=== PATIENT | female | born 1970 | race Caucasian/White ===

== ENCOUNTER 2016-11-29 17:04 | Emergency (ER) | payer OTHER ==
[~2016-11-29 17:04] MED LIST: ALBU17IN INH; BREO1INH INH; COLA100C PO; EXCETAB80 PO; FEOS200T2 PO; INCR1INH INH; PERC5TAB6 PO; PRIL40CA PO; SERT-141 PO; XANA0.5T PO
[2016-11-29] MEDS ORDERED: KETOROLAC 30 MG/ML VIAL (J1885) As Ordered ONE (17:28)
[2016-11-29 17:40] LABS: BASO # 0.1 K/mm3 (0.0-0.2); BASO % 0.6 % (0.0-1.0); EOS # 0.7 K/mm3 (0.0-0.50); EOS % 6.7 % (0.0-3.0); LARGE UNSTAINED CELL # 0.2 K/mm3 (0.0-0.4); LARGE UNSTAINED CELL % 2.2 % (0.0-4.0); LYMPH # 3.6 K/mm3 (1.5-4.5); LYMPH % 33.8 % (24.0-44.0); MEAN CORPUSCULAR HEMOGLOBIN 29.3 pg (27.0-33.0); MEAN CORPUSCULAR HGB CONC 32.9 g/dl (32.0-36.5); MEAN CORPUSCULAR VOLUME 88.8 fl (80.0-96.0); MONO # 0.5 K/mm3 (0.0-0.8); MONO % 5.1 % (0.0-5.0); NEUTROPHILS # 5.4 K/mm3 (1.8-7.7); NEUTROPHILS % 51.7 % (36.0-66.0); PLATELET COUNT, AUTOMATED 463 k/mm3 (150-450); RED CELL DISTRIBUTION WIDTH 14.4 % (11.5-14.5); WHITE BLOOD COUNT 10.5 K/mm3 (4.0-10.0)
[2016-11-29 17:44] LABS: INR 0.94
[2016-11-29 18:03] LABS: ANION GAP 10 MEQ/L (8-16); BLOOD UREA NITROGEN 22 MG/DL (7-18); CALCIUM LEVEL 9.2 MG/DL (8.5-10.1); CARBON DIOXIDE LEVEL 21 MEQ/L (21-32); CHLORIDE LEVEL 113 MEQ/L (98-107); CREATININE FOR GFR 0.64 MG/DL (0.55-1.02); GLOMERULAR FILTRATION RATE > 60.0 (>58); GLUCOSE, FASTING 77 MG/DL (70-105); POTASSIUM SERUM 3.7 MEQ/L (3.5-5.1); SODIUM LEVEL 144 MEQ/L (136-145)
[2016-11-29] MEDS ORDERED: ONDANSETRON 4MG/2ML VIAL (J2405) As Ordered ONE (18:07)
[2016-11-29] MEDS ORDERED: MORPHINE 4 MG/ML 1ML SYRINGE As Ordered ONE ×2 (18:07→18:58)
[2016-11-29 18:13] LABS: ALBUMIN 3.3 GM/DL (3.2-5.2); ALBUMIN/GLOBULIN RATIO 0.97 (1.00-1.93); ALKALINE PHOSPHATASE 91 U/L (45-117); ALT/SGPT 16 U/L (12-78); AST/SGOT 13 U/L (15-37); BILIRUBIN,DIRECT < 0.1 MG/DL (0.0-0.2); BILIRUBIN,TOTAL 0.2 MG/DL (0.2-1.0); TOTAL PROTEIN 6.7 GM/DL (6.4-8.2)
--- NOTE | 2016-11-29 18:51 | REP ---
CHEST, PORTABLE: AP portable view of the chest is performed and compared to prior study of 11/04/2016. Mild scattered fibrotic changes appear stable. There is no pneumothorax or acute infiltrate. The heart is normal in size and the mediastinal silhouette is unchanged. IMPRESSION: No acute pulmonary disease. Signed by Severiano Francis MD 11/29/2016 07:17 P
--- NOTE | 2016-11-29 20:06 | ECGEPIP ---
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
--- NOTE | 2016-11-29 20:34 | EDDOCDS ---
Physician Documentation [facility] Name: Thalia Marshall Age: 46 yrs Sex: Female : 1970 Arrival Date: 11/29/2016 Time: 17:04 Bed 8 Private MD: Loren Crabtree A Disposition: 11/29/16 19:05 Discharged to Home/Self Care. Impression: Other chest pain - pleuritic . - Condition is Stable. - Discharge Instructions: Angina Pectoris, Nonspecific Chest Pain, Costochondritis, Pleurisy. - Prescriptions for [place] 5- 325 mg Oral Tablet - take 1 tablet by ORAL route every 6 hours As needed MDD: 4 tabs; 20 tablet. - Medication Reconciliation, Local Pharmacy Hours form. - Follow up: Loren Crabtree; When: 1 - 2 days. Follow up: Micheal Akhtar; When: Call to arrange an appointment. - Problem is an acute exacerbation. - Symptoms have improved. Historical: - Allergies: no known allergies; - Home Meds: 1. alprazolam 0.5 mg Oral tab 1 tab as needed 2. Breo Ellipta 200-25 mcg/dose inhalation dsdv 1 puff once daily 3. Incruse Ellipta 62.5 mcg/actuation inhalation dsdv 1 puff once daily 4. omeprazole 40 mg Oral cpDR 1 cap once daily 5. Ventolin Rotahaler/Rotacaps Inhl as needed 6. Zoloft 150mg Oral tab once daily - PMHx: COPD; Kidney stones; Pneumothorax, Spontaneous; - PSHx: right lung wedge resection; talc pleurodesis; 2 section; 4 laparscopy; carpal tunnel right arm; - Social history: Smoking status: Patient states former smoker of tobacco. No barriers to communication noted, The patient speaks fluent [place], Speaks appropriately for age. - Family history: Not pertinent. - : The pt / caregiver states he / she is not on anticoagulants. Home medication list is obtained from the patient. - Exposure Risk Screening:: None identified. 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 4 in. (162.56 cm); Pain 7/10; 17:55 Pain 6/10; jmk 19:01 BP 141 / 85 (auto/); jmk 19:01 Pulse 76 MON; Pulse Ox 96% ; jmk 19:40 BP 140 / 74; Pulse 88; Resp 18; Temp 97.6(O); Pulse Ox 97% on R/A; Pain 4/10; nn1 19:41 BP 140 / 74; Pain 4/10; nn1 17:06 Body Mass Index 20.94 (55.34 kg, 162.56 cm) cmb MDM: 17:18 ECG WITH READING ER PHYS+CARDIAG ordered. EDMS 17:23 Instrument Operator/Pulse Ox/q 30 min VS ordered. sd1 17:23 IV Saline Lock ordered. sd1 17:23 Rhythm Strip to chart ordered. sd1 17:23 Undress patient appropriately for examination ordered. sd1 17:23 ketorolac 30 mg IVP once ordered. sd1 17:24 portable chest Ordered. EDMS 17:24 Basic Metabolic Profile Ordered. EDMS 17:24 CBC with Diff Ordered. EDMS 17:24 Cardiac Injury Profile Ordered. EDMS 17:24 D-Dimer Quant Ordered. EDMS 17:24 Prothrombin Time Profile\E\INR Ordered. EDMS 17:24 Troponin Ordered. EDMS 17:38 Liver Profile Ordered. EDMS 17:38 Lipase Ordered. EDMS 17:45 Financial registration complete. jpb 17:46 [facility] Payment Agreement was scanned into [employer] and attached to record. jpb 18:03 CBC with Diff Reviewed. sd1 18:03 D-Dimer Quant Reviewed. sd1 18:03 Prothrombin Time Profile\E\INR Reviewed. sd1 18:04 morphine 4 mg IVP every 15 minutes; Document pain score/vitals after each dose (Hold if sd1 SBP < 90mmHg) x2 ordered. 18:04 Ondansetron 4 mg IVP once ordered. sd1 18:20 Basic Metabolic Profile Reviewed. sd1 18:20 Liver Profile Reviewed. sd1 18:20 Cardiac Injury Profile Reviewed. sd1 18:20 Troponin Reviewed. sd1 18:20 Lipase Reviewed. sd1 Administered Medications: 17:31 Drug: ketorolac 30 mg [ketorolac 30 mg/mL (1 mL) injection solution (1 mL)] Route: IVP; [facility] Site: left antecubital; 17:54 Follow up: Response: Pain is decreased jmk 17:55 Follow up: Pain 6/10 Adult jmk 18:13 Drug: morphine 4 mg Route: IVP; Site: left antecubital; jmk 18:14 Drug: Ondansetron 4 mg Route: IVP; Site: left antecubital; jmk 19:00 Drug: morphine 4 mg Route: IVP; Site: left antecubital; jmk 19:41 Follow up: BP 140 / 74; Pain 4/10 Adult nn1 Signatures: Dispatcher [employer] Laureen Bermudez MD MD sd1 Tonny RcoaRN RN Vic Anderson RN RN mlb1 Chan Torres NikkoleRN RN nn1 The chart was reviewed and I authenticate all verbal orders and agree with the evaluation and treatment provided.Attachments: 17:46 [facility] Payment Agreement [facility] MTDD
--- NOTE | 2016-11-29 20:34 | EDDOCDS ---
Nurse's Notes [facility] Name: Thalia Marshall Age: 46 yrs Sex: Female : 1970 Arrival Date: 11/29/2016 Time: 17:04 Bed 8 Private MD: Loren Crabtree A Diagnosis: Other chest pain-pleuritic Presentation: 11/29 17:10 Presenting complaint: Patient states: Intermittent left side chest pain worse with mlb1 inspiration and cough began at 0900 this am. Aspirin was not taken prior to arrival. Adult Sepsis Screening: The patient does not have new or worsening altered mentation. Patient's respiratory rate is less than 22. Systolic blood pressure is greater than 100. Patient has a qSOFA score of 0- Negative Sepsis Screen. Suicide/Homicide risk assessment- the patient denies having any suicidal and/or homicidal ideations and does not present with any other emotional, behavioral or mental health complaints. Status: Patient is not a facility service manager or dependent. Transition of care: patient was not received from another setting of care. 17:10 Acuity: DARNELL Level 2 mlb1 17:10 Method Of Arrival: Walkin/Carried/Asstd mlb1 Triage Assessment: 17:14 General: Appears distressed, Behavior is appropriate for age, cooperative. Pain: mlb1 Location: back and chest Pain currently is 7 out of 10 on a pain scale. HIV screening NA for this visit Offered previously. 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 alprazolam 0.5 mg Oral tab 1 tab as needed 2. Breo Ellipta 200-25 mcg/dose inhalation dsdv 1 puff once daily 3. Incruse Ellipta 62.5 mcg/actuation inhalation dsdv 1 puff once daily 4. omeprazole 40 mg Oral cpDR 1 cap once daily 5. Ventolin Rotahaler/Rotacaps Inhl as needed 6. Zoloft 150mg Oral tab once daily - PMHx: COPD; Kidney stones; Pneumothorax, Spontaneous; - PSHx: right lung wedge resection; talc pleurodesis; 2 section; 4 laparscopy; carpal tunnel right arm; - Social history: Smoking status: Patient states former smoker of tobacco. No barriers to communication noted, The patient speaks fluent Latvian, Speaks appropriately for age. - Family history: Not pertinent. - : The pt / caregiver states he / she is not on anticoagulants. Home medication list is obtained from the patient. - Exposure Risk Screening:: None identified. Screenin:52 Screening information is obtained from the patient. Fall risk: No risks identified. jmk Assistance ADL's: requires no assistance with activities of daily living. Abuse/DV Screen: The patient / caregiver reports he/she is: not in a situation that causes fear, pain or injury. Nutritional screening: No deficits noted. Advance Directives: Currently, there is no health care proxy. There is no active DNR order. There is no living will. There is no Power of Log Cooker. Advance directive information has not previously been placed in an [facility] medical record. Further advance directive information is declined. home support is adequate. Assessment: 17:52 General: Appears uncomfortable. Pain: Location: left lateral posterior chest, right jmk lateral posterior chest, left lateral anterior chest, right lateral anterior chest, right breast and left breast Pain currently is 7 out of 10 on a pain scale. Cardiovascular: Capillary refill < 3 seconds Clubbing of nail beds is absent Heart tones S1 S2 present Edema is absent. Rhythm is regular Chest pain radiates Does not radiate. Respiratory: No deficits noted. Airway is patent Respiratory effort is even, unlabored, Respiratory pattern is regular, Breath sounds are clear bilaterally. GI: Abdomen is flat, non- distended Bowel sounds present X 4 quads. 19:10 General: Appears medicated for 5/10 discomfort despite casual presentation. k 19:39 General: Appears in no apparent distress, comfortable, Behavior is appropriate for age, nn1 cooperative. Pain: Pain currently is 4 out of 10 on a pain scale. Neurological: Level of Consciousness is awake, alert, obeys commands, Oriented to person, place, time. Respiratory: Airway is patent Respiratory effort is even, unlabored, Respiratory pattern is regular. Derm: Skin is pink, warm & dry. Vital Signs: 17:06 BP 136 / 80; Pulse 108; Resp 20; Temp 98.6; Pulse Ox 98% ; Weight 55.34 kg; Height 5 cmb ft. 4 in. (162.56 cm); Pain 7/10; 17:55 Pain 6/10; jmk 19:01 BP 141 / 85 (auto/); jmk 19:01 Pulse 76 MON; Pulse Ox 96% ; jmk 19:40 BP 140 / 74; Pulse 88; Resp 18; Temp 97.6(O); Pulse Ox 97% on R/A; Pain 4/10; nn1 19:41 BP 140 / 74; Pain 4/10; nn1 17:06 Body Mass Index 20.94 (55.34 kg, 162.56 cm) cmb Vitals: 17:06 Log In Time: November 29, 2016 at 17:04. cmb ED Course: 17:05 Patient visited by Leidy Spence. cmb 17:05 Patient moved to Waiting cmb 17:06 Loren Crabtree is Private Physician. cmb 17:08 Patient moved to 8 cmb 17:08 RN notified that patient meets Red Flag criteria. cmb 17:09 Laureen Espinoza MD is Attending Physician. sd1 17:10 Patient visited by Vic Ruff, RN. mlb1 17:11 Patient visited by Laureen Espinoza MD. sd1 17:12 Triage Initiated mlb1 17:14 Patient visited by Vic Ruff, RN. mlb1 17:27 Basic Metabolic Profile Sent. jmk 17:27 CBC with Diff Sent. jmk 17:27 Cardiac Injury Profile Sent. jmk 17:27 D-Dimer Quant Sent. jmk 17:27 Prothrombin Time Profile\E\INR Sent. jmk 17:27 Troponin Sent. jmk 17:40 Patient visited by Cade Guerra. jml1 17:40 EKG done. (by ED staff). Reviewed by Laureen Espinoza MD. jml1 17:45 Lipase Sent. jmk 17:45 Liver Profile Sent. jmk 17:46 [facility] Payment Agreement was scanned into [employer] and attached to record. jpb 17:52 The patient / caregiver is instructed regarding the plan of care and ED course. Cardiac jmk monitor on. Pulse ox on. 17:52 Inserted saline lock: 20 gauge in left antecubital area. jmk 18:47 Patient visited by Cade Guerra. jml1 19:04 Loren Crabtree is Referral Physician. sd1 19:04 Micheal Akhtar MD is Referral Physician. sd1 19:11 Patient visited by Tonny Roca,RENA. jmk 19:14 portable chest Returned. EDMS 19:41 No procedures done that require assistance. nn1 Administered Medications: 17:31 Drug: ketorolac 30 mg [ketorolac 30 mg/mL (1 mL) injection solution (1 mL)] Route: IVP; [facility] Site: left antecubital; 17:54 Follow up: Response: Pain is decreased jmk 17:55 Follow up: Pain 6/10 Adult jmk 18:13 Drug: morphine 4 mg Route: IVP; Site: left antecubital; k 18:14 Drug: Ondansetron 4 mg Route: IVP; Site: left antecubital; jmk 19:00 Drug: morphine 4 mg Route: IVP; Site: left antecubital; jmk 19:41 Follow up: BP 140 / 74; Pain 4/10 Adult nn1 Order Results: Lab Order: Basic Metabolic Profile; SPEC'M 11/29/16 17:24 Test: GLUCOSE, FASTING; Value: 77; Range: 70-105; Units: MG/DL; Status: F Test: BLOOD UREA NITROGEN; Value: 22; Range: 7-18; Abnormal: Above high normal; Units: MG/DL; Status: F Test: CREATININE FOR GFR; Value: 0.64; Range: 0.55-1.02; Units: MG/DL; Status: F Test: GLOMERULAR FILTRATION RATE; Value: > 60.0; Range: >58; Status: F Test: SODIUM LEVEL; Value: 144; Range: 136-145; Units: MEQ/L; Status: F Test: POTASSIUM SERUM; Value: 3.7; Range: 3.5-5.1; Units: MEQ/L; Status: F Test: CHLORIDE LEVEL; Value: 113; Range: 98-107; Abnormal: Above high normal; Units: MEQ/L; Status: F Test: CARBON DIOXIDE LEVEL; Value: 21; Range: 21-32; Units: MEQ/L; Status: F Test: ANION GAP; Value: 10; Range: 8-16; Units: MEQ/L; Status: F Test: CALCIUM LEVEL; Value: 9.2; Range: 8.5-10.1; Units: MG/DL; Status: F Test Note: ; Units are mL/min/1.73 m2 Chronic Kidney Disease Staging per NKF: Stage I & II GFR >=60 Normal to Mildly Decreased Stage III GFR 30-59 Moderately Decreased Stage IV GFR 15-29 Severely Decreased Stage V GFR <15 Very Little GFR Left ESRD GFR <15 on MEAT 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 AND 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 Lab Order: CBC with Diff; SPEC'M 11/29/16 17:24 Test: WHITE BLOOD COUNT; Value: 10.5; Range: 4.0-10.0; Abnormal: Above high normal; Units: K/mm3; Status: F Test: RED BLOOD COUNT; Value: 4.46; Range: 4.00-5.40; Units: M/mm3; Status: F Test: HEMOGLOBIN; Value: 13.0; Range: 12.0-16.0; Units: g/dl; Status: F Test: HEMATOCRIT; Value: 39.6; Range: 36.0-47.0; Units: %; Status: F Test: MEAN CORPUSCULAR VOLUME; Value: 88.8; Range: 80.0-96.0; Units: fl; Status: F Test: MEAN CORPUSCULAR HEMOGLOBIN; Value: 29.3; Range: 27.0-33.0; Units: pg; Status: F Test: MEAN CORPUSCULAR HGB CONC; Value: 32.9; Range: 32.0-36.5; Units: g/dl; Status: F Test: RED CELL DISTRIBUTION WIDTH; Value: 14.4; Range: 11.5-14.5; Units: %; Status: F Test: PLATELET COUNT, AUTOMATED; Value: 463; Range: 150-450; Abnormal: Above high normal; Units: k/mm3; Status: F Test: NEUTROPHILS %; Value: 51.7; Range: 36.0-66.0; Units: %; Status: F Test: LYMPH %; Value: 33.8; Range: 24.0-44.0; Units: %; Status: F Test: MONO %; Value: 5.1; Range: 0.0-5.0; Abnormal: Above high normal; Units: %; Status: F Test: EOS %; Value: 6.7; Range: 0.0-3.0; Abnormal: Above high normal; Units: %; Status: F Test: BASO %; Value: 0.6; Range: 0.0-1.0; Units: %; Status: F Test: LARGE UNSTAINED CELL %; Value: 2.2; Range: 0.0-4.0; Units: %; Status: F Test: NEUTROPHILS #; Value: 5.4; Range: 1.8-7.7; Units: K/mm3; Status: F Test: LYMPH #; Value: 3.6; Range: 1.5-4.5; Units: K/mm3; Status: F Test: MONO #; Value: 0.5; Range: 0.0-0.8; Units: K/mm3; Status: F Test: EOS #; Value: 0.7; Range: 0.0-0.50; Abnormal: Above high normal; Units: K/mm3; Status: F Test: BASO #; Value: 0.1; Range: 0.0-0.2; Units: K/mm3; Status: F Test: LARGE UNSTAINED CELL #; Value: 0.2; Range: 0.0-0.4; Units: K/mm3; Status: F Lab Order: Cardiac Injury Profile; [facility] 11/29/16 17:24 Test: CPK CREATINE PHOSPHOKINASE; Value: 51; Range: 26-192; Units: U/L; Status: F Test: CK-MB VALUE MASS; Value: 1.0; Range: 0.0-3.6; Units: NG/ML; Status: F Test: MB/CK RELATIVE INDEX; Value: 1.96; Range: < OR =4; Status: F Test Note: ; DIAGNOSIS CRITERIA MMB ng/ml Relative Index (RI) NON-AMI < or = 5 N/A PHILIP ZONE > 5 < or = 4 AMI > 5 > 4 Lab Order: D-Dimer Quant; [facility] 11/29/16 17:24 Test: D-DIMER QUANT; Value: < 270.0; Range: <500; Units: ng/ml; Status: F Lab Order: Prothrombin Time Profile\E\INR; [facility] 11/29/16 17:24 Test: PROTHROMBIN TIME; Value: 12.7; Range: 12.3-14.5; Units: SECONDS; Status: F Test: INR; Value: 0.94; Status: F Test Note: ; THERAPUTIC HUMAN INR VALUES INDICATIONS NORMAL RANGES PROPHYLAXIS/TREATMENT OF: VENOUS THROMBOSIS 2.0-3.0 PULMONARY EMBOLISM 2.0-3.0 PREVENTION OF SYSTEMIC EMBOLISM FROM: TISSUE HEART VALVES 2.0-3.0 ACUTE MYOCARDIAL INFARCTION 2.0-3.0 VALVULAR HEART DISEASE 2.0-3.0 ATRIAL FIBRILLATION 2.0-3.0 MECHANICAL VALVES(HIGH RISK) 2.5-3.5 RECURRENT MYOCARDIAL INFARCTION 2.5-3.5 Lab Order: Troponin; SPEC'M 11/29/16 17:24 Test: TROPONIN I; Value: < 0.02; Range: < 0.10; Units: NG/ML; Status: F Test Note: ; Troponin I Reference Interval for [employer] LOCI: 99th Percentile= 0.00-0.045 ng/ml Risk Stratification: <= 0.10 ng/ml Decreased Risk for Adverse Clinical Events. 0.10-1.50 ng/ml Increased Risk for Adverse Clinical Events. Evaluation of additional criterion and/or repeat testing in 2-6 hours is suggested to rule out myocardial damage. >= 1.50 ng/ml Indicative of Myocardial Injury. Lab Order: Liver Profile; SPEC'M 11/29/16 17:41 Test: AST/SGOT; Value: 13; Range: 15-37; Abnormal: Below low normal; Units: U/L; Status: F Test: ALT/SGPT; Value: 16; Range: 12-78; Units: U/L; Status: F Test: ALKALINE PHOSPHATASE; Value: 91; Range: 45-117; Units: U/L; Status: F Test: BILIRUBIN,TOTAL; Value: 0.2; Range: 0.2-1.0; Units: MG/DL; Status: F Test: BILIRUBIN,DIRECT; Value: < 0.1; Range: 0.0-0.2; Units: MG/DL; Status: F Test: TOTAL PROTEIN; Value: 6.7; Range: 6.4-8.2; Units: GM/DL; Status: F Test: ALBUMIN; Value: 3.3; Range: 3.2-5.2; Units: GM/DL; Status: F Test: ALBUMIN/GLOBULIN RATIO; Value: 0.97; Range: 1.00-1.93; Abnormal: Below low normal; Status: F Lab Order: Lipase; SPEC'M 11/29/16 17:41 Test: LIPASE; Value: 122; Range: 73-393; Units: U/L; Status: F Radiology Order: portable chest Test: portable chest REASON FOR EXAMINATION: Chest Pain; ; CHEST, PORTABLE:; ; AP portable view of the chest is performed and compared to prior study of; 11/04/2016. Mild scattered fibrotic changes appear stable. There is no; pneumothorax or acute infiltrate. The heart is normal in size and the mediastinal; silhouette is unchanged.; ; IMPRESSION:; No acute pulmonary disease.; ; ; ; Unreviewed; Outcome: 19:05 Discharge ordered by Provider. sd1 19:40 Discharge Assessment: Patient awake, alert and oriented x 3. No cognitive and/or nn1 functional deficits noted. Patient verbalized understanding of disposition instructions. patient administered narcotics - yes. Pt provided with safe discharge. 19:41 The following High Risk Discharge criteria are identified: None. Discharged to home nn1 ambulatory, with family. Condition: stable. Prescriptions given X 1. No special radiology studies were completed. Property :Personal belongings accompany Pt. 19:42 Patient left the ED. nn1 Signatures: Dispatcher [employer] Laureen Bermudez MD MD sd1 Tonny Roca,RN RN Vic Anderson RN RN Caed Paul Joel jpb Boshart, [place] cmb Nunez, Nikkole,RN RN nn1 RAMÍREZ
--- NOTE | 2016-12-01 20:45 | EDDOCDS ---
Physician Documentation [facility] Name: Thalia Marshall Age: 46 yrs Sex: Female : 1970 Arrival Date: 11/29/2016 Time: 17:04 Bed 8 Private MD: Loren Crabtree A Disposition: 11/29/16 19:05 Discharged to Home/Self Care. Impression: Other chest pain - pleuritic . - Condition is Stable. - Discharge Instructions: Angina Pectoris, Nonspecific Chest Pain, Costochondritis, Pleurisy. - Prescriptions for [place] 5- 325 mg Oral Tablet - take 1 tablet by ORAL route every 6 hours As needed MDD: 4 tabs; 20 tablet. - Medication Reconciliation, Local Pharmacy Hours form. - Follow up: Loren Crabtree; When: 1 - 2 days. Follow up: Micheal Akhtar; When: Call to arrange an appointment. - Problem is an acute exacerbation. - Symptoms have improved. Historical: - Allergies: no known allergies; - Home Meds: 1. alprazolam 0.5 mg Oral tab 1 tab as needed 2. Breo Ellipta 200-25 mcg/dose inhalation dsdv 1 puff once daily 3. Incruse Ellipta 62.5 mcg/actuation inhalation dsdv 1 puff once daily 4. omeprazole 40 mg Oral cpDR 1 cap once daily 5. Ventolin Rotahaler/Rotacaps Inhl as needed 6. Zoloft 150mg Oral tab once daily - PMHx: COPD; Kidney stones; Pneumothorax, Spontaneous; - PSHx: right lung wedge resection; talc pleurodesis; 2 section; 4 laparscopy; carpal tunnel right arm; - Social history: Smoking status: Patient states former smoker of tobacco. No barriers to communication noted, The patient speaks fluent Czech, Speaks appropriately for age. - Family history: Not pertinent. - : The pt / caregiver states he / she is not on anticoagulants. Home medication list is obtained from the patient. - Exposure Risk Screening:: None identified. 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 4 in. (162.56 cm); Pain 7/10; 17:55 Pain 6/10; jmk 19:01 BP 141 / 85 (auto/); jmk 19:01 Pulse 76 MON; Pulse Ox 96% ; jmk 19:40 BP 140 / 74; Pulse 88; Resp 18; Temp 97.6(O); Pulse Ox 97% on R/A; Pain 4/10; nn1 19:41 BP 140 / 74; Pain 4/10; nn1 17:06 Body Mass Index 20.94 (55.34 kg, 162.56 cm) cmb MDM: 17:18 ECG WITH READING ER PHYS+CARDIAG ordered. EDMS 17:23 Regional Sales Representative/Pulse Ox/q 30 min VS ordered. sd1 17:23 IV Saline Lock ordered. sd1 17:23 Rhythm Strip to chart ordered. sd1 17:23 Undress patient appropriately for examination ordered. sd1 17:23 ketorolac 30 mg IVP once ordered. sd1 17:24 portable chest Ordered. EDMS 17:24 Basic Metabolic Profile Ordered. EDMS 17:24 CBC with Diff Ordered. EDMS 17:24 Cardiac Injury Profile Ordered. EDMS 17:24 D-Dimer Quant Ordered. EDMS 17:24 Prothrombin Time Profile\E\INR Ordered. EDMS 17:24 Troponin Ordered. EDMS 17:38 Liver Profile Ordered. EDMS 17:38 Lipase Ordered. EDMS 17:45 Financial registration complete. jpb 17:46 [facility] Payment Agreement was scanned into [employer] and attached to record. jpb 18:03 CBC with Diff Reviewed. sd1 18:03 D-Dimer Quant Reviewed. sd1 18:03 Prothrombin Time Profile\E\INR Reviewed. sd1 18:04 morphine 4 mg IVP every 15 minutes; Document pain score/vitals after each dose (Hold if sd1 SBP < 90mmHg) x2 ordered. 18:04 Ondansetron 4 mg IVP once ordered. sd1 18:20 Basic Metabolic Profile Reviewed. sd1 18:20 Liver Profile Reviewed. sd1 18:20 Cardiac Injury Profile Reviewed. sd1 18:20 Troponin Reviewed. sd1 18:20 Lipase Reviewed. sd1 12/01 08:36 T-Sheet-- Draft Copy was scanned into [employer] and attached to record. gb 08:36 ECG/EKG was scanned into [employer] and attached to record. gb Administered Medications: 11/29 17:31 Drug: ketorolac 30 mg [ketorolac 30 mg/mL (1 mL) injection solution (1 mL)] Route: IVP; [facility] Site: left antecubital; 17:54 Follow up: Response: Pain is decreased jmk 17:55 Follow up: Pain 6/10 Adult jmk 18:13 Drug: morphine 4 mg Route: IVP; Site: left antecubital; k 18:14 Drug: Ondansetron 4 mg Route: IVP; Site: left antecubital; k 19:00 Drug: morphine 4 mg Route: IVP; Site: left antecubital; k 19:41 Follow up: BP 140 / 74; Pain 4/10 Adult nn1 Signatures: Dispatcher [employer] EDLaureen Eid MD MD sd1 Tonny RocaRN RN Vangie Mirza, Vic Jurado RN RN mlb1 Chan Torres NikkoleRN RN nn1 The chart was reviewed and I authenticate all verbal orders and agree with the evaluation and treatment provided.Attachments: 17:46 [facility] Payment Agreement jpb 12/01 08:36 T-Sheet-- Draft Copy 08:36 ECG/EKG Chart Complete MTDD
--- NOTE | 2016-12-01 20:45 | EDDOCDS ---
Physician Documentation [facility] Name: Thalia Marshall Age: 46 yrs Sex: Female : 1970 Arrival Date: 11/29/2016 Time: 17:04 Bed 8 Private MD: Loren Crabtree A Disposition: 11/29/16 19:05 Discharged to Home/Self Care. Impression: Other chest pain - pleuritic . - Condition is Stable. - Discharge Instructions: Angina Pectoris, Nonspecific Chest Pain, Costochondritis, Pleurisy. - Prescriptions for [place] 5- 325 mg Oral Tablet - take 1 tablet by ORAL route every 6 hours As needed MDD: 4 tabs; 20 tablet. - Medication Reconciliation, Local Pharmacy Hours form. - Follow up: Loren Crabtree; When: 1 - 2 days. Follow up: Micheal Akhtar; When: Call to arrange an appointment. - Problem is an acute exacerbation. - Symptoms have improved. Historical: - Allergies: no known allergies; - Home Meds: 1. alprazolam 0.5 mg Oral tab 1 tab as needed 2. Breo Ellipta 200-25 mcg/dose inhalation dsdv 1 puff once daily 3. Incruse Ellipta 62.5 mcg/actuation inhalation dsdv 1 puff once daily 4. omeprazole 40 mg Oral cpDR 1 cap once daily 5. Ventolin Rotahaler/Rotacaps Inhl as needed 6. Zoloft 150mg Oral tab once daily - PMHx: COPD; Kidney stones; Pneumothorax, Spontaneous; - PSHx: right lung wedge resection; talc pleurodesis; 2 section; 4 laparscopy; carpal tunnel right arm; - Social history: Smoking status: Patient states former smoker of tobacco. No barriers to communication noted, The patient speaks fluent Hungarian, Speaks appropriately for age. - Family history: Not pertinent. - : The pt / caregiver states he / she is not on anticoagulants. Home medication list is obtained from the patient. - Exposure Risk Screening:: None identified. 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 4 in. (162.56 cm); Pain 7/10; 17:55 Pain 6/10; jmk 19:01 BP 141 / 85 (auto/); jmk 19:01 Pulse 76 MON; Pulse Ox 96% ; jmk 19:40 BP 140 / 74; Pulse 88; Resp 18; Temp 97.6(O); Pulse Ox 97% on R/A; Pain 4/10; nn1 19:41 BP 140 / 74; Pain 4/10; nn1 17:06 Body Mass Index 20.94 (55.34 kg, 162.56 cm) cmb MDM: 17:18 ECG WITH READING ER PHYS+CARDIAG ordered. EDMS 17:23 High Speed Warper Tender/Pulse Ox/q 30 min VS ordered. sd1 17:23 IV Saline Lock ordered. sd1 17:23 Rhythm Strip to chart ordered. sd1 17:23 Undress patient appropriately for examination ordered. sd1 17:23 ketorolac 30 mg IVP once ordered. sd1 17:24 portable chest Ordered. EDMS 17:24 Basic Metabolic Profile Ordered. EDMS 17:24 CBC with Diff Ordered. EDMS 17:24 Cardiac Injury Profile Ordered. EDMS 17:24 D-Dimer Quant Ordered. EDMS 17:24 Prothrombin Time Profile\E\INR Ordered. EDMS 17:24 Troponin Ordered. EDMS 17:38 Liver Profile Ordered. EDMS 17:38 Lipase Ordered. EDMS 17:45 Financial registration complete. jpb 17:46 [facility] Payment Agreement was scanned into [employer] and attached to record. jpb 18:03 CBC with Diff Reviewed. sd1 18:03 D-Dimer Quant Reviewed. sd1 18:03 Prothrombin Time Profile\E\INR Reviewed. sd1 18:04 morphine 4 mg IVP every 15 minutes; Document pain score/vitals after each dose (Hold if sd1 SBP < 90mmHg) x2 ordered. 18:04 Ondansetron 4 mg IVP once ordered. sd1 18:20 Basic Metabolic Profile Reviewed. sd1 18:20 Liver Profile Reviewed. sd1 18:20 Cardiac Injury Profile Reviewed. sd1 18:20 Troponin Reviewed. sd1 18:20 Lipase Reviewed. sd1 12/01 08:36 T-Sheet-- Draft Copy was scanned into [employer] and attached to record. gb 08:36 ECG/EKG was scanned into [employer] and attached to record. gb Administered Medications: 11/29 17:31 Drug: ketorolac 30 mg [ketorolac 30 mg/mL (1 mL) injection solution (1 mL)] Route: IVP; [facility] Site: left antecubital; 17:54 Follow up: Response: Pain is decreased jmk 17:55 Follow up: Pain 6/10 Adult jmk 18:13 Drug: morphine 4 mg Route: IVP; Site: left antecubital; k 18:14 Drug: Ondansetron 4 mg Route: IVP; Site: left antecubital; k 19:00 Drug: morphine 4 mg Route: IVP; Site: left antecubital; k 19:41 Follow up: BP 140 / 74; Pain 4/10 Adult nn1 Signatures: Dispatcher [employer] EDLaureen Eid MD MD sd1 Tonny RocaRN RN Vangie Mirza, Vic Jurado RN RN mlb1 Chan Torres NikkoleRN RN nn1 The chart was reviewed and I authenticate all verbal orders and agree with the evaluation and treatment provided.Attachments: 17:46 [facility] Payment Agreement jpb 12/01 08:36 T-Sheet-- Draft Copy 08:36 ECG/EKG Chart Complete MTDD
--- NOTE | 2016-12-01 20:45 | EDDOCDS ---
Nurse's Notes [facility] Name: Nancy Marshall Age: 46 yrs Sex: Female : 1970 Arrival Date: 11/29/2016 Time: 17:04 Bed 8 Private MD: Loren Crabtree A Diagnosis: Other chest pain-pleuritic Presentation: 11/29 17:10 Presenting complaint: Patient states: Intermittent left side chest pain worse with mlb1 inspiration and cough began at 0900 this am. Aspirin was not taken prior to arrival. Adult Sepsis Screening: The patient does not have new or worsening altered mentation. Patient's respiratory rate is less than 22. Systolic blood pressure is greater than 100. Patient has a qSOFA score of 0- Negative Sepsis Screen. Suicide/Homicide risk assessment- the patient denies having any suicidal and/or homicidal ideations and does not present with any other emotional, behavioral or mental health complaints. Status: Patient is not a rn patient services or dependent. Transition of care: patient was not received from another setting of care. 17:10 Acuity: DARNELL Level 2 mlb1 17:10 Method Of Arrival: Walkin/Carried/Asstd mlb1 Triage Assessment: 17:14 General: Appears distressed, Behavior is appropriate for age, cooperative. Pain: mlb1 Location: back and chest Pain currently is 7 out of 10 on a pain scale. HIV screening NA for this visit Offered previously. 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 alprazolam 0.5 mg Oral tab 1 tab as needed 2. Breo Ellipta 200-25 mcg/dose inhalation dsdv 1 puff once daily 3. Incruse Ellipta 62.5 mcg/actuation inhalation dsdv 1 puff once daily 4. omeprazole 40 mg Oral cpDR 1 cap once daily 5. Ventolin Rotahaler/Rotacaps Inhl as needed 6. Zoloft 150mg Oral tab once daily - PMHx: COPD; Kidney stones; Pneumothorax, Spontaneous; - PSHx: right lung wedge resection; talc pleurodesis; 2 section; 4 laparscopy; carpal tunnel right arm; - Social history: Smoking status: Patient states former smoker of tobacco. No barriers to communication noted, The patient speaks fluent Kiswahili, Speaks appropriately for age. - Family history: Not pertinent. - : The pt / caregiver states he / she is not on anticoagulants. Home medication list is obtained from the patient. - Exposure Risk Screening:: None identified. Screenin:52 Screening information is obtained from the patient. Fall risk: No risks identified. jmk Assistance ADL's: requires no assistance with activities of daily living. Abuse/DV Screen: The patient / caregiver reports he/she is: not in a situation that causes fear, pain or injury. Nutritional screening: No deficits noted. Advance Directives: Currently, there is no health care proxy. There is no active DNR order. There is no living will. 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 Advance directive information has not previously been placed in an [facility] medical record. Further advance directive information is declined. home support is adequate. Assessment: 17:52 General: Appears uncomfortable. Pain: Location: left lateral posterior chest, right jmk lateral posterior chest, left lateral anterior chest, right lateral anterior chest, right breast and left breast Pain currently is 7 out of 10 on a pain scale. Cardiovascular: Capillary refill < 3 seconds Clubbing of nail beds is absent Heart tones S1 S2 present Edema is absent. Rhythm is regular Chest pain radiates Does not radiate. Respiratory: No deficits noted. Airway is patent Respiratory effort is even, unlabored, Respiratory pattern is regular, Breath sounds are clear bilaterally. GI: Abdomen is flat, non- distended Bowel sounds present X 4 quads. 19:10 General: Appears medicated for 5/10 discomfort despite casual presentation. k 19:39 General: Appears in no apparent distress, comfortable, Behavior is appropriate for age, nn1 cooperative. Pain: Pain currently is 4 out of 10 on a pain scale. Neurological: Level of Consciousness is awake, alert, obeys commands, Oriented to person, place, time. Respiratory: Airway is patent Respiratory effort is even, unlabored, Respiratory pattern is regular. Derm: Skin is pink, warm & dry. Vital Signs: 17:06 BP 136 / 80; Pulse 108; Resp 20; Temp 98.6; Pulse Ox 98% ; Weight 55.34 kg; Height 5 cmb ft. 4 in. (162.56 cm); Pain 7/10; 17:55 Pain 6/10; jmk 19:01 BP 141 / 85 (auto/); jmk 19:01 Pulse 76 MON; Pulse Ox 96% ; jmk 19:40 BP 140 / 74; Pulse 88; Resp 18; Temp 97.6(O); Pulse Ox 97% on R/A; Pain 4/10; nn1 19:41 BP 140 / 74; Pain 4/10; nn1 17:06 Body Mass Index 20.94 (55.34 kg, 162.56 cm) cmb Vitals: 17:06 Log In Time: November 29, 2016 at 17:04. cmb ED Course: 17:05 Patient visited by Leidy Spence. cmb 17:05 Patient moved to Waiting cmb 17:06 Loren Crabtree is Private Physician. cmb 17:08 Patient moved to 8 cmb 17:08 RN notified that patient meets Red Flag criteria. cmb 17:09 Laureen Espinoza MD is Attending Physician. sd1 17:10 Patient visited by Vic Ruff, RN. mlb1 17:11 Patient visited by Laureen Espinoza MD. sd1 17:12 Triage Initiated mlb1 17:14 Patient visited by Vic Ruff, RN. mlb1 17:27 Basic Metabolic Profile Sent. jmk 17:27 CBC with Diff Sent. jmk 17:27 Cardiac Injury Profile Sent. jmk 17:27 D-Dimer Quant Sent. jmk 17:27 Prothrombin Time Profile\E\INR Sent. jmk 17:27 Troponin Sent. jmk 17:40 Patient visited by Cade Guerra. jml1 17:40 EKG done. (by ED staff). Reviewed by Laureen Espinoza MD. jml1 17:45 Lipase Sent. jmk 17:45 Liver Profile Sent. jmk 17:46 [facility] Payment Agreement was scanned into [employer] and attached to record. jpb 17:52 The patient / caregiver is instructed regarding the plan of care and ED course. Cardiac jmk monitor on. Pulse ox on. 17:52 Inserted saline lock: 20 gauge in left antecubital area. jmk 18:47 Patient visited by Cade Guerra. jml1 19:04 Loren Crabtree is Referral Physician. sd1 19:04 Micheal Akhtar MD is Referral Physician. sd1 19:11 Patient visited by Tonny Roca,REAN. jmk 19:14 portable chest Returned. EDMS 19:41 No procedures done that require assistance. nn1 20:33 EKG-ADULT Returned. EDMS 12/01 08:36 T-Sheet-- Draft Copy was scanned into [employer] and attached to record. gb 08:36 ECG/EKG was scanned into [employer] and attached to record. gb Administered Medications: 11/29 17:31 Drug: ketorolac 30 mg [ketorolac 30 mg/mL (1 mL) injection solution (1 mL)] Route: IVP; [facility] Site: left antecubital; 17:54 Follow up: Response: Pain is decreased jmk 17:55 Follow up: Pain 6/10 Adult jmk 18:13 Drug: morphine 4 mg Route: IVP; Site: left antecubital; jmk 18:14 Drug: Ondansetron 4 mg Route: IVP; Site: left antecubital; jmk 19:00 Drug: morphine 4 mg Route: IVP; Site: left antecubital; jmk 19:41 Follow up: BP 140 / 74; Pain 4/10 Adult nn1 Order Results: Lab Order: Basic Metabolic Profile; SPEC'M 11/29/16 17:24 Test: GLUCOSE, FASTING; Value: 77; Range: 70-105; Units: MG/DL; Status: F Test: BLOOD UREA NITROGEN; Value: 22; Range: 7-18; Abnormal: Above high normal; Units: MG/DL; Status: F Test: CREATININE FOR GFR; Value: 0.64; Range: 0.55-1.02; Units: MG/DL; Status: F Test: GLOMERULAR FILTRATION RATE; Value: > 60.0; Range: >58; Status: F Test: SODIUM LEVEL; Value: 144; Range: 136-145; Units: MEQ/L; Status: F Test: POTASSIUM SERUM; Value: 3.7; Range: 3.5-5.1; Units: MEQ/L; Status: F Test: CHLORIDE LEVEL; Value: 113; Range: 98-107; Abnormal: Above high normal; Units: MEQ/L; Status: F Test: CARBON DIOXIDE LEVEL; Value: 21; Range: 21-32; Units: MEQ/L; Status: F Test: ANION GAP; Value: 10; Range: 8-16; Units: MEQ/L; Status: F Test: CALCIUM LEVEL; Value: 9.2; Range: 8.5-10.1; Units: MG/DL; Status: F Test Note: ; Units are mL/min/1.73 m2 Chronic Kidney Disease Staging per NKF: Stage I & II GFR >=60 Normal to Mildly Decreased Stage III GFR 30-59 Moderately Decreased Stage IV GFR 15-29 Severely Decreased Stage V GFR <15 Very Little GFR Left ESRD GFR <15 on TECHNICAL SYSTEMS ARCHITECT Lab Order: CBC with Diff; SPEC'M 11/29/16 17:24 Test: WHITE BLOOD COUNT; Value: 10.5; Range: 4.0-10.0; Abnormal: Above high normal; Units: K/mm3; Status: F Test: RED BLOOD COUNT; Value: 4.46; Range: 4.00-5.40; Units: M/mm3; Status: F Test: HEMOGLOBIN; Value: 13.0; Range: 12.0-16.0; Units: g/dl; Status: F Test: HEMATOCRIT; Value: 39.6; Range: 36.0-47.0; Units: %; Status: F Test: MEAN CORPUSCULAR VOLUME; Value: 88.8; Range: 80.0-96.0; Units: fl; Status: F Test: MEAN CORPUSCULAR HEMOGLOBIN; Value: 29.3; Range: 27.0-33.0; Units: pg; Status: F Test: MEAN CORPUSCULAR HGB CONC; Value: 32.9; Range: 32.0-36.5; Units: g/dl; Status: F Test: RED CELL DISTRIBUTION WIDTH; Value: 14.4; Range: 11.5-14.5; Units: %; Status: F Test: PLATELET COUNT, AUTOMATED; Value: 463; Range: 150-450; Abnormal: Above high normal; Units: k/mm3; Status: F Test: NEUTROPHILS %; Value: 51.7; Range: 36.0-66.0; Units: %; Status: F Test: LYMPH %; Value: 33.8; Range: 24.0-44.0; Units: %; Status: F Test: MONO %; Value: 5.1; Range: 0.0-5.0; Abnormal: Above high normal; Units: %; Status: F Test: EOS %; Value: 6.7; Range: 0.0-3.0; Abnormal: Above high normal; Units: %; Status: F Test: BASO %; Value: 0.6; Range: 0.0-1.0; Units: %; Status: F Test: LARGE UNSTAINED CELL %; Value: 2.2; Range: 0.0-4.0; Units: %; Status: F Test: NEUTROPHILS #; Value: 5.4; Range: 1.8-7.7; Units: K/mm3; Status: F Test: LYMPH #; Value: 3.6; Range: 1.5-4.5; Units: K/mm3; Status: F Test: MONO #; Value: 0.5; Range: 0.0-0.8; Units: K/mm3; Status: F Test: EOS #; Value: 0.7; Range: 0.0-0.50; Abnormal: Above high normal; Units: K/mm3; Status: F Test: BASO #; Value: 0.1; Range: 0.0-0.2; Units: K/mm3; Status: F Test: LARGE UNSTAINED CELL #; Value: 0.2; Range: 0.0-0.4; Units: K/mm3; Status: F Lab Order: Cardiac Injury Profile; 11/29/16 17:24 Test: CPK CREATINE PHOSPHOKINASE; Value: 51; Range: 26-192; Units: U/L; Status: F Test: CK-MB VALUE MASS; Value: 1.0; Range: 0.0-3.6; Units: NG/ML; Status: F Test: MB/CK RELATIVE INDEX; Value: 1.96; Range: < OR =4; Status: F Test Note: ; DIAGNOSIS CRITERIA MMB ng/ml Relative Index (RI) NON-AMI < or = 5 N/A FRANCIS ZONE > 5 < or = 4 AMI > 5 > 4 Lab Order: D-Dimer Quant; 11/29/16 17:24 Test: D-DIMER QUANT; Value: < 270.0; Range: <500; Units: ng/ml; Status: F Lab Order: Prothrombin Time Profile\E\INR; 11/29/16 17:24 Test: PROTHROMBIN TIME; Value: 12.7; Range: 12.3-14.5; Units: SECONDS; Status: F Test: INR; Value: 0.94; Status: F Test Note: ; THERAPUTIC HUMAN INR VALUES INDICATIONS NORMAL RANGES PROPHYLAXIS/TREATMENT OF: VENOUS THROMBOSIS 2.0-3.0 PULMONARY EMBOLISM 2.0-3.0 PREVENTION OF SYSTEMIC EMBOLISM FROM: TISSUE HEART VALVES 2.0-3.0 ACUTE MYOCARDIAL INFARCTION 2.0-3.0 VALVULAR HEART DISEASE 2.0-3.0 ATRIAL FIBRILLATION 2.0-3.0 MECHANICAL VALVES(HIGH RISK) 2.5-3.5 RECURRENT MYOCARDIAL INFARCTION 2.5-3.5 Lab Order: Troponin; SPEC'M 11/29/16 17:24 Test: TROPONIN I; Value: < 0.02; Range: < 0.10; Units: NG/ML; Status: F Test Note: ; Troponin I Reference Interval for Daily Secret LOCI: 99th Percentile= 0.00-0.045 ng/ml Risk Stratification: <= 0.10 ng/ml Decreased Risk for Adverse Clinical Events. 0.10-1.50 ng/ml Increased Risk for Adverse Clinical Events. Evaluation of additional criterion and/or repeat testing in 2-6 hours is suggested to rule out myocardial damage. >= 1.50 ng/ml Indicative of Myocardial Injury. Lab Order: Liver Profile; SPEC'M 11/29/16 17:41 Test: AST/SGOT; Value: 13; Range: 15-37; Abnormal: Below low normal; Units: U/L; Status: F Test: ALT/SGPT; Value: 16; Range: 12-78; Units: U/L; Status: F Test: ALKALINE PHOSPHATASE; Value: 91; Range: 45-117; Units: U/L; Status: F Test: BILIRUBIN,TOTAL; Value: 0.2; Range: 0.2-1.0; Units: MG/DL; Status: F Test: BILIRUBIN,DIRECT; Value: < 0.1; Range: 0.0-0.2; Units: MG/DL; Status: F Test: TOTAL PROTEIN; Value: 6.7; Range: 6.4-8.2; Units: GM/DL; Status: F Test: ALBUMIN; Value: 3.3; Range: 3.2-5.2; Units: GM/DL; Status: F Test: ALBUMIN/GLOBULIN RATIO; Value: 0.97; Range: 1.00-1.93; Abnormal: Below low normal; Status: F Lab Order: Lipase; PERICO'Jennifer 11/29/16 17:41 Test: LIPASE; Value: 122; Range: 73-393; Units: U/L; Status: F Radiology Order: EKG-ADULT Test: EKG-ADULT REASON FOR EXAMINATION: Chest Pain; Stationary ECG Study; [facility] - ED; ; Test Date: 2016-11-29; Pat Name: NANCY MARSHALL Department:; Room: -; Gender: F [employer]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 Mild scattered fibrotic changes appear stable. There is no; pneumothorax or acute infiltrate. The heart is normal in size and the mediastinal; silhouette is unchanged.; ; IMPRESSION:; ; No acute pulmonary disease.; ; ; Signed by; Severinao Francis MD 11/29/2016 07:17 P; Outcome: 19:05 Discharge ordered by Provider. sd1 19:40 Discharge Assessment: Patient awake, alert and oriented x 3. No cognitive and/or nn1 functional deficits noted. Patient verbalized understanding of disposition instructions. patient administered narcotics - yes. Pt provided with safe discharge. 19:41 The following High Risk Discharge criteria are identified: None. Discharged to home nn1 ambulatory, with family. Condition: stable. Prescriptions given X 1. No special radiology studies were completed. Property :Personal belongings accompany Pt. 19:42 Patient left the ED. nn1 Signatures: Dispatcher [employer] SAJI Espinoza Laureen, MD MD sd1 Tonny Roca,RN RN jmk Vangie Boogie Reg Reg gb Barney, Michael B RN RN mlb1 Cade Guerra jml1 Chan Torres [place] cmb Nunez, Nikkole,RN RN nn1 Chart Complete MTDD
== END 2016-11-29 19:42 | disposition home or self-care (01) ==
LOC: M ED 17:04
DX: R07.1 Chest pain on breathing (principal); J44.9 Chronic obstructive pulmonary disease, unspecified; Z87.891 Personal history of nicotine dependence; Z87.09 Personal history of other diseases of the respiratory system; Z79.899 Other long term (current) drug therapy; Z79.51 Long term (current) use of inhaled steroids
CPT/HCPCS: 71010; 80048; 80076; 82550; 82553; 83690; 85025; 85379; 85610; 93005; 93041; 96374; 96375; 96376; 99285; J1885; J2405

== ENCOUNTER 2016-12-05 09:39 | Emergency (ER) | payer OTHER ==
[2016-12-05] MEDS ORDERED: MORPHINE 4 MG/ML 1ML SYRINGE As Ordered ONE ×2 (10:57→11:32)
--- NOTE | 2016-12-05 11:16 | REP ---
Clinical: Chest pain . Comparison: 11/29/2016 . Findings: The mediastinum and cardiac silhouette are stable and within normal limits for portable technique. The lung ro are clear without acute consolidation, effusion, or pneumothorax. Skeletal structures are intact. Impression: Stable chest x-ray. No acute cardiopulmonary process appreciated. Signed by Swapnil Wood MD 12/05/2016 11:07 A
[2016-12-05] MEDS ORDERED: KETOROLAC 30 MG/ML VIAL (J1885) As Ordered ONE (11:53)
--- NOTE | 2016-12-05 12:28 | EDDOCDS ---
Physician Documentation [facility] Name: Thalia Marshall Age: 46 yrs Sex: Female : 1970 Arrival Date: 12/05/2016 Time: 09:39 Bed 11 Private MD: Loren Crabtree Disposition: 12/05/16 12:04 Discharged to Home/Self Care. Impression: Pleurisy. - Condition is Stable. - Discharge Instructions: Pleurisy. - Prescriptions for Percocet 5- 325 mg Oral Tablet - take 1 tablet by ORAL route every 6 hours As needed MDD: 4 tabs; 20 tablet. - Medication Reconciliation, Local Pharmacy Hours form. - Follow up: Loren Crabtree MD; When: 1 week; Reason: Recheck today's complaints. - Problem is an acute exacerbation. - Symptoms have improved. - Notes: You were evaluated in the emergency department for non-cardiac chest pain. Your laboratory and imaging results were without abnormality. Your pain improved with medication administered in the ED. A short course of pain medication has been prescribed. Please follow up with Dr. Crabtree' office in 1 week. Historical: - Allergies: no known allergies; - Home Meds: 1. Vicodin 5/500 Oral 1 tab as needed (Last dose: 12/05/2016 08:30) 2. alprazolam 0.5 mg Oral tab 1 tab as needed (Last dose: 12/05/2016 05:30) 3. Breo Ellipta 200-25 mcg/dose inhalation dsdv 1 puff once daily (Last dose: 12/05/2016 05:30) 4. Incruse Ellipta 62.5 mcg/actuation inhalation dsdv 1 puff once daily (Last dose: 12/05/2016 05:30) 5. omeprazole 40 mg Oral cpDR 1 cap once daily (Last dose: 12/05/2016 05:30) 6. Ventolin Rotahaler/Rotacaps Inhl as needed (Last dose: 12/04/2016) 7. Zoloft 150mg Oral tab once daily (Last dose: 12/05/2016 05:30) - PMHx: COPD; Kidney stones; Pneumothorax, Spontaneous; Pulmonary fibrosis; - PSHx: none; ; Carpal Tunnel Repair- Right; ''Surgery to my right lung'' 2015; - Social history: Smoking status: Patient states former smoker of tobacco. No barriers to communication noted, The patient speaks fluent Bermudian. - Family history: Not pertinent. - : The pt / caregiver states he / she is not on anticoagulants. Home medication list is obtained from the patient. - Exposure Risk Screening:: None identified. 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 4 in. (162.56 cm) (R); Pain 8/10; 11:15 Pain 7/10; kcs 11:25 Pain 7/10; kcs 11:36 BP 120 / 78; Pulse 68; Resp 16; Pulse Ox 100% on R/A; Pain 7/10; kcs 11:55 Pain 6/10; kcs 09:40 Body Mass Index 20.60 (54.43 kg, 162.56 cm) ct3 MDM: 09:49 ECG WITH READING ER PHYS+CARDIAG ordered. EDMS 10:44 morphine 4 mg IVP every 15 minutes; Document pain score/vitals after each dose (Hold if jo4 SBP < 90mmHg) x2 ordered. 10:45 IV Saline Lock ordered. jo4 10:45 D-Dimer Quant Ordered. EDMS 10:46 Chest, 1 View Ordered. EDMS 10:51 [facility] Payment Agreement was scanned into [employer] and attached to record. pm4 10:51 Financial registration complete. pm4 11:32 Chest, 1 View Reviewed. jo4 11:32 D-Dimer Quant Reviewed. jo4 11:38 ice chips 1 applic PO now ordered. jo4 11:46 ketorolac 30 mg IVP once ordered. jo4 Administered Medications: 11:05 Drug: morphine 4 mg [morphine 4 mg/mL intravenous cartridge (1 mL)] Route: IVP; Site: kcs left antecubital; 11:41 Drug: morphine 4 mg [morphine 4 mg/mL intravenous cartridge (1 mL)] Route: IVP; Site: kcs left antecubital; 11:52 Drug: ice chips 1 applic Route: PO; kcs 11:57 Drug: ketorolac 30 mg [ketorolac 30 mg/mL (1 mL) injection solution (1 mL)] Route: IVP; kcs Site: left antecubital; Signatures: Dispatcher [employer] Severiano Oquendo RN RN dwg Youngs, David, RN RN dy Oosthuizen, Jane, DO DO jo4 Martin Mckeon, Reg Reg pm4 Carrol Shay RN The chart was reviewed and I authenticate all verbal orders and agree with the evaluation and treatment provided.Corrections: (The following items were deleted from the chart) 09:53 09:51 PMHx: ''Surgery to my right lung'' 2015; nichole varela Attachments: 10:51 [facility] Payment Agreement pm4 MTDD
--- NOTE | 2016-12-05 12:29 | EDDOCDS ---
Nurse's Notes [facility] Name: Thalia Marshall Age: 46 yrs Sex: Female : 1970 Arrival Date: 12/05/2016 Time: 09:39 Bed 11 Private MD: Loren Crabtree Diagnosis: Pleurisy Presentation: 12/05 09:46 Presenting complaint: Patient states: Sudden onset of sharp. stabbing pain to right [facility] upper lateral chest area, started at 830am today, no injury. Aspirin was not taken prior to arrival. Adult Sepsis Screening: The patient does not have new or worsening altered mentation. Patient's respiratory rate is less than 22. Systolic blood pressure is greater than 100. Patient has a qSOFA score of 0- Negative Sepsis Screen. Suicide/Homicide risk assessment- the patient denies having any suicidal and/or homicidal ideations and does not present with any other emotional, behavioral or mental health complaints. Status: Patient is not a readers' advisory service librarian or dependent. Transition of care: patient was not received from another setting of care. 09:46 Acuity: DARNELL Level 3 [facility] 09:46 Method Of Arrival: Wheelchair [facility] Triage Assessment: 09:52 General: Appears in no apparent distress, uncomfortable. Pain: Pain currently is 8 out dwg of 10 on a pain scale. HIV screening NA for this visit Offered previously. 12:27 Cardiovascular: Chest pain is described as vague, radiates Does not radiate. episodes dy are continuous began 30 minutes prior to arrival. SPECTROGRAPHER: 09:52 LMP 12/02/2016 [facility] Historical: - Allergies: no known allergies; - Home Meds: 1. Vicodin 5/500 Oral 1 tab as needed (Last dose: 12/05/2016 08:30) 2. alprazolam 0.5 mg Oral tab 1 tab as needed (Last dose: 12/05/2016 05:30) 3. Breo Ellipta 200-25 mcg/dose inhalation dsdv 1 puff once daily (Last dose: 12/05/2016 05:30) 4. Incruse Ellipta 62.5 mcg/actuation inhalation dsdv 1 puff once daily (Last dose: 12/05/2016 05:30) 5. omeprazole 40 mg Oral cpDR 1 cap once daily (Last dose: 12/05/2016 05:30) 6. Ventolin Rotahaler/Rotacaps Inhl as needed (Last dose: 12/04/2016) 7. Zoloft 150mg Oral tab once daily (Last dose: 12/05/2016 05:30) - PMHx: COPD; Kidney stones; Pneumothorax, Spontaneous; Pulmonary fibrosis; - PSHx: none; ; Carpal Tunnel Repair- Right; ''Surgery to my right lung'' 2015; - Social history: Smoking status: Patient states former smoker of tobacco. No barriers to communication noted, The patient speaks fluent Bulgarian. - Family history: Not pertinent. - : The pt / caregiver states he / she is not on anticoagulants. Home medication list is obtained from the patient. - Exposure Risk Screening:: None identified. Screenin:27 Screening information is obtained from the patient. Fall risk: No risks identified. dy Assistance ADL's: requires no assistance with activities of daily living. Abuse/DV Screen: The patient / caregiver reports he/she is: not in a situation that causes fear, pain or injury. Nutritional screening: No deficits noted. Advance Directives: There is no active DNR order. home support is adequate. Assessment: 12:25 General: Appears in no apparent distress, Behavior is appropriate for age, cooperative. dy Pain: Location: chest. Cardiovascular: Rhythm is regular. Respiratory: Airway is patent Respiratory effort is even, unlabored. Derm: Skin is pink, warm & dry. Vital Signs: 09:40 BP 134 / 78; Pulse 87; Resp 18; Temp 97.7(O); Pulse Ox 100% on R/A; Weight 54.43 kg ct3 (R); Height 5 ft. 4 in. (162.56 cm) (R); Pain 8/10; 11:15 Pain 7/10; kcs 11:25 Pain 7/10; kcs 11:36 BP 120 / 78; Pulse 68; Resp 16; Pulse Ox 100% on R/A; Pain 7/10; kcs 11:55 Pain 6/10; kcs 09:40 Body Mass Index 20.60 (54.43 kg, 162.56 cm) ct3 Vitals: 09:40 Log In Time: December 05, 2016 at 09:37. RN notified that patient meets Red Flag ct3 criteria. ED Course: 09:40 Patient visited by Leia Pink PCA. ct3 09:40 Loren Crabtree MD is Private Physician. ct3 09:40 Patient moved to Waiting ct3 09:43 Patient moved to Pre RCE ct3 09:44 Patient moved to 11 ct3 09:48 Triage Initiated dwg 09:50 Hannah Moya DO is PHCP. jo4 09:50 Laureen Espinoza MD is Attending Physician. jo4 09:54 EKG done. (by ED staff). Reviewed by Laureen Espinoza MD. jrd 10:07 Patient visited by Victorina Simmons PCA. jlf 10:09 Patient visited by Hannah Moya DO. jo4 10:51 [facility] Payment Agreement was scanned into [employer] and attached to record. pm4 11:09 D-Dimer Quant Sent. kcs 11:18 Patient visited by Victorina Simmons PCA. jlf 11:29 Chest, 1 View Returned. EDMS 12:03 Loren Crabtree MD is Referral Physician. jo4 12:26 The patient / caregiver is instructed regarding the plan of care and ED course. Patient dy has correct armband on for positive identification. Placed in gown. casing wringer operator on. Pulse ox on. NIBP on. 12:26 Discontinued lock intact, bleeding controlled, No redness/swelling at site. No dy procedures done that require assistance. Administered Medications: 11:05 Drug: morphine 4 mg [morphine 4 mg/mL intravenous cartridge (1 mL)] Route: IVP; Site: [facility] left antecubital; 11:41 Drug: morphine 4 mg [morphine 4 mg/mL intravenous cartridge (1 mL)] Route: IVP; Site: [facility] left antecubital; 11:52 Drug: ice chips 1 applic Route: PO; kcs 11:57 Drug: ketorolac 30 mg [ketorolac 30 mg/mL (1 mL) injection solution (1 mL)] Route: IVP; [facility] Site: left antecubital; Order Results: Lab Order: D-Dimer Quant; SPEC'M 12/05/16 11:06 Test: D-DIMER QUANT; Value: 309.3; Range: <500; Units: ng/ml; Status: F Radiology Order: Chest, 1 View Test: Chest, 1 View REASON FOR EXAMINATION: Chest Pain; Clinical: Chest pain .; ; Comparison: 11/29/2016 .; ; Findings:; The mediastinum and cardiac silhouette are stable and within normal limits for; portable technique. The lung ro are clear without acute consolidation,; effusion, or pneumothorax. Skeletal structures are intact.; ; Impression:; Stable chest x-ray. No acute cardiopulmonary process appreciated.; ; ; Signed by; Swapnil Wood MD 12/05/2016 11:07 A; Outcome: 12:04 Discharge ordered by Provider. jo4 12:26 Discharge Assessment: patient administered narcotics -. The following High Risk dy Discharge criteria are identified: None. Discharged to home ambulatory, with family. Condition: stable. Discharge instructions given to patient, Instructed on discharge instructions, follow up and referral plans. medication usage, no driving heavy equipment, no drinking with medication, Demonstrated understanding of instructions, medications, Pt was receptive of discharge instructions/ teaching. Prescriptions given X 1. No special radiology studies were completed. Property sent home with patient. 12:28 Patient left the ED. dy Signatures: Dispatcher [employer] EDCarrol Wells, RN Severiano Ortiz RN RN Vasiliy Lange RN RN Leia Zarco, MANUFACTURING CLERK MANUFACTURING CLERK ct3 Victorina Simmons, MANUFACTURING CLERK MANUFACTURING CLERK Mitchell Flores, MANUFACTURING CLERK MANUFACTURING CLERK Hannah Wu, DO jo4 Martin Mckeon, Reg Reg pm4 Corrections: (The following items were deleted from the chart) 09:53 09:51 PMHx: ''Surgery to my right lung'' 2015; nichole varlea MTDD
--- NOTE | 2016-12-05 19:57 | ECGEPIP ---
Stationary ECG Study 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
--- NOTE | 2016-12-07 13:29 | EDDOCDS ---
Physician Documentation [facility] Name: Thalia Marshall Age: 46 yrs Sex: Female : 1970 Arrival Date: 12/05/2016 Time: 09:39 Bed 11 Private MD: Loren Crabtree Disposition: 12/05/16 12:04 Discharged to Home/Self Care. Impression: Pleurisy. - Condition is Stable. - Discharge Instructions: Pleurisy. - Prescriptions for Percocet 5- 325 mg Oral Tablet - take 1 tablet by ORAL route every 6 hours As needed MDD: 4 tabs; 20 tablet. - Medication Reconciliation, Local Pharmacy Hours form. - Follow up: Loren Crabtree MD; When: 1 week; Reason: Recheck today's complaints. - Problem is an acute exacerbation. - Symptoms have improved. - Notes: You were evaluated in the emergency department for non-cardiac chest pain. Your laboratory and imaging results were without abnormality. Your pain improved with medication administered in the ED. A short course of pain medication has been prescribed. Please follow up with Dr. Crabtree' office in 1 week. Historical: - Allergies: no known allergies; - Home Meds: 1. Vicodin 5/500 Oral 1 tab as needed (Last dose: 12/05/2016 08:30) 2. alprazolam 0.5 mg Oral tab 1 tab as needed (Last dose: 12/05/2016 05:30) 3. Breo Ellipta 200-25 mcg/dose inhalation dsdv 1 puff once daily (Last dose: 12/05/2016 05:30) 4. Incruse Ellipta 62.5 mcg/actuation inhalation dsdv 1 puff once daily (Last dose: 12/05/2016 05:30) 5. omeprazole 40 mg Oral cpDR 1 cap once daily (Last dose: 12/05/2016 05:30) 6. Ventolin Rotahaler/Rotacaps Inhl as needed (Last dose: 12/04/2016) 7. Zoloft 150mg Oral tab once daily (Last dose: 12/05/2016 05:30) - PMHx: COPD; Kidney stones; Pneumothorax, Spontaneous; Pulmonary fibrosis; - PSHx: none; ; Carpal Tunnel Repair- Right; ''Surgery to my right lung'' 2015; - Social history: Smoking status: Patient states former smoker of tobacco. No barriers to communication noted, The patient speaks fluent Estonian. - Family history: Not pertinent. - : The pt / caregiver states he / she is not on anticoagulants. Home medication list is obtained from the patient. - Exposure Risk Screening:: None identified. 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 4 in. (162.56 cm) (R); Pain 8/10; 11:15 Pain 7/10; kcs 11:25 Pain 7/10; kcs 11:36 BP 120 / 78; Pulse 68; Resp 16; Pulse Ox 100% on R/A; Pain 7/10; kcs 11:38 BP 120 / 78 (auto/); kcs 11:38 Pulse 70 MON; Pulse Ox 97% ; kcs 11:55 Pain 6/10; kcs 12:22 BP 119 / 76 (auto/); kcs 12:22 Pulse 70 MON; Pulse Ox 97% ; kcs 09:40 Body Mass Index 20.60 (54.43 kg, 162.56 cm) ct3 MDM: 09:49 ECG WITH READING ER PHYS+CARDIAG ordered. EDMS 10:44 morphine 4 mg IVP every 15 minutes; Document pain score/vitals after each dose (Hold if jo4 SBP < 90mmHg) x2 ordered. 10:45 IV Saline Lock ordered. jo4 10:45 D-Dimer Quant Ordered. EDMS 10:46 Chest, 1 View Ordered. EDMS 10:51 [facility] Payment Agreement was scanned into [employer] and attached to record. pm4 10:51 Financial registration complete. pm4 11:32 Chest, 1 View Reviewed. jo4 11:32 D-Dimer Quant Reviewed. jo4 11:38 ice chips 1 applic PO now ordered. jo4 11:46 ketorolac 30 mg IVP once ordered. jo4 14:44 T-Sheet-- Draft Copy was scanned into [employer] and attached to record. gb 14:45 ECG/EKG was scanned into [employer] and attached to record. gb Administered Medications: 11:05 Drug: morphine 4 mg [morphine 4 mg/mL intravenous cartridge (1 mL)] Route: IVP; Site: [facility] left antecubital; 11:41 Drug: morphine 4 mg [morphine 4 mg/mL intravenous cartridge (1 mL)] Route: IVP; Site: [facility] left antecubital; 11:52 Drug: ice chips 1 applic Route: PO; kcs 11:57 Drug: ketorolac 30 mg [ketorolac 30 mg/mL (1 mL) injection solution (1 mL)] Route: IVP; kcs Site: left antecubital; Signatures: Dispatcher [employer] EDSeveriano Townsend, RN Vangie Hammer, Reg Reg gb Vasiliy Mendez RN RN dy Oosthuizen, Jane, DO jo4 Martin Mckeon, Reg Reg pm4 Carrol Shay RN The chart was reviewed and I authenticate all verbal orders and agree with the evaluation and treatment provided.Corrections: (The following items were deleted from the chart) 09:53 09:51 PMHx: ''Surgery to my right lung'' 2015; nichole varela Attachments: 10:51 [facility] Payment Agreement pm4 14:44 T-Sheet-- Draft Copy gb 14:45 ECG/EKG gb Chart Complete MTDD
--- NOTE | 2016-12-07 13:29 | EDDOCDS ---
Nurse's Notes [facility] Name: Nancy Marshall Age: 46 yrs Sex: Female : 1970 Arrival Date: 12/05/2016 Time: 09:39 Bed 11 Private MD: Loren Crabtree Diagnosis: Pleurisy Presentation: 12/05 09:46 Presenting complaint: Patient states: Sudden onset of sharp. stabbing pain to right [facility] upper lateral chest area, started at 830am today, no injury. Aspirin was not taken prior to arrival. Adult Sepsis Screening: The patient does not have new or worsening altered mentation. Patient's respiratory rate is less than 22. Systolic blood pressure is greater than 100. Patient has a qSOFA score of 0- Negative Sepsis Screen. Suicide/Homicide risk assessment- the patient denies having any suicidal and/or homicidal ideations and does not present with any other emotional, behavioral or mental health complaints. 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 Transition of care: patient was not received from another setting of care. 09:46 Acuity: DARNELL Level 3 [facility] 09:46 Method Of Arrival: Wheelchair [facility] Triage Assessment: 09:52 General: Appears in no apparent distress, uncomfortable. Pain: Pain currently is 8 out dwg of 10 on a pain scale. HIV screening NA for this visit Offered previously. 12:27 Cardiovascular: Chest pain is described as vague, radiates Does not radiate. episodes dy are continuous began 30 minutes prior to arrival. INFORMATION LEAD: 09:52 LMP 12/02/2016 [facility] Historical: - Allergies: no known allergies; - Home Meds: 1. Vicodin 5/500 Oral 1 tab as needed (Last dose: 12/05/2016 08:30) 2. alprazolam 0.5 mg Oral tab 1 tab as needed (Last dose: 12/05/2016 05:30) 3. Breo Ellipta 200-25 mcg/dose inhalation dsdv 1 puff once daily (Last dose: 12/05/2016 05:30) 4. Incruse Ellipta 62.5 mcg/actuation inhalation dsdv 1 puff once daily (Last dose: 12/05/2016 05:30) 5. omeprazole 40 mg Oral cpDR 1 cap once daily (Last dose: 12/05/2016 05:30) 6. Ventolin Rotahaler/Rotacaps Inhl as needed (Last dose: 12/04/2016) 7. Zoloft 150mg Oral tab once daily (Last dose: 12/05/2016 05:30) - PMHx: COPD; Kidney stones; Pneumothorax, Spontaneous; Pulmonary fibrosis; - PSHx: none; ; Carpal Tunnel Repair- Right; ''Surgery to my right lung'' 2015; - Social history: Smoking status: Patient states former smoker of tobacco. No barriers to communication noted, The patient speaks fluent French. - Family history: Not pertinent. - : The pt / caregiver states he / she is not on anticoagulants. Home medication list is obtained from the patient. - Exposure Risk Screening:: None identified. Screenin:27 Screening information is obtained from the patient. Fall risk: No risks identified. dy Assistance ADL's: requires no assistance with activities of daily living. Abuse/DV Screen: The patient / caregiver reports he/she is: not in a situation that causes fear, pain or injury. Nutritional screening: No deficits noted. Advance Directives: There is no active DNR order. home support is adequate. Assessment: 11:00 Reassessment: patient having right side lateral chest pain - worse with deep kcs inspiration. No dyspnea. No drooling. Slight cough.. General: Appears slender, uncomfortable, well developed, well nourished, well groomed, Behavior is cooperative, pleasant. Neurological: Level of Consciousness is awake, alert. Respiratory: Airway is patent Respiratory effort is even, unlabored, Respiratory pattern is regular, symmetrical. Derm: Skin is intact, is healthy with good turgor, Skin is dry, Skin is normal. 11:41 Reassessment: Patient medicated for continued right chest pain.. kcs 12:25 General: Appears in no apparent distress, Behavior is appropriate for age, cooperative. dy Pain: Location: chest. Cardiovascular: Rhythm is regular. Respiratory: Airway is patent Respiratory effort is even, unlabored. Derm: Skin is pink, warm & dry. Vital Signs: 09:40 BP 134 / 78; Pulse 87; Resp 18; Temp 97.7(O); Pulse Ox 100% on R/A; Weight 54.43 kg ct3 (R); Height 5 ft. 4 in. (162.56 cm) (R); Pain 8/10; 11:15 Pain 7/10; kcs 11:25 Pain 7/10; kcs 11:36 BP 120 / 78; Pulse 68; Resp 16; Pulse Ox 100% on R/A; Pain 7/10; kcs 11:38 BP 120 / 78 (auto/); kcs 11:38 Pulse 70 MON; Pulse Ox 97% ; kcs 11:55 Pain 6/10; kcs 12:22 BP 119 / 76 (auto/); kcs 12:22 Pulse 70 MON; Pulse Ox 97% ; kcs 09:40 Body Mass Index 20.60 (54.43 kg, 162.56 cm) ct3 Vitals: 09:40 Log In Time: December 05, 2016 at 09:37. RN notified that patient meets Red Flag ct3 criteria. ED Course: 09:40 Patient visited by Leia Pink PCA. ct3 09:40 Loren Crabtree MD is Private Physician. ct3 09:40 Patient moved to Waiting ct3 09:43 Patient moved to Pre RCE ct3 09:44 Patient moved to 11 ct3 09:48 Triage Initiated dwg 09:50 Hannah Moya DO is PHCP. jo4 09:50 Laureen Espinoza MD is Attending Physician. jo4 09:54 EKG done. (by ED staff). Reviewed by Laureen Espinoza MD. jrd 10:07 Patient visited by Victorina Simmons PCA. jlf 10:09 Patient visited by Hannah Moya DO. jo4 10:51 [facility] Payment Agreement was scanned into [employer] and attached to record. pm4 11:00 Inserted saline lock: 20 gauge in left antecubital area The patient tolerated the kcs procedure well. 11:09 D-Dimer Quant Sent. kcs 11:18 Patient visited by Victorina Simmons PCA. jlf 11:29 Chest, 1 View Returned. EDMS 12:03 Loren Crabtree MD is Referral Physician. jo4 12:26 The patient / caregiver is instructed regarding the plan of care and ED course. Patient dy has correct armband on for positive identification. Placed in gown. threat monitoring analyst on. Pulse ox on. NIBP on. 12:26 Discontinued lock intact, bleeding controlled, No redness/swelling at site. No dy procedures done that require assistance. 14:44 T-Sheet-- Draft Copy was scanned into [employer] and attached to record. gb 14:45 ECG/EKG was scanned into [employer] and attached to record. gb 20:25 EKG-ADULT Returned. EDMS Administered Medications: 11:05 Drug: morphine 4 mg [morphine 4 mg/mL intravenous cartridge (1 mL)] Route: IVP; Site: [facility] left antecubital; 11:41 Drug: morphine 4 mg [morphine 4 mg/mL intravenous cartridge (1 mL)] Route: IVP; Site: [facility] left antecubital; 11:52 Drug: ice chips 1 applic Route: PO; [facility] 11:57 Drug: ketorolac 30 mg [ketorolac 30 mg/mL (1 mL) injection solution (1 mL)] Route: IVP; [facility] Site: left antecubital; Order Results: Lab Order: D-Dimer Quant; SPEC'M 12/05/16 11:06 Test: D-DIMER QUANT; Value: 309.3; Range: <500; Units: ng/ml; Status: F Radiology Order: EKG-ADULT Test: EKG-ADULT REASON FOR EXAMINATION: Chest Pain; Stationary ECG Study; [facility] - ED; ; Test Date: 2016-12-05; Pat Name: NANCY MARSHALL Department:; Room: -; Gender: F 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; : 1970 Requested By: Laureen Espinoza; Order Number: [id number] Reading MD: Laureen Espinoza; Measurements; Intervals [place]; Rate: 74 P: 80; NM: 133 QRS: 36; QRSD: 104 T: 37; QT: 374; QTc: 415; Interpretive Statements; SINUS RHYTHM; POSSIBLE RIGHT VENTRICULAR CONDUCTION DELAY; DECREASED RATE 11/29/16; Electronically Signed On 12-05-2016 19:56:39 EST by Laureen Espinoza; Radiology Order: Chest, 1 View Test: Chest, 1 View REASON FOR EXAMINATION: Chest Pain; Clinical: Chest pain .; ; Comparison: 11/29/2016 .; ; Findings:; The mediastinum and cardiac silhouette are stable and within normal limits for; portable technique. The lung ro are clear without acute consolidation,; effusion, or pneumothorax. Skeletal structures are intact.; ; Impression:; Stable chest x-ray. No acute cardiopulmonary process appreciated.; ; ; Signed by; Swapnil Wood MD 12/05/2016 11:07 A; Outcome: 12:04 Discharge ordered by Provider. jo4 12:26 Discharge Assessment: patient administered narcotics -. The following High Risk dy Discharge criteria are identified: None. Discharged to home ambulatory, with family. Condition: stable. Discharge instructions given to patient, Instructed on discharge instructions, follow up and referral plans. medication usage, no driving heavy equipment, no drinking with medication, Demonstrated understanding of instructions, medications, Pt was receptive of discharge instructions/ teaching. Prescriptions given X 1. No special radiology studies were completed. Property sent home with patient. 12:28 Patient left the ED. dy Signatures: Dispatcher [employer] EDMS Carrol Shay RN RN kcs Greene, Daniel, RN RN dwg Barnhardt, Gloria, Reg Reg gb Vasiliy Mendez RN Leia Liu, SILVERWARE BUFFING MACHINE OPERATOR SILVERWARE BUFFING MACHINE OPERATOR ct3 Victorina Simmons, SILVERWARE BUFFING MACHINE OPERATOR SILVERWARE BUFFING MACHINE OPERATOR jlf Mitchell Polo, SILVERWARE BUFFING MACHINE OPERATOR SILVERWARE BUFFING MACHINE OPERATOR d Hannah Moya, DO DO jo4 Martin Mckeon, Reg Reg pm4 Corrections: (The following items were deleted from the chart) 09:53 09:51 PMHx: ''Surgery to my right lung'' 2015; nichole varela Chart Complete MTDD
--- NOTE | 2016-12-07 13:29 | EDDOCDS ---
Physician Documentation [facility] Name: Thalia Marshall Age: 46 yrs Sex: Female : 1970 Arrival Date: 12/05/2016 Time: 09:39 Bed 11 Private MD: Loren Crabtree Disposition: 12/05/16 12:04 Discharged to Home/Self Care. Impression: Pleurisy. - Condition is Stable. - Discharge Instructions: Pleurisy. - Prescriptions for Percocet 5- 325 mg Oral Tablet - take 1 tablet by ORAL route every 6 hours As needed MDD: 4 tabs; 20 tablet. - Medication Reconciliation, Local Pharmacy Hours form. - Follow up: Loren Crabtree MD; When: 1 week; Reason: Recheck today's complaints. - Problem is an acute exacerbation. - Symptoms have improved. - Notes: You were evaluated in the emergency department for non-cardiac chest pain. Your laboratory and imaging results were without abnormality. Your pain improved with medication administered in the ED. A short course of pain medication has been prescribed. Please follow up with Dr. Crabtree' office in 1 week. Historical: - Allergies: no known allergies; - Home Meds: 1. Vicodin 5/500 Oral 1 tab as needed (Last dose: 12/05/2016 08:30) 2. alprazolam 0.5 mg Oral tab 1 tab as needed (Last dose: 12/05/2016 05:30) 3. Breo Ellipta 200-25 mcg/dose inhalation dsdv 1 puff once daily (Last dose: 12/05/2016 05:30) 4. Incruse Ellipta 62.5 mcg/actuation inhalation dsdv 1 puff once daily (Last dose: 12/05/2016 05:30) 5. omeprazole 40 mg Oral cpDR 1 cap once daily (Last dose: 12/05/2016 05:30) 6. Ventolin Rotahaler/Rotacaps Inhl as needed (Last dose: 12/04/2016) 7. Zoloft 150mg Oral tab once daily (Last dose: 12/05/2016 05:30) - PMHx: COPD; Kidney stones; Pneumothorax, Spontaneous; Pulmonary fibrosis; - PSHx: none; ; Carpal Tunnel Repair- Right; ''Surgery to my right lung'' 2015; - Social history: Smoking status: Patient states former smoker of tobacco. No barriers to communication noted, The patient speaks fluent [place]oran. - Family history: Not pertinent. - : The pt / caregiver states he / she is not on anticoagulants. Home medication list is obtained from the patient. - Exposure Risk Screening:: None identified. 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 4 in. (162.56 cm) (R); Pain 8/10; 11:15 Pain 7/10; kcs 11:25 Pain 7/10; kcs 11:36 BP 120 / 78; Pulse 68; Resp 16; Pulse Ox 100% on R/A; Pain 7/10; kcs 11:38 BP 120 / 78 (auto/); kcs 11:38 Pulse 70 MON; Pulse Ox 97% ; kcs 11:55 Pain 6/10; kcs 12:22 BP 119 / 76 (auto/); kcs 12:22 Pulse 70 MON; Pulse Ox 97% ; kcs 09:40 Body Mass Index 20.60 (54.43 kg, 162.56 cm) ct3 MDM: 09:49 ECG WITH READING ER PHYS+CARDIAG ordered. EDMS 10:44 morphine 4 mg IVP every 15 minutes; Document pain score/vitals after each dose (Hold if jo4 SBP < 90mmHg) x2 ordered. 10:45 IV Saline Lock ordered. jo4 10:45 D-Dimer Quant Ordered. EDMS 10:46 Chest, 1 View Ordered. EDMS 10:51 [facility] [place] Payment Agreement was scanned into [employer] and attached to record. pm4 10:51 Financial registration complete. pm4 11:32 Chest, 1 View Reviewed. jo4 11:32 D-Dimer Quant Reviewed. jo4 11:38 ice chips 1 applic PO now ordered. jo4 11:46 ketorolac 30 mg IVP once ordered. jo4 14:44 T-Sheet-- Draft Copy was scanned into [employer] and attached to record. gb 14:45 ECG/EKG was scanned into [employer] and attached to record. gb Administered Medications: 11:05 Drug: morphine 4 mg [morphine 4 mg/mL intravenous cartridge (1 mL)] Route: IVP; Site: kcs left antecubital; 11:41 Drug: morphine 4 mg [morphine 4 mg/mL intravenous cartridge (1 mL)] Route: IVP; Site: kcs left antecubital; 11:52 Drug: ice chips 1 applic Route: PO; kcs 11:57 Drug: ketorolac 30 mg [ketorolac 30 mg/mL (1 mL) injection solution (1 mL)] Route: IVP; kcs Site: left antecubital; Signatures: Dispatcher MedHost EDSeveriano Townsend, RN Vangie Hammer, Reg Reg gb Vasiliy Mnedez RN RN dy Oosthuizen, Jane, DO jo4 Martin Mckeon, Reg Reg pm4 Carrol Shay RN The chart was reviewed and I authenticate all verbal orders and agree with the evaluation and treatment provided.Corrections: (The following items were deleted from the chart) 09:53 09:51 PMHx: ''Surgery to my right lung'' 2015; nichole varela Attachments: 10:51 [facility] Payment Agreement pm4 14:44 T-Sheet-- Draft Copy gb 14:45 ECG/EKG gb Chart Complete MTDD
== END 2016-12-05 12:28 | disposition home or self-care (01) ==
LOC: M ED 09:39
DX: R09.1 Pleurisy (principal); J44.9 Chronic obstructive pulmonary disease, unspecified; J84.10 Pulmonary fibrosis, unspecified; Z87.442 Personal history of urinary calculi; Z79.51 Long term (current) use of inhaled steroids; Z79.899 Other long term (current) drug therapy; Z87.891 Personal history of nicotine dependence
CPT/HCPCS: 71010; 85379; 93005; 96374; 96375; 96376; 99285; J1885

== ENCOUNTER 2016-12-24 20:07 | Emergency (ER) | payer OTHER ==
[2016-12-24] MEDS ORDERED: methylPREDNISolone INJ 125 MG/2 ML VIAL (J2930) As Ordered ONE (20:38)
[2016-12-24] MEDS ORDERED: IPRATROPIUM 0.5MG/ALBUTEROL 2.5MG INH SOL UD 3ML (DUONEB)(J7620) As Ordered ONE (20:45)
[2016-12-24 20:53] LABS: BASO # 0.2 K/mm3 (0.0-0.2); BASO % 1.4 % (0.0-1.0); EOS # 0.2 K/mm3 (0.0-0.50); EOS % 1.6 % (0.0-3.0); LARGE UNSTAINED CELL # 0.3 K/mm3 (0.0-0.4); LARGE UNSTAINED CELL % 2.5 % (0.0-4.0); LYMPH # 2.7 K/mm3 (1.5-4.5); LYMPH % 23.6 % (24.0-44.0); MEAN CORPUSCULAR HEMOGLOBIN 28.7 pg (27.0-33.0); MEAN CORPUSCULAR HGB CONC 32.1 g/dl (32.0-36.5); MEAN CORPUSCULAR VOLUME 89.4 fl (80.0-96.0); MONO # 0.7 K/mm3 (0.0-0.8); MONO % 6.8 % (0.0-5.0); NEUTROPHILS # 6.7 K/mm3 (1.8-7.7); NEUTROPHILS % 64.1 % (36.0-66.0); PLATELET COUNT, AUTOMATED 447 k/mm3 (150-450); WHITE BLOOD COUNT 10.4 K/mm3 (4.0-10.0)
[2016-12-24] MEDS ORDERED: GI COCKTAIL 50ML BTL(HYOSCYAMINE/MAALOX/LIDOCAINE VISCOUS)(1:3:1) As Ordered ONE (21:23)
--- NOTE | 2016-12-24 23:36 | EDDOCDS ---
Nurse's Notes [facility] Name: Thalia Marshall Age: 46 yrs Sex: Female : 1970 Arrival Date: 12/24/2016 Time: 20:07 Bed 6 Private MD: Loren Crabtree A Diagnosis: Chronic obstructive pulmonary disease with (acute) exacerbation-cold exposure Presentation: 12/24 20:12 Presenting complaint: EMS states: COPD exacerbation after standing outside for 20 min. ttb Took her own proventil Inh with improvement. O2 in route. Improvement since called. Adult Sepsis Screening: The patient does not have new or worsening altered mentation. Patient's respiratory rate is less than 22. Systolic blood pressure is greater than 100. Patient has a qSOFA score of 0- Negative Sepsis Screen. Suicide/Homicide risk assessment- the patient denies having any suicidal and/or homicidal ideations and does not present with any other emotional, behavioral or mental health complaints. Status: Patient is not a shared services representative or dependent. Transition of care: patient was not received from another setting of care. 20:12 Acuity: DARNELL Level 3 ttb 20:12 Method Of Arrival: Ambulance ttb Triage Assessment: 20:17 General: Appears in no apparent distress, well nourished, well groomed, Behavior is ttb appropriate for age, cooperative, pleasant. Pain: Location: headache. HIV screening NA for this visit Offered previously. Neurological: Level of Consciousness is awake, alert, Reports headache. Cardiovascular: Heart tones S1 S2 present Chest pain is denied. Respiratory: Onset: The symptoms/episode began/occurred just prior to arrival, Airway is patent Respiratory effort is even, unlabored, shallow, Respiratory pattern is regular, symmetrical, Reports shortness of breath at rest on exertion since standing outside this evening during fire alarm cough that is the patient has mild shortness of breath. GI: Denies nausea, vomiting, pain. Derm: Skin is normal. Injury Description: No known injury. 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 Ventolin Rotahaler/Rotacaps 200 mcg Inhl CpDv after meals (Last dose: 12/24/2016 19:30) 2. Zoloft 150mg Oral tab once daily (Last dose: 12/24/2016 05:30) 3. omeprazole 40 mg Oral cpDR 1 cap once daily (Last dose: 12/24/2016 05:30) 4. Vicodin 5/500 Oral 1 tab as needed (Last dose: 12/23/2016) 5. alprazolam 0.5 mg Oral tab 1 tab as needed (Last dose: Unknown) 6. Breo Ellipta 200-25 mcg/dose inhalation dsdv 1 puff once daily (Last dose: 12/24/2016 05:30) 7. Incruse Ellipta 62.5 mcg/actuation inhalation dsdv 1 puff once daily (Last dose: 12/24/2016 05:30) - PMHx: pulmonary fibrosis; Pneumothorax, Spontaneous; Kidney stones; COPD; - PSHx: Carpal Tunnel Repair- Right; ; chest tube to left side sep 2016; - Social history: Smoking status: Patient states former smoker of tobacco. Patient/guardian denies using alcohol, street drugs, No barriers to communication noted, The patient speaks fluent Romansh, Speaks appropriately for age. - Family history: Not pertinent. - : The pt / caregiver states he / she is not on anticoagulants. Home medication list is obtained from the patient. - Exposure Risk Screening:: None identified. Screenin:42 Screening information is obtained from the patient. Fall risk: No risks identified. ttb Assistance ADL's: requires no assistance with activities of daily living. Abuse/DV Screen: The patient / caregiver reports he/she is: not in a situation that causes fear, pain or injury. Nutritional screening: No deficits noted. Advance Directives: Currently, there is no health care proxy. home support is adequate. Assessment: 20:15 General: Appears in no apparent distress, well nourished, well groomed, Behavior is ttb anxious, appropriate for age, cooperative, pleasant. Pain: Location: headache. Neurological: Level of Consciousness is awake, alert. 20:15 Cardiovascular: Heart tones S1 S2 present Chest pain is denied. Respiratory: Airway is ttb patent Respiratory effort is even, unlabored, shallow, Breath sounds are diminished in left posterior upper lobe and right posterior upper lobe Reports shortness of breath at rest on exertion since this evening improvement since arrival the patient has mild shortness of breath. GI: Denies nausea, vomiting, pain. Derm: Skin is normal. 21:15 Reassessment: Patient appears in no apparent distress at this time. Patient states ttb feeling better. Patient states symptoms have improved. meds given per request as documented. NAD noted. Improvement since arrival.. 22:15 Reassessment: Patient appears in no apparent distress at this time. pt resting on ttb stretcher. NAD noted. Breathing improved and remains unlabored.. 22:48 Adult Sepsis Screening: The patient does not have new or worsening altered mentation. ttb Patient's respiratory rate is less than 22. Systolic blood pressure is greater than 100. Patient has a qSOFA score of 0- Negative Sepsis Screen. General: Appears in no apparent distress, comfortable. Neurological: Level of Consciousness is awake, alert. Cardiovascular: Chest pain is denied. Respiratory: Airway is patent Respiratory effort is even, unlabored, Denies shortness of breath. 22:48 General: Report given to RENA Molina to continue care.. ttb 23:34 General: Appears in no apparent distress, comfortable, Behavior is appropriate for age, kc3 cooperative. Pain: Denies pain. Neurological: Level of Consciousness is awake, alert, obeys commands. Respiratory: Airway is patent Respiratory effort is even, unlabored. Derm: Skin is pink, warm & dry. Vital Signs: 20:10 BP 129 / 69 (auto/); ttb 20:13 Pulse Ox 95% ; ttb 20:17 BP 129 / 69; Pulse 105; Resp 20; Pulse Ox 96% on R/A; Weight 55.34 kg (R); Height 5 ft. ttb 4 in. (162.56 cm); Pain 3/10; 20:23 Temp 96.7(O); ttb 21:00 Pulse Ox 97% ; ttb 21:30 Pulse Ox 94% ; ttb 22:42 BP 108 / 59 (auto/); ttb 22:42 Resp 18; Pulse Ox 96% on R/A; Pain 2/10; ttb 23:34 BP 107 / 60; Pulse 89; Resp 18; Temp 96.7(O); Pulse Ox 98% on R/A; Pain 0/10; kc3 20:17 Body Mass Index 20.94 (55.34 kg, 162.56 cm) ttb Vitals: 20:17 Log In Time N/A - ambulance arrival. ttb ED Course: 20:08 Patient visited by Tawanna Perez PCA. ar3 20:08 Loren Crabtree is Private Physician. ar3 20:08 Patient moved to Waiting ar3 20:08 Patient moved to 6 ar3 20:13 Jessee Guerrero DO is Attending Physician. mm11 20:13 Patient visited by Jessee Guerrero DO. mm11 20:14 Triage Initiated ttb 20:19 Patient visited by Miladis Roberts RN. ttb 20:23 Patient visited by Miladis Roberts RN. ttb 20:32 Patient visited by Jessee Guerrero DO. mm11 21:13 Patient visited by Jessee Guerrero DO. mm11 21:54 [facility] Payment Agreement was scanned into [employer] [place] and attached to record. zo 22:19 Patient visited by Jessee Guerrero DO. mm11 22:42 The patient / caregiver is instructed regarding the plan of care and ED course. ttb Accompanied by Family Member, Patient has correct armband on for positive identification. Placed in gown. Bed in low position. Call light in reach. Pulse ox on. 22:42 Inserted peripheral IV: 20gauge IV in left antecubital area and blood collected. ttb Patient tolerated the procedure well. Labs drawn. (by ED staff). 22:49 Patient visited by Miladis Roberts RN. ttb 23:24 Patient visited by Jessee Guerrero DO. mm11 23:24 Loren Crabtree is Referral Physician. mm11 23:35 Discontinued IV lock intact, bleeding controlled, pressure dressing applied, No kc3 redness/swelling at site. No procedures done that require assistance. Administered Medications: 20:41 Drug: Albuterol-Ipratropium 1 neb [ipratropium-albuterol 0.5 mg-3 mg(2.5 mg base)/3 mL rs5 nebulization soln (1 neb)] Route: Nebulizer; 20:50 Drug: Solu-MEDROL 125 mg [Solu-Medrol 500 mg intravenous solution (125 mg)] Route: IVP; ttb Site: left antecubital; 21:00 Drug: Albuterol-Ipratropium 1 neb [ipratropium-albuterol 0.5 mg-3 mg(2.5 mg base)/3 mL lf2 nebulization soln (1 neb)] Route: Nebulizer; 21:35 Drug: Acetaminophen 650 mg [acetaminophen 325 mg tablet (2 tabs)] Route: PO; ttb RT: 20:50 Initial Med Neb Given as ordered Patient was instructed and evaluated on procedure lf2 Patient tolerated procedure well without adverse effect. Oxygen is room air. Respiratory: Respiratory effort is even, unlabored, Respiratory pattern is regular symmetrical, Breath sounds are diminished bilaterally. Breath sounds with wheezes in left posterior lower lobe and right posterior lower lobe Reports cough that is non-productive. 21:00 Subsequent Med Neb Given as ordered Patient tolerated procedure well without adverse lf2 effect. Oxygen is room air. Respiratory: Breath sounds are diminished bilaterally. Order Results: Lab Order: CBC with Diff; SPEC'M 12/24/16 20:20 Test: WHITE BLOOD COUNT; Value: 10.4; Range: 4.0-10.0; Abnormal: Above high normal; Units: K/mm3; Status: F Test: RED BLOOD COUNT; Value: 4.30; Range: 4.00-5.40; Units: M/mm3; Status: F Test: HEMOGLOBIN; Value: 12.3; Range: 12.0-16.0; Units: g/dl; Status: F Test: HEMATOCRIT; Value: 38.5; Range: 36.0-47.0; Units: %; Status: F Test: MEAN CORPUSCULAR VOLUME; Value: 89.4; Range: 80.0-96.0; Units: fl; Status: F Test: MEAN CORPUSCULAR HEMOGLOBIN; Value: 28.7; Range: 27.0-33.0; Units: pg; Status: F Test: MEAN CORPUSCULAR HGB CONC; Value: 32.1; Range: 32.0-36.5; Units: g/dl; Status: F Test: RED CELL DISTRIBUTION WIDTH; Value: 16.0; Range: 11.5-14.5; Abnormal: Above high normal; Units: %; Status: F Test: PLATELET COUNT, AUTOMATED; Value: 447; Range: 150-450; Units: k/mm3; Status: F Test: NEUTROPHILS %; Value: 64.1; Range: 36.0-66.0; Units: %; Status: F Test: LYMPH %; Value: 23.6; Range: 24.0-44.0; Abnormal: Below low normal; Units: %; Status: F Test: MONO %; Value: 6.8; Range: 0.0-5.0; Abnormal: Above high normal; Units: %; Status: F Test: EOS %; Value: 1.6; Range: 0.0-3.0; Units: %; Status: F Test: BASO %; Value: 1.4; Range: 0.0-1.0; Abnormal: Above high normal; Units: %; Status: F Test: LARGE UNSTAINED CELL %; Value: 2.5; Range: 0.0-4.0; Units: %; Status: F Test: NEUTROPHILS #; Value: 6.7; Range: 1.8-7.7; Units: K/mm3; Status: F Test: LYMPH #; Value: 2.7; Range: 1.5-4.5; Units: K/mm3; Status: F Test: MONO #; Value: 0.7; Range: 0.0-0.8; Units: K/mm3; Status: F Test: EOS #; Value: 0.2; Range: 0.0-0.50; Units: K/mm3; Status: F Test: BASO #; Value: 0.2; Range: 0.0-0.2; Units: K/mm3; Status: F Test: LARGE UNSTAINED CELL #; Value: 0.3; Range: 0.0-0.4; Units: K/mm3; Status: F Outcome: 23:25 Discharge ordered by Provider. mm11 23:35 Discharge Assessment: Patient awake, alert and oriented x 3. No cognitive and/or kc3 functional deficits noted. Patient verbalized understanding of disposition instructions. patient administered narcotics - no. The following High Risk Discharge criteria are identified: None. Discharged to home ambulatory. Condition: stable. Discharge instructions given to patient, Instructed on discharge instructions, follow up and referral plans. medication usage, Demonstrated understanding of instructions, medications, Pt was receptive of discharge instructions/ teaching. Prescriptions given X 1. No special radiology studies were completed. Property :Personal belongings accompany Pt. 23:35 Patient left the ED. kc3 Signatures: Kera Eugene Matthew, DO DO mm11 Tawanna Perez, VP CUSTOMER DEVELOPMENT VP CUSTOMER DEVELOPMENT ar3 Spurling,Bello,RT RT rs5 Miladis Roberts, RN RN ttb Randi Rodriguez,RN RN kc3 Bouchra Fernandez,RT RT lf2 MTDD
--- NOTE | 2016-12-24 23:36 | EDDOCDS ---
Physician Documentation [facility] Name: Thalia Marshall Age: 46 yrs Sex: Female : 1970 Arrival Date: 12/24/2016 Time: 20:07 Bed 6 Private MD: Loren Crabtree A Disposition: 12/24/16 23:25 Discharged to Home/Self Care. Impression: Chronic obstructive pulmonary disease with (acute) exacerbation - cold exposure. - Condition is Stable. - Discharge Instructions: Chronic Obstructive Pulmonary Disease. - Prescriptions for Prednisone 20 mg Oral Tablet - take 2 tablet by ORAL route once daily for 5 days; 10 tablet. - Medication Reconciliation, Local Pharmacy Hours form. - Follow up: Loren Crabtree; When: 4 - 5 days; Reason: Continuance of care. - Problem is an acute exacerbation. - Symptoms have improved. Historical: - Allergies: no known allergies; - Home Meds: 1. Ventolin Rotahaler/Rotacaps 200 mcg Inhl CpDv after meals (Last dose: 12/24/2016 19:30) 2. Zoloft 150mg Oral tab once daily (Last dose: 12/24/2016 05:30) 3. omeprazole 40 mg Oral cpDR 1 cap once daily (Last dose: 12/24/2016 05:30) 4. Vicodin 5/500 Oral 1 tab as needed (Last dose: 12/23/2016) 5. alprazolam 0.5 mg Oral tab 1 tab as needed (Last dose: Unknown) 6. Breo Ellipta 200-25 mcg/dose inhalation dsdv 1 puff once daily (Last dose: 12/24/2016 05:30) 7. Incruse Ellipta 62.5 mcg/actuation inhalation dsdv 1 puff once daily (Last dose: 12/24/2016 05:30) - PMHx: pulmonary fibrosis; Pneumothorax, Spontaneous; Kidney stones; COPD; - PSHx: Carpal Tunnel Repair- Right; ; chest tube to left side sep 2016; - Social history: Smoking status: Patient states former smoker of tobacco. Patient/guardian denies using alcohol, street drugs, No barriers to communication noted, The patient speaks fluent Bahraini, Speaks appropriately for age. - Family history: Not pertinent. - : The pt / caregiver states he / she is not on anticoagulants. Home medication list is obtained from the patient. - Exposure Risk Screening:: None identified. 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 4 in. (162.56 cm); Pain 3/10; 20:23 Temp 96.7(O); ttb 21:00 Pulse Ox 97% ; ttb 21:30 Pulse Ox 94% ; ttb 22:42 BP 108 / 59 (auto/); ttb 22:42 Resp 18; Pulse Ox 96% on R/A; Pain 2/10; ttb 23:34 BP 107 / 60; Pulse 89; Resp 18; Temp 96.7(O); Pulse Ox 98% on R/A; Pain 0/10; kc3 20:17 Body Mass Index 20.94 (55.34 kg, 162.56 cm) ttb MDM: 20:33 Solu-MEDROL 125 mg IVP once ordered. mm11 20:33 Albuterol-Ipratropium 1 neb Nebulizer every 20 minutes x3 ordered. mm11 20:33 Call Respiratory ordered. mm11 20:34 Call Respiratory complete. ar3 20:34 CBC with Diff Ordered. EDMS 20:35 Chest, 2 View (pa\E\lat) Ordered. EDMS 20:58 CBC with Diff Reviewed. mm11 21:13 Acetaminophen Tablet 650 mg PO once ordered. mm11 21:30 Financial registration complete. zo 21:54 [facility] Payment Agreement was scanned into [employer] and attached to record. zo Administered Medications: 20:41 Drug: Albuterol-Ipratropium 1 neb [ipratropium-albuterol 0.5 mg-3 mg(2.5 mg base)/3 mL rs5 nebulization soln (1 neb)] Route: Nebulizer; 20:50 Drug: Solu-MEDROL 125 mg [Solu-Medrol 500 mg intravenous solution (125 mg)] Route: IVP; ttb Site: left antecubital; 21:00 Drug: Albuterol-Ipratropium 1 neb [ipratropium-albuterol 0.5 mg-3 mg(2.5 mg base)/3 mL lf2 nebulization soln (1 neb)] Route: Nebulizer; 21:35 Drug: Acetaminophen 650 mg [acetaminophen 325 mg tablet (2 tabs)] Route: PO; ttb Signatures: Dispatcher MedHost EDKera Stokes Matthew, DO DO mm11 Tawanna Perez, BARBER STYLIST BARBER STYLIST ar3 Miladis Roberts RN RN ttb Randi Rodriguez RN RN kc3 Bello Victoria RT rs5 Bouchra Fernandez RT lf2 The chart was reviewed and I authenticate all verbal orders and agree with the evaluation and treatment provided.Attachments: 21:54 [facility] Payment Agreement zo MTDD
--- NOTE | 2016-12-25 11:24 | REP ---
Clinical: Shortness of breath . Comparison: 12/05/2016 . Technique: PA and lateral. Findings: The mediastinum and cardiac silhouette are normal. The lung ro are clear and without acute consolidation, effusion, or pneumothorax. The skeletal structures are intact and normal. Impression: 1. No acute cardiopulmonary process. Signed by Swapnil Wood MD 12/25/2016 01:36 A
--- NOTE | 2016-12-27 00:36 | EDDOCDS ---
Physician Documentation [facility] Name: Thalia Marshall Age: 46 yrs Sex: Female : 1970 Arrival Date: 12/24/2016 Time: 20:07 Bed 6 Private MD: Loren Crabtree A Disposition: 12/24/16 23:25 Discharged to Home/Self Care. Impression: Chronic obstructive pulmonary disease with (acute) exacerbation - cold exposure. - Condition is Stable. - Discharge Instructions: Chronic Obstructive Pulmonary Disease. - Prescriptions for Prednisone 20 mg Oral Tablet - take 2 tablet by ORAL route once daily for 5 days; 10 tablet. - Medication Reconciliation, Local Pharmacy Hours form. - Follow up: Loren Crabtree; When: 4 - 5 days; Reason: Continuance of care. - Problem is an acute exacerbation. - Symptoms have improved. Historical: - Allergies: no known allergies; - Home Meds: 1. Ventolin Rotahaler/Rotacaps 200 mcg Inhl CpDv after meals (Last dose: 12/24/2016 19:30) 2. Zoloft 150mg Oral tab once daily (Last dose: 12/24/2016 05:30) 3. omeprazole 40 mg Oral cpDR 1 cap once daily (Last dose: 12/24/2016 05:30) 4. Vicodin 5/500 Oral 1 tab as needed (Last dose: 12/23/2016) 5. alprazolam 0.5 mg Oral tab 1 tab as needed (Last dose: Unknown) 6. Breo Ellipta 200-25 mcg/dose inhalation dsdv 1 puff once daily (Last dose: 12/24/2016 05:30) 7. Incruse Ellipta 62.5 mcg/actuation inhalation dsdv 1 puff once daily (Last dose: 12/24/2016 05:30) - PMHx: pulmonary fibrosis; Pneumothorax, Spontaneous; Kidney stones; COPD; - PSHx: Carpal Tunnel Repair- Right; ; chest tube to left side sep 2016; - Social history: Smoking status: Patient states former smoker of tobacco. Patient/guardian denies using alcohol, street drugs, No barriers to communication noted, The patient speaks fluent Pashto, Speaks appropriately for age. - Family history: Not pertinent. - : The pt / caregiver states he / she is not on anticoagulants. Home medication list is obtained from the patient. - Exposure Risk Screening:: None identified. 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 4 in. (162.56 cm); Pain 3/10; 20:23 Temp 96.7(O); ttb 21:00 Pulse Ox 97% ; ttb 21:30 Pulse Ox 94% ; ttb 22:42 BP 108 / 59 (auto/); ttb 22:42 Resp 18; Pulse Ox 96% on R/A; Pain 2/10; ttb 23:34 BP 107 / 60; Pulse 89; Resp 18; Temp 96.7(O); Pulse Ox 98% on R/A; Pain 0/10; kc3 20:17 Body Mass Index 20.94 (55.34 kg, 162.56 cm) ttb MDM: 20:33 Solu-MEDROL 125 mg IVP once ordered. mm11 20:33 Albuterol-Ipratropium 1 neb Nebulizer every 20 minutes x3 ordered. mm11 20:33 Call Respiratory ordered. mm11 20:34 Call Respiratory complete. ar3 20:34 CBC with Diff Ordered. EDMS 20:35 Chest, 2 View (pa\E\lat) Ordered. EDMS 20:58 CBC with Diff Reviewed. mm11 21:13 Acetaminophen Tablet 650 mg PO once ordered. mm11 21:30 Financial registration complete. zo 21:54 [facility] Payment Agreement was scanned into [employer] and attached to record. zo 12/25 11:43 T-Sheet-- Draft Copy was scanned into [employer] and attached to record. gb Administered Medications: 12/24 20:41 Drug: Albuterol-Ipratropium 1 neb [ipratropium-albuterol 0.5 mg-3 mg(2.5 mg base)/3 mL rs5 nebulization soln (1 neb)] Route: Nebulizer; 20:50 Drug: Solu-MEDROL 125 mg [Solu-Medrol 500 mg intravenous solution (125 mg)] Route: IVP; ttb Site: left antecubital; 21:00 Drug: Albuterol-Ipratropium 1 neb [ipratropium-albuterol 0.5 mg-3 mg(2.5 mg base)/3 mL lf2 nebulization soln (1 neb)] Route: Nebulizer; 21:35 Drug: Acetaminophen 650 mg [acetaminophen 325 mg tablet (2 tabs)] Route: PO; ttb Signatures: Dispatcher [employer] EDMS Vangie Boogie, Reg Reg gb Jabier, Jessee Gilbert, DO mm11 Tawanna Perez, NEWSPAPER MANAGER NEWSPAPER MANAGER ar3 Miladis Roberts RN RN ttb Randi Rodriguez RN RN kc3 Bello Victoria RT rs5 Bouchra Fernandez RT lf2 The chart was reviewed and I authenticate all verbal orders and agree with the evaluation and treatment provided.Attachments: 21:54 [facility] Payment Agreement zo 12/25 11:43 T-Sheet-- Draft Copy gb Chart Complete MTDD
--- NOTE | 2016-12-27 00:36 | EDDOCDS ---
Nurse's Notes [facility] Name: Thalia Marshall Age: 46 yrs Sex: Female : 1970 Arrival Date: 12/24/2016 Time: 20:07 Bed 6 Private MD: Loren Crabtree A Diagnosis: Chronic obstructive pulmonary disease with (acute) exacerbation-cold exposure Presentation: 12/24 20:12 Presenting complaint: EMS states: COPD exacerbation after standing outside for 20 min. ttb Took her own proventil Inh with improvement. O2 in route. Improvement since called. Adult Sepsis Screening: The patient does not have new or worsening altered mentation. Patient's respiratory rate is less than 22. Systolic blood pressure is greater than 100. Patient has a qSOFA score of 0- Negative Sepsis Screen. Suicide/Homicide risk assessment- the patient denies having any suicidal and/or homicidal ideations and does not present with any other emotional, behavioral or mental health complaints. 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 Transition of care: patient was not received from another setting of care. 20:12 Acuity: DARNELL Level 3 ttb 20:12 Method Of Arrival: Ambulance ttb Triage Assessment: 20:17 General: Appears in no apparent distress, well nourished, well groomed, Behavior is ttb appropriate for age, cooperative, pleasant. Pain: Location: headache. HIV screening NA for this visit Offered previously. Neurological: Level of Consciousness is awake, alert, Reports headache. Cardiovascular: Heart tones S1 S2 present Chest pain is denied. Respiratory: Onset: The symptoms/episode began/occurred just prior to arrival, Airway is patent Respiratory effort is even, unlabored, shallow, Respiratory pattern is regular, symmetrical, Reports shortness of breath at rest on exertion since standing outside this evening during fire alarm cough that is the patient has mild shortness of breath. GI: Denies nausea, vomiting, pain. Derm: Skin is normal. Injury Description: No known injury. 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 Ventolin Rotahaler/Rotacaps 200 mcg Inhl CpDv after meals (Last dose: 12/24/2016 19:30) 2. Zoloft 150mg Oral tab once daily (Last dose: 12/24/2016 05:30) 3. omeprazole 40 mg Oral cpDR 1 cap once daily (Last dose: 12/24/2016 05:30) 4. Vicodin 5/500 Oral 1 tab as needed (Last dose: 12/23/2016) 5. alprazolam 0.5 mg Oral tab 1 tab as needed (Last dose: Unknown) 6. Breo Ellipta 200-25 mcg/dose inhalation dsdv 1 puff once daily (Last dose: 12/24/2016 05:30) 7. Incruse Ellipta 62.5 mcg/actuation inhalation dsdv 1 puff once daily (Last dose: 12/24/2016 05:30) - PMHx: pulmonary fibrosis; Pneumothorax, Spontaneous; Kidney stones; COPD; - PSHx: Carpal Tunnel Repair- Right; ; chest tube to left side sep 2016; - Social history: Smoking status: Patient states former smoker of tobacco. Patient/guardian denies using alcohol, street drugs, No barriers to communication noted, The patient speaks fluent Malay, Speaks appropriately for age. - Family history: Not pertinent. - : The pt / caregiver states he / she is not on anticoagulants. Home medication list is obtained from the patient. - Exposure Risk Screening:: None identified. Screenin:42 Screening information is obtained from the patient. Fall risk: No risks identified. ttb Assistance ADL's: requires no assistance with activities of daily living. Abuse/DV Screen: The patient / caregiver reports he/she is: not in a situation that causes fear, pain or injury. Nutritional screening: No deficits noted. Advance Directives: Currently, there is no health care proxy. home support is adequate. Assessment: 20:15 General: Appears in no apparent distress, well nourished, well groomed, Behavior is ttb anxious, appropriate for age, cooperative, pleasant. Pain: Location: headache. Neurological: Level of Consciousness is awake, alert. 20:15 Cardiovascular: Heart tones S1 S2 present Chest pain is denied. Respiratory: Airway is ttb patent Respiratory effort is even, unlabored, shallow, Breath sounds are diminished in left posterior upper lobe and right posterior upper lobe Reports shortness of breath at rest on exertion since this evening improvement since arrival the patient has mild shortness of breath. GI: Denies nausea, vomiting, pain. Derm: Skin is normal. 21:15 Reassessment: Patient appears in no apparent distress at this time. Patient states ttb feeling better. Patient states symptoms have improved. meds given per request as documented. NAD noted. Improvement since arrival.. 22:15 Reassessment: Patient appears in no apparent distress at this time. pt resting on ttb stretcher. NAD noted. Breathing improved and remains unlabored.. 22:48 Adult Sepsis Screening: The patient does not have new or worsening altered mentation. ttb Patient's respiratory rate is less than 22. Systolic blood pressure is greater than 100. Patient has a qSOFA score of 0- Negative Sepsis Screen. General: Appears in no apparent distress, comfortable. Neurological: Level of Consciousness is awake, alert. Cardiovascular: Chest pain is denied. Respiratory: Airway is patent Respiratory effort is even, unlabored, Denies shortness of breath. 22:48 General: Report given to RENA Molina to continue care.. ttb 23:34 General: Appears in no apparent distress, comfortable, Behavior is appropriate for age, kc3 cooperative. Pain: Denies pain. Neurological: Level of Consciousness is awake, alert, obeys commands. Respiratory: Airway is patent Respiratory effort is even, unlabored. Derm: Skin is pink, warm & dry. Vital Signs: 20:10 BP 129 / 69 (auto/); ttb 20:13 Pulse Ox 95% ; ttb 20:17 BP 129 / 69; Pulse 105; Resp 20; Pulse Ox 96% on R/A; Weight 55.34 kg (R); Height 5 ft. ttb 4 in. (162.56 cm); Pain 3/10; 20:23 Temp 96.7(O); ttb 21:00 Pulse Ox 97% ; ttb 21:30 Pulse Ox 94% ; ttb 22:42 BP 108 / 59 (auto/); ttb 22:42 Resp 18; Pulse Ox 96% on R/A; Pain 2/10; ttb 23:34 BP 107 / 60; Pulse 89; Resp 18; Temp 96.7(O); Pulse Ox 98% on R/A; Pain 0/10; kc3 20:17 Body Mass Index 20.94 (55.34 kg, 162.56 cm) ttb Vitals: 20:17 Log In Time N/A - ambulance arrival. ttb ED Course: 20:08 Patient visited by Tawanna Perez PCA. ar3 20:08 Loren Crabtree is Private Physician. ar3 20:08 Patient moved to Waiting ar3 20:08 Patient moved to 6 ar3 20:13 Jessee Guerrero DO is Attending Physician. mm11 20:13 Patient visited by Jessee Guerrero DO. mm11 20:14 Triage Initiated ttb 20:19 Patient visited by Miladis Roberts RN. ttb 20:23 Patient visited by Miladis Roberts RN. ttb 20:32 Patient visited by Jessee Guerrero DO. mm11 21:13 Patient visited by Jessee Guerrero DO. mm11 21:54 [facility] Payment Agreement was scanned into [facility] and attached to record. zo 22:19 Patient visited by Jessee Guerrero DO. mm11 22:42 The patient / caregiver is instructed regarding the plan of care and ED course. ttb Accompanied by Family Member, Patient has correct armband on for positive identification. Placed in gown. Bed in low position. Call light in reach. Pulse ox on. 22:42 Inserted peripheral IV: 20gauge IV in left antecubital area and blood collected. ttb Patient tolerated the procedure well. Labs drawn. (by ED staff). 22:49 Patient visited by Miladis Roberts RN. ttb 23:24 Patient visited by Jessee Guerrero DO. mm11 23:24 Loren Crabtree is Referral Physician. mm11 23:35 Discontinued IV lock intact, bleeding controlled, pressure dressing applied, No kc3 redness/swelling at site. No procedures done that require assistance. 12/25 11:43 T-Sheet-- Draft Copy was scanned into [facility] and attached to record. gb 11:53 Chest, 2 View (pa\E\lat) Returned. EDMS Administered Medications: 12/24 20:41 Drug: Albuterol-Ipratropium 1 neb [ipratropium-albuterol 0.5 mg-3 mg(2.5 mg base)/3 mL rs5 nebulization soln (1 neb)] Route: Nebulizer; 20:50 Drug: Solu-MEDROL 125 mg [Solu-Medrol 500 mg intravenous solution (125 mg)] Route: IVP; ttb Site: left antecubital; 21:00 Drug: Albuterol-Ipratropium 1 neb [ipratropium-albuterol 0.5 mg-3 mg(2.5 mg base)/3 mL lf2 nebulization soln (1 neb)] Route: Nebulizer; 21:35 Drug: Acetaminophen 650 mg [acetaminophen 325 mg tablet (2 tabs)] Route: PO; ttb RT: 20:50 Initial Med Neb Given as ordered Patient was instructed and evaluated on procedure lf2 Patient tolerated procedure well without adverse effect. Oxygen is room air. Respiratory: Respiratory effort is even, unlabored, Respiratory pattern is regular symmetrical, Breath sounds are diminished bilaterally. Breath sounds with wheezes in left posterior lower lobe and right posterior lower lobe Reports cough that is non-productive. 21:00 Subsequent Med Neb Given as ordered Patient tolerated procedure well without adverse lf2 effect. Oxygen is room air. Respiratory: Breath sounds are diminished bilaterally. Order Results: Lab Order: CBC with Diff; SPEC'M 12/24/16 20:20 Test: WHITE BLOOD COUNT; Value: 10.4; Range: 4.0-10.0; Abnormal: Above high normal; Units: K/mm3; Status: F Test: RED BLOOD COUNT; Value: 4.30; Range: 4.00-5.40; Units: M/mm3; Status: F Test: HEMOGLOBIN; Value: 12.3; Range: 12.0-16.0; Units: g/dl; Status: F Test: HEMATOCRIT; Value: 38.5; Range: 36.0-47.0; Units: %; Status: F Test: MEAN CORPUSCULAR VOLUME; Value: 89.4; Range: 80.0-96.0; Units: fl; Status: F Test: MEAN CORPUSCULAR HEMOGLOBIN; Value: 28.7; Range: 27.0-33.0; Units: pg; Status: F Test: MEAN CORPUSCULAR HGB CONC; Value: 32.1; Range: 32.0-36.5; Units: g/dl; Status: F Test: RED CELL DISTRIBUTION WIDTH; Value: 16.0; Range: 11.5-14.5; Abnormal: Above high normal; Units: %; Status: F Test: PLATELET COUNT, AUTOMATED; Value: 447; Range: 150-450; Units: k/mm3; Status: F Test: NEUTROPHILS %; Value: 64.1; Range: 36.0-66.0; Units: %; Status: F Test: LYMPH %; Value: 23.6; Range: 24.0-44.0; Abnormal: Below low normal; Units: %; Status: F Test: MONO %; Value: 6.8; Range: 0.0-5.0; Abnormal: Above high normal; Units: %; Status: F Test: EOS %; Value: 1.6; Range: 0.0-3.0; Units: %; Status: F Test: BASO %; Value: 1.4; Range: 0.0-1.0; Abnormal: Above high normal; Units: %; Status: F Test: LARGE UNSTAINED CELL %; Value: 2.5; Range: 0.0-4.0; Units: %; Status: F Test: NEUTROPHILS #; Value: 6.7; Range: 1.8-7.7; Units: K/mm3; Status: F Test: LYMPH #; Value: 2.7; Range: 1.5-4.5; Units: K/mm3; Status: F Test: MONO #; Value: 0.7; Range: 0.0-0.8; Units: K/mm3; Status: F Test: EOS #; Value: 0.2; Range: 0.0-0.50; Units: K/mm3; Status: F Test: BASO #; Value: 0.2; Range: 0.0-0.2; Units: K/mm3; Status: F Test: LARGE UNSTAINED CELL #; Value: 0.3; Range: 0.0-0.4; Units: K/mm3; Status: F Radiology Order: Chest, 2 View (pa\E\lat) Test: Chest, 2 View (pa\E\lat) REASON FOR EXAMINATION: Shortness of Breath; Clinical: Shortness of breath .; ; Comparison: 12/05/2016 .; ; Technique: PA and lateral.; ; Findings:; The mediastinum and cardiac silhouette are normal. The lung ro are clear and; without acute consolidation, effusion, or pneumothorax. The skeletal structures; are intact and normal.; ; Impression:; 1. No acute cardiopulmonary process.; ; ; Signed by; Swapnil Wood MD 12/25/2016 01:36 A; Outcome: 23:25 Discharge ordered by Provider. mm11 23:35 Discharge Assessment: Patient awake, alert and oriented x 3. No cognitive and/or kc3 functional deficits noted. Patient verbalized understanding of disposition instructions. patient administered narcotics - no. The following High Risk Discharge criteria are identified: None. Discharged to home ambulatory. Condition: stable. Discharge instructions given to patient, Instructed on discharge instructions, follow up and referral plans. medication usage, Demonstrated understanding of instructions, medications, Pt was receptive of discharge instructions/ teaching. Prescriptions given X 1. No special radiology studies were completed. Property :Personal belongings accompany Pt. 23:35 Patient left the ED. kc3 Signatures: Dispatcher [employer] EDMS Vangie Boogie, Kera Beatty Matthew, DO mm11 Tawanna Perez, CONCAVER CONCAVER ar3 Bello Victoria,RT RT rs5 Miladis Roberts, RN RN zeenatb Randi Rodriguez RN RN kc3 Bouchra Fernandez,RT RT lf2 Chart Complete RAMÍREZ
--- NOTE | 2016-12-27 00:36 | EDDOCDS ---
Physician Documentation [facility] Name: Thalia Marshall Age: 46 yrs Sex: Female : 1970 Arrival Date: 12/24/2016 Time: 20:07 Bed 6 Private MD: Loren Crabtree A Disposition: 12/24/16 23:25 Discharged to Home/Self Care. Impression: Chronic obstructive pulmonary disease with (acute) exacerbation - cold exposure. - Condition is Stable. - Discharge Instructions: Chronic Obstructive Pulmonary Disease. - Prescriptions for Prednisone 20 mg Oral Tablet - take 2 tablet by ORAL route once daily for 5 days; 10 tablet. - Medication Reconciliation, Local Pharmacy Hours form. - Follow up: Loren Crabtree; When: 4 - 5 days; Reason: Continuance of care. - Problem is an acute exacerbation. - Symptoms have improved. Historical: - Allergies: no known allergies; - Home Meds: 1. Ventolin Rotahaler/Rotacaps 200 mcg Inhl CpDv after meals (Last dose: 12/24/2016 19:30) 2. Zoloft 150mg Oral tab once daily (Last dose: 12/24/2016 05:30) 3. omeprazole 40 mg Oral cpDR 1 cap once daily (Last dose: 12/24/2016 05:30) 4. Vicodin 5/500 Oral 1 tab as needed (Last dose: 12/23/2016) 5. alprazolam 0.5 mg Oral tab 1 tab as needed (Last dose: Unknown) 6. Breo Ellipta 200-25 mcg/dose inhalation dsdv 1 puff once daily (Last dose: 12/24/2016 05:30) 7. Incruse Ellipta 62.5 mcg/actuation inhalation dsdv 1 puff once daily (Last dose: 12/24/2016 05:30) - PMHx: pulmonary fibrosis; Pneumothorax, Spontaneous; Kidney stones; COPD; - PSHx: Carpal Tunnel Repair- Right; ; chest tube to left side sep 2016; - Social history: Smoking status: Patient states former smoker of tobacco. Patient/guardian denies using alcohol, street drugs, No barriers to communication noted, The patient speaks fluent Portuguese, Speaks appropriately for age. - Family history: Not pertinent. - : The pt / caregiver states he / she is not on anticoagulants. Home medication list is obtained from the patient. - Exposure Risk Screening:: None identified. 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 4 in. (162.56 cm); Pain 3/10; 20:23 Temp 96.7(O); ttb 21:00 Pulse Ox 97% ; ttb 21:30 Pulse Ox 94% ; ttb 22:42 BP 108 / 59 (auto/); ttb 22:42 Resp 18; Pulse Ox 96% on R/A; Pain 2/10; ttb 23:34 BP 107 / 60; Pulse 89; Resp 18; Temp 96.7(O); Pulse Ox 98% on R/A; Pain 0/10; kc3 20:17 Body Mass Index 20.94 (55.34 kg, 162.56 cm) ttb MDM: 20:33 Solu-MEDROL 125 mg IVP once ordered. mm11 20:33 Albuterol-Ipratropium 1 neb Nebulizer every 20 minutes x3 ordered. mm11 20:33 Call Respiratory ordered. mm11 20:34 Call Respiratory complete. ar3 20:34 CBC with Diff Ordered. EDMS 20:35 Chest, 2 View (pa\E\lat) Ordered. EDMS 20:58 CBC with Diff Reviewed. mm11 21:13 Acetaminophen Tablet 650 mg PO once ordered. mm11 21:30 Financial registration complete. zo 21:54 [facility] Payment Agreement was scanned into [employer] and attached to record. zo 12/25 11:43 T-Sheet-- Draft Copy was scanned into [employer] and attached to record. gb Administered Medications: 12/24 20:41 Drug: Albuterol-Ipratropium 1 neb [ipratropium-albuterol 0.5 mg-3 mg(2.5 mg base)/3 mL rs5 nebulization soln (1 neb)] Route: Nebulizer; 20:50 Drug: Solu-MEDROL 125 mg [Solu-Medrol 500 mg intravenous solution (125 mg)] Route: IVP; ttb Site: left antecubital; 21:00 Drug: Albuterol-Ipratropium 1 neb [ipratropium-albuterol 0.5 mg-3 mg(2.5 mg base)/3 mL lf2 nebulization soln (1 neb)] Route: Nebulizer; 21:35 Drug: Acetaminophen 650 mg [acetaminophen 325 mg tablet (2 tabs)] Route: PO; ttb Signatures: Dispatcher [employer] EDMS Vangie Boogie, Reg Reg gb Jabier, Jessee Gilbert, DO mm11 Tawanna Perez, MARINE SERVICE MANAGER MARINE SERVICE MANAGER ar3 Miladis Roberts RN RN ttb Randi Rodriguez RN RN kc3 Bello Victoria RT rs5 Bouchra Fernandez RT lf2 The chart was reviewed and I authenticate all verbal orders and agree with the evaluation and treatment provided.Attachments: 21:54 [facility] zo 12/25 11:43 T-Sheet-- Draft Copy gb Chart Complete MTDD
== END 2016-12-24 23:35 | disposition home or self-care (01) ==
LOC: M ED 20:07
DX: J44.1 Chronic obstructive pulmonary disease with (acute) exacerbation (principal); J84.10 Pulmonary fibrosis, unspecified; Z87.09 Personal history of other diseases of the respiratory system; Z79.899 Other long term (current) drug therapy; Z79.51 Long term (current) use of inhaled steroids
CPT/HCPCS: 36415; 71020; 85025; 94640; 96374; 99284; J2930

== ENCOUNTER 2017-03-23 19:21 | Emergency (ER) | payer OTHER ==
[~2017-03-23] VITALS: Ht 162.6 cm; Wt 52.6 kg
[~2017-03-23 19:21] MED LIST changes: -COLA100C PO; +COLA100C3 PO; -SERT-141 PO; +SERT50TA PO
[2017-03-23] MEDS ORDERED: BENZ200C44 PO (19:34)
[2017-03-23] MEDS ORDERED: CETI1TAB PO (19:34)
[2017-03-23] MEDS ORDERED: AMOX875T2 PO (19:34)
[2017-03-23] MEDS ORDERED: NORCO, ANEXSIA 5/325MG TABLET (HYDROcodone/ACETAMINOPHEN) PO ONE (20:00)
--- NOTE | 2017-03-23 21:10 | REPUSA ---
Clinical history: Pain, swelling. Findings: The left common femoral, superficial femoral, popliteal, and other deep venous structures c ompress normally and demonstrate normal color Doppler flow. Normal venous waveforms with augmentation are seen. Impression: No evidence of deep vein thrombosis in the left femoral popliteal venous system.
[2017-03-23 21:23] VITALS: BP 114/67
== END 2017-03-23 21:28 | disposition home or self-care (01) ==
LOC: M ED 19:56
DX: M79.652 Pain in left thigh (principal); G89.29 Other chronic pain; M54.9 Dorsalgia, unspecified; Z87.442 Personal history of urinary calculi; Z79.899 Other long term (current) drug therapy; Z79.51 Long term (current) use of inhaled steroids

== ENCOUNTER → 2018-05-06 | Outpatient (CLI) | payer OTHER ==
[2018-05-06 17:09] LABS: CHOLESTEROL LEVEL 262 MG/DL (<200); CHOLESTEROL RISK RATIO 6.238 (<5); GLUCOSE, FASTING 76 MG/DL (70-100); HDL CHOLESTEROL 42 MG/DL (>40); LDL CHOLESTEROL 197.4 MG/DL (<100); NON-HDL-C 220 MG/DL; TRIGLYCERIDES LEVEL 113 MG/DL (<150)
[2018-05-06 17:15] LABS: ESTIMATED AVERAGE GLUCOSE 120 MG/DL (60-110); HEMOGLOBIN A1c 5.8 %
== END ==
LOC: M WUC 13:21
DX: F41.0 Panic disorder [episodic paroxysmal anxiety] (principal)
CPT/HCPCS: 82947

== ENCOUNTER 2018-05-07 11:28 | Emergency (ER) | payer OTHER ==
[2018-05-07 13:10] LABS: HEMATOCRIT 38.8 % (36.0-47.0); HEMOGLOBIN 12.8 g/dl (12.0-15.5); MEAN CORPUSCULAR HEMOGLOBIN 27.7 pg (27.0-33.0); PLATELET COUNT, AUTOMATED 415 10^3/uL (150-450); RED BLOOD COUNT 4.62 10^6/uL (4.00-5.40); RED CELL DISTRIBUTION WIDTH 17.2 % (11.5-14.5); WHITE BLOOD COUNT 13.1 10^3/uL (4.0-10.0)
[2018-05-07 13:13] LABS: ADD MANUAL DIFFER YES; DIFF SLIDE NUMBER 306; POSITIVE MORPH POS FLAG
[2018-05-07 13:17] LABS: CONTROL LINE HCG INT CTR LINE PRESENT; HCG, SERUM QUALITATIVE NEGATIVE (NEGATIVE)
[2018-05-07 13:26] LABS: ANION GAP 7 MEQ/L (8-16); BLOOD UREA NITROGEN 22 MG/DL (7-18); CALCIUM LEVEL 8.9 MG/DL (8.5-10.1); CARBON DIOXIDE LEVEL 22 MEQ/L (21-32); CHLORIDE LEVEL 114 MEQ/L (98-107); CK-MB VALUE MASS < 1.0 NG/ML (<3.6); CPK CREATINE PHOSPHOKINASE 44 U/L (26-192); CREATININE FOR GFR 0.56 MG/DL (0.55-1.30); GLOMERULAR FILTRATION RATE > 60.0 (>58); GLUCOSE, FASTING 87 MG/DL (70-100); MB/CK RELATIVE INDEX 2.27 (< OR =4); POTASSIUM SERUM 3.5 MEQ/L (3.5-5.1); SODIUM LEVEL 143 MEQ/L (136-145); TROPONIN I < 0.02 NG/ML (< 0.10)
[2018-05-07] MEDS: MORPHINE 4 MG/ML 1ML VIAL/SYRINGE (J2270) IV ×2 (13:31)
[2018-05-07] MEDS: methylPREDNISolone INJ 125 MG/2 ML VIAL (J2930) IV ×2 (13:31)
[2018-05-07] MEDS: ALBUTEROL SULFATE 2.5 MG/0.5 ML INH NEB SOLN NEB ×2 (13:36)
[2018-05-07 13:42] LABS: ANISOCYTOSIS 1+; ATYPICAL LYMPH 2 % (0-5); BASOPHILS 1 % (0-4); EOSINOPHILS 2 % (0-5); LYMPHOCYTES 42 % (16-52); MONOCYTES 6 % (0-8); NEUTROPHILS 47 % (35-75); PLATELET ESTIMATE NORMAL (NORMAL)
[2018-05-07] MEDS: PERCOCET 5MG/325MG TAB PO ×2 (14:59)
[2018-05-07] MEDS: AZITHROMYCIN 250 MG TAB PO ×2 (15:35)
== END 2018-05-07 15:39 | disposition home or self-care (01) ==
LOC: M ED 11:28
DX: J20.9 Acute bronchitis, unspecified (principal); I45.19 Other right bundle-branch block; R94.31 Abnormal electrocardiogram [ECG] [EKG]; K21.9 Gastro-esophageal reflux disease without esophagitis; J44.9 Chronic obstructive pulmonary disease, unspecified; Z87.01 Personal history of pneumonia (recurrent); N80.9 Endometriosis, unspecified; Z72.0 Tobacco use; Z79.899 Other long term (current) drug therapy
CPT/HCPCS: J2270

== ENCOUNTER → 2018-05-10 | Outpatient (REF) | payer OTHER | LOC: M LAB REF 12:58 | DX: N20.0 Calculus of kidney (principal) ==

== ENCOUNTER → 2018-05-10 | Outpatient (CLI) | payer OTHER | LOC: M RAD 14:50 | DX: N20.0 Calculus of kidney (principal) | CPT/HCPCS: 74176 ==

== ENCOUNTER → 2018-07-04 | Outpatient (CLI) | payer OTHER ==
[2018-07-04 11:07] LABS: HEMATOCRIT 39.1 % (36.0-47.0); MEAN CORPUSCULAR HEMOGLOBIN 28.9 pg (27.0-33.0); MEAN CORPUSCULAR HGB CONC 33.2 g/dl (32.0-36.5); MEAN CORPUSCULAR VOLUME 86.9 fl (80.0-96.0); PLATELET COUNT, AUTOMATED 420 10^3/uL (150-450); RED CELL DISTRIBUTION WIDTH 17.2 % (11.5-14.5)
[2018-07-04 11:16] LABS: INR 0.92; PROTHROMBIN TIME 12.5 SECONDS (12.1-14.4)
[2018-07-04 11:17] LABS: PARTIAL THROMBOPLASTIN TIME 27.8 SECONDS (25.4-37.6)
[2018-07-04 11:36] LABS: CONTROL LINE HCG INT CTR LINE PRESENT; HCG, SERUM QUALITATIVE NEGATIVE (NEGATIVE)
== END ==
LOC: M LAB 10:05
DX: Z01.812 Encounter for preprocedural laboratory examination (principal); M47.22 Other spondylosis with radiculopathy, cervical region
CPT/HCPCS: 84703

== ENCOUNTER 2018-09-01 01:56 | Emergency (ER) | payer OTHER ==
[2018-09-01 03:23] LABS: BASO # 0.1 10^3/uL (0.0-0.2); BASO % 0.4 % (0.0-1.0); EOS # 0.6 10^3/uL (0.0-0.50); EOS % 2.3 % (0.0-3.0); HEMOGLOBIN 12.4 g/dl (12.0-15.5); IMMATURE GRANULOCYTE % 0.5 % (0-3.0); LYMPH # 2.8 10^3/uL (1.5-4.5); LYMPH % 11.1 % (24.0-44.0); MEAN CORPUSCULAR HEMOGLOBIN 28.8 pg (27.0-33.0); MEAN CORPUSCULAR HGB CONC 33.5 g/dl (32.0-36.5); MEAN CORPUSCULAR VOLUME 85.8 fl (80.0-96.0); MONO # 1.3 10^3/uL (0.0-0.8); MONO % 5.2 % (0.0-5.0); NEUTROPHILS % 80.5 % (36.0-66.0); PLATELET COUNT, AUTOMATED 367 10^3/uL (150-450); RED BLOOD COUNT 4.31 10^6/uL (4.00-5.40); RED CELL DISTRIBUTION WIDTH 16.3 % (11.5-14.5); WHITE BLOOD COUNT 24.8 10^3/uL (4.0-10.0)
[2018-09-01 03:35] LABS: ANION GAP 8 MEQ/L (8-16); BLOOD UREA NITROGEN 12 MG/DL (7-18); CALCIUM LEVEL 8.9 MG/DL (8.5-10.1); CARBON DIOXIDE LEVEL 22 MEQ/L (21-32); CHLORIDE LEVEL 112 MEQ/L (98-107); CK-MB VALUE MASS < 1.0 NG/ML (<3.6); CPK CREATINE PHOSPHOKINASE 59 U/L (26-192); CREATININE FOR GFR 0.67 MG/DL (0.55-1.30); GLOMERULAR FILTRATION RATE > 60.0 (>58); GLUCOSE, FASTING 137 MG/DL (70-100); MB/CK RELATIVE INDEX 1.69 (< OR =4); POTASSIUM SERUM 3.3 MEQ/L (3.5-5.1); SODIUM LEVEL 142 MEQ/L (136-145); TROPONIN I < 0.02 NG/ML (< 0.10)
[2018-09-01] MEDS: POTASSIUM CHLORIDE 10 MEQ SR TABLET PO (05:09)
[2018-09-01] MEDS: KETOROLAC 30 MG/ML VIAL (J1885) IV (05:09)
[2018-09-01] MEDS: MORPHINE 4 MG/ML 1ML VIAL/SYRINGE (J2270) IV (05:09)
== END 2018-09-01 05:59 | disposition home or self-care (01) ==
LOC: M ED 01:56
DX: S29.012A Strain of muscle and tendon of back wall of thorax, initial encounter (principal); X58.XXXA Exposure to other specified factors, initial encounter; Y92.89 Other specified places as the place of occurrence of the external cause; F41.9 Anxiety disorder, unspecified; F32.9 Major depressive disorder, single episode, unspecified; J45.909 Unspecified asthma, uncomplicated; K21.9 Gastro-esophageal reflux disease without esophagitis; Z87.09 Personal history of other diseases of the respiratory system; Z79.899 Other long term (current) drug therapy; Z79.52 Long term (current) use of systemic steroids; Z79.2 Long term (current) use of antibiotics; Z87.891 Personal history of nicotine dependence
CPT/HCPCS: J2270

== ENCOUNTER 2018-11-05 20:22 | Emergency (ER) | payer OTHER ==
[2018-11-05] MEDS: NS 1,000 ML IV (19:53)
[2018-11-05] MEDS: ONDANSETRON 4MG/2ML VIAL (J2405) IV (19:53)
[2018-11-05] MEDS: MORPHINE 4 MG/ML 1ML VIAL/SYRINGE (J2270) IV (19:53)
[2018-11-05 20:16] LABS: HEMATOCRIT 39.2 % (36.0-47.0); MEAN CORPUSCULAR HEMOGLOBIN 28.8 pg (27.0-33.0); MEAN CORPUSCULAR HGB CONC 33.2 g/dl (32.0-36.5); MEAN CORPUSCULAR VOLUME 86.7 fl (80.0-96.0); PLATELET COUNT, AUTOMATED 459 10^3/uL (150-450); POSITIVE MORPH POS FLAG; RED BLOOD COUNT 4.52 10^6/uL (4.00-5.40); RED CELL DISTRIBUTION WIDTH 16.7 % (11.5-14.5); WHITE BLOOD COUNT 9.6 10^3/uL (4.0-10.0)
[2018-11-05 20:17] LABS: ADD MANUAL DIFFER YES; DIFF SLIDE NUMBER 373
[2018-11-05 20:21] LABS: KETONE, URINE AUTO RFX NEGATIVE (NEGATIVE); LEUKOCYTE ESTERASE UR AUTO RFX 1+ (NEGATIVE); MUCUS, URINE RFX LARGE (NEGATIVE); NITRITE, URINE AUTO RFX NEGATIVE (NEGATIVE); RBC, URINE AUTO RFX TNTC /HPF (0-3); SPECIFIC GRAVITY UR AUTO RFX 1.032 (1.002-1.035); SQUAM EPITHELIAL CELL UR AURFX 8 /HPF (0-6); WBC, URINE AUTO RFX 55 /HPF (0-3)
[2018-11-05 20:29] LABS: PROTHROMBIN TIME 13.3 SECONDS (12.1-14.4)
[2018-11-05 20:30] LABS: PARTIAL THROMBOPLASTIN TIME 28.9 SECONDS (25.4-37.6)
[2018-11-05 20:36] LABS: ALBUMIN 3.7 GM/DL (3.2-5.2); ALBUMIN/GLOBULIN RATIO 1.16 (1.00-1.93); ALKALINE PHOSPHATASE 68 U/L (45-117); ALT/SGPT 11 U/L (12-78); ANION GAP 9 MEQ/L (8-16); AST/SGOT 14 U/L (7-37); BILIRUBIN,DIRECT < 0.1 MG/DL (0.0-0.2); BILIRUBIN,TOTAL 0.4 MG/DL (0.2-1.0); BLOOD UREA NITROGEN 19 MG/DL (7-18); CALCIUM LEVEL 8.8 MG/DL (8.5-10.1); CARBON DIOXIDE LEVEL 21 MEQ/L (21-32); CHLORIDE LEVEL 112 MEQ/L (98-107); CREATININE FOR GFR 0.54 MG/DL (0.55-1.30); GLOMERULAR FILTRATION RATE > 60.0 (>58); GLUCOSE, FASTING 80 MG/DL (70-100); LIPASE 78 U/L (73-393); POTASSIUM SERUM 3.7 MEQ/L (3.5-5.1); SODIUM LEVEL 142 MEQ/L (136-145); TOTAL PROTEIN 6.9 GM/DL (6.4-8.2)
[2018-11-05 20:44] LABS: ATYPICAL LYMPH 3 % (0-5); EOSINOPHILS 7 % (0-5); LYMPHOCYTES 45 % (16-52); MONOCYTES 5 % (0-8); NEUTROPHILS 40 % (35-75); PLATELET ESTIMATE NORMAL (NORMAL)
[2018-11-05 20:45] LABS: ANISOCYTOSIS 1+
[2018-11-05] MEDS: BACTRIM 160MG/800MG DS TAB PO (22:44)
[2018-11-05] MEDS: PHENAZOPYRIDINE 100 MG TAB PO (22:44)
== END 2018-11-05 22:50 | disposition home or self-care (01) ==
LOC: M ED 20:22
DX: N93.8 Other specified abnormal uterine and vaginal bleeding (principal); N30.90 Cystitis, unspecified without hematuria; K21.9 Gastro-esophageal reflux disease without esophagitis; F41.9 Anxiety disorder, unspecified; F17.210 Nicotine dependence, cigarettes, uncomplicated; Z79.52 Long term (current) use of systemic steroids; Z79.51 Long term (current) use of inhaled steroids
CPT/HCPCS: J2270

== ENCOUNTER 2018-11-06 12:32 | Emergency (ER) | payer OTHER ==
[2018-11-06] MEDS: KETOROLAC 30 MG/ML VIAL (J1885) IV (13:49)
[2018-11-06] MEDS: NS 1,000 ML IV (13:49)
[2018-11-06 13:59] LABS: BASO # 0.1 10^3/uL (0.0-0.2); BASO % 0.9 % (0.0-1.0); EOS # 0.5 10^3/uL (0.0-0.50); EOS % 5.3 % (0.0-3.0); HEMATOCRIT 37.6 % (36.0-47.0); HEMOGLOBIN 12.7 g/dl (12.0-15.5); IMMATURE GRANULOCYTE % 0.1 % (0-3.0); LYMPH # 3.8 10^3/uL (1.5-4.5); LYMPH % 41.6 % (24.0-44.0); MEAN CORPUSCULAR HEMOGLOBIN 29.1 pg (27.0-33.0); MEAN CORPUSCULAR HGB CONC 33.8 g/dl (32.0-36.5); MEAN CORPUSCULAR VOLUME 86.2 fl (80.0-96.0); MONO # 0.7 10^3/uL (0.0-0.8); MONO % 7.4 % (0.0-5.0); NEUTROPHILS # 4.1 10^3/uL (1.8-7.7); NEUTROPHILS % 44.7 % (36.0-66.0); PLATELET COUNT, AUTOMATED 404 10^3/uL (150-450); RED BLOOD COUNT 4.36 10^6/uL (4.00-5.40); RED CELL DISTRIBUTION WIDTH 16.6 % (11.5-14.5); WHITE BLOOD COUNT 9.1 10^3/uL (4.0-10.0)
[2018-11-06 14:09] LABS: INR 0.91; PARTIAL THROMBOPLASTIN TIME 27.8 SECONDS (25.4-37.6); PROTHROMBIN TIME 12.3 SECONDS (12.1-14.4)
[2018-11-06 14:20] LABS: ANION GAP 7 MEQ/L (8-16); BLOOD UREA NITROGEN 14 MG/DL (7-18); CALCIUM LEVEL 8.3 MG/DL (8.5-10.1); CARBON DIOXIDE LEVEL 22 MEQ/L (21-32); CHLORIDE LEVEL 115 MEQ/L (98-107); CREATININE FOR GFR 0.52 MG/DL (0.55-1.30); GLOMERULAR FILTRATION RATE > 60.0 (>58); GLUCOSE, FASTING 76 MG/DL (70-100); POTASSIUM SERUM 4.2 MEQ/L (3.5-5.1); SODIUM LEVEL 144 MEQ/L (136-145)
[2018-11-06] MEDS: ONDANSETRON 4MG/2ML VIAL (J2405) IV (14:28)
== END 2018-11-06 15:15 | disposition home or self-care (01) ==
LOC: M ED 12:32
DX: N93.8 Other specified abnormal uterine and vaginal bleeding (principal); N80.9 Endometriosis, unspecified; Z79.899 Other long term (current) drug therapy; F17.210 Nicotine dependence, cigarettes, uncomplicated
CPT/HCPCS: J2405

== ENCOUNTER → 2018-12-13 | Outpatient (CLI) | payer OTHER ==
[~2018-12-13] MED LIST changes: +ALBU17IN2 INH; +AMOX875T2 PO; +AZIT-12 PO; +BACT800T5 PO; +BENZ200C70 PO; +CETI1TAB PO; -COLA100C3 PO; +COLA100C5 PO; +GABA-843 PO; +HYDR-3363 PO; +HYDR-3713 PO; +NAPR-50 PO; +NICO7DIS27 TD; +OLAN5TAB PO; +OMEP40CA2 PO; +OXYC1TAB23 PO; +PERC5TAB12 PO; -PERC5TAB6 PO; +PRED10TA2 PO; +PYRI1TAB5 PO; +VENTAER INH; +ZOFR4TAB14 PO; +ZOFR4TAB16 PO; +ZOLO100T PO
[2018-12-13 11:13] LABS: BASO # 0.1 10^3/uL (0.0-0.2); EOS # 0.7 10^3/uL (0.0-0.50); EOS % 6.7 % (0.0-3.0); HEMATOCRIT 37.6 % (36.0-47.0); HEMOGLOBIN 12.7 g/dl (12.0-15.5); LYMPH # 3.7 10^3/uL (1.5-4.5); LYMPH % 37.8 % (24.0-44.0); MEAN CORPUSCULAR HGB CONC 33.8 g/dl (32.0-36.5); MEAN CORPUSCULAR VOLUME 85.8 fl (80.0-96.0); MONO # 0.6 10^3/uL (0.0-0.8); MONO % 6.2 % (0.0-5.0); NEUTROPHILS # 4.7 10^3/uL (1.8-7.7); PLATELET COUNT, AUTOMATED 393 10^3/uL (150-450); RED BLOOD COUNT 4.38 10^6/uL (4.00-5.40); WHITE BLOOD COUNT 9.9 10^3/uL (4.0-10.0)
[2018-12-13 11:24] LABS: PARTIAL THROMBOPLASTIN TIME 27.4 SECONDS (25.4-37.6); PROTHROMBIN TIME 13.3 SECONDS (12.1-14.4)
[2018-12-13 11:44] LABS: ALBUMIN 3.6 GM/DL (3.2-5.2); ALT/SGPT 9 U/L (12-78); BILIRUBIN,TOTAL 0.3 MG/DL (0.2-1.0); BLOOD UREA NITROGEN 24 MG/DL (7-18); CALCIUM LEVEL 8.8 MG/DL (8.5-10.1); CARBON DIOXIDE LEVEL 25 MEQ/L (21-32); CHLORIDE LEVEL 107 MEQ/L (98-107); CREATININE FOR GFR 0.54 MG/DL (0.55-1.30); GLOMERULAR FILTRATION RATE > 60.0 (>58); GLUCOSE, FASTING 84 MG/DL (70-100); POTASSIUM SERUM 4.5 MEQ/L (3.5-5.1); SODIUM LEVEL 141 MEQ/L (136-145); TOTAL PROTEIN 6.5 GM/DL (6.4-8.2)
== END ==
LOC: M LAB 10:36
PROVIDERS: ATTEND Family Medicine
DX: Z01.818 Encounter for other preprocedural examination (principal); N80.9 Endometriosis, unspecified

== ENCOUNTER 2018-12-18 11:15 | Day surgery (SDC) | payer OTHER ==
[~2018-12-18] VITALS: Ht 162.6 cm; Wt 51.6 kg
[~2018-12-18 11:15] MED LIST changes: +ACETAMINOPHEN 650 MG SUPP PR ONE; +KETOROLAC 60 MG/2 ML VIAL (J1885) As Ordered ONE; +LIDOCAINE 2% INJ 100 MG/5 ML SDV (FOR ANES.) As Ordered ONE; +LR 1,000 ML IV ONE; +ONDANSETRON 4MG/2ML VIAL (J2405) As Ordered ONE; +PROPOFOL 200 MG/20 ML VIAL As Ordered ONE; +ROCURONIUM BROMIDE 50 MG/5 ML VIAL As Ordered ONE; +fentaNYL 250 MCG/5 ML INJECTION (J3010) As Ordered ONE
[2018-12-18] MEDS ORDERED: MIDAZOLAM INJ 2 MG/2 ML VIAL (J2250) As Ordered ONE (11:16)
[2018-12-18] MEDS ORDERED: dexameTHASONE 4 MG/ML 1ML VIAL (J1100) As Ordered ONE (11:20)
[2018-12-18] MEDS ORDERED: GLYCOPYRROLATE INJ 0.2 MG/ML 2 ML VIAL As Ordered ONE (11:22)
[2018-12-18] MEDS ORDERED: NEOSTIGMINE 10 MG/10 ML VIAL (J2710) As Ordered ONE (11:22)
[2018-12-18 11:43] LABS: HEMATOCRIT 41.7 % (36.0-47.0); HEMOGLOBIN 13.6 g/dl (12.0-15.5); MEAN CORPUSCULAR HEMOGLOBIN 28.8 pg (27.0-33.0); MEAN CORPUSCULAR HGB CONC 32.6 g/dl (32.0-36.5); MEAN CORPUSCULAR VOLUME 88.3 fl (80.0-96.0); PLATELET COUNT, AUTOMATED 387 10^3/uL (150-450); RED BLOOD COUNT 4.72 10^6/uL (4.00-5.40); WHITE BLOOD COUNT 8.3 10^3/uL (4.0-10.0)
[2018-12-18 11:45] LABS: URINE PREG TEST NEGATIVE (NEGATIVE)
[2018-12-18 12:04] LABS: BLOOD UREA NITROGEN 23 MG/DL (7-18); CALCIUM LEVEL 8.7 MG/DL (8.5-10.1); CARBON DIOXIDE LEVEL 25 MEQ/L (21-32); CHLORIDE LEVEL 110 MEQ/L (98-107); CREATININE FOR GFR 0.56 MG/DL (0.55-1.30); GLOMERULAR FILTRATION RATE > 60.0 (>58); GLUCOSE, FASTING 91 MG/DL (70-100); POTASSIUM SERUM 3.9 MEQ/L (3.5-5.1); SODIUM LEVEL 140 MEQ/L (136-145)
[2018-12-18] MEDS ORDERED: FLUORESCEIN 10% (100MG/ML) 5 ML VIAL As Ordered ONE (14:44)
[2018-12-18] MEDS ORDERED: ACETAMINOPHEN 650 MG SUPP As Ordered ONE (14:44)
[2018-12-18] MEDS ORDERED: BUPIVACAINE/EPIN 0.25% 30 ML VIAL As Ordered ONE (14:44)
[2018-12-18] MEDS ORDERED: ePHEDrine SULFATE 25 MG/5 ML(5MG/ML) SYRINGE As Ordered ONE (15:40)
[2018-12-18] MEDS ORDERED: HYDROmorphone HCL 2 MG/ML 1ML VIAL (J1170) As Ordered ONE (16:14)
[2018-12-18] MEDS ORDERED: ROCURONIUM BROMIDE 50 MG/5 ML VIAL As Ordered ONE (16:24)
[2018-12-18] MEDS ORDERED: SUGAMMADEX SODIUM 500 MG/5 ML VIAL (BRIDION) As Ordered ONE (17:03)
[2018-12-18] MEDS ORDERED: PERCOCET 5MG/325MG TAB PO PRN (18:15)
[2018-12-18] MEDS ORDERED: ONDANSETRON 4MG/2ML VIAL (J2405) IV PRN (18:15)
[2018-12-18] MEDS ORDERED: LR 1,000 ML IV SCH ×2 (18:15)
[2018-12-18] MEDS ORDERED: fentaNYL 100 MCG/2 ML INJECTION (J3010) IV PRN (18:15)
--- NOTE | 2018-12-18 18:27 | RO ---
DATE OF PROCEDURE: 12/18/2018 Thalia is a 48-year-old female with extensive history of endometriosis, menorrhagia and pelvic pain. The patient also had two prior section. After counseling a decision was made to proceed with robotic-assisted laparoscopic hysterectomy, bilateral salpingo-oophorectomy with possible lysis of adhesion. PREOPERATIVE DIAGNOSIS 1. Menorrhagia. 2. Pelvic pain. 3. History of endometriosis. POSTOPERATIVE DIAGNOSIS 1. Menorrhagia. 2. Pelvic pain. 3. History of endometriosis. 4. Omental adhesion. OPERATIVE PROCEDURE: 1. Robotic-assisted laparoscopic hysterectomy. 2. Bilateral salpingo-oophorectomy. 3. Lysis of adhesion. 4. Cystoscopy. SURGEON: Demetrius Christian DO TRACK REPAIRER: ANESTHESIA: General. COMPLICATIONS: None. ESTIMATED BLOOD LOSS: Less than 50 mL FINDINGS: Normal mildly enlarged uterus with extensive omental adhesion to the anterior abdominal wall at the level of the umbilicus. The bladder was slightly adherent to the lower uterine segment. On cystoscopy bilateral ureteral jets were noted. DESCRIPTION OF PROCEDURE After obtaining informed consent, the patient was taken to the operating room where general anesthetic was found to be adequate. She was then draped and prepped in the usual sterile fashion in a dorsal lithotomy position. At this point, a HUMI II uterine manipulator was placed and a Crockett catheter was placed in the bladder for drainage. We then turned our attention to the abdomen where a 10 mm infraumbilical incision was made. Using the Veress needle the abdomen was insufflated with CO2 gas to approximately 3.5 liters. We then placed 10/12 mm trocar under direct visualization. Then an 8 mm left lateral port was placed for robotic arm two and another 8 mm left lateral port was placed for the assist on the right side. A 8-mm port was placed for robotic arm one. At this point the patient was placed in steep Trendelenburg. Given the omental adhesions that were noted, lysis of adhesions were performed to bring down the omental adhesion with a series of sharp and blunt dissection. After taking down the adhesions the robot was brought in a 45 degrees angle on the patient's right side. It was docked in the usual fashion. A vessel sealer placed in arm one and a bipolar grasper in arm two. I then went over to the surgeon console and began the surgery. The infundibular pelvic ligament was identified. This was cauterized and cut using vessel sealer. It was taken down to include the round ligament all way down to the uterine arteries. The uterine arteries were skeletonized. The anterior leaflet of the broad ligament was dissected to create a bladder flap. The adhesions were freed with a series of sharp and blunt dissection. At this point attention was turned to the opposite side which was done in a similar fashion. The anterior leaflet of the broad ligament was dissected to complete the bladder flap. At this point we were able to see the cup of the uterine manipulator and after securing the uterine artery with the vessel sealer, the vessel sealer was removed and Endo shear placed. Anterior and posterior colpotomy was performed. The uterus, bilateral tubes and ovaries were removed through the vagina. At this point a robotic needle pick up driver was placed in arm one. #2-0 V-Loc suture was introduced and the vaginal cuff was then closed in a running fashion using the #2-0 V-Loc suture. The peritoneum over the vaginal cuff was also closed. Pelvis copiously irrigated with normal saline and suctioned out. 1 mL of Furacin was given by the anesthesiologist. I then rescrubbed and went to the patient's side, retrograde filled the bladder to 250 mL of normal saline. The Crockett catheter removed. A cystoscope was inserted. Bilateral urethral jets were noted. No evidence of any bladder injury noted. At this point the cystoscope was removed, the Crockett catheter was placed back in the bladder for drainage. We then turned our intention to the abdomen where all the robotic arms and trocars were removed and the robotic trocar sites were closed using #0 Vicryl in the fascia and #3-0 Vicryl in subcuticular fashion in the skin. 0.25% Marcaine was placed for postoperative pain. The patient tolerated procedure well. She was then transferred to recovery room in stable condition.
[2018-12-18 18:30] VITALS: BP 138/74
[2018-12-18] MEDS: IBUPROFEN 800 MG TAB PO SCH ×2 (18:57→23:05)
[2018-12-18] MEDS: SIMETHICONE 80 MG CHEW TAB PO SCH ×2 (18:57→23:06)
[2018-12-18 19:00] VITALS: BP 130/77
[2018-12-18 20:00] VITALS: BP 137/78
[2018-12-18 21:00] VITALS: BP 140/72
[2018-12-18] MEDS: PERCOCET 5MG/325MG TAB PO PRN (21:33)
[2018-12-18 22:00] VITALS: BP 146/74
[2018-12-18] MEDS ORDERED: PERCOCET PO (22:54)
[2018-12-18] MEDS ORDERED: IBUP80TA PO (22:54)
[2018-12-18 23:00] VITALS: BP 144/72
[2018-12-19] MEDS: PERCOCET 5MG/325MG TAB PO PRN ×2 (01:39→07:29)
[2018-12-19 04:00] VITALS: BP 128/76
[2018-12-19] MEDS: IBUPROFEN 800 MG TAB PO SCH (05:11)
[2018-12-19] MEDS: SIMETHICONE 80 MG CHEW TAB PO SCH (05:11)
[2018-12-19 08:00] VITALS: BP 151/80
== END 2018-12-19 10:30 | disposition home or self-care (01) ==
LOC: M SDC 11:15 → M PED 18:20 → M SDC 12-19 10:30
PROVIDERS: ATTEND Obstetrics & Gynecology
DX: N72 Inflammatory disease of cervix uteri (principal); N87.0 Mild cervical dysplasia; N92.1 Excessive and frequent menstruation with irregular cycle; N73.6 Female pelvic peritoneal adhesions (postinfective); N80.9 Endometriosis, unspecified; M54.2 Cervicalgia; F41.9 Anxiety disorder, unspecified; F32.9 Major depressive disorder, single episode, unspecified; F43.10 Post-traumatic stress disorder, unspecified; J44.9 Chronic obstructive pulmonary disease, unspecified; J84.112 Idiopathic pulmonary fibrosis; R06.83 Snoring; R06.02 Shortness of breath; Z79.899 Other long term (current) drug therapy; Z87.42 Personal history of other diseases of the female genital tract; Z87.891 Personal history of nicotine dependence
CPT/HCPCS: 36415; 58571; 80048; 84703; 85027; 86850; 86900; 86901; 88309; J0690; J1100; J1170; J1885; J2250; J2405; J3010

== ENCOUNTER 2019-03-20 06:46 | Day surgery (SDC) | payer OTHER ==
[~2019-03-20] VITALS: Ht 162.6 cm; Wt 47.1 kg
[~2019-03-20 06:46] MED LIST changes: -ACETAMINOPHEN 650 MG SUPP PR ONE; +DITR5TAB PO; +EXCEDTAB PO; +FLOM0.4C39 PO; +IBUP80TA PO; -KETOROLAC 60 MG/2 ML VIAL (J1885) As Ordered ONE; +LIDOCAINE 1% MDV 20ML VIAL SQ PRN; -LIDOCAINE 2% INJ 100 MG/5 ML SDV (FOR ANES.) As Ordered ONE; -LR 1,000 ML IV ONE; -NAPR-50 PO; +NAPR-837 PO; -NICO7DIS27 TD; +NICO7DIS5 TD; -ONDANSETRON 4MG/2ML VIAL (J2405) As Ordered ONE; +PERCOCET PO; -PROPOFOL 200 MG/20 ML VIAL As Ordered ONE; -ROCURONIUM BROMIDE 50 MG/5 ML VIAL As Ordered ONE; +SERT-141 PO; -SERT50TA PO; +TRAZ-160 PO; -fentaNYL 250 MCG/5 ML INJECTION (J3010) As Ordered ONE
[2019-03-20] MEDS ORDERED: LR 1,000 ML IV ONE (07:15)
[2019-03-20] MEDS ORDERED: PROPOFOL 200 MG/20 ML VIAL As Ordered ONE ×3 (08:01→11:14)
[2019-03-20] MEDS ORDERED: MIDAZOLAM INJ 2 MG/2 ML VIAL (J2250) As Ordered ONE (08:02)
[2019-03-20] MEDS ORDERED: fentaNYL 100 MCG/2 ML INJECTION (J3010) As Ordered ONE (08:02)
--- NOTE | 2019-03-20 10:01 | REP ---
KUB, ONE VIEW: HISTORY: Kidney stone. COMPARISON: CT abdomen 03/11/2019. A small amount of air is present in the intestine. There are no air fluid levels or dilated loops of intestine. There is no pneumoperitoneum. Calcifications are present overlying the kidneys consistent with nephrolithiasis. A 4 mm calcification is present medial to the right kidney at the L3 level. This likely represents a stone in the proximal right ureter. A right ureteral stent is present. IMPRESSION: 1. Nonspecific bowel gas pattern. 2. Bilateral nephrolithiasis. Electronically Signed by Juan Viveros MD 03/20/2019 10:03 A
[2019-03-20] MEDS ORDERED: PERCOCET 5MG/325MG TAB As Ordered ONE (11:42)
[2019-03-20] MEDS ORDERED: PERCOCET 5MG/325MG TAB PO PRN ×2 (11:45)
[2019-03-20 12:30] VITALS: BP 123/81
--- NOTE | 2019-03-21 14:18 | RO ---
DATE OF PROCEDURE: 03/20/2019 PREPROCEDURE DIAGNOSIS: Bilateral kidney stones. POSTPROCEDURE DIAGNOSIS: Bilateral kidney stones. PROCEDURE: Bilateral extracorporeal shockwave lithotripsy. SURGEON: Dr. Vinny Hernandez CASING INSPECTOR: None. ANESTHESIA: Monitored anesthesia care (MAC). OPERATIVE INDICATIONS: This is a 48-year-old female who presented to the hospital a few weeks ago with an obstructing approximately 8 mm right ureteropelvic junction stone. She had a right ureteral stent placed at the time. Also on her CAT scan, she had a smaller nonobstructing stone in the right kidney as well as two to three stones inside her left kidney. She was brought to the operating room today for the above listed procedure. DESCRIPTION OF PROCEDURE: The patient was brought to the operating room and MAC anesthesia was administered. Prophylactic antibiotics were infused. She was then placed in the supine position in preparation for right sided extracorporeal shockwave lithotripsy. Fluoroscopy and ultrasonography utilized to monitor stone position and fragmentation throughout the procedure. Shockwaves were then first delivered to the 8 mm right kidney stone. Shockwaves were delivered ungated. Approximately 2000 shocks were delivered to that stone and it did appear to fragment well. The remaining 500 shocks were then delivered to the smaller stone in the right kidney. Once 2500 shocks were reached, the patient was then repositioned for left sided extracorporeal shockwave lithotripsy. Once again, fluoroscopy and ultrasonography were utilized to monitor stone position and fragmentation throughout the procedure. Shockwaves were delivered to the left sided kidney stones ungated. There were no arrhythmias. After 2500 shocks, the procedure was concluded. The patient was then awakened from anesthesia and transported to the recovery room in stable condition. Estimated blood loss 0 mL. Complications: None. Specimens: None. Plan: The patient will followup in the clinic in a few weeks with imaging prior to assess for residual stone burden. If the large stone on the right side appears to be gone, her stent will be removed at that time. [facility] HOSPITALMilady
== END 2019-03-20 12:40 | disposition home or self-care (01) ==
LOC: M SDC 06:46
PROVIDERS: ATTEND Urology
DX: N20.0 Calculus of kidney (principal); Q07.00 Arnold-Chiari syndrome without spina bifida or hydrocephalus; F41.9 Anxiety disorder, unspecified; Z90.710 Acquired absence of both cervix and uterus; Z72.0 Tobacco use; Z79.899 Other long term (current) drug therapy
CPT/HCPCS: 50590; 74018; J0690; J2250; J3010

== ENCOUNTER → 2019-04-16 | Outpatient (CLI) | payer OTHER ==
[~2019-04-16] MED LIST changes: +HYDR12.55 PO; +LEVO250T12 PO; -LIDOCAINE 1% MDV 20ML VIAL SQ PRN
--- NOTE | 2019-04-16 13:38 | REP ---
Clinical: renal calculi. Technique: Single supine view. Findings: Right ureteral stent in satisfactory position. No definite intrarenal calculi appreciated. Phleboliths noted in the pelvis. Bowel gas pattern is nonspecific. No organomegaly. Skeletal structures are intact. Impression: Right ureteral stent in satisfactory position. No obvious urinary tract calcification identified and the previously noted 4 mm ureteral stone is not currently visualized. Electronically Signed by Swapnil Wood MD 04/16/2019 01:31 P
== END ==
LOC: M SMT 13:01
PROVIDERS: ATTEND Urology
DX: I87.8 Other specified disorders of veins (principal); Z96.0 Presence of urogenital implants; Z87.442 Personal history of urinary calculi

== ENCOUNTER → 2019-04-16 | Outpatient (REF) | payer OTHER | LOC: M SMT 17:12 | PROVIDERS: ATTEND Urology | DX: N20.0 Calculus of kidney (principal) ==

== ENCOUNTER 2019-04-20 19:15 | Emergency (ER) | payer OTHER ==
[~2019-04-20] VITALS: Ht 162.6 cm; Wt 47.3 kg
[~2019-04-20 19:15] MED LIST changes: -HYDR12.55 PO; -LEVO250T12 PO; -TRAZ-160 PO; +TRAZ-252 PO
[2019-04-20] MEDS ORDERED: HYDR12.55 PO (19:49)
[2019-04-20] MEDS ORDERED: LEVO250T12 PO (19:49)
--- NOTE | 2019-04-20 19:50 | ECGEPIP ---
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
[2019-04-20 19:54] LABS: BASO # 0.1 10^3/uL (0.0-0.2); BASO % 0.7 % (0.0-1.0); EOS # 0.3 10^3/uL (0.0-0.50); HEMOGLOBIN 14.2 g/dl (12.0-15.5); LYMPH # 3.7 10^3/uL (1.5-4.5); LYMPH % 25.3 % (24.0-44.0); MEAN CORPUSCULAR HEMOGLOBIN 29.5 pg (27.0-33.0); MEAN CORPUSCULAR HGB CONC 34.6 g/dl (32.0-36.5); MEAN CORPUSCULAR VOLUME 85.2 fl (80.0-96.0); MONO # 1.7 10^3/uL (0.0-0.8); MONO % 11.6 % (0.0-5.0); NEUTROPHILS # 8.7 10^3/uL (1.8-7.7); NEUTROPHILS % 60.1 % (36.0-66.0); PLATELET COUNT, AUTOMATED 492 10^3/uL (150-450); RED BLOOD COUNT 4.81 10^6/uL (4.00-5.40); WHITE BLOOD COUNT 14.5 10^3/uL (4.0-10.0)
[2019-04-20] MEDS: NITROGLYCERIN 0.4 MG SUBL TABLET SL PRN ×3 (19:54→22:54)
[2019-04-20] MEDS ORDERED: ASPIRIN 81 MG CHEW TABLET PO ONE (20:00)
[2019-04-20 20:13] LABS: BLOOD UREA NITROGEN 25 MG/DL (7-18); CALCIUM LEVEL 9.3 MG/DL (8.5-10.1); CARBON DIOXIDE LEVEL 23 MEQ/L (21-32); CHLORIDE LEVEL 106 MEQ/L (98-107); CPK CREATINE PHOSPHOKINASE 61 U/L (26-192); CREATININE FOR GFR 0.65 MG/DL (0.55-1.30); GLOMERULAR FILTRATION RATE > 60.0 (>58); GLUCOSE, FASTING 84 MG/DL (70-100); POTASSIUM SERUM 2.8 MEQ/L (3.5-5.1); SODIUM LEVEL 140 MEQ/L (136-145); TROPONIN I < 0.02 NG/ML (< 0.10)
[2019-04-20] MEDS ORDERED: ISOVUE-370 76% 100ML VIAL (Q9967) As Ordered ONE (20:15)
--- NOTE | 2019-04-20 20:40 | REP ---
Clinical: Acute chest pain. Technique: Axial contrast enhanced images from the thoracic inlet to the upper abdomen using 100 ml Isovue 370 intravenous contrast material with coronal and sagittal re-formations. Comparison: 09/28/2017 Findings: Satisfactory enhancement of the pulmonary vasculature is achieved and no filling defects are identified to suggest pulmonary embolus. Thoracic aorta is normal caliber without aneurysm or dissection. Heart and pericardium are normal. Bilateral lung ro demonstrate mild stable right lobe/apical emphysematous changes with minimal scattered scarring. No acute consolidation. No obvious nodule or mass lesion. No effusion. No pneumothorax. Tracheobronchial tree is patent. No adenopathy. Impression: No evidence for pulmonary embolus. Mild stable emphysematous changes involving the upper lung zones. No consolidation or obvious acute pleuroparenchymal process. Electronically Signed by Swapnil Wood MD 04/20/2019 08:32 P
--- NOTE | 2019-04-20 20:48 | REP ---
Clinical: Acute chest pain . Comparison: 05/06/2018, 09/01/2018 . Findings: The mediastinum and cardiac silhouette are stable and within normal limits for portable technique. The lung ro the straight chronic-appearing interstitial changes and COPD/emphysematous disease. No focal consolidation, effusion, or pneumothorax. Skeletal structures are intact. Impression: Chronic stable changes. No acute cardiopulmonary process appreciated. Electronically Signed by Swapnil Wood MD 04/20/2019 08:40 P
[2019-04-20] MEDS ORDERED: NS 1,000 ML IV ONE (21:45)
[2019-04-20 22:54] VITALS: BP 144/84
[2019-04-20] MEDS ORDERED: POTASSIUM CHLORIDE 10 MEQ SR TABLET PO ONE (23:15)
[2019-04-21 01:50] LABS: BLOOD UREA NITROGEN 21 MG/DL (7-18); CALCIUM LEVEL 8.4 MG/DL (8.5-10.1); CARBON DIOXIDE LEVEL 25 MEQ/L (21-32); CHLORIDE LEVEL 107 MEQ/L (98-107); CK-MB VALUE MASS < 1.0 NG/ML (<3.6); CPK CREATINE PHOSPHOKINASE 52 U/L (26-192); CREATININE FOR GFR 0.58 MG/DL (0.55-1.30); GLOMERULAR FILTRATION RATE > 60.0 (>58); GLUCOSE, FASTING 87 MG/DL (70-100); MB/CK RELATIVE INDEX 1.92 (< OR =4); POTASSIUM SERUM 3.5 MEQ/L (3.5-5.1); SODIUM LEVEL 139 MEQ/L (136-145); TROPONIN I < 0.02 NG/ML (< 0.10)
[2019-04-21 03:00] VITALS: BP 131/75
--- NOTE | 2019-04-21 21:00 | ECGEPIP ---
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
== END 2019-04-21 03:06 | disposition home or self-care (01) ==
LOC: EDBD 19:15 → M ED 19:15
DX: E87.6 Hypokalemia (principal); R00.0 Tachycardia, unspecified; I51.7 Cardiomegaly; I45.19 Other right bundle-branch block; Z72.0 Tobacco use; Z79.899 Other long term (current) drug therapy
CPT/HCPCS: 71045; 71275; 80048; 82550; 82553; 85025; 93005; 93041; 94760; 96360; 96361; 99285; Q9967

== ENCOUNTER → 2019-05-16 | Outpatient (CLI) | payer OTHER ==
[~2019-05-16] MED LIST changes: +HYDR12.55 PO; +LEVO250T12 PO
[2019-05-16 14:10] LABS: IONIZED CALCIUM 4.7 MG/DL (4.5-5.3)
[2019-05-16 14:51] LABS: BLOOD UREA NITROGEN 23 MG/DL (7-18); CALCIUM LEVEL 9.2 MG/DL (8.5-10.1); CARBON DIOXIDE LEVEL 26 MEQ/L (21-32); CHLORIDE LEVEL 110 MEQ/L (98-107); CREATININE FOR GFR 0.62 MG/DL (0.55-1.30); GLOMERULAR FILTRATION RATE > 60.0 (>58); GLUCOSE, FASTING 92 MG/DL (70-100); MAGNESIUM LEVEL 2.2 MG/DL (1.8-2.4); PHOSPHORUS LEVEL 4.1 MG/DL (2.5-4.9); POTASSIUM SERUM 3.8 MEQ/L (3.5-5.1); SODIUM LEVEL 142 MEQ/L (136-145); URIC ACID 2.1 MG/DL (2.6-6.0)
[2019-05-16 16:00] LABS: PTH INTACT 43.4 PG/ML (18.5-88.0)
== END ==
LOC: M LAB 13:50
PROVIDERS: ATTEND Nurse Practitioner Family
DX: N20.0 Calculus of kidney (principal)

== ENCOUNTER → 2019-09-07 | Outpatient (CLI) | payer OTHER ==
[~2019-09-07] MED LIST changes: -ALBU17IN2 INH; -OMEP40CA2 PO; +OMEP40CA97 PO; +PROV108A INH
--- NOTE | 2019-09-07 13:59 | REP ---
REASON: Dyspnea. COMPARISON: Multiple, the latest 04/20/2019. The lung ro are hyperexpanded status quo. There is chronic right CP angle blunting. No definite acute patchy parenchymal opacities have developed. The cardiomediastinal silhouette is unchanged. The osseous structures are unchanged. IMPRESSION: Evidence of COPD and chronic right basilar scarring. Electronically Signed by Abhijeet Bay DO 09/07/2019 02:29 P
== END ==
LOC: M WUC 12:00
PROVIDERS: ATTEND Physician Assistant
DX: J44.1 Chronic obstructive pulmonary disease with (acute) exacerbation (principal); R06.02 Shortness of breath

== ENCOUNTER 2019-11-24 07:46 | Emergency (ER) | payer OTHER ==
[~2019-11-24] VITALS: Ht 162.6 cm; Wt 48.2 kg
[2019-11-24] MEDS ORDERED: methylPREDNISolone INJ 125 MG/2 ML VIAL (J2930) IV ONE (08:00)
[2019-11-24] MEDS ORDERED: IPRATROPIUM 0.5MG/ALBUTEROL 2.5MG INH SOL UD 3ML (DUONEB)(J7620) NEB ONE (08:00)
[2019-11-24] MEDS ORDERED: ALBUTEROL SULFATE 2.5 MG/0.5 ML INH NEB SOLN INH ONE (08:00)
[2019-11-24] MEDS ORDERED: FLUT1INH3 INH (08:22)
[2019-11-24 08:30] LABS: BASO # 0.1 10^3/uL (0.0-0.2); BASO % 0.9 % (0.0-1.0); EOS # 0.9 10^3/uL (0.0-0.5); EOS % 6.3 % (0.0-3.0); HEMATOCRIT 41.1 % (36.0-47.0); HEMOGLOBIN 13.3 g/dl (12.0-15.5); LYMPH # 2.7 10^3/uL (1.5-5.0); LYMPH % 18.8 % (24.0-44.0); MEAN CORPUSCULAR HEMOGLOBIN 29.6 pg (27.0-33.0); MEAN CORPUSCULAR HGB CONC 32.4 g/dl (32.0-36.5); MEAN CORPUSCULAR VOLUME 91.5 fl (80.0-96.0); MONO # 0.8 10^3/uL (0.0-0.8); MONO % 5.7 % (0.0-5.0); NEUTROPHILS # 9.7 10^3/uL (1.5-8.5); NEUTROPHILS % 67.9 % (36.0-66.0); PLATELET COUNT, AUTOMATED 388 10^3/uL (150-450); RED BLOOD COUNT 4.49 10^6/uL (4.00-5.40); WHITE BLOOD COUNT 14.2 10^3/uL (4.0-10.0)
[2019-11-24] MEDS ORDERED: ISOVUE-370 76% 100ML VIAL (Q9967) As Ordered ONE (08:30)
--- NOTE | 2019-11-24 08:39 | REP ---
Clinical: Chest pain. Comparison: 09/07/2019. Findings: Mediastinum and cardiac silhouette are normal. Lung ro demonstrate chronic interstitial changes. No acute consolidation, effusion, or pneumothorax. Skeletal structures intact. Impression: Chronic stable changes. No acute cardiopulmonary process appreciated. Electronically Signed by Swapnil Wood MD 11/24/2019 08:31 A
[2019-11-24 08:58] LABS: ALBUMIN 3.5 GM/DL (3.2-5.2); ALT/SGPT 14 U/L (12-78); BILIRUBIN,DIRECT < 0.1 MG/DL (0.0-0.2); BILIRUBIN,TOTAL 0.2 MG/DL (0.2-1.0); CK-MB VALUE MASS 1.6 NG/ML (<3.6); CPK CREATINE PHOSPHOKINASE 80 U/L (26-192); FREE T4 0.88 NG/DL (0.76-1.46); LIPASE 86 U/L (73-393); NT-PRO BNP 66 PG/ML (<125); TOTAL PROTEIN 7.2 GM/DL (6.4-8.2); TROPONIN I < 0.02 NG/ML (< 0.10)
--- NOTE | 2019-11-24 09:11 | REP ---
Clinical: Chest pain Technique: Axial contrast enhanced images from the thoracic inlet to the upper abdomen using 100 ml Isovue 370 intravenous contrast material with coronal and sagittal re-formations. Comparison: 04/20/2019, 09/28/2017, 09/17/2016 Findings: Satisfactory enhancement of the pulmonary vasculature is achieved and no filling defects are identified to suggest pulmonary embolus. Thoracic aorta is normal caliber without aneurysm or dissection. Heart and pericardium are normal. The lung ro demonstrate chronic scarring primarily involving the bilateral apices and right hemithorax including chronic stable perifissural nodules along the right minor and major fissures. There is a calcified nodule in the deep right middle lobe (image 74) which remains stable through 2016. Minimal acute basilar atelectasis is appreciated and subtle elements of air trapping may represent early acute bronchitis. No focal consolidation. No effusion. No pneumothorax. No significant axillary, hilar, or mediastinal adenopathy. Surrounding musculoskeletal structures are normal. Limited upper abdomen demonstrates normal bilateral adrenal glands and stable hepatic cyst. Impression: 1. No evidence for pulmonary embolus. 2. Findings suggest mild/early bronchitis including elements of air trapping and trace basilar atelectasis (left greater than right). 3. Chronic stable changes unchanged through 09/17/2016. Impression: No evidence for pulmonary embolus. No acute pleuroparenchymal or mediastinal process. Electronically Signed by Swapnil Wood MD 11/24/2019 09:02 A
[2019-11-24 10:48] LABS: INFLUENZA A AMPLIFICATION NEGATIVE (NEGATIVE); INFLUENZA B AMPLIFICATION NEGATIVE (NEGATIVE)
[2019-11-24 10:53] LABS: CK-MB VALUE MASS 1.6 NG/ML (<3.6); CPK CREATINE PHOSPHOKINASE 73 U/L (26-192); MB/CK RELATIVE INDEX 2.19 (< OR =4); TROPONIN I < 0.02 NG/ML (< 0.10)
[2019-11-24] MEDS ORDERED: DOXY100C37 PO (10:56)
[2019-11-24] MEDS ORDERED: PRED20TA PO (10:57)
[2019-11-24] MEDS ORDERED: ALBU83IN NEB (10:57)
[2019-11-24 11:00] VITALS: BP 139/81
[2019-11-24] MEDS ORDERED: DOXYCYCLINE HYCLATE 100 MG TAB PO ONE (11:00)
--- NOTE | 2019-11-24 19:14 | ECGEPIP ---
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
--- NOTE | 2019-11-24 19:18 | ECGEPIP ---
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
== END 2019-11-24 11:10 | disposition home or self-care (01) ==
LOC: M ED 07:46
DX: J44.1 Chronic obstructive pulmonary disease with (acute) exacerbation (principal); J20.9 Acute bronchitis, unspecified; R07.9 Chest pain, unspecified; F41.9 Anxiety disorder, unspecified; F32.9 Major depressive disorder, single episode, unspecified; Z87.01 Personal history of pneumonia (recurrent); Z90.2 Acquired absence of lung [part of]; F17.200 Nicotine dependence, unspecified, uncomplicated; Z79.899 Other long term (current) drug therapy
CPT/HCPCS: 71045; 71275; 80047; 80076; 82550; 82553; 83690; 83880; 84439; 84443; 85025; 87040; 87502; 93005; 93041; 94640; 94760; 96374; 99285; J2930; Q9967

== ENCOUNTER → 2019-12-22 | Outpatient (CLI) | payer OTHER ==
[~2019-12-22] MED LIST changes: +ALBU83IN NEB; +DOXY100C37 PO; +FLUT1INH3 INH; +PRED20TA PO
--- NOTE | 2019-12-22 19:35 | REP ---
Left knee five view : There is no fracture or dislocation. Mineralization and joint spaces are normal. There are no calcifications or foreign bodies. Impression: Negative Left knee . Electronically Signed by Severiano Alvarez MD 12/22/2019 07:27 P
== END ==
LOC: M WUC 13:12
PROVIDERS: ATTEND Physician Assistant
DX: M25.562 Pain in left knee (principal)

== ENCOUNTER → 2020-07-01 | Outpatient (CLI) | payer OTHER ==
[~2020-07-01] MED LIST changes: +CITA20TA6; +KETO10TAB PO; +LABE10TAB; +NORC1TAB7 PO
[2020-08-06 16:08] LABS: BASO # 0.1 10^3/uL (0.0-0.2); BASO % 0.7 % (0.0-1.0); EOS # 0.6 10^3/uL (0.0-0.5); EOS % 4.5 % (0.0-3.0); HEMATOCRIT 39.5 % (36.0-47.0); LYMPH # 3.3 10^3/uL (1.5-5.0); LYMPH % 26.9 % (24.0-44.0); MEAN CORPUSCULAR HEMOGLOBIN 30.2 pg (27.0-33.0); MEAN CORPUSCULAR HGB CONC 32.9 g/dl (32.0-36.5); MEAN CORPUSCULAR VOLUME 91.6 fl (80.0-96.0); MONO # 0.5 10^3/uL (0.0-0.8); NEUTROPHILS # 7.8 10^3/uL (1.5-8.5); NEUTROPHILS % 63.7 % (36.0-66.0); PLATELET COUNT, AUTOMATED 410 10^3/uL (150-450); RED BLOOD COUNT 4.31 10^6/uL (4.00-5.40); WHITE BLOOD COUNT 12.2 10^3/uL (4.0-10.0)
[2020-08-28 16:07] LABS: ALBUMIN 3.5 GM/DL (3.2-5.2); ALT/SGPT 12 U/L (12-78); BILIRUBIN,TOTAL 0.2 MG/DL (0.2-1.0); BLOOD UREA NITROGEN 18 MG/DL (7-18); CALCIUM LEVEL 9.1 MG/DL (8.5-10.1); CARBON DIOXIDE LEVEL 31 MEQ/L (21-32); CHLORIDE LEVEL 111 MEQ/L (98-107); CHOLESTEROL LEVEL 208 MG/DL (<200); CHOLESTEROL RISK RATIO 3.851 (<5); CPK CREATINE PHOSPHOKINASE 66 U/L (26-192); CREATININE FOR GFR 0.45 MG/DL (0.55-1.30); FREE T4 0.85 NG/DL (0.76-1.46); GLOMERULAR FILTRATION RATE > 60.0 (>58); GLUCOSE, FASTING 84 MG/DL (70-100); HDL CHOLESTEROL 54 MG/DL (>40); LDL CHOLESTEROL 144 MG/DL (<100); MAGNESIUM LEVEL 1.9 MG/DL (1.8-2.4); MB/CK RELATIVE INDEX 3.03 (< OR =4); NON-HDL-C 154 MG/DL; NT-PRO BNP 60 PG/ML (<125); POTASSIUM SERUM 4.3 MEQ/L (3.5-5.1); SODIUM LEVEL 142 MEQ/L (136-145); TOTAL PROTEIN 6.3 GM/DL (6.4-8.2); TRIGLYCERIDES LEVEL 50 MG/DL (<150); TROPONIN I < 0.02 NG/ML (< 0.10)
== END ==
LOC: M LAB 10:00
PROVIDERS: ATTEND Physician Assistant
DX: R07.89 Other chest pain (principal)

== ENCOUNTER → 2020-07-01 | Outpatient (CLI) | payer OTHER ==
--- NOTE | 2020-07-20 14:25 | REPMRS ---
Patient History The patient states she has not had a clinical breast exam in over a year. Patient is postmenopausal. Family history of unknown cancer at age 74 in father, breast cancer in maternal aunt, breast cancer in paternal grandmother. Digital Woman Screen Mammo: July 01, 2020 - Exam #: [id number] Bilateral CC and MLO view(s) were taken. Technologist: Kimberlyn Rea, Technologist No prior studies available for comparison. FINDINGS: The breast tissue is extremely dense which could obscure a lesion on mammography. The Volpara volumetric breast density category is: D. There is a fairly symmentric extremely dense fibroglandular pattern in the breast parenchyma. There is no evidence of dominant mass, architectural distortion, or grouped microcalcification typical of malignancy. 3-D tomosynthesis shows no additional findings. Assessment: BI-RADS/ACR category 1 mammogram. Negative Mammogram. Recommendation Routine screening mammogram of both breasts in 1 year (for women over age 40). This patient's Lifetime Breast Cancer RIsk is estimated at 10.4 %. This mammogram was interpreted with the aid of an FDA-approved computer-aided dectection system. Electronically Signed By: Huey Leon MD 07/20/20 [id number]
== END ==
LOC: M WHC 12:47
PROVIDERS: ATTEND Physician Assistant
DX: Z12.31 Encounter for screening mammogram for malignant neoplasm of breast (principal)

== ENCOUNTER 2020-08-24 11:16 | Emergency (ER) | payer OTHER ==
[~2020-08-24] VITALS: Ht 162.6 cm; Wt 45.0 kg
[~2020-08-24 11:16] MED LIST changes: -CITA20TA6; -KETO10TAB PO; -LABE10TAB; -NORC1TAB7 PO
[2020-08-24] MEDS ORDERED: LABE10TAB (11:24)
[2020-08-24] MEDS ORDERED: CITA20TA6 (11:24)
[2020-08-24 12:07] LABS: HEMATOCRIT 38.3 % (36.0-47.0); HEMOGLOBIN 13.3 g/dl (12.0-15.5); MEAN CORPUSCULAR HEMOGLOBIN 31.2 pg (27.0-33.0); MEAN CORPUSCULAR HGB CONC 34.7 g/dl (32.0-36.5); MEAN CORPUSCULAR VOLUME 89.9 fl (80.0-96.0); PLATELET COUNT, AUTOMATED 420 10^3/uL (150-450); RED BLOOD COUNT 4.26 10^6/uL (4.00-5.40); WHITE BLOOD COUNT 9.7 10^3/uL (4.0-10.0)
[2020-08-24] MEDS ORDERED: KETOROLAC 30 MG/ML 1ML VIAL IV ONE (12:15)
[2020-08-24] MEDS ORDERED: NS 1,000 ML IV ONE (12:15)
[2020-08-24 12:32] LABS: BASOPHILS 1 % (0-1); EOSINOPHILS 6 % (0-3); LYMPHOCYTES 37 % (16-44); NEUTROPHILS 47 % (28-66)
[2020-08-24 12:33] LABS: PLATELET ESTIMATE INCREASED (NORMAL)
--- NOTE | 2020-08-24 12:55 | REPVR ---
PROCEDURE INFORMATION: Exam: CT Abdomen And Pelvis Without Contrast Exam date and time: 08/24/2020 12:19 PM Age: 49 years old Clinical indication: Abdominal pain; Additional info: HX of kidney stone with flank pain TECHNIQUE: Imaging protocol: Computed tomography of the abdomen and pelvis without contrast. Radiation optimization: All CT scans at this facility use at least one of these dose optimization techniques: automated exposure control; mA and/or kV adjustment per patient size (includes targeted exams where dose is matched to clinical indication); or iterative reconstruction. COMPARISON: CT ABD PELVIS W/O CONTRAST 03/11/2019 12:59 PM FINDINGS: Lungs: There is scarring noted within the middle lobe which is unchanged. There is a stable nodule within the right lower lobe at 7.5 x 6 mm image number 201/17. This is stable since the prior CT abdomen and pelvis on 05/10/2018. As this is stable for over 2 years no further follow-up should be needed per CT criteria. Liver: The liver is enlarged at 198 mm. The right lobe liver cyst has resolved. Gallbladder and bile ducts: Normal. No calcified stones. No ductal dilation. Pancreas: Normal. No ductal dilation. Spleen: Normal. No splenomegaly. Adrenals: Normal. No mass. Kidneys and ureters: There is a 3 mm right inferior pole renal stone. There is no evidence of left nephrolithiasis. There is a calcification noted on image 201/100 measuring 3 mm. This may be within the distal right ureter. There is however, no evidence of definite hydronephrosis. Stomach and bowel: There are few scattered colonic diverticula. Appendix: The appendix is seen is unremarkable. Intraperitoneal space: Unremarkable. No free air. No significant fluid collection. Vasculature: There is mild aortic calcifications without aneurysm. Numerous calcifications are again seen in the pelvis consistent with phleboliths. Lymph nodes: Unremarkable. No enlarged lymph nodes. Urinary bladder: Unremarkable as visualized. Reproductive: Unremarkable as visualized. Bones/joints: Unremarkable. No acute fracture. Soft tissues: Unremarkable. IMPRESSION: 1. There is only 1 renal stone on the right. Questionable right distal ureteral stone. The ureter is difficult to follow in its entire course. There is no evidence of hydronephrosis. 2. Stable middle lobe nodule and scarring. Nodule is stable for over 2 years. 3. Resolution of the hepatic cysts. Electronically signed by: Clarence Ponce On 08/24/2020 12:55:01 PM
[2020-08-24] MEDS ORDERED: MORPHINE 2 MG/ML 1ML VIAL (J2270) IV ONE (13:30)
[2020-08-24] MEDS ORDERED: FLOM0.4C39 PO (13:58)
[2020-08-24] MEDS ORDERED: KETO10TAB PO (13:58)
[2020-08-24] MEDS ORDERED: NORC1TAB7 PO (13:58)
[2020-08-24 14:23] VITALS: BP 143/78
== END 2020-08-24 14:10 | disposition home or self-care (01) ==
LOC: M ED 11:16
DX: N20.0 Calculus of kidney (principal); Z87.442 Personal history of urinary calculi; J44.9 Chronic obstructive pulmonary disease, unspecified; N80.9 Endometriosis, unspecified; I45.10 Unspecified right bundle-branch block; F17.200 Nicotine dependence, unspecified, uncomplicated; R91.1 Solitary pulmonary nodule
CPT/HCPCS: 74176; 80047; 81001; 85025; 96361; 96374; 96375; 99284; J1885; J2270

== ENCOUNTER → 2020-09-01 | Outpatient (CLI) | payer OTHER ==
[~2020-09-01] MED LIST changes: +CITA20TA6; +KETO10TAB PO; +LABE10TAB; +NORC1TAB7 PO
[2020-09-01 10:25] LABS: BASO # 0.1 10^3/uL (0.0-0.2); EOS # 0.7 10^3/uL (0.0-0.5); EOS % 6.9 % (0.0-3.0); HEMATOCRIT 37.6 % (36.0-47.0); HEMOGLOBIN 12.2 g/dl (12.0-15.5); LYMPH # 3.1 10^3/uL (1.5-5.0); LYMPH % 32.3 % (24.0-44.0); MEAN CORPUSCULAR HEMOGLOBIN 29.7 pg (27.0-33.0); MEAN CORPUSCULAR HGB CONC 32.4 g/dl (32.0-36.5); MEAN CORPUSCULAR VOLUME 91.5 fl (80.0-96.0); MONO # 0.6 10^3/uL (0.0-0.8); NEUTROPHILS # 5.2 10^3/uL (1.5-8.5); NEUTROPHILS % 53.6 % (36.0-66.0); PLATELET COUNT, AUTOMATED 380 10^3/uL (150-450); RED BLOOD COUNT 4.11 10^6/uL (4.00-5.40); WHITE BLOOD COUNT 9.7 10^3/uL (4.0-10.0)
== END ==
LOC: M LAB 09:45
PROVIDERS: ATTEND Physician Assistant
DX: D72.829 Elevated white blood cell count, unspecified (principal)

== ENCOUNTER → 2020-11-02 | Outpatient (CLI) | payer SELFPAY ==
[~2020-11-02] MED LIST changes: +LABE100T4; -LABE10TAB
== END ==
LOC: M LABSMTC 10:42
PROVIDERS: ATTEND Pediatrics
DX: Z11.59 Encounter for screening for other viral diseases (principal)

== ENCOUNTER 2021-01-15 17:00 | Emergency (ER) | payer OTHER, SELFPAY ==
[~2021-01-15] VITALS: Ht 162.6 cm; Wt 47.3 kg
[~2021-01-15 17:00] MED LIST changes: +GABA-282 PO; -GABA-843 PO
[2021-01-15] MEDS ORDERED: NS 1,000 ML IV SCH (17:14)
[2021-01-15] MEDS ORDERED: ASPIRIN 81 MG CHEW TABLET PO ONE (17:15)
[2021-01-15] MEDS: NITROGLYCERIN 0.4 MG SUBL TABLET SL PRN ×2 (17:36→17:44)
[2021-01-15 17:44] VITALS: BP 123/72
--- NOTE | 2021-01-15 17:52 | REP ---
INDICATION: CHEST PAIN. COMPARISON: CT angio and portable chest 11/24/2019 TECHNIQUE: AP portable upright chest FINDINGS: Lung ro are hyperinflated with flattened diaphragms and changes of COPD. There is apical pleuroparenchymal scarring and other areas of chronic interstitial fibrotic changes scattered throughout. Appearance grossly similar to the previous study except for perhaps slightly better level of inflation today. No effusion, dense consolidation or parenchymal mass. Heart is not enlarged. Pulmonary arteries are prominent centrally suggesting pulmonary artery hypertension. Bullous emphysematous changes are seen in the mid and upper lung zones. No focal bone lesion. IMPRESSION: Hyperinflation with COPD, pulmonary artery hypertension, bullous emphysematous changes and apical pleuroparenchymal scarring. Other areas of scattered fibrotic change seen without effusion, acute infiltrate, cardiomegaly or edema. <Electronically signed by Fab Weber > 01/15/21 [id number]
--- OUTSIDE RECORDS SUMMARY | 2021-01-15 17:59 | CCD | Continuity of Care Document ---
Author Thalia Moran Organization [place] [address] Phone [phone] Care Team Providers Care Electronic Engineering Technician Name Role Phone Matilde Dill D.O. AUTM Jeniffer Do M.D. AUTM [phone] Jennkelly Padilla INSOLE AND OUTSOLE SPLITTER-R AUTM [phone] Destinee Crabtree INSOLE AND OUTSOLE SPLITTER AUTM [phone] Problems Active Problems Provider Date Essential hypertension Onset: 06/23/2020 H/O: peptic ulcer [facility] [place] Onset: 06/30/2020 Chronic obstructive lung disease [facility] [place] Onset: 06/30/2020 H/O: urinary stone [facility] [place] Onset: 06/30/2020 Mild recurrent major depression [facility] [place] Onset: 0 06/30/2020 Gastro-esophageal reflux disease with esophagitis SAMMI [place] Onset: 06/30/2020 Solitary nodule of lung [facility] [place] Onset: 0 Gastro-esophageal reflux disease with esophagitis, wit hout bleeding [facility] [place] Onset: 09/02/2020 Social History Type Date Description Comments Sex Unknown ETOH Use Denies alcohol use Tobacco Use Start: Unknown Light tobacco smoker (10 or fewe r cigarettes/day) 5 per day Recreational Drug Use Denies Drug Use Smoking Status Reviewed: 06/30/20 Light tobacco smoker (10 or fewer cigarettes/day) 5 per day Exercise Type/Frequency Walks daily Sun Exposure Uses sunscreen Seat Belt/Car Seat Never uses seat belt Allergies, Adverse Reactions, Alerts Description No Known Drug Allergies Medications Active Medications SIG Qnty Indications Ordering Provide r Date Prevnar 13 Suspension administer at pharmacy .500ml Alia MichaelsOSantino 09/02 Citalopram Hydrobromide 20mg Table ts 1 by mouth every day 90tabs F33.0 Milady Michaels.O. 08/03 Incruse Ellipta 62.5mcg/Inh Aeroso l 62.5 mcg (1 actuation) inhaled by mouth everyday 30units Milady Michaels.O. Albuterol Sulfate HFA 108(90Base) mcg/Act Aerosol 1-2 puffs every 4-6 hours as needed for shortness of breath 25.5 gm Milady Michaels.OSantino Omeprazole 20mg Capsules DR 1 by mouth every day 30caps Milady Michaels.O. Fluticasone Propionate/Salmeterol 232-14mcg/Act Aerosol inhale one puff by mouth twice a day 1units Milady Michaels.O. History Medications Duloxetine HCL 30mg Caps DR Part 1 by mouth every day 90caps F33.0 Milady Michaels.O. 06/30 - 09/02/2020 Labetalol HCL 100mg Tablets take 1/2 tablet by mouth twice a day 90tabs I10 Alia MichaelsOSantino 06/30/2020 - 10/27/2020 Immunizations CPT Code Status Date Vaccine Lot # [id number] Given 09/02/2020 Influenza Virus Vaccine, Quadrivalent, Split, Preservative Free [id number] Vital Signs Date Vital Result Comment 10/27/2020 4:08pm BP Systolic 136 mmHg BP Diastolic 80 mmHg Height 64.0 inches 5'4" Weight 100.00 lb BMI (Body Mass Index) 17.2 kg/m2 Heart Rate 92 /min Respiratory Rate 17 /min Body Temperature 99.1 F O2 % BldC Oximetry 97 % [place] Body Weight 120 lb 09/02/2020 9:24am BP Systolic 118 mmHg BP Diastolic 82 mmHg Height 64.0 inches 5'4" Weight 100.00 lb BMI (Body Mass Index) 17.2 kg/m2 Heart Rate 80 /min Respiratory Rate 16 /min Body Temperature 98.2 F O2 % BldC Oximetry 98 % [place] Body Weight 120 lb Results Test Acquired Date Facility Test Result H/L Range Note Laboratory test finding 09/01/2020 [facility] Outpatient T esting (Registration) [address] [place] [address] [phone] Pathology Request For Service (SEE NOTE) 1 CBC With Differential 09/01/2020 [facility] Outpatient Norah ting (Registration) [address] [place] [address] [phone] White Blood Count 9.7 10 Normal 4.0-10.0 Red Blood Count 4.11 10 Normal 4.00-5.40 Hemoglobin 12.2 g/dL Normal 12.0-15.5 Hematocrit 37.6 % Normal 36.0-47.0 Mean Corpuscular Volume 91.5 fl Normal 80.0-96.0 Mean Corpuscular Hemoglobin 29.7 pg Normal 27.0-33.0 Mean Corpuscular HGB Conc 32.4 g/dL Normal 32.0-36.5 Red Cell Distribution Width 15.2 % High 11.5-14.5 Platelet Count, Automated 380 10 Normal 150-450 Neutrophils % 53.6 % Normal 36.0-66.0 Lymph % 32.3 % Normal 24.0-44.0 [place] % 6.0 % High 0.0-5.0 Eos % 6.9 % High 0.0-3.0 Baso % 1.0 % Normal 0.0-1.0 Immature Granulocyte % 0.2 % Normal 0-3.0 Nucleated Red Blood Cell % 0.0 % Normal 0-0 Neutrophils # 5.2 10 Normal 1.5-8.5 Lymph # 3.1 10 Normal 1.5-5.0 [place] # 0.6 10 Normal 0.0-0.8 Eos # 0.7 10 High 0.0-0.5 Baso # 0.1 10 Normal 0.0-0.2 Periph Smear For Oncol. Review 09/01/2020 [facility] Outpa tient Testing (Registration) [address] [place] [address] [phone] Slide Review Report Normal 2 Source PERIPHERAL SMEAR Normal 3 Reason For Review WBC/LEUKEMIA/BRIDGER <SEE NOTE> Normal 4 Istat Chem8+ Panel 08/24/2020 [facility] Outpatient Testi ng (Registration) [address] [place] [address] [phone] iSTAT HCT 40.0 % Normal 38.0-51.0 iSTAT Glucose 83 mg/dL Normal 70-105 iSTAT Sodium 141 mEq/L Normal 136-145 iSTAT Potassium 4.0 mEq/L Normal 3.5-5.1 iSTAT CA++ 5.0 mg/dL Normal 4.5-5.3 iSTAT Chloride 104 mEq/L Normal 98-109 iSTAT Co2 25.0 MM/L Normal 23.0-27.0 iSTAT BUN 20 mg/dL Normal 8-26 iSTAT Creatinine 0.5 mg/dL Low 0.6-1.3 CBC With Differential 08/24/2020 [facility] Outpatient Norah ting (Registration) [address] [place] [address] [phone] White Blood Count 9.7 10 Normal 4.0-10.0 Red Blood Count 4.26 10 Normal 4.00-5.40 Hemoglobin 13.3 g/dL Normal 12.0-15.5 Hematocrit 38.3 % Normal 36.0-47.0 Mean Corpuscular Volume 89.9 fl Normal 80.0-96.0 Mean Corpuscular Hemoglobin 31.2 pg Normal 27.0-33.0 Mean Corpuscular HGB Conc 34.7 g/dL Normal 32.0-36.5 Red Cell Distribution Width 15.0 % High 11.5-14.5 Platelet Count, Automated 420 10 Normal 150-450 Nucleated Red Blood Cell % 0.0 % Normal 0-0 Differential 08/24/2020 [facility] Outpatient Testi ng (Registration) [address] [place] [address] [phone] Neutrophils 47 % Normal 28-66 Bands 9 % Normal < 11 Lymphocytes 37 % Normal 16-44 Eosinophils 6 % High 0-3 Basophils 1 % Normal 0-1 Laboratory test finding 08/24/2020 [facility] Outpatient T esting (Registration) [address] [place] [address] [phone] Platelet Estimate INCREASED Normal Normal Ua W/ Reflex To Culture 08/24/2020 [facility] Outpatient T esting (Registration) [address] [place] [phone] Appearance, Urine RFX CLEAR Normal Clear Color, Urine RFX YELLOW Normal Yellow PH,Urine RFX 5.0 units Normal 5.0-9.0 Specific Lynn Ur Auto RFX 1.023 Normal 1.002-1.035 Protein, Urine Auto RFX NEGATIVE mg/dL Normal Negative Glucose, Urine (Ua) Auto RFX NEGATIVE mg/dL Normal Negative Ketone, Urine Auto RFX NEGATIVE mg/dL Normal Negative Urobilinogen, Urine Auto RFX 0.2 mg/dL Normal 0.0-2.0 Bilirubin, Urine Auto RFX NEGATIVE Normal Negative Nitrite, Urine Auto RFX NEGATIVE Normal Negative Leukocyte Esterase Ur Auto RFX NEGATIVE Normal Negative Blood, Urine Blood RFX 3+ High Negative WBC, Urine Auto RFX 2 /HPF Normal 0-3 RBC, Urine Auto RFX 131 /HPF High 0-3 Bacteria, Urine Auto RFX NEGATIVE Normal Negative Squam Epithelial Cell Ur Aurfx 0 /HPF Normal 0-6 Mucus, Urine RFX SMALL Normal Negative Hyaline Cast, Urine Auto RFX 0 /LPF Normal 0-1 FT4&TSH Panel 07/01/2020 [facility] Outpatient Testi ng (Registration) [address] [place] [address] [phone] Thyroid Stimulating Hormone 0.280 uIU/ML Low 0. 358-3.740 Free T4 0.85 ng/dL Normal 0.76-1.46 Laboratory test finding 07/01/2020 [facility] Outpatient T esting (Registration) [address] [place] [address] [phone] Magnesium Level 1.9 mg/dL Normal 1.8-2.4 Troponin I < 0.02 NG/ML Normal < 0.10 5 NT-Pro BNP 60 pg/mL Normal <125 CK MB 07/01/2020 [facility] Outpatient Testi ng (Registration) [address] [place] [address] [phone] CPK Creatine Phosphokinase 66 U/L Normal 26-19 2 CK-MB Value Mass 2.0 NG/ML Normal <3.6 MB/CK Relative Index 3.03 Normal < Or =4 6 Lipid Panel 07/01/2020 [facility] Outpatient Testi ng (Registration) [address], [place] [id number] [phone] Triglycerides Level 50 mg/dL Normal <150 Cholesterol Level 208 mg/dL High <200 HDL Cholesterol 54 mg/dL Normal >40 LDL Cholesterol 144 mg/dL High <100 Non-HDL-C 154 mg/dL Normal Cholesterol Risk Ratio 3.851 Normal <5 Comprehensive Metabolic Profil 07/01/2020 [facility] Outpa tient Testing (Registration) [address] [place] [address] [phone] Glucose, Fasting 84 mg/dL Normal 70-100 Blood Urea Nitrogen 18 mg/dL Normal 7-18 Creatinine For GFR 0.45 mg/dL Low 0.55-1.30 Glomerular Filtration Rate > 60.0 Normal >58 7 Sodium Level 142 mEq/L Normal 136-145 Potassium Serum 4.3 mEq/L Normal 3.5-5.1 Chloride Level 111 mEq/L High 98-107 Carbon Dioxide Level 31 mEq/L Normal 21-32 Anion Gap 0 mEq/L Low 8-16 Calcium Level 9.1 mg/dL Normal 8.5-10.1 Ast/Sgot 14 U/L Normal 7-37 Alt/SGPT 12 U/L Normal 12-78 Alkaline Phosphatase 77 U/L Normal 45-117 Bilirubin,Total 0.2 mg/dL Normal 0.2-1.0 Total Protein 6.3 GM/DL Low 6.4-8.2 Albumin 3.5 GM/DL Normal 3.2-5.2 Albumin/Globulin Ratio 1.3 Normal 1.2-2.2 CBC With Differential 07/01/2020 [facility] Outpatient Norah ting (Registration) [address], [place] [id number] [phone] White Blood Count 12.2 10 High 4.0-10.0 Red Blood Count 4.31 10 Normal 4.00-5.40 Hemoglobin 13.0 g/dL Normal 12.0-15.5 Hematocrit 39.5 % Normal 36.0-47.0 Mean Corpuscular Volume 91.6 fl Normal 80.0-96.0 Mean Corpuscular Hemoglobin 30.2 pg Normal 27.0-33.0 Mean Corpuscular HGB Conc 32.9 g/dL Normal 32.0-36.5 Red Cell Distribution Width 15.7 % High 11.5-14.5 Platelet Count, Automated 410 10 Normal 150-450 Neutrophils % 63.7 % Normal 36.0-66.0 Lymph % 26.9 % Normal 24.0-44.0 [place] % 4.0 % Normal 0.0-5.0 Eos % 4.5 % High 0.0-3.0 Baso % 0.7 % Normal 0.0-1.0 Immature Granulocyte % 0.2 % Normal 0-3.0 Nucleated Red Blood Cell % 0.0 % Normal 0-0 Neutrophils # 7.8 10 Normal 1.5-8.5 Lymph # 3.3 10 Normal 1.5-5.0 [place] # 0.5 10 Normal 0.0-0.8 Eos # 0.6 10 High 0.0-0.5 Baso # 0.1 10 Normal 0.0-0.2 CBC With Differential 07/01/2020 [facility] Outpatient Norah myrick (Registration) [address], [place] [id number] [phone] White Blood Count 12.2 10 High 4.0-10.0 Red Blood Count 4.31 10 Normal 4.00-5.40 Hemoglobin 13.0 g/dL Normal 12.0-15.5 Hematocrit 39.5 % Normal 36.0-47.0 Mean Corpuscular Volume 91.6 fl Normal 80.0-96.0 Mean Corpuscular Hemoglobin 30.2 pg Normal 27.0-33.0 Mean Corpuscular HGB Conc 32.9 g/dL Normal 32.0-36.5 Red Cell Distribution Width 15.7 % High 11.5-14.5 Platelet Count, Automated 410 10 Normal 150-450 Neutrophils % 63.7 % Normal 36.0-66.0 Lymph % 26.9 % Normal 24.0-44.0 [place] % 4.0 % Normal 0.0-5.0 Eos % 4.5 % High 0.0-3.0 Baso % 0.7 % Normal 0.0-1.0 Immature Granulocyte % 0.2 % Normal 0-3.0 Nucleated Red Blood Cell % 0.0 % Normal 0-0 Neutrophils # 7.8 10 Normal 1.5-8.5 Lymph # 3.3 10 Normal 1.5-5.0 [place] # 0.5 10 Normal 0.0-0.8 Eos # 0.6 10 High 0.0-0.5 Baso # 0.1 10 Normal 0.0-0.2 Order 06/30/2020 In House Orders EKG see result in chart 1 09/01/2020 - 1140 PERPHERAL SMEAR REVIEW Peripheral smear: Normal white blood cell count with eosinophilia. Red blood cell count within normal limits. Platelet count within normal limits. No blasts are identified. 09/01/2020 - 1140 Signed FAZAL JEONG MD 09/01/2020 1144 2 Slide and/or specimen referr ed to Pathologist for review. Results of the review are located in the EMR Pathology module under Peripheral Smear when completed. 3 PERIPHERAL SMEAR 4 WBC/LEUKEMIA/BLAST 5 Troponin I Reference Interva l for Siemens [place] LOCI: 99th Percentile= 0.00-0.045 ng/ml Risk Stratification: <= 0.10 ng/ml Decreased Risk for Adverse Clinical Events. 0.10-1.50 ng/ml Increased Risk for Adv erse Clinical Events. Evaluation of additional criterion and/or repeat testing in 2-6 hours is suggested to rule out myocardial damage. >= 1.50 ng/ml Indicative of Myocardial Injury. 6 DIAGNOSIS CRITERIA MMB ng/ml Relative Index (RI) NON-AMI < or = 5 N/A PHILIP ZONE > 5 < or = 4 AMI > 5 > 4 7 Units are mL/min/1.73 m2 Chronic Kidney Disease Staging per NKF: Stage I & II GFR >=60 Normal to Mildly Decreased Stage III GFR 30-59 Moderately Decreased Stage IV GFR 15-29 Severely Decreased Stage V GFR <15 Very Little GFR Left ESRD GFR <15 on AMBULANCE DISPATCHER Procedures Date Code Description Status 07/01/2020 [id number] Mammogram Completed 06/30/2020 12877 Electrocardiogram Complete Compl eted Medical Devices Description No Information Available Encounters Type Date Location Provider Dx Diagnosis Office Visit 09/02/2020 9:20a Family [facility] SAMMI Flanagan J44.9 Chronic obstructive pulmonar y disease, unspecified F33.0 Major depressive disorder, r ecurrent, mild K21.00 Gastro-esophageal reflux dis with esophagitis, without bleed E78.00 Pure hypercholesterolemia, u nspecified I10 Essential (primary) hyperten adeel Z87.11 Personal history of peptic u lcer disease R91.1 Solitary pulmonary nodule Z23 Encounter for immunization Office Visit 08/03/2020 9:00a [facility] [place] J44.9 Chronic obstructive pulmonar y disease, unspecified F33.0 Major depressive disorder, r ecurrent, mild K21.0 Gastro-esophageal reflux dis ease with esophagitis I10 Essential (primary) hyperten adeel E78.00 Pure hypercholesterolemia, u nspecified D72.829 Elevated white blood cell co unt, unspecified Office Visit 06/30/2020 3:00p [facility] [place] Z87.11 Personal history of peptic u lcer disease J44.9 Chronic obstructive pulmonar y disease, unspecified Z87.442 Personal history of urinary calculi F33.0 Major depressive disorder, r ecurrent, mild K21.0 Gastro-esophageal reflux dis ease with esophagitis R07.89 Other chest pain Z12.31 Encntr screen mammogram for malignant neoplasm of breast I10 Essential (primary) hyperten adeel R91.1 Solitary pulmonary nodule Assessments Date Code Description Provider 10/27/2020 J06.9 Acute upper respiratory infectio n, unspecified [facility] [place] 09/02/2020 J44.9 Chronic obstructive pulmonary di sease, unspecified [facility] [place] 09/02/2020 F33.0 Major depressive disorder, recur rent, mild [facility] [place] 09/02/2020 K21.00 Gastro-esophageal re flux disease with esophagitis, without bleeding [facility] [place] 09/02/2020 E78.00 Pure hypercholesterolemia, unspe cified [facility] [place] 09/02/2020 I10 Essential (primary) hypertension [facility] [place] 09/02/2020 Z87.11 Personal history of peptic ulcer disease [facility] [place] 09/02/2020 R91.1 Solitary pulmonary nodule [facility] [place] 09/02/2020 Z23 Encounter for immunization [facility] [place] 08/03/2020 J44.9 Chronic obstructive pulmonary di sease, unspecified [facility]MI [place] 08/03/2020 F33.0 Major depressive disorder, recur rent, mild [facility]MI [place] 08/03/2020 K21.0 Gastro-esophageal reflux disease with esophagitis [facility] [place] 08/03/2020 I10 Essential (primary) hypertension [facility] [place] 08/03/2020 E78.00 Pure hypercholesterolemia, unspe cified [facility]MI [place] 08/03/2020 D72.829 Elevated white blood cell count, unspecified [facility]MI [place] 06/30/2020 Z87.11 Personal history of peptic ulcer disease [facility]MI [place] 06/30/2020 J44.9 Chronic obstructive pulmonary di sease, unspecified [facility]MI [place] 06/30/2020 Z87.442 Personal history of urinary calc katerin SAMMI [place] 06/30/2020 F33.0 Major depressive disorder, recur rent, mild [facility] [place] 06/30/2020 K21.0 Gastro-esophageal reflux disease with esophagitis [facility] [place] 06/30/2020 R07.89 Other chest pain [facility] [place] 06/30/2020 Z12.31 Encounter for screen ing mammogram for malignant neoplasm of breast [facility] [place] 06/30/2020 I10 Essential (primary) hypertension [facility]MI [place] 06/30/2020 R91.1 Solitary pulmonary nodule SAMMI [place] Plan of Treatment Future Appointment(s):* 12/03/2020 9:40 am - [facility] [place] at [facility] 10/27/2020 - SAMMI [place]* J06.9 Acute upper respiratory infection, unspecified Functional Status Description No Information Available Mental Status Description No Information Available Referrals Refer to Reason for Referral Status Appt Date 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 She is interested in counseling Sent [address] [place] [address] [place] [id number] [phone] Jeniffer Do M.D. Flaca is a smoker with untrea yahir hypertension and having intermittent chest pain, palpitations, tachycardia and recently seen in [facility] and was told ' she has a blockage' and needed a cardiac cath. Please evaluate and treat Closed 09/15/2020 [facility] [place] [address] [place] [address] [phone]
--- OUTSIDE RECORDS SUMMARY | 2021-01-15 17:59 | CCD | Continuity of Care Document ---
Author Thalia Moran Organization Unknown [place] [address] Phone [phone] Care Team Providers Care Panel Gluer Name Role Phone Matilde Dill D.O. AUTM Jeniffer Do M.D. AUTM [phone] Jennkelly Padilla NETWORK TECHNICIAN-R AUTM [phone] Destinee Crabtree NETWORK TECHNICIAN AUTM [phone] Problems Active Problems Provider Date Essential hypertension Onset: 06/23/2020 H/O: peptic ulcer [facility] [place] Onset: 06/30/2020 Chronic obstructive lung disease [facility] [place] Onset: 06/30/2020 H/O: urinary stone [facility] [place] Onset: 06/30/2020 Mild recurrent major depression SAMMI [...] CPT Code Status Date Vaccine Lot # [id number] Given 09/02/2020 Influenza Virus Vaccine, Quadrivalent, Split, Preservative Free [id number] Vital Signs Date Vital Result Comment 10/27/2020 4:08pm BP Systolic 136 mmHg BP Diastolic 80 mmHg Height 64.0 inches 5'4" Weight 100.00 lb BMI (Body Mass Index) 17.2 kg/m2 Heart Rate 92 /min Respiratory Rate 17 /min Body Temperature 99.1 F O2 % BldC Oximetry 97 % [place] Body Weight 120 lb 09/02/2020 9:24am BP Systolic 118 mmHg BP Diastolic 82 mmHg Height 64.0 inches 5'4" Weight 100.00 lb BMI (Body Mass Index) 17.2 kg/m2 Heart Rate 80 /min Respiratory Rate 16 /min Body Temperature 98.2 F O2 % BldC Oximetry 98 % [place] Body Weight 120 lb Results Test Acquired Date Facility Test Result H/L Range Note Laboratory test finding 10/27/2020 Inhouse Inhouse Rapid Strep neg Laboratory test finding 09/01/2020 [facility] Outpatient T esting (Registration) [address] [place] [address] [phone] Pathology Request For Service (SEE NOTE) 1 CBC With Differential 09/01/2020 [facility] Outpatient Norah ting (Registration) [address] [place] [address] [phone] White Blood Count 9.7 10 Normal 4.0-10.0 [...] 36.0-66.0 Lymph % 32.3 % Normal 24.0-44.0 Hendricks % 6.0 % High 0.0-5.0 Eos % 6.9 % High 0.0-3.0 Baso % 1.0 % Normal 0.0-1.0 Immature Granulocyte % 0.2 % Normal 0-3.0 Nucleated Red Blood Cell % 0.0 % Normal 0-0 Neutrophils # 5.2 10 Normal 1.5-8.5 Lymph # 3.1 10 Normal 1.5-5.0 Hendricks # 0.6 10 Normal 0.0-0.8 Eos # 0.7 10 High 0.0-0.5 Baso # 0.1 10 Normal 0.0-0.2 Periph Smear For Oncol. Review 09/01/2020 [facility] Outpa tient Testing (Registration) [address] [place] [address] [phone] Slide Review Report Normal 2 Source PERIPHERAL SMEAR Normal 3 Reason For Review WBC/LEUKEMIA/BRIDGER <SEE NOTE> Normal 4 Istat Chem8+ Panel 08/24/2020 [facility] Outpatient Testi ng (Registration) [address] [place] [address] [phone] iSTAT HCT 40.0 % Normal 38.0-51.0 iSTAT Glucose 83 mg/dL Normal 70-105 iSTAT Sodium 141 mEq/L Normal 136-145 iSTAT Potassium 4.0 mEq/L Normal 3.5-5.1 iSTAT CA++ 5.0 mg/dL Normal 4.5-5.3 iSTAT Chloride 104 mEq/L Normal 98-109 iSTAT Co2 25.0 MM/L Normal 23.0-27.0 iSTAT BUN 20 mg/dL Normal 8-26 iSTAT Creatinine 0.5 mg/dL Low 0.6-1.3 CBC With Differential 08/24/2020 [facility] Outpatient Norah ting (Registration) [address] [place] [address] [phone] White Blood Count 9.7 10 Normal 4.0-10.0 [...] % 0.0 % Normal 0-0 Differential 08/24/2020 [facility] Outpatient Testi ng (Registration) [address] [place] [address] [phone] Neutrophils 47 % Normal 28-66 Bands 9 % Normal < 11 Lymphocytes 37 % Normal 16-44 Eosinophils 6 % High 0-3 Basophils 1 % Normal 0-1 Laboratory test finding 08/24/2020 [facility] Outpatient T esting (Registration) [address] [place] [address] [phone] Platelet Estimate INCREASED Normal Normal Ua W/ Reflex To Culture 08/24/2020 [facility] Outpatient T esting (Registration) [address] [place] [address] [phone] Appearance, Urine RFX CLEAR Normal Clear Color, Urine RFX YELLOW Normal Yellow PH,Urine RFX 5.0 units Normal 5.0-9.0 Specific [place] Ur Auto RFX 1.023 Normal 1.002-1.035 Protein, [...] 0 /LPF Normal 0-1 FT4&TSH Panel 07/01/2020 [facility] Outpatient Testi ng (Registration) [address] [place] [address] [phone] Thyroid Stimulating Hormone 0.280 uIU/ML Low 0. 358-3.740 Free T4 0.85 ng/dL Normal 0.76-1.46 Laboratory test finding 07/01/2020 [facility] Outpatient T esting (Registration) [address] [place] [address] [phone] Magnesium Level 1.9 mg/dL Normal 1.8-2.4 Troponin I < 0.02 NG/ML Normal < 0.10 5 NT-Pro BNP 60 pg/mL Normal <125 CK MB 07/01/2020 [facility] Outpatient Testi ng (Registration) [address] [place] [address] [phone] CPK Creatine Phosphokinase 66 U/L Normal 26-19 2 CK-MB Value Mass 2.0 NG/ML Normal <3.6 MB/CK Relative Index 3.03 Normal < Or =4 6 Lipid Panel 07/01/2020 [facility] Outpatient Testi ng (Registration) [address] [place] [address] [phone] Triglycerides Level 50 mg/dL Normal <150 Cholesterol Level 208 mg/dL High <200 HDL Cholesterol 54 mg/dL Normal >40 LDL Cholesterol 144 mg/dL High <100 Non-HDL-C 154 mg/dL Normal Cholesterol Risk Ratio 3.851 Normal <5 Comprehensive Metabolic Profil 07/01/2020 [facility] Outpa tient Testing (Registration) [address] [place] [address] [phone] Glucose, Fasting 84 mg/dL Normal 70-100 Blood [...] 1.3 Normal 1.2-2.2 CBC With Differential 07/01/2020 [facility] Outpatient Norah ting (Registration) [address] [place] [address] [phone] White Blood Count 12.2 10 High 4.0-10.0 [...] 36.0-66.0 Lymph % 26.9 % Normal 24.0-44.0 Hendricks % 4.0 % Normal 0.0-5.0 Eos % 4.5 % High 0.0-3.0 Baso % 0.7 % Normal 0.0-1.0 Immature Granulocyte % 0.2 % Normal 0-3.0 Nucleated Red Blood Cell % 0.0 % Normal 0-0 Neutrophils # 7.8 10 Normal 1.5-8.5 Lymph # 3.3 10 Normal 1.5-5.0 Hendricks # 0.5 10 Normal 0.0-0.8 Eos # 0.6 10 High 0.0-0.5 Baso # 0.1 10 Normal 0.0-0.2 CBC With Differential 07/01/2020 [facility] Outpatient Norah myrick (Registration) [address] [place] [id number] [phone] White Blood Count 12.2 10 High 4.0-10.0 [...] 36.0-66.0 Lymph % 26.9 % Normal 24.0-44.0 Hendricks % 4.0 % Normal 0.0-5.0 Eos % 4.5 % High 0.0-3.0 Baso % 0.7 % Normal 0.0-1.0 Immature Granulocyte % 0.2 % Normal 0-3.0 Nucleated Red Blood Cell % 0.0 % Normal 0-0 Neutrophils # 7.8 10 Normal 1.5-8.5 Lymph # 3.3 10 Normal 1.5-5.0 Hendricks # 0.5 10 Normal 0.0-0.8 Eos # [...] Troponin I Reference Interva l for Siemens [place] LOCI: 99th Percentile= 0.00-0.045 ng/ml Risk Stratification: [...] Little GFR Left 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 [place] J06.9 Acute upper respiratory infe ction, unspecified Office Visit 09/02/2020 9:20a [facility] [place] J44.9 Chronic obstructive pulmonar y disease, unspecified F33.0 Major depressive disorder, r ecurrent, mild K21.00 Gastro-esophageal reflux dis with esophagitis, without bleed E78.00 Pure hypercholesterolemia, u nspecified I10 Essential (primary) hyperten adeel Z87.11 Personal history of peptic u lcer disease R91.1 Solitary pulmonary nodule Z23 Encounter for immunization Office Visit 08/03/2020 9:00a [facility] [place] J44.9 Chronic obstructive pulmonar y disease, unspecified F33.0 Major depressive disorder, r ecurrent, mild K21.0 Gastro-esophageal reflux dis ease with esophagitis I10 Essential (primary) hyperten adeel E78.00 Pure hypercholesterolemia, u nspecified D72.829 Elevated white blood cell co unt, unspecified Office Visit 06/30/2020 3:00p [facility] [place] Z87.11 Personal history of peptic [...] 12/03/2020 9:40 am - [facility] [place] at [facility] Functional Status Description No Information Available Mental Status Description No Information Available Referrals Refer to Reason for Referral Status Appt Date 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 She is interested in counseling Sent [address] [place] [address] [phone] Jeniffer Do M.D. Flaca is a smoker with untrea yahir hypertension and having intermittent chest pain, palpitations, tachycardia and recently seen in [facility] and was told ' she has a blockage' and needed a cardiac cath. Please evaluate and treat Closed 09/15/2020 [facility] [address] [place] [address] [phone]
--- OUTSIDE RECORDS SUMMARY | 2021-01-15 17:59 | CCD | Continuity of Care Document ---
Author Thalia Moran Organization [place] [address] Phone [phone] Care Team Providers Care Sack Keeper Name Role Phone Matilde Dill D.O. AUTM Jeniffer Do M.D. AUTM [phone] Jennkelly Padilla CAR[employer] R[employer] SERVICES MANAGER-R AUTM [phone] Destinee Crabtree CARGO AND RAMP SERVICES MANAGER AUTM [phone] Problems Active Problems Provider Date Essential hypertension [...] CPT Code Status Date Vaccine Lot # [id number] Given 09/02/2020 Influenza Virus Vaccine, Quadrivalent, Split, Preservative Free [id number] Vital Signs Date Vital Result Comment 10/27/2020 4:08pm BP Systolic 136 mmHg BP Diastolic 80 mmHg Height 64.0 inches 5'4" Weight 100.00 lb BMI (Body Mass Index) 17.2 kg/m2 Heart Rate 92 /min Respiratory Rate 17 /min Body Temperature 99.1 F O2 % BldC Oximetry 97 % [place] Body Weight 120 lb 09/02/2020 9:24am BP Systolic 118 mmHg BP Diastolic 82 mmHg Height 64.0 inches 5'4" Weight 100.00 lb BMI (Body Mass Index) 17.2 kg/m2 Heart Rate 80 /min Respiratory Rate 16 /min Body Temperature 98.2 F O2 % BldC Oximetry 98 % [place] Body Weight 120 lb Results Test Acquired Date Facility Test Result H/L Range Note Laboratory test finding 10/27/2020 Inhouse Inhouse Rapid Strep neg Laboratory test finding 09/01/2020 [facility] Outpatient T esting (Registration) [address] [place] [address] [phone] Pathology Request For Service (SEE NOTE) 1 CBC With Differential 09/01/2020 [facility] Outpatient Norah ting (Registration) [address] [place] [address] [phone] White Blood Count 9.7 10 Normal 4.0-10.0 [...] 36.0-66.0 Lymph % 32.3 % Normal 24.0-44.0 [place] % 6.0 % High 0.0-5.0 Eos % 6.9 % High 0.0-3.0 Baso % 1.0 % Normal 0.0-1.0 Immature Granulocyte % 0.2 % Normal 0-3.0 Nucleated Red Blood Cell % 0.0 % Normal 0-0 Neutrophils # 5.2 10 Normal 1.5-8.5 Lymph # 3.1 10 Normal 1.5-5.0 [place]aufman # 0.6 10 Normal 0.0-0.8 Eos # 0.7 10 High 0.0-0.5 Baso # 0.1 10 Normal 0.0-0.2 Periph Smear For Oncol. Review 09/01/2020 [facility] Outpa tient Testing (Registration) [address] [place] [address] [phone] Slide Review Report Normal 2 Source PERIPHERAL SMEAR Normal 3 Reason For Review WBC/LEUKEMIA/BRIDGER <SEE NOTE> Normal 4 Istat Chem8+ Panel 08/24/2020 [facility] Outpatient Testi ng (Registration) [address] [place] [address] [phone] iSTAT HCT 40.0 % Normal 38.0-51.0 iSTAT Glucose 83 mg/dL Normal 70-105 iSTAT Sodium 141 mEq/L Normal 136-145 iSTAT Potassium 4.0 mEq/L Normal 3.5-5.1 iSTAT CA++ 5.0 mg/dL Normal 4.5-5.3 iSTAT Chloride 104 mEq/L Normal 98-109 iSTAT Co2 25.0 MM/L Normal 23.0-27.0 iSTAT BUN 20 mg/dL Normal 8-26 iSTAT Creatinine 0.5 mg/dL Low 0.6-1.3 CBC With Differential 08/24/2020 [facility] Outpatient Norah ting (Registration) [address] [place] [address] [phone] White Blood Count 9.7 10 Normal 4.0-10.0 [...] % 0.0 % Normal 0-0 Differential 08/24/2020 [facility] Outpatient Testi ng (Registration) [address] [place] [address] [phone] Neutrophils 47 % Normal 28-66 Bands 9 % Normal < 11 Lymphocytes 37 % Normal 16-44 Eosinophils 6 % High 0-3 Basophils 1 % Normal 0-1 Laboratory test finding 08/24/2020 [facility] Outpatient T esting (Registration) [address] [place] [address] [phone] Platelet Estimate INCREASED Normal Normal Ua W/ Reflex To Culture 08/24/2020 [facility] Outpatient T esting (Registration) [address] [place] [address] [phone] Appearance, Urine RFX CLEAR Normal Clear Color, Urine RFX YELLOW Normal Yellow PH,Urine RFX 5.0 units Normal 5.0-9.0 Specific [place]ora Ur Auto RFX 1.023 Normal 1.002-1.035 Protein, [...] 0 /LPF Normal 0-1 FT4&TSH Panel 07/01/2020 [facility] Outpatient Testi ng (Registration) [address] [place] [address] [phone] Thyroid Stimulating Hormone 0.280 uIU/ML Low 0. 358-3.740 Free T4 0.85 ng/dL Normal 0.76-1.46 Laboratory test finding 07/01/2020 [facility] Outpatient T esting (Registration) [address] [place] [address] [phone] Magnesium Level 1.9 mg/dL Normal 1.8-2.4 Troponin I < 0.02 NG/ML Normal < 0.10 5 NT-Pro BNP 60 pg/mL Normal <125 CK MB 07/01/2020 [facility] Outpatient Testi ng (Registration) [address] [place] [address] [phone] CPK Creatine Phosphokinase 66 U/L Normal 26-19 2 CK-MB Value Mass 2.0 NG/ML Normal <3.6 MB/CK Relative Index 3.03 Normal < Or =4 6 Lipid Panel 07/01/2020 [facility] Outpatient Testi ng (Registration) [address] [place] [address] [phone] Triglycerides Level 50 mg/dL Normal <150 Cholesterol Level 208 mg/dL High <200 HDL Cholesterol 54 mg/dL Normal >40 LDL Cholesterol 144 mg/dL High <100 Non-HDL-C 154 mg/dL Normal Cholesterol Risk Ratio 3.851 Normal <5 Comprehensive Metabolic Profil 07/01/2020 [facility] Outpa tient Testing (Registration) [address] [place] [address] [phone] Glucose, Fasting 84 mg/dL Normal 70-100 Blood [...] 1.3 Normal 1.2-2.2 CBC With Differential 07/01/2020 [facility] Outpatient Norah ting (Registration) [address] [place] [address] [phone] White Blood Count 12.2 10 High 4.0-10.0 [...] 36.0-66.0 Lymph % 26.9 % Normal 24.0-44.0 [place]man % 4.0 % Normal 0.0-5.0 Eos % 4.5 % High 0.0-3.0 Baso % 0.7 % Normal 0.0-1.0 Immature Granulocyte % 0.2 % Normal 0-3.0 Nucleated Red Blood Cell % 0.0 % Normal 0-0 Neutrophils # 7.8 10 Normal 1.5-8.5 Lymph # 3.3 10 Normal 1.5-5.0 Kaufman # 0.5 10 Normal 0.0-0.8 Eos # 0.6 10 High 0.0-0.5 Baso # 0.1 10 Normal 0.0-0.2 CBC With Differential 07/01/2020 [facility] Outpatient Norah myrick (Registration) [address] [place] [id number] [phone] White Blood Count 12.2 10 High 4.0-10.0 [...] 36.0-66.0 Lymph % 26.9 % Normal 24.0-44.0 [place] % 4.0 % Normal 0.0-5.0 Eos % 4.5 % High 0.0-3.0 Baso % 0.7 % Normal 0.0-1.0 Immature Granulocyte % 0.2 % Normal 0-3.0 Nucleated Red Blood Cell % 0.0 % Normal 0-0 Neutrophils # 7.8 10 Normal 1.5-8.5 Lymph # 3.3 10 Normal 1.5-5.0 [place]aufman # 0.5 10 Normal 0.0-0.8 Eos # [...] Troponin I Reference Interva l for Siemens [place] LOCI: 99th Percentile= 0.00-0.045 ng/ml Risk Stratification: [...] Little GFR Left 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 Procedures Date Code Description Status 07/01/2020 [id number] Mammogram Completed 06/30/2020 [id number] Electrocardiogram Complete Compl eted Medical Devices Description No Information Available Encounters Type Date Location Provider Dx Diagnosis Office Visit 09/02/2020 9:20a [facility] SAMMI [place] J44.9 Chronic obstructive pulmonar y disease, unspecified F33.0 Major depressive disorder, r ecurrent, mild K21.00 Gastro-esophageal reflux dis with esophagitis, without bleed E78.00 Pure hypercholesterolemia, u nspecified I10 Essential (primary) hyperten adeel Z87.11 Personal history of peptic u lcer disease R91.1 Solitary pulmonary nodule Z23 Encounter for immunization Office Visit 08/03/2020 9:00a [facility] SAMMI [place] J44.9 Chronic obstructive pulmonar y disease, unspecified F33.0 Major depressive disorder, r ecurrent, mild K21.0 Gastro-esophageal reflux dis ease with esophagitis I10 Essential (primary) hyperten adeel E78.00 Pure hypercholesterolemia, u nspecified D72.829 Elevated white blood cell co unt, unspecified Office Visit 06/30/2020 3:00p [facility] SAM[facility] [place] Z87.11 Personal history of peptic [...] SAMMI [place] 09/02/2020 R91.1 Solitary pulmonary nodule [place] SAMMI [place] 09/02/2020 Z23 Encounter for immunization [facility] House [...] 12/03/2020 9:40 am - [facility] [place] at [facility] 10/27/2020 - [facility] [place]* J06.9 Acute upper respiratory infection, unspecified Functional Status Description No Information Available Mental Status Description No Information Available Referrals Refer to Reason for Referral Status Appt Date 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 She is interested in counseling Sent [address] [place] [address] [phone] Jeniffer Do M.D. Flaca is a smoker with untrea yahir hypertension and having intermittent chest pain, palpitations, tachycardia and recently seen in [facility] and was told ' she has a blockage' and needed a cardiac cath. Please evaluate and treat Closed 09/15/2020 [facility] [address] [place] [address] [phone]
--- OUTSIDE RECORDS SUMMARY | 2021-01-15 18:00 | CCD ---
Author Author [facility] Organization [facility] Address Unknown Phone Unavailable Support Name Relationship Address Phone CECILIA WYNN Next Of Kin [address] [facility] [address] [place] [address] CHASITY WYNN Next Of Kin Unknown Unavailable RCIL Next Of Kin [address] [place] [address] GRISELDA RUDD Next Of [place], [place] [employer] Next Of Kin [address] [place] [address] [place] [address] TRUJILLO INN Next Of Kin [facility] [place] [address] [place] [address] [employer] Next Of Kin [address] [place] [address] BOB Next Of Kin [address] [phone] BULMARO RUDD Next Of Kin [address] [place] [address] JRC* [place] [address] Yossi RUDD Next Of Kin [address] [id number] UE Next Of Kin Unknown Unavailable Margaret MANUEL Next Of Kin [address] [place], [place] [id number] ST Next Of Kin Unknown Unavailable CAPC Next Of Kin [address] [id number] Yossi SRIVASTAVA Next Of Kin [address] [place], [place] [id number] JOSE RUDD Next Of Kin [address] [place] [address] Jose Rudd ECON [address] [place] [address] Unavailable BRIDGET Rudd/Griselda ECON Unknown Care Team Providers Care Health Care Manager Name Role Phone PRASHANT MILLER Unavailable Unavailable Herminio MOODY ADIL Unavailable Unavailable Jonathan PA, A Florence PA Unavailable Jonathan PA, A Florence PA Unavailable Jonathan PA, A Florence PA Unavailable Jonathan PA, A Florence PA Unavailable Jonathan PA, A Florence PA Unavailable MEGHA, MAXIM PA Unavailable Unavailable MEGHA, MAXIM PA Unavailable Unavailable MEGHA, MAXIM PA Unavailable Unavailable MEGHA, MAXIM PA Unavailable Unavailable MEGHA, MAXIM PA Unavailable Unavailable MEGHA, MAXIM PA Unavailable Unavailable MEGHA, MAXIM PA Unavailable Unavailable MEGHA, MAXIM PA Unavailable Unavailable MEGHA, MAXIM PA Unavailable Unavailable MEGHA, MAXIM PA Unavailable Unavailable MEGHA, MAXIM PA Unavailable Unavailable MEGAH, MAXIM PA Unavailable Unavailable MEGHA, MAXIM PA Unavailable Unavailable MEGHA, MAXIM PA Unavailable Unavailable MEGHA, MAXIM PA Unavailable Unavailable MEGHA, MAXIM PA Unavailable Unavailable MEGHA, MAXIM PA Unavailable Unavailable MEGHA, MAXIM PA Unavailable Unavailable MEGHA, MAXIM PA Unavailable Unavailable MEGHA, MAXIM PA Unavailable Unavailable MEGHA, MAXIM PA Unavailable Unavailable MEGHA, MAXIM PA Unavailable Unavailable MEGHA, MAXIM PA Unavailable Unavailable MEGHA, MAXIM PA Unavailable Unavailable MEGHA, MAXIM PA Unavailable Unavailable MEGHA, MAXIM PA Unavailable Unavailable MEGHA, MAXIM PA Unavailable Unavailable MEGHA, MAXIM PA Unavailable Unavailable MEGHA, MAXIM PA Unavailable Unavailable MEGHA, MAXIM PA Unavailable Unavailable MEGHA, MAXIM PA Unavailable Unavailable MEGHA, MAXIM PA Unavailable Unavailable MEGHA, MAXIM PA Unavailable Unavailable MEGHA, MAXIM PA Unavailable Unavailable MEGHA, MAXIM PA Unavailable Unavailable MEGHA, MAXIM PA Unavailable Unavailable MEGHA, MAXIM PA Unavailable Unavailable MEGHA, MAXIM PA Unavailable Unavailable MEGHA, MAXIM PA Unavailable Unavailable Fish, B Wilfrido CABRERA Unavailable Unavailable Fish, B Wilfrido CABRERA Unavailable Unavailable Fish, B Wilfrido CABRERA Unavailable Unavailable Fish, B Wilfrido CABRERA Unavailable Unavailable Fish, B Wilfrido CABRERA Unavailable Unavailable Fish, B Wilfrido CABRERA Unavailable Unavailable Fish, B Wilfrido CABRERA Unavailable Unavailable Fish, B Wilfrido CABRERA Unavailable Unavailable Fish, B Wilfrido CABRERA Unavailable Unavailable Fish, B Wilfrido CABRERA Unavailable Unavailable Fish, B Wilfrido CABRERA Unavailable Unavailable Fish, B Wilfrido CABRERA Unavailable Unavailable Fish, B Wilfrido CABRERA Unavailable Unavailable Fish, B Wilfrido CABRERA Unavailable Unavailable Fish, B Wilfrido CABRERA Unavailable Unavailable Fish, B Wilfrido CABRERA Unavailable Unavailable Fish, B Wilfrido CABRERA Unavailable Unavailable Fish, B Wilfrido CABRERA Unavailable Unavailable Fish, B Wilfrido CABRERA Unavailable Unavailable Fish, B Wilfrido CABRERA Unavailable Unavailable Fish, B Wilfrido CABRERA Unavailable Unavailable Fish, B Wilfrido CABRERA Unavailable Unavailable Fish, B Wilfrido CABRERA Unavailable Unavailable Fish, B Wilfrido CABRERA Unavailable Unavailable Fish, B Wilfrido CABRERA Unavailable Unavailable Fish, B Wilfrido CABRERA Unavailable Unavailable Fish, B Wilfrido CABRERA Unavailable Unavailable Fish, B Wilfrido CABRERA Unavailable Unavailable Fish, B Wilfrido CABRERA Unavailable Unavailable Fish, B Wilfrido CABRERA Unavailable Unavailable Fish, B Wilfrido CABRERA Unavailable Unavailable Fish, B Wilfrido CABRERA Unavailable Unavailable Fish, B Wilfrido CABRERA Unavailable Unavailable Fish, B Wilfrido CABRERA Unavailable Unavailable Fish, B Wilfrido CABRERA Unavailable Unavailable Fish, B Wilfrido CABRERA Unavailable Unavailable Fish, B Wilfrido CABRERA Unavailable Unavailable Fish, B Wilfrido CABRERA Unavailable Unavailable Fish, B Wilfrido CABRERA Unavailable Unavailable Fish, B Wilfrido CABRERA Unavailable Unavailable Fish, B Wilfrido CABRERA Unavailable Unavailable Fish, B Wilfrido CABRERA Unavailable Unavailable Fish, B Wilfrido CABRERA Unavailable Unavailable Fish, B Wilfrido CABRERA Unavailable Unavailable Fish, B Wilfrido CABRERA Unavailable Unavailable Fish, B Wilfrido CABRERA Unavailable Unavailable Fish, B Wilfrido CABRERA Unavailable Unavailable Fish, B Wilfrido CABRERA Unavailable Unavailable Fish, B Wilfrido CABRERA Unavailable Unavailable Fish, B Wilfrido CABRERA Unavailable Unavailable Fish, B Wilfrido CABRERA Unavailable Unavailable Fish, B Wilfrido CABRERA Unavailable Unavailable Fish, B Wilfrido CABRERA Unavailable Unavailable NARDA .Yuri . Unavailable Unavailable O'rosey, A Vic PA Unavailable Unavailable O'rosey, A Vic PA Unavailable Unavailable O'rosey, A Vic PA Unavailable Unavailable O'rosey, A Vic PA Unavailable Unavailable O'rosey, A Vic PA Unavailable Unavailable O'rosey, A Vic PA Unavailable Unavailable O'rosey, A Vic PA Unavailable Unavailable O'rosey, A Vic PA Unavailable Unavailable O'rosey, A Vic PA Unavailable Unavailable O'rosey, A Vic PA Unavailable Unavailable O'rosey, A Vic PA Unavailable Unavailable O'rosey, A Vic PA Unavailable Unavailable O'rosey, A Vic PA Unavailable Unavailable O'rosey, A Vic PA Unavailable Unavailable O'rosey, A Vic PA Unavailable Unavailable O'rosey, A Vic PA Unavailable Unavailable O'rosey, A Vic PA Unavailable Unavailable O'rosey, A Vic PA Unavailable Unavailable O'rosey, A Vic PA Unavailable Unavailable O'rosey, A Vic PA Unavailable Unavailable O'rosey, A Vic PA Unavailable Unavailable O'rosey, A Vic PA Unavailable Unavailable O'rosey, A Vic PA Unavailable Unavailable O'rosey, A Vic PA Unavailable Unavailable O'rosey, A Vic PA Unavailable Unavailable O'rosey, A Vic PA Unavailable Unavailable O'rosey, A Vic PA Unavailable Unavailable O'rosey, A Vic PA Unavailable Unavailable O'rosey, A Vic PA Unavailable Unavailable O'rosey, A Vic PA Unavailable Unavailable O'rosey, A Vic PA Unavailable Unavailable O'rosey, A Vic PA Unavailable Unavailable O'rosey, A Vic PA Unavailable Unavailable Jeniffer Do MD Unavailable Unavailable Jeniffer Do MD Unavailable Unavailable Jeniffer Do MD Unavailable Unavailable Jeniffer Do MD Unavailable Unavailable Jeniffer Do MD Unavailable Unavailable Jeniffer Do MD Unavailable Unavailable Jeniffer Do MD Unavailable Unavailable Jeniffer Do MD Unavailable Unavailable Jeniffer Do MD Unavailable Unavailable Jeniffer Do MD Unavailable Unavailable Jeniffer Do MD Unavailable Unavailable Jeniffer Do MD Unavailable Unavailable Jeniffer Do MD Unavailable Unavailable Jeniffer Do MD Unavailable Unavailable Jeniffer Do MD Unavailable Unavailable Jeniffer Do MD Unavailable Unavailable Jeniffer Do MD Unavailable Unavailable Jeniffer Do MD Unavailable Unavailable Jeniffer Do MD Unavailable Unavailable Jeniffer Do MD Unavailable Unavailable Jeniffer Do MD Unavailable Unavailable SleVeronika pearsontech Unavailable Unavailable Jeniffer Do MD Unavailable Unavailable Jeniffer Do MD Unavailable Unavailable Jeniffer Do MD Unavailable Unavailable SleJeniffer pearson MD Unavailable Unavailable SleJeniffer pearson MD Unavailable Unavailable Jeniffer Do MD Unavailable Unavailable Veronika Dotech Unavailable Unavailable Jeniffer Do MD Unavailable Unavailable Jeniffer Do MD Unavailable Unavailable Jeniffer Do MD Unavailable Unavailable Jan Dojtech Unavailable Unavailable Veronika Dotech Unavailable Unavailable Veronika Dotech Unavailable Unavailable Jeniffer Do MD Unavailable Unavailable Jeniffer Do MD Unavailable Unavailable Jeniffer Do MD Unavailable Unavailable Veronika Dotech Unavailable Unavailable Veronika Dotech Unavailable Unavailable Veronika Dotech Unavailable Unavailable Jeniffer Do MD Unavailable Unavailable Jeniffer Do MD Unavailable Unavailable Jeniffer Do MD Unavailable Unavailable Jeniffer Do MD Unavailable Unavailable Jeniffer Do MD Unavailable Unavailable Jeniffer Do MD Unavailable Unavailable Jeniffer Do MD Unavailable Unavailable Jeniffer Do MD Unavailable Unavailable Jeniffer Do MD Unavailable Unavailable Veronika Dotech Unavailable Unavailable Veronika [employer]otech Unavailable Unavailable Jeniffer Do MD Unavailable Unavailable Jeniffer Do MD Unavailable Unavailable Jeniffer Do MD Unavailable Unavailable Jeniffer Do MD Unavailable Unavailable Jeniffer Do MD Unavailable Unavailable Veronika [employer]otech Unavailable Unavailable Tamra SUN MOOK Unavailable Unavailable Yossi Gonzalez Unavailable Unavailable Yossi Gonzalez Unavailable Unavailable Yossi Gonzalez Unavailable Unavailable Yossi Gonzalez Unavailable Unavailable Yossi Gonzalez Unavailable Unavailable [facility], EKOLB Unavailable Unavailable Ashutosh Ness MD Unavailable Unavailable Ashutosh Ness MD Unavailable Unavailable Ashutosh Ness MD Unavailable Unavailable Ashutosh Ness MD Unavailable Unavailable Ashutosh Ness MD Unavailable Unavailable Grover, Ashutosh MD Unavailable Unavailable Grover, Ashutosh MD Unavailable Unavailable Grover, Ashutosh MD Unavailable Unavailable Grover, Ashutosh MD Unavailable Unavailable Grover, Ashutosh MD Unavailable Unavailable Grover, Ashutosh MD Unavailable Unavailable Grover, Ashutosh MD Unavailable Unavailable Overholt, T Bull PA Unavailable Unavailable Overholt, T Bull PA Unavailable Unavailable Overholt, T Bull PA Unavailable Unavailable Overholt, T Bull PA Unavailable Unavailable Overholt, T Bull PA Unavailable Unavailable Overholt, T Bull PA Unavailable Unavailable Overholt, T Bull PA Unavailable Unavailable Overholt, T Bull PA Unavailable Unavailable Overholt, T Bull PA Unavailable Unavailable Overholt, T Bull PA Unavailable Unavailable Overholt, T Bull PA Unavailable Unavailable Overholt, T Bull PA Unavailable Unavailable Overholt, T Bull PA Unavailable Unavailable Overholt, T Bull PA Unavailable Unavailable Overholt, T Bull PA Unavailable Unavailable Re-disclosure Warning The records that you are about to access may contain information from federally-assisted alcohol or drug abuse programs. If such information is present, then the following federally mandated warning applies: This information has been disclosed to you from records protected by federal confidentiality rules (42 CFR part 2). The federal rules prohibit you from making any further disclosure of this information unless further disclosure is expressly permitted by the written consent of the person to whom it pertains or as otherwise permitted by 42 CFR part 2. A general authorization for the release of medical or other information is NOT sufficient for this purpose. The Federal rules restrict any use of the information to criminally investigate or prosecute any alcohol or drug abuse patient.The records that you are about to access may contain highly sensitive health information, the redisclosure of which is protected by Article 27-F of the [facility] Public Health law. If you continue you may have access to information: Regarding HIV / AIDS; Provided by facilities licensed or operated by the [facility] Office of Mental Health; or Provided by the [facility] Office for People With Developmental Disabilities. If such information is present, then the following [facility] mandated warning applies: This information has been disclosed to you from confidential records which are protected by state law. State law prohibits you from making any further disclosure of this information without the specific written consent of the person to whom it pertains, or as otherwise permitted by law. Any unauthorized further disclosure in violation of state law may result in a fine or chcf sentence or both. A general authorization for the release of medical or other information is NOT sufficient authorization for further disc losure. Allergies and Adverse Reactions Type Description Substance Reaction Status Data Source(s ) Drug Class NO KNOWN ALLERGIES NO KNOWN ALLERGIES [facility] Family History Family Member Name Family Member Gender Family Member Status Date o f Status Description Data Source(s) Unknown Unknown Problem [facility] ([facility] mother Encounters Encounter Providers Location Date Indications Data Source(s ) Outpatient Attender: Vic CHAPA [facility] 10/27/2020 03:10:00 PM EST [facility] ([facility]) Outpatient Attender: Jeniffer Do MDReferrer: Veronika [email or web address] 10/05/2020 11:23:35 AM EST - 10/05/2020 12:03:20 PM EST [facility] Outpatient Attender: Jeniffer [email or web address] 08/27 12:00:00 AM EDT - 09/15/2020 03:39:41 PM EDT [facility] Outpatient Attender: Vic CHAPA [facility] 09/02/2020 09:20:00 AM EDT [facility] ([facility]) Outpatient 08/06/2020 12:00:00 AM T [facility] Outpatient Attender: Vic CHAPA [facility] 08/03/2020 09:00:00 AM EDT [facility] ([facility]) Outpatient Attender: PRASHANT MILLER [id number] 12:00:00 AM EDT - 07/02/2020 02:19:38 PM T [facility] Outpatient Attender: Vic CHAPA [facility] 06/30/2020 03:00:00 PM EDT [facility] ([facility]) Outpatient Attender: Dawood Torresender: MOOK POSADAS [id number] 06/18/2020 12:00:00 AM EDT - 06/18/2020 01:26:25 PM EDT [facility] Outpatient Attender: DENIZ Jj r: Ashutosh Ness MDAttender: JONATHAN LABOY .Admitter: Ashutosh Ness MDReferrer: Florence CHAPA [id number] 06/17/2020 12:00:00 AM EDT - 06/18/2020 11:00:00 AM EDT Chest pain, unspecified [facility] Chest pain, unspecified Patient discharged. Outpatient Attender: IVAN NAVARRO 05/04/2020 07:45:03 PM EDT [facility] Outpatient Referrer: Bull CHAPA 01/02/2020 08:07:0 0 AM EST [facility] Outpatient Referrer: Bull CHAPA 12/29/2019 08:17:0 0 AM EST [facility] Outpatient Referrer: Bull CHAPA 12/26/2019 11:00:0 0 AM EST [facility] Outpatient Referrer: Bull CHAPA 12/26/2019 10:54:0 0 AM EST [facility] Outpatient Referrer: Wilfrido Quiroz MD 12/26/2019 10:52:00 AM EST [facility] Outpatient Referrer: Wilfrido Quiroz MD 12/26/2019 09:59:00 AM EST [facility] Outpatient Referrer: Wilfrido Quiroz MD 12/26/2019 09:56:00 AM EST [facility] Outpatient Attender: MAXIM miller 12/22/2019 12:10:00 PM EST [facility] ([facility]) Outpatient Referrer: Wilfrido Quiroz MD 12/12/2019 06:08:00 AM EST [facility] Immunizations Vaccine Date Status Description Data Source(s) New in 2011. IIV4 09/02/2020 09:52:00 AM EDT completed [facility] ([facility]) Medications Medication Brand Name Start Date Product Form Dose Route Admi nistrative Instructions Pharmacy Instructions Status Indications Reaction Description Data Source(s) 232-14 mcg/actuation 11/30/2020 12:00:00 AM EST aerosol powdr breath activated 1 INHALE ONE PUFF BY MOUTH TWICE A DAY INHA LE ONE PUFF BY MOUTH TWICE A DAY SOLD: 12/07/2020 [facility] 232-14 mcg/actuation 10/28/2020 12:00:00 AM EST aerosol powdr breath activated 1 INHALE ONE PUFF BY MOUTH TWICE A DAY INHA LE ONE PUFF BY MOUTH TWICE A DAY SOLD: 11/23/2020 [facility] 62.5 mcg/actuation 10/28/2020 12:00:00 AM EST blister with d evice 30 INHALE ONE PUFF BY MOUTH EVERY DAY INHALE ONE PUFF BY MOUTH EVERY DAY SOLD: 11/23/2020 [facility] 20 mg 10/28/2020 12:00:00 AM EST capsule,delayed release (DR/EC) 30 TAKE ONE CAPSULE BY MOUTH EVERY DAY TAKE ONE CAPSULE BY MOUTH EVERY DAY SOLD: 11/23/2020 [facility] 20 mg 10/28/2020 12:00:00 AM EST capsule,delayed release (DR/EC) 30 TAKE ONE CAPSULE BY MOUTH EVERY DAY TAKE ONE CAPSULE BY MOUTH EVERY DAY SOLD: 12/07/2020 [facility] 62.5 mcg/actuation 10/28/2020 12:00:00 AM EST blister with d evice 30 INHALE ONE PUFF BY MOUTH EVERY DAY INHALE ONE PUFF BY MOUTH EVERY DAY SOLD: 12/07/2020 [facility] 0.5 ML Streptococcus pneumoniae serotype 1 capsular antigen diphtheria [id number] protein conjugate vaccine 0.0044 MG/ML / Streptococcus pneumoniae serotype 14 capsular antigen diphtheria [id number] protein conjugate vaccine 0.0044 MG/ML / Streptococcus pneumonia Prevnar 13 09/02/2020 12:00:00 AM EDT active [facility] ([facility]) 10 mg 08/24/2020 12:00:00 AM EDT tablet 20 TAKE ONE TABLET BY MOUTH EVERY 6 HOURS NEEDED FOR PAIN TAKE ONE TABLET BY MOUTH EVERY 6 HOURS A S NEEDED FOR PAIN SOLD: 08/24/2020 [facility] 0.4 mg 08/24/2020 12:00:00 AM EDT capsule 10 TAKE ONE CAPSULE BY MOUTH EVERY DAY 1/2 HOUR FOLLOWING THE SAME MEAL EACH DAY TAKE ONE CAPSULE BY MOUTH EVERY DAY 1/2 HOUR FOLLOWING THE SAME MEAL EACH DAY SOLD: 08/24/2020 [facility] 5-325 mg 08/24/2020 12:00:00 AM EDT tablet 12 TAKE ONE TABLET BY MOUTH EVERY 6 HOURS NEEDED FOR PAIN MAXIMUM DAILY DOSE = 12 TABLETS TAKE ONE TABLET BY MOUTH EVERY 6 HOURS NEEDED FOR PAIN MAXIMUM DAILY DOSE = 12 TABLETS SOLD: 08/24/2020 [facility] 100 mg 08/04/2020 12:00:00 AM EDT tablet 90 TAKE ONE-HALF TABLET BY MOUTH TWICE A DAY TAKE ONE-HALF TABLET BY MOUTH TWICE A DAY SOLD: 08/05/2020 [facility] 20 mg 08/04/2020 12:00:00 AM EDT tablet 90 TAKE ONE TABLET BY MOUTH EVERY DAY TAKE ONE TABLET BY MOUTH EVERY DAY SOLD: 08/05/2020 [facility] Citalopram 20 MG Oral Tablet Citalopram Hydrobromide 08/03/2020 12:00:00 AM EDT ORAL active [facility] ( [facility]) 3.5mg/mL-10,000 unit/mL-0.1 % 07/02/2020 12:00:00 AM EDT prerna ps,suspension 5 INSTILL 1 DROP IN THE LEFT EYE THREE TIMES A DAY FOR 7 DAYS INSTILL 1 DROP IN THE LEFT EYE THREE TIMES A DAY FOR 7 DAYS SOLD: 07/03/2020 [facility] 90 mcg/actuation 07/01/2020 12:00:00 AM EDT HFA aerosol inha ler 18 INHALE ONE TO TWO PUFFS BY MOUTH EVERY 4 TO 6 HOURS NEEDED FOR SHORTNESS OF BREATH INHALE ONE TO TWO PUFFS BY MOUTH EVERY 4 TO 6 HOURS NEEDED FOR SHORTNESS OF BREATH SOLD: 10/25/2020 [facility] 90 mcg/actuation 07/01/2020 12:00:00 AM EDT HFA aerosol inha ler 8 INHALE ONE TO TWO PUFFS BY MOUTH EVERY 4 TO 6 HOURS NEEDED FOR SHORTNESS OF BREATH INHALE ONE TO TWO PUFFS BY MOUTH EVERY 4 TO 6 HOURS NEEDED FOR SHORTNESS OF BREATH SOLD: 08/25/2020 [facility] 90 mcg/actuation 07/01/2020 12:00:00 AM EDT HFA aerosol inha ler 8 INHALE ONE TO TWO PUFFS BY MOUTH EVERY 4 TO 6 HOURS NEEDED FOR SHORTNESS OF BREATH INHALE ONE TO TWO PUFFS BY MOUTH EVERY 4 TO 6 HOURS NEEDED FOR SHORTNESS OF BREATH SOLD: 07/03/2020 [facility] 30 mg 07/01/2020 12:00:00 AM EDT capsule,delayed release (DR/EC) 90 TAKE ONE CAPSULE BY MOUTH EVERY DAY TAKE ONE CAPSULE BY MOUTH EVERY DAY SOLD: 07/03/2020 [facility] 100 mg 07/01/2020 12:00:00 AM EDT tablet 60 TAKE ONE TABLET BY MOUTH TWICE A DAY TAKE ONE TABLET BY MOUTH TWICE A DAY SOLD: 07/03/2020 [facility] Labetalol hydrochloride 100 MG Oral Tablet Labetalol HCL 06/30/2020 12:00:00 AM EDT ORAL completed [facility] ([facility]) duloxetine 30 MG Delayed Release Oral Capsule Duloxetine HCL 06/30/2020 12:00:00 AM EDT ORAL completed [facility] ([facility]) Dexamethasone 0.001 MG/MG / Neomycin 0.0 035 MG/MG / Polymyxin B 10 UNT/MG Ophthalmic Ointment wewwgfgu-xxvcrqhhs-rphskikcbjkay (MAXITROL) 3.5-26147-0.1 ophthalmic ointment 1 inch drcltnxz-fpzaiokca-yiklfmmxgajpp (MAXITR OL) 3.5-10896-7.1 ophthalmic ointment 1 inch 06/18/2020 01:30:00 PM EDT 1 [in_us] Right Eye completed Chalazion of right lower eyelid 1 inch, Right Eye, Once, Sun06/18/20 at 1330, For 1 dose [facility] Chalazion of right lower eyelid Medication administered onsite 1.7 ML Epinephrine 0.01 MG/ML / Lidocain e Hydrochloride 20 MG/ML Cartridge lidocaine-EPINEPHrine 2 %-1:417406 injection 1 mL lidocaine-EPINEPHrine 2 %- 1:403031 injection 1 mL 06/18/2020 01:30:00 PM EDT 1 mL Infiltrat ion completed Chalazion of right lower eyelid 1 mL, In filtration, Once, Sun06/18/20 at 1330, For 1 dose [facility] Chalazion of right lower eyelid Medication administered onsite Phenylephrine Hydrochloride 25 MG/ML Oph thalmic Solution phenylephrine (MYDFRIN) 2.5 % ophthalmic solution 1 drop phenylephrine (MYDFRIN) 2.5 % ophthalmic solution 1 drop 06/18/2020 12:30:00 PM EDT 1 [drp] Both Eyes a ctive [facility] Tropicamide 10 MG/ML Ophthalmic Solution tropicamide (MYDRIACYL) 1 % ophthalmic solution 1 drop tropicamide (MYDRIACYL) 1 % ophthalmic solution 1 drop 06/18/2020 12:30:00 PM EDT 1 [drp] Both Eyes active [facility] Proparacaine hydrochloride 5 MG/ML Ophth almic Solution proparacaine (ALCAINE) 0.5 % ophthalmic solution 1 drop proparacaine (ALCAINE) 0.5 % ophthalmic solution 1 drop 06/18/2020 12:30:00 PM EDT 1 [drp] Both Eyes completed 1 drop, Both Eyes, Once, Sun06/18/20 at 1230, For 1 do se [facility] Medication administered onsite pantoprazole 40 MG Delayed Release Oral Tablet pantoprazole (PROTONIX) EC tablet 40 mg pantoprazole (PROTONIX) EC tablet 40 mg 06/18/2020 09:00:00 AM E DT 40 mg Oral aborted 40 mg, Ora l, Daily Standard, First dose on Sun06/18/20 at 0900, For 30 days
Do not crush or chew
[facility] Medication administered onsite 14 mg/24 hr 06/18/2020 12:00:00 AM EDT patch 24 hour 28 APPLY 1 PATCH ONTO THE SKIN EVERY 24 HOURS APPLY 1 PATCH ONTO THE SKIN EVERY 24 HOURS SOLD: 06/20/2020 [email or web address] Erythromycin 0.005 MG/MG Ophthalmic Oint ment Erythromycin 5 MG/GM Ophthalmic Ointment (ROMYCIN) Erythromycin 5 MG/GM Ophthalmic Ointment (ROMYCIN) 12:00:00 AM EDT Right Eye active Place into the right eye Four times daily 1/2 inch ribbon in affected eye 4x/day [facility] 24 HR Nicotine 0.583 MG/HR Transdermal P atch Nicotine 14 MG/24HR Transdermal Patch 24 Hour (NICODERM CQ) Nicotine 14 MG/24HR Transdermal Patch 24 Hour (NICODERM CQ) 06/18/2020 12:00:00 AM EDT 1 {patch} Transdermal active Place 1 patch onto the skin every 24 (twenty-four) hours [facility] 5 mg/gram (0.5 %) 06/18/2020 12:00:00 AM EDT ointment 3 PLACE A HALF INCH RIBBON INTO THE RIGHT EYE FOUR TIMES A DAY PLACE A HALF INCH RIBBON INTO THE RIGHT EYE FOUR TIMES A DAY SOLD: 06/20/2020 [email or web address] sennosides, [facility] 8.6 MG Oral Tablet senna tablet 2 tablet sen na tablet 2 tablet 06/17/2020 10:00:00 PM EDT 2 {tbl} Oral aborted 2 tablet, Oral, Nightly, First dose on Ashley 06/17/20 at 2200, For 30 days [facility] Medication administered onsite Sertraline 50 MG Oral Tablet sertraline (ZOLOFT) table t 100 mg sertraline (ZOLOFT) tablet 100 mg 06/17/2020 09:00:00 PM EDT 100 mg Oral aborted Premenstrual Dysphoric Disorder 100 mg, Oral, 2 Times Daily, First dose (after last reorder) on [facility] 06/17/20 at 2100, For 30 days [facility] Premenstrual Dysphoric Disorder Medication administered onsite albuterol (PROVENTIL HFA) inhaler 1 puff 0614-1873-00 06/17/2020 02:09:20 PM EDT 1 {puff} Inhalation aborted 1 pu ff, Inhalation, Every 4 hours PRN, Wheezing, Starting [facility] 06/17/20 at 1409, For 4 days
Shake the inhaler well before each spray.
[facility] Medication administered onsite Acetaminophen 325 MG Oral Tablet acetaminophen (TYLENO L) tablet 650 mg acetaminophen (TYLENOL) tablet 650 mg 06/17/2020 02:09:20 PM EDT 65 0 mg Oral aborted 650 mg, Oral, E very 4 hours PRN, Mild Pain (Pain Scale Score 1- 3), Starting [facility] 06/17/20 at 1409, For 30 days
Maximum daily dose of acetaminophen is 3,000 mg from all sources in 24 hours.
[facility] Medication administered onsite Acetaminophen 325 MG / Hydrocodone Derik trate 5 MG Oral Tablet HYDROcodone- acetaminophen (LORTAB) 5-325 MG per tablet 1 tablet HYDROcodone-acetaminophen (LORTAB) 5-325 MG per tablet 1 tablet 06/17/2020 02:09:20 PM EDT 1 {tbl} Oral aborted 1 tablet, Oral, Every 6 hours PRN, Pain, Starting [facility] 06/17/20 at 1409, For 3 days
Maximum daily dose of acetaminophen is 3,000 mg from all sources in 24 hours.
[facility] Medication administered onsite potassium chloride (K-DUR) dissolvable tablet 40 mEq [id number] 06/17/2020 01:45:00 PM EDT 40 meq Oral completed 40 mEq, Oral, Once, [facility] 06/17/20 at 1345, For 1 dose
Do not crush or chew
[facility] Medication administered onsite iohexol (OMNIPAQUE) 350 MG/ML contrast injection 100 mL [id number] 8 06/17/2020 10:05:21 AM EDT 100 mL Given by IV aborted 100 mL, Given by IV, IMG once PRN, Other, Starting [facility] 06/17/20 at 1005, For 1 day [facility] Medication administered onsite 24 HR Nicotine 0.583 MG/HR Transdermal P atch nicotine (NICODERM CQ) 14 MG/24HR 1 patch nicotine (NICODERM CQ) 14 MG/24HR 1 patch 06/17/2020 09:45:00 AM EDT 1 {patch} Transdermal completed 1 patch, Transdermal, Administer over 24 Hours, Once, [facility] 06/17/20 at 0945, For 1 dose [facility] Medication administered onsite 0.3-0.1 % 06/11/2020 12:00:00 AM EDT drops,suspension 5 INSTILL 1 DROP IN THE RIGHT EYE FOUR TIMES A DAY DIRECTED INSTILL 1 DROP IN THE RIGHT EYE FOUR TIMES A DAY DIRECTED SOLD: 06/12/2020 [facility] 5 mg/gram (0.5 %) 06/01/2020 12:00:00 AM EDT ointment 3 APPLY 1/4 INCH STIP INTO LOWER RIGHT LID AFTER LID HYGIENE (4 TO 6 TIMES DAILY) DIRECTED FOR 14 DAYS APPLY 1/4 INCH STIP INTO LOWER RIGHT LID AFTER LID HYGIENE (4 TO 6 TIMES DAILY) DIRECTED FOR 14 DAYS SOLD: 06/02/2020 [facility] 90 mcg/actuation 05/31/2020 12:00:00 AM EDT HFA aerosol inha ler 18 INHALE TWO PUFFS BY MOUTH FOUR TIMES A DAY NEEDED INHALE TWO PUFFS BY MOUTH FOUR TIMES A DAY NEEDED SOLD: 05/31/2020 [facility] 5 mg/gram (0.5 %) 05/31/2020 12:00:00 AM EDT ointment 3 APPLY IN THE AFFECTED EYE THREE TIMES A DAY FOR 5 DAYS APPLY IN THE AFFECTED EYE THREE TIMES A DAY FOR 5 DAYS SOLD: 05/31/2020 [facility] 90 mcg/actuation 05/31/2020 12:00:00 AM EDT HFA aerosol inha ler 18 INHALE TWO PUFFS BY MOUTH FOUR TIMES A DAY NEEDED INHALE TWO PUFFS BY MOUTH FOUR TIMES A DAY NEEDED SOLD: 12/07/2020 [facility] 2.5 mg /3 mL (0.083 %) 02/25/2020 12:00:00 AM EDT solu tion for nebulization 300 1 VIAL VIA NEBULIZER FOUR TIMES A DAY NEEDED 1 VIAL VIA NEBULIZER FOUR TIMES A DAY NEEDED SOLD: 03/01/2020 [facility] 232-14 mcg/actuation 02/24/2020 12:00:00 AM EDT aerosol powdr breath activated 1 INHALE ONE PUFF BY MOUTH TWICE A DAY INHA LE ONE PUFF BY MOUTH TWICE A DAY SOLD: 04/15/2020 [facility] 232-14 mcg/actuation 02/24/2020 12:00:00 AM EDT aerosol powdr breath activated 1 INHALE ONE PUFF BY MOUTH TWICE A DAY INHA LE ONE PUFF BY MOUTH TWICE A DAY SOLD: 03/01/2020 [facility] 232-14 mcg/actuation 02/24/2020 12:00:00 AM EDT aerosol powdr breath activated 1 INHALE ONE PUFF BY MOUTH TWICE A DAY INHA LE ONE PUFF BY MOUTH TWICE A DAY SOLD: 05/31/2020 [facility] 10 mg 02/13/2020 12:00:00 AM EDT tablet 40 TAKE 4 TABLETS BY MOUTH EVERY DAY FOR 4 DAYS, THEN TAKE 3 TABLETS EVERY DAY FOR 4 DAYS, THEN TAKE 2 TABLETS EVERY DAY FOR 4 DAYS, THEN TAKE 1 TABLET EVERY DAY FOR 4 DAYS TAKE 4 TABLETS BY MOUTH EVERY DAY FOR 4 DAYS, THEN TAKE 3 TABLETS EVERY DAY FOR 4 DAYS, THEN TAKE 2 TABLETS EVERY DAY FOR 4 DAYS, THEN TAKE 1 TABLET EVERY DAY FOR 4 DAYS SOLD: 02/13/2020 [facility] 500 mg 02/13/2020 12:00:00 AM EDT tablet 20 TAKE ONE TABLET BY MOUTH TWICE A DAY FOR 10 DAYS TAKE ONE TABLET BY MOUTH TWICE A DAY FOR 10 DAYS SOLD: 02/13/2020 [facility] 90 mcg/actuation 12/19/2019 12:00:00 AM EST HFA aerosol inha ler 18 INHALE TWO PUFFS BY MOUTH EVERY 4 HOURS NEEDED FOR SHORTNESS OF BREATH INHALE TWO PUFFS BY MOUTH EVERY 4 HOURS NEEDED FOR SHORTNESS OF BREATH SOLD: 12/21/2019 [facility] 90 mcg/actuation 12/19/2019 12:00:00 AM EST HFA aerosol inha ler 18 INHALE TWO PUFFS BY MOUTH EVERY 4 HOURS NEEDED FOR SHORTNESS OF BREATH INHALE TWO PUFFS BY MOUTH EVERY 4 HOURS NEEDED FOR SHORTNESS OF BREATH SOLD: 01/30/2020 [facility] 90 mcg/actuation 12/19/2019 12:00:00 AM EST HFA aerosol inha ler 18 INHALE TWO PUFFS BY MOUTH EVERY 4 HOURS NEEDED FOR SHORTNESS OF BREATH INHALE TWO PUFFS BY MOUTH EVERY 4 HOURS NEEDED FOR SHORTNESS OF BREATH SOLD: 03/01/2020 [facility] 90 mcg/actuation 12/19/2019 12:00:00 AM EST HFA aerosol inha ler 18 INHALE TWO PUFFS BY MOUTH EVERY 4 HOURS NEEDED FOR SHORTNESS OF BREATH INHALE TWO PUFFS BY MOUTH EVERY 4 HOURS NEEDED FOR SHORTNESS OF BREATH SOLD: 04/15/2020 [facility] 62.5 mcg/actuation 12/15/2019 12:00:00 AM EST blister with d evice 30 INHALE ONE PUFF BY MOUTH EVERY DAY INHALE ONE PUFF BY MOUTH EVERY DAY SOLD: 03/01/2020 [facility] 62.5 mcg/actuation 12/15/2019 12:00:00 AM EST blister with d evice 30 INHALE ONE PUFF BY MOUTH EVERY DAY INHALE ONE PUFF BY MOUTH EVERY DAY SOLD: 07/03/2020 [facility] 62.5 mcg/actuation 12/15/2019 12:00:00 AM EST blister with d evice 30 INHALE ONE PUFF BY MOUTH EVERY DAY INHALE ONE PUFF BY MOUTH EVERY DAY SOLD: 04/15/2020 [facility] 62.5 mcg/actuation 12/15/2019 12:00:00 AM EST blister with d evice 30 INHALE ONE PUFF BY MOUTH EVERY DAY INHALE ONE PUFF BY MOUTH EVERY DAY SOLD: 05/31/2020 [facility] 62.5 mcg/actuation 12/15/2019 12:00:00 AM EST blister with d evice 30 INHALE ONE PUFF BY MOUTH EVERY DAY INHALE ONE PUFF BY MOUTH EVERY DAY SOLD: 12/21/2019 [facility] 62.5 mcg/actuation 12/15/2019 12:00:00 AM EST blister with d evice 30 INHALE ONE PUFF BY MOUTH EVERY DAY INHALE ONE PUFF BY MOUTH EVERY DAY SOLD: 01/30/2020 [facility] 2.5 mg /3 mL (0.083 %) 11/24/2019 12:00:00 AM EST solu tion for nebulization 150 1 VIAL VIA NEBULIZER EVERY 4 HOURS NE EDED FOR WHEEZING 1 VIAL VIA NEBULIZER EVERY 4 HOURS NEEDED FOR WHEEZING SOLD: 11/24/2019 [facility] 20 mg 11/24/2019 12:00:00 AM EST tablet 15 TAKE THREE TABLETS BY MOUTH EVERY DAY TAKE THREE TABLETS BY MOUTH EVERY DAY SOLD: 11/24/2019 [facility] 100 mg 11/24/2019 12:00:00 AM EST capsule 20 TAKE ONE CAPSULE BY MOUTH EVERY 12 HOURS TAKE ONE CAPSULE BY MOUTH EVERY 12 HOURS SOLD: 11/24/2019 [facility] 232-14 mcg/actuation 10/03/2019 12:00:00 AM EST aerosol powdr breath activated 1 INHALE ONE PUFF BY MOUTH TWICE A DAY INHA LE ONE PUFF BY MOUTH TWICE A DAY SOLD: 12/21/2019 [facility] 232-14 mcg/actuation 10/03/2019 12:00:00 AM EST aerosol powdr breath activated 1 INHALE ONE PUFF BY MOUTH TWICE A DAY INHA LE ONE PUFF BY MOUTH TWICE A DAY SOLD: 11/16/2019 [facility] 90 mcg/actuation 08/04/2019 12:00:00 AM EDT HFA aerosol inha ler 18 INHALE TWO PUFFS BY MOUTH EVERY 4 HOURS NEEDED FOR FOR SHORTNESS OF BREATH INHALE TWO PUFFS BY MOUTH EVERY 4 HOURS NEEDED FOR FOR SHORTNESS OF BREATH SOLD: 11/16/2019 [facility] 40 mg 07/30/2019 12:00:00 AM EDT capsule,delayed release (DR/EC) 90 TAKE ONE CAPSULE BY MOUTH EVERY DAY TAKE ONE CAPSULE BY MOUTH EVERY DAY SOLD: 03/01/2020 [facility] 40 mg 07/30/2019 12:00:00 AM EDT capsule,delayed release (DR/EC) 90 TAKE ONE CAPSULE BY MOUTH EVERY DAY TAKE ONE CAPSULE BY MOUTH EVERY DAY SOLD: 11/16/2019 [facility] 40 mg 07/30/2019 12:00:00 AM EDT capsule,delayed release (DR/EC) 90 TAKE ONE CAPSULE BY MOUTH EVERY DAY TAKE ONE CAPSULE BY MOUTH EVERY DAY SOLD: 06/12/2020 [email or web address] gabapentin 300 MG Oral Capsule gabapentin (NEURONTIN) 300 MG capsule gabapentin (NEURONTIN) 300 MG capsule 02/06/2017 12:00:00 AM EDT aborted TAKE ONE CAPSULE BY MOUTH THREE TIMES A DAY [facility] ipratropium (ATROVENT) 0.06 % nasal spray 6439-9613-71 02/05/2017 12:00:00 AM EDT aborted SPRAY TWO SPRAYS INBOTH NOSTRILS TWO TIMES A DAY [facility] Acetaminophen 325 MG / Hydrocodone Derik trate 7.5 MG Oral Tablet HYDROcodone- acetaminophen (NORCO) 7.5-325 MG per tablet HYDROcodone-acetaminophen (NORCO) 7.5-325 MG per tablet 02/05/2017 12:00:00 AM EDT aborted TAKE ONE TABLET BY MOUTH EVERY 4 HOURS NEEDED FOR PAIN MAXIMUM DAILY DOSE 6 [facility] 30 ACTUAT fluticasone furoate 0.1 MG/ACT UAT / vilanterol 0.025 MG/ACTUAT Dry Powder Inhaler [Breo] BREO ELLIPTA 100-25 MCG/INH AEPB BREO ELLIPTA 100-25 MCG/INH AEPB 01/19/2017 12:00:00 AM EST abort ed INHALE ONE PUFF BY MOUTH EVERY DAY [facility] Sertraline 50 MG Oral Tablet sertraline (ZOLOFT) 50 MG tablet sertraline (ZOLOFT) 50 MG tablet 01/19/2017 12:00:00 AM EST aborted TAKE ONE TABLET BY MOUTH EVERY DAY ALONG WITH 100MG TABLET [facility] Sertraline 100 MG Oral Tablet sertraline (ZOLOFT) 100 MG tablet sertraline (ZOLOFT) 100 MG tablet 01/10/2017 12:00:00 AM EST aborted TAKE ONE TABLET BY MOUTH EVERY DAY ALONG WITH 50MG TABLET [facility] Alprazolam 0.5 MG Oral Tablet alprazolam (XANAX) 0.5 M G tablet alprazolam (XANAX) 0.5 MG tablet 12/08/2016 12:00:00 AM EST aborted TAKE ONE TABLET BY MOUTH THREE TIMES A DAY NEEDED FOR ANXIETY MAXIMUM DAILY DOSE 3 TABLETS [facility] Insurance Providers Payer name Policy type / Coverage type Policy ID Covered republican ID Covered republican's relationship to rojas Policy Rojas Plan Information [facility] [id number] SP [id number] SELF PAY ONLY [id number] SP [id number] [facility] COMMUNITY PLAN MCDHMO [id number] SP [id number] [facility] MEDICAID [id number] Yu [id number] [facility](MCAID) O [id number] S [id number] [facility] I [id number] Self [id number] [facility] I [id number] Self [id number] ANSI-Medicaid [id number] ANSI-Medicaid [id number] [facility] Commercial [id number] Self [id number] ANSI-Medicaid [id number] ANSI-Medicaid [id number] ANSI-Medicaid [id number] ANSI-Medicaid [id number] ANSI-Medicaid [id number] ANSI-Medicaid [id number] [facility] Health Maintenance Organization ([facility]) [id number] Self [id number] ANSI-Medicaid [id number] ANSI-Medicaid [id number] ANSI-Medicaid [id number] ANSI-Medicaid [id number] ANSI-Medicaid [id number] ANSI-Medicaid [id number] [facility] COMMUNITY PLAN [facility] [id number] SP [id number] [facility] COMMUNITY PLAN [facility] [id number] SP [id number] ANSI-Medicaid [id number] ANSI-Medicaid [id number] [facility] Health Maintenance Organization (HMO) [id number] Self [id number] [facility] Commercial [id number] Self [id number] [facility] Health Maintenance Organization (O) [id number] Self [id number] [place] [id number] Self [id number] [employer] () Workers Compensation [id number] Self [id number] [facility] Medigap Part B [id number] Self [id number] [facility] Commercial [id number] Self [id number] [place] [id number] [place] [id number] [place] [id number] Self [id number] [place] [id number] Self [id number] [place] [id number] Self [id number] [place] [id number] Self [id number] [place] [id number] Self [id number] [place] [id number] Self [id number] [place] [id number] Self [id number] [facility] Health Maintenance Organization (HMO) [id number] Self [id number] [facility] COMMUNITY PLAN MCDO [id number] SP [id number] [facility] Commercial [id number] Self [id number] [facility] Health Maintenance Organization (HMO) [id number] Self [id number] [facility] Maintenance Organization (HMO) [id number] Self [id number] [facility] Commercial [id number] Self [id number] [facility] Community Plan Commercial [id number] Self [id number] [facility] Commercial [id number] Self [id number] [facility] COMMUNITY PLAN MCDO [id number] SP [id number] [facility] Commercial [id number] Self [id number] [facility] Commercial [id number] Self [id number] [facility] Commercial Self [facility] Commercial Self [facility] Health Maintenance Organization (HMO) Self [facility] Community Plan Commercial Self MEDICAID M [id number] Self [id number] MEDICAID [id number] SP [id number] MEDICAID [id number] SP [id number] SELF PAY UNAVAILABLE SP UNAVAILA BLE BCBS [place] PPO [id number]/[phone] [id number] SP [id number] [facility] PLUS [id number] SP [id number] [employer] [place] [phone] [id number] HU [id number] [facility] [id number] SELF PAY [id number] SP [id number] PCAP [facility] [id number] [id number] Problems, Conditions, and Diagnoses Code Display Name Description Problem Type Effective Dates Data Source(s) Gastro-esophageal reflux disease with es ophagitis, without bleeding Gastro- esophageal reflux disease with esophagitis, without bleeding Problem 09/02/2020 12:00:00 AM EDT [facility] ([facility]) [id number] Solitary nodule of lung Solitary nodule of lung Proble m 06/30/2020 12:00:00 AM EDT [facility] ([facility]) [id number] Gastro-esophageal reflux disease with es ophagitis Gastro-esophageal reflux disease with esophagitis Problem 06/30/2020 12:00:00 AM [facility] [id number] Mild recurrent major depression Mild recurrent m ajor depression Problem 06/30/2020 12:00:00 AM EDT [facility] ([facility]) [id number] H/O: urinary stone H/O: urinary stone Problem 03/2020 12:00:00 AM EDT [facility] ([facility]) [id number] Chronic obstructive lung disease Chronic obstruc tive lung disease Problem 06/30/2020 12:00:00 AM EDT [facility] ([facility]) [id number] H/O: peptic ulcer H/O: peptic ulcer Problem 06/30 12:00:00 AM EDT [facility] ([facility]) [id number] Essential hypertension Essential hypertension Problem 06/23/2020 12:00:00 AM EDT [facility] ([facility]) R07.89 Other chest pain Other chest pain Diagnosis 10/05/2020 11 :23:35 AM EST [facility] R07.9 Chest pain, unspecified Chest pain, unspecified Diagno sis 06/17/2020 12:12:30 PM EDT [facility] Right Eye Problem Right Eye Problem Diagnosis 06/17/2020 08:57:02 AM [facility] Surgeries/Procedures Procedure Description Date Indications Data Source(s) Mammography (procedure) 07/01/2020 12:00:00 AM EDT [facility] ([facility]) Electrocardiogram Complete 06/30/2020 12:00:00 AM EDT [facility] ([facility]) OPH CHALAZION - OD - RIGHT OPH CHALAZION - OD - RIGHT Routine 06/18/2020 1:24 PM EDT Chalazion of right lower eyelid 06/18/2020 05:24:24 PM EDT C halazion of right lower eyelid [facility] Chalazion of right lower eyelid TROPONIN QUANTITATIVE TROPONIN T Routine 06/17/2020 2:49 PM EDT 06/17/2020 06:49:00 PM EDT [facility] PHOSPHORUS INORGANIC PHOSPHORUS LEVEL Routine 06/17/2020 2:49 PM E DT 06/17/2020 06:49:00 PM EDT [facility] MAGNESIUM MAGNESIUM LEVEL Routine 06/17/2020 2:49 PM EDT 06/17/2020 06:49:00 PM EDT [facility] ECHO TTHRC R-T 2D W/WOM-MODE COMPL SPEC&COLR DOP ECHOCARDIO GRAM 2D COMPLETE Routine 06/17/2020 2:18 PM EDT 06/17/2020 06:18:14 PM EDT [facility] EKG ED PHYSICIAN INTERPRETATION EKG ED PHYSICIAN INTERPRETATION Routine 06/17/2020 11:01 AM EDT 06/17/2020 03:01:36 PM EDT [facility] CT ANGIOGRAPHY CHEST W/CONTRAST/NONCONTR[place] [address] CODE 06/17/2020 10:35 AM EDT 06/17/2020 02:35:33 PM EDT [facility] XR CHEST FRONTAL AND LATERAL 72886 XR CHEST FRONTAL AND LATERAL 64101 STAT 06/17/2020 10:07 AM EDT 06/17/2020 02:07:31 PM EDT [facility] EKG 12-LEAD - CMAXX REPORT EKG 12-LEAD - CMAXX REPORT 06/17/2020 9:42 AM EDT 06/17/2020 01:42:49 PM EDT [facility] EKG 12-LEAD - CMAXX REPORT EKG 12-LEAD - CMAXX REPORT 06/17/2020 9:42 AM EDT 06/17/2020 01:42:49 PM EDT [facility] EKG 12-LEAD EKG 12-LEAD STAT 06/17/2020 9:42 AM EDT 06/17/2020 01:42:49 PM EDT [facility] TROPONIN QUANTITATIVE POCT ISTAT TROPONIN Routine 06/17/2020 9:37 AM EDT 06/17/2020 01:37:00 PM EDT [facility] GONADOTROPIN CHORIONIC QUANTITATIVE BETA HCG, QUANT STAT 06/17/2020 9:35 AM EDT 06/17/2020 01:35:00 PM EDT [facility] BLOOD COUNT COMPLETE AUTO&AUTO DIFRNTL WBC COUNT CBC AND DIFFER ENTIAL STAT 06/17/2020 9:35 AM EDT 06/17[facility] QUANTITATIVE TROPONIN T STAT 06/17/2020 9:35 AM EDT 06/17/2020 [facility]:35[facility] THYROID STIMULATING HORMONE TSH TSH STAT 06/17/2020 9:35 AM EDT 06/17/2020 01:35[facility] COMPREHENSIVE METABOLIC PANEL COMPREHENSIVE METABOLIC PANEL STA T 06/17/2020 9:35 AM EDT 06/17/2020 01:35:00 PM EDT [facility] Therapeutic, Prophylactic Or Diagnostic Injection Subq/Im 12/22/2019 12:00:00 AM EST [facility] ([facility]) Results ID Date Data Source [id number] 11/02/2020 12:00:00 AM EST [facility] Name Value Range Interpretation Code Description Data Eufemia rce(s) Supporting Document(s) 2019-nCoV RNA XXX SUMIT+probe-Imp [facility] This lab was ordered by [facility] and reported by [employer] ID Date Data Source [id number] 10/27/2020 04:41:00 PM EST [facility] ([facility]) Name Value Range Interpretation Code Description Data Eufemia rce(s) Supporting Document(s) Inhouse Rapid Strep Laboratory test result [facility] ([facility]) ID Date Data Source [id number] 10/05/2020 06:53:11 PM EST [facility] Name Value Range Interpretation Code Description Data Eufemia rce(s) Supporting Document(s) &PDF [facility] RINNQl3wImGGXjBe27/OFKniGACgp0ImPXfpFFo8BRrjPXRyL4QjvZvpRR1SUoOTKEfDKl5HAcSDUM7d yKE [file] AgICAgICAgICAgICAgICAgICAgICAgICAgICAgICAg XNHtQPAoNWHuYKNgAQBjWN7ZRQTlLBFlZEEjQKAhGRIsCNSkGOHoKQQyRJSvJHMwJKFtQXQhEKAmIRPe SBNsLOKvGDTyIEYoDZBzINJqFYToVAWlJDBuVOItDBDkGSAkDFYkVGImHHGjDVHiDMPtHHYlJXWdPT2I ICAgICAgICAgICAgICAgICAgICAgICAgICAgICAgIC AgICAgICAgICAgICAgICAgICAgICAgICAgICAgICAgICAgICAgICAgICAgICAgICAgICAgICAgICAgIC BeYOXrACGmPQ6XQTQaHHGsAYAfPPUmHBLuQIEgAAEqGIIhZTUaBMMsXCTyHKOtUMQmJQKqUTNcLFTnQL AgICAgICAgICAgICAgICAgICAgICAgICAgICAgICAg TASqMQHyCTZjSQSoCSHqUNFyGS2GJYPzTCGzDUVoCMLzWAXePHJxJGKvCMSsONVsTPRnZMPlTRKtEECg ICAgICAgICAgICAgICAgICAgICAgICAgICAgICAgICAgICAgICAgICAgICAgICAgICAgICAgICAgICAg TL8QVJWiKGJqNHKlYJMdAHBdDDSrQBBwENQeAUMpYP AgICAgICAgICAgICAgICAgICAgICAgICAgICAgICAgICAgICAgICAgICAgICAgICAgICAgICAgICAgIC FgDAYpQNFcGOZuKF1HYHAyCDImMDFcAVWtEUCpWIIrIWMbVOWzWETsODWmSYMpMTCwSHEyXUDhENAwCS AgICAgICAgICAgICAgICAgICAgICAgICAgICAgICAg SZYbQISwRTKyHONlWOMdYOSvLOKwSJ9HUKXzYANeLGBkDFXsWZTxVANhZIFhYZZtVNEwSYCmQUJxJINu ICAgICAgICAgICAgICAgICAgICAgICAgICAgICAgICAgICAgICAgICAgICAgICAgICAgICAgICAgICAg CDMmGI4UATEjJVXeHSFsPQNqELOrDGOnSTGxHVHcSX AgICAgICAgICAgICAgICAgICAgICAgICAgICAgICAgICAgICAgICAgICAgICAgICAgICAgICAgICAgIC DrDXCaIGGvCQHhKZFsXC6ZLXXpXXEyTDRzTHPbIDWxRFOrABZnRRAkWZDmPZWbNDPzNOFgKXXpQMYiFZ AgICAgICAgICAgICAgICAgICAgICAgICAgICAgICAg JAGtNJLnOOVrYKDvOFVeVAByZGVbSXXpJU6JFS35zMQzg2Z5IGUqJL4geky/Ie5RXRygqxOwgFMlTC6U UzJpFU2qtw1YMnThYC4uoh9OZKhXMjCjK2C3hPSwEZRwAHETRxNnL98sIEpzTv35SJenBFOcUrQoQTg2 Rn0SUtJhZ5vxFJLoMvR8UQOvCeB3JJCkHoGoTJagFS 7Es0PojNOzJDz+Jj6UOG8fx3ZcCKxpSOEpFC1gfq6FVBpLRqKjY0Y2kFWxP2A7VHogOb8EPGCdEWOzMI mjMPAMOTwiYT2CGE8unqX9QC1AhHGfSEHxJLNrhNUiPBs0M00wkXIjPBluVW7CJHW+Rivka+Xw7SQGOkPQ GpFKZcNrMhXXIITrZvB78ezHZpBKUrLPFyRJPdAn2K LCDmD3UjgnUbgKjekjSjYYKxECYLFY1RJGbgkzFswAIpxGtbUE56rQegLQ0WZb0DJgXtDR7tne5AxWAq Sa7OCOOdGd4COZDdQZUzPLUyCUK5HOGoShCzZBpaBKXfGQKrGGX0SCCkRVKdVO6NOyEbYMIbSFs8FKba KLNpSKIdpq6KWGXySATlXDZ6BRScLSUbBHCmUIxdFO PqXTGrKPumZTJpNQGiWC3CGhGtDGYhGQUyCJfzODZkPOHcib2JDHLcIDRdYvSpFhUwUGZoGIRhZBkoZX TdPWQ5PFJ7IQHuMSUlEG8CFpJbPMZxEIA9PSjbODKtJJBgml0PBMNwPZEgOCZiSeKmDUQdRVVrHRysSI XtXMH1LTPrTZKhHOSkVN3JTtFeKDMbIWQ2PCJiQDIo SHCqcj3ZVORbKKOnVaf4PlIaTXMtSQXlXYavWEVjLFN0SQU8KCJdNWDxPG5XVmBlZBPpGVrsAuGdNKDd OROzkl0NLBYqULVeQLY4SJOsIIWfBGQvJXaqSKVqSUY9DYdbADXoKBKsSE9SBwJlAOApDXd8InysQKHd MOAwrd5ULJHwLCWzYFD6DCKtWBTiZSPzRCxfDDPlLV Q9Obs6FUWgEKGiBF5XYmVpUBLgHOs4XWckDACcHSNjtm4UCGXsGAToJLR7KnJiHZTcEOXhYEt9sdJdtM IkXLr3BV7XM7PatgVqZxANJg3Rm449MJHrFYYzBm4QC9cmRe6pXZVvOYXEOu9RZTe6XxL7MsHaQhWkTo OpKLysZEorLxFrQIHmCfl1MQh0YvT+UEcaPCv2NTLp QeT6OiK6L3PdCOD4IPQiXPYeWWVxNawnVW2jHKFWAm4+PMqpaUQupJndIDVFPnX1KYN3UBnrUWQMGa4Y ID Date Data Source [id number] 09/01/2020 10:19:00 AM EDT [facility] ([facility]) Name Value Range Interpretation Code Description Data Eufemia rce(s) Supporting Document(s) Surgical pathology study Laboratory test result [facility] ([facility]) 09/01/20201140 PERPHERAL SMEAR REVIEW Peripheral smear: Normal white blood cell count with eosinophilia. Red blood cell count within normal limits. Platelet count within normal limits. No blasts are identified. 09/01/20201140 Signed FAZAL JEONG MD 09/01/2020 [id number] ID Date Data Source [id number] 09/01/2020 09:55:[address] [facility] ([facility]) Name Value Range Interpretation Code Description Data Eufemia rce(s) Supporting Document(s) Source Laboratory test result Normal (applies to non-n umeric results) [facility] ([facility]) PERIPHERAL SMEAR Slide Review Laboratory test result Normal (applies to non -numeric results) [facility] ([facility]) Slide and/or specimen referred to Pathol ogist for review. Results of the review are located in the EMR Pathology module under Peripheral Smear when completed. Reason For Review Laboratory test result Normal (applies to non-numeric results) [facility] ([facility]) WBC/LEUKEMIA/BLAST ID Date Data Source [id number] 09/01/2020 09:55:00 AM EDT [facility] ([facility]) Name Value Range Interpretation Code Description Data Eufemia rce(s) Supporting Document(s) White Blood Count 9.7 10 4.0-10.0 Normal (applies to non-numeri c results) [facility] ([facility]) Hemoglobin 12.2 g/dL 12.0-15.5 Normal (applies to non-numeric resul ts) [facility] ([facility]) Red Blood Count 4.11 10 4.00-5.40 Normal (applies to non-numeric results) [facility] ([facility]) Hematocrit 37.6 % 36.0-47.0 Normal (applies to non-numeric resul ts) [facility] ([facility]) Mean Corpuscular Hemoglobin 29.7 pg 27.0-33.0 Norm al (applies to non-numeric results) [facility] ([facility]) Mean Corpuscular Volume 91.5 fl 80.0-96.0 Normal ( applies to non-numeric results) [facility] ([facility]) Mean Corpuscular HGB Conc 32.4 g/dL 32.0-36.5 Normal (applies to non-numeric results) [facility] ([facility]) Platelet Count, Automated 380 10 150-450 Normal (applies to non-numeric results) [facility] ([facility]) Red Cell Distribution Width 15.2 % 11.5-14.[address] [facility] ([facility]) [place]er % 6.0 % 0.0-5.[address] [facility] ([facility]) Lymph % 32.3 % 24.0-44.0 Normal (applies to non-numeric resul ts) [facility] ([facility]) Neutrophils % 53.6 % 36.0-66.0 Normal (applies to non-numeric re sults) [facility] ([facility]) Baso % 1.0 % 0.0-1.0 Normal (applies to non-numeric resul ts) [facility] ([facility]) Eos % 6.9 % 0.0-3.0 Above high normal [facility] ([facility]) Neutrophils # 5.2 10 1.5-8.5 Normal (applies to non-numeric re sults) [facility] ([facility]) Nucleated Red Blood Cell % 0.0 % 0-0 Normal (applies to n on-numeric results) [facility] ([facility]) Immature Granulocyte % 0.2 % 0-3.0 Normal (applies to non-n umeric results) [facility] ([facility]) [place]er # 0.6 10 0.0-0.8 Normal (applies to non-numeric resul ts) [facility] ([facility]) Lymph # 3.1 10 1.5-5.0 Normal (applies to non-numeric resul ts) [facility] ([facility]) Eos # 0.7 10 0.0-0.5 Above high normal [facility] ([facility]) Baso # 0.1 10 0.0-0.2 Normal (applies to non-numeric resul ts) [facility] ([facility]) ID Date Data Source [id number] 08/24/2020 11:44:00 AM EDT [facility] ([facility]) Name Value Range Interpretation Code Description Data Eufemia rce(s) Supporting Document(s) Laboratory test finding (navigational concept) 40.0 % 3 8.0-51.0 Normal (applies to non-numeric results) [facility] ([facility]) Laboratory test finding (navigational concept) 83 mg/dL 7 0-105 Normal (applies to non-numeric results) [facility] ([facility]) Laboratory test finding (navigational concept) 4.0 meq/L 3 .5-5.1 Normal (applies to non-numeric results) [facility] ([facility]) Laboratory test finding (navigational concept) 141 meq/L 1 36-145 Normal (applies to non-numeric results) [facility] ([facility]) Laboratory test finding (navigational concept) 104 meq/L 9 8-109 Normal (applies to non-numeric results) [facility] ([facility]) Laboratory test finding (navigational concept) 25.0 MM/L 2 3.0-27.0 Normal (applies to non-numeric results) [facility] ([facility]) Laboratory test finding (navigational concept) 5.0 mg/dL 4 .5-5.3 Normal (applies to non-numeric results) [facility] ([facility]) Laboratory test finding (navigational concept) 20 mg/dL 8 -26 Normal (applies to non-numeric results) [facility] ([facility]) Laboratory test finding (navigational concept) 0.5 mg/dL 0 .6-1.[address] [facility] ([facility]) ID Date Data Source [id number] 08/24/2020 11:34:[address] [facility] ([facility]) Name Value Range Interpretation Code Description Data Eufemia rce(s) Supporting Document(s) Appearance, Urine RFX Laboratory test result Nor mal (applies to non-numeric results) [facility] ([facility]) PH,Urine RFX 5.0 units 5.0-9.0 Normal (applies to non-numeric res ults) [facility] ([facility]) Color, Urine RFX Laboratory test result Normal ( applies to non-numeric results) [facility] ([facility]) Specific [place] Ur Auto RFX 1.023 1.002-1.035 Nor mal (applies to non-numeric results) [facility] ([facility]) Protein, Urine Auto RFX Laboratory test result N ormal (applies to non-numeric results) [facility] ([facility]) Glucose, Urine (Ua) Auto RFX Laboratory test result Normal (applies to non- numeric results) [facility] ([facility]) Ketone, Urine Auto RFX Laboratory test result No rmal (applies to non-numeric results) [facility] ([facility]) Urobilinogen, Urine Auto RFX 0.2 mg/dL 0.0-2.0 Nor mal (applies to non-numeric results) [facility] ([facility]) Nitrite, Urine Auto RFX Laboratory test result N ormal (applies to non-numeric results) [facility] ([facility]) Bilirubin, Urine Auto RFX Laboratory test result Normal (applies to non- numeric results) [facility] ([facility]) Leukocyte Esterase Ur Auto RFX Laboratory test result Normal (applies to non- numeric results) [facility] ([facility]) RBC, Urine Auto RFX 131 /HPF 0-3 Above high normal [facility] ([facility]) WBC, Urine Auto RFX 2 /HPF 0-3 Normal (applies to non-nume nick results) [facility] ([facility]) Blood, Urine Blood RFX Laboratory test result Above high n ormal [facility] ([facility]) Bacteria, Urine Auto RFX Laboratory test result Normal (applies to non-numeric results) [facility] ([facility]) Squam Epithelial Cell Ur Aurfx 0 /HPF 0-6 N ormal (applies to non-numeric results) [facility] ([facility]) Hyaline Cast, Urine Auto RFX 0 /LPF 0-1 Normal (appl ies to non-numeric results) [facility] ([facility]) Mucus, Urine RFX Laboratory test result Normal ( applies to non-numeric results) [facility] ([facility]) ID Date Data Source [id number] 08/24/2020 11:34:00 AM EDT [facility] ([facility]) Name Value Range Interpretation Code Description Data Eufemia rce(s) Supporting Document(s) Platelets [#/volume] in Blood by Estimate Laboratory test result Normal (applies to non-numeric results) [facility] ([facility]) ID Date Data Source [id number] 08/24/2020 11:34:00 AM EDT [facility] ([facility]) Name Value Range Interpretation Code Description Data Eufemia rce(s) Supporting Document(s) Bands 9 % Normal (applies to non-numeric resul ts) [facility] ([facility]) Neutrophils 47 % 28-66 Normal (applies to non-numeric resu lts) [facility] ([facility]) Lymphocytes 37 % 16-44 Normal (applies to non-numeric resu lts) [facility] ([facility]) Eosinophils 6 % 0-3 Above high normal [facility] ([facility]) Basophils 1 % 0-1 Normal (applies to non-numeric resul ts) [facility] ([facility]) ID Date Data Source [id number] 08/24/2020 11:34:00 AM EDT [facility] ([facility]) Name Value Range Interpretation Code Description Data Eufemia rce(s) Supporting Document(s) White Blood Count 9.7 10 4.0-10.0 Normal (applies to non-numeri c results) [facility] ([facility]) Red Blood Count 4.26 10 4.00-5.40 Normal (applies to non-numeric results) [facility] ([facility]) Hemoglobin 13.3 g/dL 12.0-15.5 Normal (applies to non-numeric resul ts) [facility] ([facility]) Hematocrit 38.3 % 36.0-47.0 Normal (applies to non-numeric resul ts) [facility] ([facility]) Mean Corpuscular Volume 89.9 fl 80.0-96.0 Normal ( applies to non-numeric results) [facility] ([facility]) Mean Corpuscular HGB Conc 34.7 g/dL 32.0-36.5 Normal (applies to non-numeric results) [facility] ([facility]) Red Cell Distribution Width 15.0 % 11.5-14.[address] [facility] ([facility]) Mean Corpuscular Hemoglobin 31.2 pg 27.0-33.0 Norm al (applies to non-numeric results) [facility] ([facility]) Platelet Count, Automated 420 10 150-450 Normal (applies to non-numeric results) [facility] ([facility]) Nucleated Red Blood Cell % 0.0 % 0-0 Normal (applies to n on-numeric results) [facility] ([facility]) ID Date Data Source [id number] 07/02/2020 02:37:[address] [facility] Name Value Range Interpretation Code Description Data Eufemia rce(s) Supporting Document(s) Progress Note [facility] LBPNFu4dLnJKWwAg82/NEWpaOPEjo3GeIVuoCPj2RWwuPFAsN2VlXOX7oK2iBMX5FRgEBvBjVuBhHII7 lbm [file] ODUzNCAwMDAwMCBuDQowMDAwMDExMjYzIDAwMDAwIG 3HHsLxYGPzWZV8TfvdPSUgWDHmpb5OTRXgBPIoUnFkHKRtCYKlVGOsGEmkJVIeKAIeUnWuREKjNNCjRR 9JQoKrETQzIWU8GoKeVWCvSDIyhn2EYGJuHLNaMkp5JTEdUGIbYKObYOomDFNhWXB5ILTvLZOkGPBcLF 1UQrXaLCNhYIDbHOWmOTGfDUIowj0OEKBiZEXcJKIu YmEzQDApDQKcZRicIKKeFQQ1RYSgXSZyNVGqOY1FTvRnHOPqNhO9ZkByPTOnUTAxgh7YERPnHZXkNgF6 UEDlFPXnOVJqVIisKBChFJH4PrB3GMKwGFYkJX1JJeWkTYSgFve6LTKpIUPjIZHbxb8LMIEzHDOdFkp9 RDMkYIOtNSVyHEbwJZYtQAT3XiS1VNJbIFAqDH8QXy VaLHEyWhw4LZLuOJEfKEBiqm6HBRGqCFDrWTJ7FKEmMVAyZUWdPScmTLSfOEC6OCn4CPAvDMPcQA1ZUk AkMFEvSrY2LASuMWNqKUWgbs4HSBIxIUBuZMCfZfKhWJWnCWYxUKnfXOGlPOJiDVvaQBOsVSRzJZ5HIl MyPJmfRCIYQtt1SGygJ4t5ZSWeMy6PG7Cdu8ReBcPs GFFLFPbfLE6ldrLvFQQpHe0FE5yAEld6KqSzELskDVCgJ5F8JgYrImGiQzH8QbRtFSDuETN7MU2aURHn DAAvJ5ErTBTsPALaEMPeHyR3GBW7CSX0JpS1HCb4OtTcVI8YEb2NMiW8UTU1aQAvDn7ZBmZ8HCDNRxFv JN5OYCo= ID Date Data Source [id number] 07/01/2020 10:30:00 AM EDT [facility] ([facility]) Name Value Range Interpretation Code Description Data Eufemia rce(s) Supporting Document(s) White Blood Count 12.2 10 4.0-10.0 Above high normal [facility] ([facility]) Red Blood Count 4.31 10 4.00-5.40 Normal (applies to non-numeric results) [facility] ([facility]) Hemoglobin 13.0 g/dL 12.0-15.5 Normal (applies to non-numeric resul ts) [facility] ([facility]) Mean Corpuscular Volume 91.6 fl 80.0-96.0 Normal ( applies to non-numeric results) [facility] ([facility]) Hematocrit 39.5 % 36.0-47.0 Normal (applies to non-numeric resul ts) [facility] ([facility]) Mean Corpuscular HGB Conc 32.9 g/dL 32.0-36.5 Normal (applies to non-numeric results) [facility] ([facility]) Red Cell Distribution Width 15.7 % 11.5-14.5 Above high normal [facility] ([facility]) Mean Corpuscular Hemoglobin 30.2 pg 27.0-33.0 Norm al (applies to non-numeric results) [facility] ([facility]) Platelet Count, Automated 410 10 150-450 Normal (applies to non-numeric results) [facility] ([facility]) Neutrophils % 63.7 % 36.0-66.0 Normal (applies to non-numeric re sults) [facility] ([facility]) Lymph % 26.9 % 24.0-44.0 Normal (applies to non-numeric resul ts) [facility] ([facility]) [place] % 4.0 % 0.0-5.0 Normal (applies to non-numeric resul ts) [facility] ([facility]) Eos % 4.5 % 0.0-3.0 Above high normal [facility] ([facility]) Nucleated Red Blood Cell % 0.0 % 0-0 Normal (applies to n on-numeric results) [facility] ([facility]) Baso % 0.7 % 0.0-1.0 Normal (applies to non-numeric resul ts) [facility] ([facility]) Immature Granulocyte % 0.2 % 0-3.0 Normal (applies to non-n umeric results) [facility] ([facility]) Neutrophils # 7.8 10 1.5-8.5 Normal (applies to non-numeric re sults) [facility] ([facility]) Lymph # 3.3 10 1.5-5.0 Normal (applies to non-numeric resul ts) [facility] ([facility]) [place] # 0.5 10 0.0-0.8 Normal (applies to non-numeric resul ts) [facility] ([facility]) Eos # 0.6 10 0.0-0.5 Above high normal [facility] ([facility]) Baso # 0.1 10 0.0-0.2 Normal (applies to non-numeric resul ts) [facility] ([facility]) ID Date Data Source [id number] 07/01/2020 10:30:00 AM EDT [facility] ([facility]) Name Value Range Interpretation Code Description Data Eufemia rce(s) Supporting Document(s) White Blood Count 12.2 10 4.0-10.0 Above high normal [facility] ([facility]) Hemoglobin 13.0 g/dL 12.0-15.5 Normal (applies to non-numeric resul ts) [facility] ([facility]) Red Blood Count 4.31 10 4.00-5.40 Normal (applies to non-numeric results) [facility] ([facility]) Hematocrit 39.5 % 36.0-47.0 Normal (applies to non-numeric resul ts) [facility] ([facility]) Mean Corpuscular HGB Conc 32.9 g/dL 32.0-36.5 Normal (applies to non-numeric results) [facility] ([facility]) Mean Corpuscular Volume 91.6 fl 80.0-96.0 Normal ( applies to non-numeric results) [facility] ([facility]) Mean Corpuscular Hemoglobin 30.2 pg 27.0-33.0 Norm al (applies to non-numeric results) [facility] ([facility]) Neutrophils % 63.7 % 36.0-66.0 Normal (applies to non-numeric re sults) [facility] ([facility]) Red Cell Distribution Width 15.7 % 11.5-14.5 Above high normal [facility] ([facility]) Platelet Count, Automated 410 10 150-450 Normal (applies to non-numeric results) [facility] ([facility]) [place] % 4.0 % 0.0-5.0 Normal (applies to non-numeric resul ts) [facility] ([facility]) Lymph % 26.9 % 24.0-44.0 Normal (applies to non-numeric resul ts) [facility] ([facility]) Immature Granulocyte % 0.2 % 0-3.0 Normal (applies to non-n umeric results) [facility] ([facility] Baso % 0.7 % 0.0-1.0 Normal (applies to non-numeric resul ts) [facility] ([facility] Eos % 4.5 % 0.0-3.0 Above high normal [facility] ([facility]) Neutrophils # 7.8 10 1.5-8.5 Normal (applies to non-numeric re sults) [facility] ([facility]) Nucleated Red Blood Cell % 0.0 % 0-0 Normal (applies to n on-numeric results) [facility] ([facility]) Lymph # 3.3 10 1.5-5.0 Normal (applies to non-numeric resul ts) [facility] ([facility]) Baso # 0.1 10 0.0-0.2 Normal (applies to non-numeric resul ts) [facility] ([facility]) [place] # 0.5 10 0.0-0.8 Normal (applies to non-numeric resul ts) [facility] ([facility]) Eos # 0.6 10 0.0-0.5 Above high normal [facility] ([facility]) ID Date Data Source [id number] 07/01/2020 10:30:00 AM EDT [facility] ([facility]) Name Value Range Interpretation Code Description Data Eufemia rce(s) Supporting Document(s) Glucose, Fasting 84 mg/dL 70-100 Normal (applies to non-numeric results) [facility] ([facility]) Blood Urea Nitrogen 18 mg/dL 7-18 Normal (applies to non-nume nick results) [facility] ([facility]) Creatinine For GFR 0.45 mg/dL 0.55-1.[address] [facility] ([facility]) Glomerular Filtration Rate Laboratory test result Normal (applies to non- numeric results) [facility] ([facility]) <content>Units are mL/min/1.73 m2</content>
<content></content>
<content>Chronic Kidney Disease Staging per NKF:</content>
<content></content>
<content>Stage I & II GFR >=60 Normal to Mildly Decreased</content>
<content>Stage III GFR 30- 59 Moderately Decreased</content>
<content>Stage IV GFR 15-29 Severely Decreased</content>
<content>Stage V GFR <15 Very Little GFR Left</content>
<content>ESRD GFR <15 on ELDERLY SITTER</content>
<content></content> Sodium Level 142 meq/L 136-145 Normal (applies to non-numeric res ults) [facility] ([facility]) Potassium Serum 4.3 meq/L 3.5-5.1 Normal (applies to non-numeric results) [facility] ([facility]) Chloride Level 111 meq/L 98-107 Above high normal [facility] ([facility]) Calcium Level 9.1 mg/dL 8.5-10.1 Normal (applies to non-numeric re sults) [facility] ([facility]) Carbon Dioxide Level 31 meq/L 21-32 Normal (applies to non-num porfirio results) [facility] ([facility]) Anion Gap 0 meq/L 8-[address] [facility] ( [facility]) Alt/SGPT 12 U/L 12-78 Normal (applies to non-numeric resul ts) [facility] ([facility]) Ast/Sgot 14 U/L 7-37 Normal (applies to non-numeric resul ts) [facility] ([facility]) Alkaline Phosphatase 77 U/L 45-117 Normal (applies to non-num porfirio results) [facility] ([facility]) Bilirubin,Total 0.2 mg/dL 0.2-1.0 Normal (applies to non-numeric results) [facility] ([facility]) Albumin 3.5 GM/DL 3.2-5.2 Normal (applies to non-numeric resul ts) [facility] ([facility]) Total Protein 6.3 GM/DL 6.4-8.2 Below low normal [facility] ([facility]) Albumin/Globulin Ratio 1.3 1.2-2.2 Normal (applies to non-n umeric results) [facility] ([facility]) ID Date Data Source [id number] 07/01/2020 10:30:[address] [facility] ([facility]) Name Value Range Interpretation Code Description Data Eufemia rce(s) Supporting Document(s) Cholesterol Level 208 mg/dL Above high [facility] Triglycerides Level 50 mg/dL Normal (applies to non-nume nick results) [facility] Non-HDL-C 154 mg/dL Normal (applies to non-numeric resul ts) [facility] ([facility]) LDL Cholesterol 144 mg/dL Above high normal [facility] ([facility]) HDL Cholesterol 54 mg/dL Normal (applies to non-numeric results) [facility] ([facility]) Cholesterol Risk Ratio 3.851 Normal (applies to non-n umeric results) [facility] ([facility]) ID Date Data Source [id number] 07/01/2020 10:30:[address] [facility] ([facility]) Name Value Range Interpretation Code Description Data Eufemia rce(s) Supporting Document(s) MB/CK Relative Index 3.03 Normal (applies to non-num porfirio results) [facility]) <content>DIAGNOSIS CRITERIA</content>
<content>MMB ng/ml Relative Index (RI)</content>
<content>NON-AMI < or = 5 N/A</content>
<content>PHILIP ZONE > 5 < or = 4</content>
<content>AMI > 5 > 4</content>
<content></content> CK-MB Value Mass 2.0 ng/mL Normal (applies to non-numeric results) [facility] ([facility]) CPK Creatine Phosphokinase 66 U/L 26-192 Raisa l (applies to non-numeric results) [facility] ([facility]) ID Date Data Source [id number] 07/01/2020 10:30:[address] [facility] [facility]) Name Value Range Interpretation Code Description Data Eufemia rce(s) Supporting Document(s) Magnesium [Mass/volume] in Serum or Plasma 1.9 mg/dL 1.8-2 .4 Normal (applies to non-numeric results) [facility] ([facility]) Natriuretic peptide.B prohormone N-Terminal [Mass/volu me] in Serum or Plasma 60 pg/mL Normal (applies to non-numeric results) [facility] ([facility]) Troponin I.cardiac [Mass/volume] in Serum or Plasma Laboratory t est result Normal (applies to non-numeric results) [facility] ([facility]) <content>Troponin I Reference Interval f or Siemens [place] LOCI:</content>
<content></content>
<content>99th Percentile= 0.00-0.045 ng/ml</content>
<content></content>
<content>Risk Stratification:</content>
<content><= 0.10 ng/ml Decreased Risk for Adverse Clinical</content>
<content>Events.</content>
<content>0.10-1.50 ng/ml Increased Risk for Adverse Clinical</content>
<content>Events. Evaluation of additional</content>
<content>criterion and/or repeat testing in 2-6</content>
<content>hours is suggested to rule out myocardial</content>
<content>damage.</content>
<content>>= 1.50 ng/ml Indicative of Myocardial Injury.</content>
<content></content> ID Date Data Source [id number] 07/01/2020 10:30:00 AM EDT [facility] ([facility]) Name Value Range Interpretation Code Description Data Eufemia rce(s) Supporting Document(s) Thyroid Stimulating Hormone 0.280 uIU/ML 0.358-3.740 Below low normal [facility] ([facility]) Free T4 0.85 ng/dL 0.76-1.46 Normal (applies to non-numeric resul ts) [facility] ([facility]) ID Date Data Source [id number] 06/30/2020 05:39:00 PM EDT [facility] ([facility]) Name Value Range Interpretation Code Description Data Eufemia rce(s) Supporting Document(s) EKG Laboratory test result [facility] ([facility]) ID Date Data Source [id number] 06/21/2020 03:19:[address] [facility] Name Value Range Interpretation Code Description Data Eufemia rce(s) Supporting Document(s) ED Provider Note [facility] KWCTIu7zCcVHHoZd10/PNFjaAHEzr9DkHZmhWFo4YNsrJTMaH2RdPCO6nB5gZOI8ZNvJCbQvExIqDmY8 lbm [file] heavy coil winder+aky2Gtxfuqbo0qL7hepdD1HztVhLxDdgfmqXccpi0eGL1WC6P0GBvf+vuB6Dvz7oh37OtUl+w98d7 [file] AgICAgICAgICAgICAgICAgICAgICAgICAgICAgICAgICAgICAgICAgICAgICAgICAgICAgICAgICAgIC AgICAgICAgICAgICAgICAgICANCiAgICAgICAgICAg ICAgICAgICAgICAgICAgICAgICAgICAgICAgICAgICAgICAgICAgICAgICAgICAgICAgICAgICAgICAg ICAgICAgICAgICAgICAgICAgICAgICAgICAgICANCiAgICAgICAgICAgICAgICAgICAgICAgICAgICAg ICAgICAgICAgICAgICAgICAgICAgICAgICAgICAgIC AgICAgICAgICAgICAgICAgICAgICAgICAgICAgICAgICAgICAgICANCiAgICAgICAgICAgICAgICAgIC AgICAgICAgICAgICAgICAgICAgICAgICAgICAgICAgICAgICAgICAgICAgICAgICAgICAgICAgICAgIC AgICAgICAgICAgICAgICAgICAgICANCiAgICAgICAg ICAgICAgICAgICAgICAgICAgICAgICAgICAgICAgICAgICAgICAgICAgICAgICAgICAgICAgICAgICAg ICAgICAgICAgICAgICAgICAgICAgICAgICAgICAgICANCiAgICAgICAgICAgICAgICAgICAgICAgICAg ICAgICAgICAgICAgICAgICAgICAgICAgICAgICAgIC AgICAgICAgICAgICAgICAgICAgICAgICAgICAgICAgICAgICAgICAgICANCiAgICAgICAgICAgICAgIC AgICAgICAgICAgICAgICAgICAgICAgICAgICAgICAgICAgICAgICAgICAgICAgICAgICAgICAgICAgIC AgICAgICAgICAgICAgICAgICAgICAgICANCiAgICAg ICAgICAgICAgICAgICAgICAgICAgICAgICAgICAgICAgICAgICAgICAgICAgICAgICAgICAgICAgICAg ICAgICAgICAgICAgICAgICAgICAgICAgICAgICAgICAgICANCiAgICAgICAgICAgICAgICAgICAgICAg ICAgICAgICAgICAgICAgICAgICAgICAgICAgICAgIC AgICAgICAgICAgICAgICAgICAgICAgICAgICAgICAgICAgICAgICAgICAgICANCiAgICAgICAgICAgIC AgICAgICAgICAgICAgICAgICAgICAgICAgICAgICAgICAgICAgICAgICAgICAgICAgICAgICAgICAgIC AgICAgICAgICAgICAgICAgICAgICAgICAgICANCjw/ bZMgN7gamIMmjhN3J4onYq5WTp5REO9vj0BaHCCkQHhwvsVzJofOVuMqDNFvKlzIKhi4YHqxRJ8TwLOs I5KbO6UeUSdaBF7RPJEbYPWwpYAtGGGhIOIdTuR3AACmBHaqMM1EsULwTXthXIMlBJIxFbEcOWDlBRFp IFIgMTEgMCBSIDEzIDAgUiAxNSAwIFIgMTcgMCBSID K3RSJjBxYgQQPaPFSmHyMgKFNTEXR1FTYrLbTtXyQaMTRiKmcnMSDCXRDaYEXeWmLzHBvzVK6Sw4XzyX AmRC7PKp6ULnIiJL9xol8WPXQqQXFhVffVVtd9OHppRJ1KvNKzxLN2NcHvYXSBRxGxT0hrl9TgPCAhRZ WCIQndPZ5Np9KhkQC6JZg+Tl8OOT0go9LpCJg6GeGe YX1gfg1ZYJjVHrFzI6JsbHnnMQQGMQZow7KvZIMbPS5jdPLqJDU7NIiovuMwbxAYEQvgaEvnRHM7STIO YJXmdJE7LdTrYdNlMiGqWUp8LlGaGN6xWNqmWB8XSDM3QFokKBTjVGFmB9xFBgQiYDqpAJSgyBozMG7O VvMbI7RztbJiiUB0CEJwBHYGNxSdG7WlsfO3SYAvHS AdGs1SCERyFTGqrUM2HtYcBILPSoRjE7IrwH72ZR8gMWddKY7XRBi3MQX4ABNeXo2SFv3NOyMuBS2rct 7GTMFwCSChRfcLWig0ZJgbSW9AvHRxOVoYCPRpeD6oGLXjVFxaQV8WILE3VNriYXBpFIQBIK0BZRvgJL C3OpouamSlpIDzSBbdTE9VCPDirjKhYUJxVSMAFOq+ Vn0ZVA6ai9LiAJj3IAApOC5gpz3SAXcUEzYfP8AndZmhNCAVXAMgu2HzZTNyCK5ciZLuVVS6GFtsreWm fgAGSIfbgNnoVUP5DALYADVdlBW6ErLxAyGzMyLxDLm3AlDhFE5nJYwwWQ7HFND3VHygHdLhFOOQYY4E FOpgEUS9ZJMtvoQhrCTeBGpuZQ5QKTNowlWiWSUhXX TEUDgaGT7CucK5RISyMKJeOu1MAZVfAgC7oAY8ZAKiLJDIKz8+XIystlToSidKQhL5AVMca2PxSBa8TO 9XEIRwJUd0cXHlAAGrR6QqdSPvdoZazSHId7EhHU1xLuAGi9qdfNAzeLhiFMSqLLWbSp8oAs3bXXMmEB HkEyCuTDQJKS8JEPFtPSQkuWVsARV3HEDxTkSoNLun NPJhNXF7FT89cLyfOT5CPHFvBCVmXC93UCQoHVCdPk1QDDSgLIMftiK8MTHaWSLWEaLwQ20uyKWgXYWv MCBSDQo+Gx7EPG7qz2WqNNs7YfZeGD2lvz9SQJuSQbNpU3VbnDcdQZVLQJXlwRXeAPSXa4KeplCxfUPW oGS6XQXSMQKpBrMvaJ6qGUSFOXW8IEmhNzCiBzXeVE BtKPz8VULHVOdOAbMdV1Xia6FmDiSyNAPfECMuG8sRGnBzMGHvSH54jOveLP6VMFHdVBYrXC90AEMqUN LiAk7KNLHrYFPqscX4ZRNnGFAUWk9+AYbdetBoGuxPGzH2QSEqs2FlGAj4KK3RXXLdMPprRV8GMTMctV 9eYXemXM3FCmX5RDXuQZVEJaZgG69sdEScXIg3V4Vu YmVkZGVkRmlsZXMgPDwvTmFtZXMgWyBdDQogID4+ID4+HBhwQQ5AEXccbzBmINHhQw5ICLKfHKZvTH9i IKVaDROoC9H7fPbiNXPOJdBwC2sznogyRI7fAWXoX795rSkxcvGwRFYmEFBaDw8EQSEoGZZ7GMTfhTXx YUIyPXTAHSxgMU8HnSGfEOA9vZ7yNYfnTLVlFCOtK5 dSNyMcyWlhIE82jRwxwzAdqUWgCGz+Wt1DDC9hm0BcPQv2lwQlQIxsJCT6PFpcOUAtUKLtNKTlLVM4AJ U3EJDWUpDkYQDdDKBjKGkoKOYtWMKfqy2BRBWzYMG6EWp3HTExFAMlLFPjUDyzSXEoIAHjLJB1DXXxRE OgVX8LImJjSDMqINFtYUliJWXoYOOikn5HGDPyUSVx UdZeXNVzXDUbRJFiMOyqOTQiQUObIYKoBUUoLUTxVY3FFjZfQEPgWBKmWLCvJQDtDSZvff6CSUGmJESt QfCfRWCeAANiDKWbNNsnIOOqAEI1Drk9CFGwGATdKY6DPdQwYMJgSIi3TFziELTeVWHxbi9ARZPjYAGw Gbq0EEVwHKHlHFLrRFhiDRIxRWAiIIF5YRNuCFVdWY 4XNkPsYBPcFIZcUKZqFXTxSEDunz2SBXGtDGOnItQtNACiWJKcZNAwOMfxVXJhRJG8NhJjYUJkMBWbWN 2IAjIpLTWdTRh6CZGlOKWlOKPsgn3GIXGwSDVdYmE3BVKjMVEgLSUgFUokDXDlHIUvOgDgRMSmCHDqFR 6KRqKjWOBcFlClOXhwRDFfLRBtum5EUKDuRDStPXDs RLKjJMUpEJHwEHobYQBjRME6Jkd7EFOxHYYrXL4UKzCxMMRyRmv4SRDiKQCvQJRhcs5PATYiNGPmSMG7 YrRsGLSqMBEtRFlkMWAfCKXmTjj4GFWjLJZwTF7OJeCcUYNsBqUvTPPmFLZoTYNknc5KSTNvRDRpBQKv NWKzWFDvHLQvKJyiSQXnQLA8NKxdQEDeMCGsTT6GVa VgYLAtCos3DUqsAPMyYTBhck2AVUHdKXS5NKGgVJAhGVRhAYDwQRrgOSWdZCGoChV1LGIxFQVwKX4CZk TzDRKdCAD0MvzsDOXgMJKpts6XKYWbULB7IwO4YITbARLtQHAtMGvqBGXwTEYlIDM7VGNhRLNkNX2FFf KiTCSuIWOdISZmMCJfCJSmfy2ELLVqZEE2HzYzNNWz MEBbSFTlQMowTQJlHQF2TVxtZWBpXIJdPX3LUnTnGMMsWRB3BQAxAGZkFELfke1OFAMbWBZ8GHa5LrGz MJRmLTCgHViaDBVhDPT9NkZ5EMWzMHGbTI0QQrGtRQZyQIB6TeOjMYEuRCKcvx7UXCYbAHL6Nyh2OBGe MBAgPGQeZZotDLTtYWL5JJH8ITXmWLBqQW9YLgXcMS JxRDypCfBbREIhCXMmeu9BHWOkKNJ8IHVnFYRgWDJiTCBpLBdlOWDfTCH4Hrx5RUVqMZOfNG0JTjCqAH VjKRy7LdWtOUPqMNShpl8EEDVhTQH4MHHrSZYaPCWnWZXjNDvpZXPwAZP2WJj5CGDaRFTxOH4BIyVrYD PxPSh2MzBcKQZpKNFtxj6PWNJcGKY8PBEsHTPoVWQn EGEgBQbtGEMvQVMdOtJ8WPSgNFYlQO1HNvRoSFLqEvV6YSbuPPSdUMTfxo3DOMNhOCE4JjFgWRFlORNq PTHlSHmwCQHiZYJuEYO6VBMaPXJvQI1KKzOmIXFnBjYuWOCmAKFpOUAwrz4IYAHkJRB1MhQ2AYMpSANx MSTaURlcBFCkMXGhVbLmICWuHYReFC6ZYiBdXRxpYS FQVdf3ONdaS2o9IHF2RK9ZQ8Liq8ZbJRgjQQTTWUhuAE6hhfZxAGEmJs1FZ9hUAtysDpYuFnKkLKMdDx M3RRijDoAsWVlbLtE5ZPJ7VNhlGR4uLQAkQPQyHcGsYnTcZlQqJQLbQKR3RZRxQgo7SZNyYVMoMgFtLF 7QPl3PQfO3JNT7hHLmHy4MNrZ8VJRFBhZnTC4NQRg= ID Date Data Source [id number] 06/18/2020 04:26:04 PM EDT [facility] Name Value Range Interpretation Code Description Data Eufemia rce(s) Supporting Document(s) Progress Note [facility] DVLGWh9aBoDALfFi46/FOYzpFDYza7ZaPGrlZRx0ORjhKVPlW3IrKZC6oT5mSBQ6VYcZJvOpWzZyQqY7 lbm ErTanATvWhEZRiGsmMQeVvVKlsXmepvFTiLU7OhGE0YSOnT11lXZNzJZPsT0FxCVH4Kjn+Eo6UBOXtqK QpUT0GEgiG7U0zDmyQTk++6o5CYNBcsVCrgdp5MUfCtATcBduUsRwMdy+3HrpgoKwSDKxll129zMf7pO 9H2i3HK9xgXOgD4g78F9M7RjW//qc7Kh3fJLV1o/41 lRXqO8Sq/bV0g3YtJ9o7dsqNZpmHhjPCfF5y1nBK7/XE/qmpBwoeb7GZ2eqPy6GxpAYDm/HuyU0LJ3/F +2W5Fg5jn1LbLs04t2iQ4rCt7/M/bkul5C5Thg4mwHXj0ihhLIR+qE7IWBD1fT2jZ3x1BnskQn5if0IU aVwjvReeVa6DxXS34fPd1SoxAqrEAxY7ty6JO7FcJ8 7LY7LMRHa2s5FJOnxk3iSZGAwvevyupZRdS2yZXn0Zx9Rau78Da1JMy7DNPtkAnF9kXozuvgGetJ/zzA u7JBmWeCOCye1cVSCP9TSqUrnk+c2U3LGE4ykN9+BYj4sKcAg+KlTZXTXasdgLsv0f9RCa0FW96bokFN uKMFxh2K0KB7xQn/1ndBCjilYrdyNLPA1ZSxPvSwGG srABSYzuqI4adEtCBaq/mw7vYJfJ8QnfGil/Cqf9Eca/Uwt2URWxtKy1kbqIHVehMaPHQcRGrnA5P/Kirsten [file] ICAgICAgICAgICAgICAgICAgICAgICAgICAgICAgICAgICAgICAgICAgICAgICAgICAgICAgICAgICAg ICAgICAgICAgICAgICAgICAgICAgICAgICAgDQogIC AgICAgICAgICAgICAgICAgICAgICAgICAgICAgICAgICAgICAgICAgICAgICAgICAgICAgICAgICAgIC AgICAgICAgICAgICAgICAgICAgICAgICAgICAgICAgICAgICAgDQogICAgICAgICAgICAgICAgICAgIC AgICAgICAgICAgICAgICAgICAgICAgICAgICAgICAg ICAgICAgICAgICAgICAgICAgICAgICAgICAgICAgICAgICAgICAgICAgICAgICAgDQogICAgICAgICAg ICAgICAgICAgICAgICAgICAgICAgICAgICAgICAgICAgICAgICAgICAgICAgICAgICAgICAgICAgICAg ICAgICAgICAgICAgICAgICAgICAgICAgICAgICAgDQ ogICAgICAgICAgICAgICAgICAgICAgICAgICAgICAgICAgICAgICAgICAgICAgICAgICAgICAgICAgIC AgICAgICAgICAgICAgICAgICAgICAgICAgICAgICAgICAgICAgICAgDQogICAgICAgICAgICAgICAgIC AgICAgICAgICAgICAgICAgICAgICAgICAgICAgICAg ICAgICAgICAgICAgICAgICAgICAgICAgICAgICAgICAgICAgICAgICAgICAgICAgICAgDQogICAgICAg ICAgICAgICAgICAgICAgICAgICAgICAgICAgICAgICAgICAgICAgICAgICAgICAgICAgICAgICAgICAg ICAgICAgICAgICAgICAgICAgICAgICAgICAgICAgIC AgDQogICAgICAgICAgICAgICAgICAgICAgICAgICAgICAgICAgICAgICAgICAgICAgICAgICAgICAgIC AgICAgICAgICAgICAgICAgICAgICAgICAgICAgICAgICAgICAgICAgICAgDQogICAgICAgICAgICAgIC AgICAgICAgICAgICAgICAgICAgICAgICAgICAgICAg ICAgICAgICAgICAgICAgICAgICAgICAgICAgICAgICAgICAgICAgICAgICAgICAgICAgICAgDQogICAg ICAgICAgICAgICAgICAgICAgICAgICAgICAgICAgICAgICAgICAgICAgICAgICAgICAgICAgICAgICAg ICAgICAgICAgICAgICAgICAgICAgICAgICAgICAgIC AcMSYuWDp4G1huUVJjAFQxOV4nKFm2Cv9+YJjUPvNnOZC0ieMmvF1UCC3ob9KiISfgDUDyg8TiDKq1ER 6EVRIvGIpqUZ7BJReryq6CJEDyZNDpzCWCd3dyUsOaAHZ3VILzFkvcCC0QNJZkB9mdsmAvJOWsQQUYZB cgMCBSIDkgMCBSIDExIDAgUiAxMyAwIFIgMTUgMCBS BX3IAgNxY1TfpM49EJXHRz7+TCnibmXcOlpXGlXzFOUnm8UvRCe2UR8SXZAwJqcsw6TnScAoEVVTPVxm BU3TGPE9WZOwXUCsGv7ITCKqF091uqLqTL0KBp9YFrPvCZ3zok7RIqAcOROzKgcURlj7SVyoRU7DcAKj FTzCvr1jlnVhacLDj0BtprAskXFEcPPdg5zdfaTAZW nwHMxcv1WzMDSPFNBvyCP9NfQ7RvQaYlVfMUE1EPMdDV5tKUmjDO7TRLC7WOgvIQFyILNfR6hISrJhIH JwXwSdtQqbSK3GNmQgH7XqddIjqBHaGiAbBZDIHv3+HPcmggYoNbbTYgI5BWBdi2ZePDf2QF1ROADlCM ccTI8FMAIpgU5nTZfhXL4XLxWfASPqPVLUPuHyU12n vRGvPHf7O3AnTfPdQZPwYegtHYMsMLbeLnVnKRRfTySuBDphDB6+ID4+WRikKV0KNYgrfuOgHWXoRt8V REZbWHQgGB4lZHUbWPJwN5L5hSutCJIANyPuV8tjwcfrRS5uVAXtX568uVdbiyNyVBGzYVEpMq5RQYPz SSB3ONRitDBsJkKbKWQTXMceHM9VaECaARO6cN3dFL xuYYIlBLNfC7fJSoVnyGtnYZ58jDaqslNnnQTlXCl+Mg4RVB8ri0YjEYx5njHeDMzyCJA9AUwySIGbCO QkEXFsJFI1FZP7YVCUJrRfYCYrQLWrSQlkOFZoLWNqei8GDFKoOQEjZbOzKfDmJKPaNAAbJDtfZVYzQI A8AlEnRCAhGRZrIH5FIuNvAXMbPZKiTCuwOAIgQKOh ux6NHFEoCOFxHhHnFqDcQETnLOYdVUyrHDEwYTUuSOHjAEOuGVEzNM8CDdWoYNNiHVA5AzJaNOSwARSu tp5BMOBaJVWpKWd7DuKzLEPkJNFyHXpdERVuLRN3Pgi9MXOiOZVqFR5JCxWjVIFaZTh1NVibDEXkSEKy sb1XKIEjZBGvYSnpWmDfAJBfUSGeNIxnYGEoCYXjOG R7RRCnNKAfYT1CMyOfCSRjVGRiBMLqPAGuIOHdif7EDPEtPJKnAFJqCaSbESTeIGEcZDtaFNSeRHX7ZO WvGBMlHRRwDT5WXbHcJYDaYYE7XbPdHCYsZBUcfa0YOELsCCXmJvD2XiXrWOUeVFKyNKjiZTQjWEA0Ak lbRDAqLWWxRS5LFiInSWXlMBq4OaHpHPHhIHHueo7U YPFiKDZjDGptQRAvYBDmIHXiYEydYOCjVWM2NSJ8XIYgOTNjWU0LHmBgIJBhDJayKPElQHXuUDUjzs7X XDWrNDVeSQk6VBRoPRLwSJLrDIzuKSKoXCKaYOivJDRuDWQmKA4HAmItDPOlGmRwSohzHUIyQUUwhi9G OILhBZPfHWJwPHAdFUAoEZFnUYznGDIbRFFlGgy2AQ ZaPREiCI1SNmVoKXObJhK9ADwfLJLuGMCuqv4GLQBxROMsPbzjXoJtFGPiLRBbRGpfJINmLFAtPQu2FJ ZxULYlXI7AYvVkQDIhIdB3IVPwMNEfWURzxe3WRDAqFFYpXNz2GzLgSALoBOTdZAnpZXSuSBY7PBC0US FkJRAgKA7XTqTjGFYuThEcDMbxZJDpHLOnhy7KsGHm aCoare6JRAwSBk3BuZrrQJZ9IVzwTu8swNCdUPNzZZJGUt0MxxUcWTOeMFBTJGfuSKOeVHY2Z6ZaPJex GdxsKNIyNKS0HxFbCXN7DiKaPETtPFsyGjA1KMXcEHVeWtDdCKNhMLV1UVv5ZHBeMjdtRuNzJaJzKBC+ PP6tGYd+Rh4Td0YxiwC7ydDsNZkaEMJ0Wc7CJIAAP8DJLy== ID Date Data Source [id number] 06/18/2020 12:04:[address] [facility] Name Value Range Interpretation Code Description Data Eufemia rce(s) Supporting Document(s) Discharge Summary [facility] ZODXXy6tYzDFJsGy29/MJNisGBPbv5KlNXroIMi3YGptFESnW5FpQMY6oK1tELV5ITyJVlToQtStBbK9 lbm HjRthXZiAvJGXqFcfLJeVgNPgkStqlmJMqCR1ZpMY8TYAwI71qZHRzDRFuR8YkOTV3JrI+Tq3HBZBfgU BoUY1JQbyF0A3nAvwEFw6+0l5HvhEzZvSWk8nxjC7YSbwHexMRfx2UV6LE8Cfsc/B0Nz6X04fvacR6uV +2AnkrcxYa7XsFwu12fb5TEDU//bW6sji7npc+LX4G bTS9nuw707OiMq2Tsh6/xwrFBwmZlnP3Qd3q2iPm3x0KtePpBifj8jidyNZu79ebaFPK2oWNt1/ei9+K T/Q3IZoCn+RYzL0WHV5L5vBj3/O//abdsUp7rG3iBbdVCs6ghCbHM78eOWgPTmCkW4TsQzTaAYBDQF6q Ea17Z9G9yeG7Dr6ai/6TUsHBvNGcZDr1U6Y1bChm8r COHriAmUmsYfhy7wgMOakydARG/IylE7Wb9LpYvmBVDYzrnt26t7213G/sSUZFgbfEZUnkuxnjPPZnmq uIzdBSbRnsVUncxaPrEFWuj2B5Xl/ZBeowXdpigRfxn/nHSKSs76EAa8e2lch61CJuBfuXxah1/Z29xZ Gqt7LZ0ACcI8XKugToXqbrSOwtgMF1RIPz6apXvXfa [facility]+VPD7xfsC5kziPvP/4uW5JNQC0n/ttokjd9RRh2Z0s+L6U7FY7hYGAK+Y26clzY30NLN2IFOgyzN [file] ICAgICAgICAgICAgICAgICAgICAgICAgICAgICAgICAgICAgICAgICAgICAgICAgICAgICAgICAgICAg ICAgICAgICAgICAgICAgICAgICAgDQogICAgICAgICAgICAgICAgICAgICAgICAgICAgICAgICAgICAg ICAgICAgICAgICAgICAgICAgICAgICAgICAgICAgIC AgICAgICAgICAgICAgICAgICAgICAgICAgICAgICAgDQogICAgICAgICAgICAgICAgICAgICAgICAgIC AgICAgICAgICAgICAgICAgICAgICAgICAgICAgICAgICAgICAgICAgICAgICAgICAgICAgICAgICAgIC AgICAgICAgICAgICAgDQogICAgICAgICAgICAgICAg ICAgICAgICAgICAgICAgICAgICAgICAgICAgICAgICAgICAgICAgICAgICAgICAgICAgICAgICAgICAg ICAgICAgICAgICAgICAgICAgICAgICAgDQogICAgICAgICAgICAgICAgICAgICAgICAgICAgICAgICAg ICAgICAgICAgICAgICAgICAgICAgICAgICAgICAgIC AgICAgICAgICAgICAgICAgICAgICAgICAgICAgICAgICAgDQogICAgICAgICAgICAgICAgICAgICAgIC AgICAgICAgICAgICAgICAgICAgICAgICAgICAgICAgICAgICAgICAgICAgICAgICAgICAgICAgICAgIC AgICAgICAgICAgICAgICAgDQogICAgICAgICAgICAg ICAgICAgICAgICAgICAgICAgICAgICAgICAgICAgICAgICAgICAgICAgICAgICAgICAgICAgICAgICAg ICAgICAgICAgICAgICAgICAgICAgICAgICAgDQogICAgICAgICAgICAgICAgICAgICAgICAgICAgICAg ICAgICAgICAgICAgICAgICAgICAgICAgICAgICAgIC AgICAgICAgICAgICAgICAgICAgICAgICAgICAgICAgICAgICAgDQogICAgICAgICAgICAgICAgICAgIC AgICAgICAgICAgICAgICAgICAgICAgICAgICAgICAgICAgICAgICAgICAgICAgICAgICAgICAgICAgIC AgICAgICAgICAgICAgICAgICAgDQogICAgICAgICAg ICAgICAgICAgICAgICAgICAgICAgICAgICAgICAgICAgICAgICAgICAgICAgICAgICAgICAgICAgICAg BSRpGAZdMAVuDYUsNYCeVRAuXXWdHEWqKRDzEJGzPKu3A8gfZKMgAIYiPZ8bASt9Fi1+DQoNCmVuZHN0 zsMzpF5ZJA2cv4WmBYjgEZEym2GnMCo3LP4GKRZbVK ojUV7LBTvmyb9PDEWpOXFxvBWAo9vbBeChABF4MKRrNnhsKY6DUUYnP6rkybMuSWKeVKDXBLnuELDQMZ szYGYHQQXcPIYiHaKhUqPfUSLeYTEsELWSDY1WQvHjG1GprS69LGRALr1+EFpzwqMaYdkGEaX9IKMlc9 EoZVx7YW8ICMOnAxdvb8UoFcsvUTOOABgbLV5BTJI5 JNK6XFFpEj5OXYKlZ537zeBcHO2RWq9DPdPiVK7qdt3PYqsaKPRqHztWWlg4REvpDU3KkWJtEEgIoSUm aXOvA1VvN5UxiWNpeRRwlTIKUAMaCHFlHXtjVkL8SUGVMHGavRO5CqF8XiSrQsOlBJw5ObVpVK4sWEqf BW3ZKBY0TWmoRHAnIZGhJ8wINhHtLXXrStRazBldNS 5NIrXrA5FehwLbrYFeNkStBGKIFm6+CIfmcwAoMpyWTnG8YCItu8YhFZk1IX7VWDUcWFqbHW8TDCExpL 8fVJapXR5BMyDwEAFoSWGRFvWgV55hbNTjAPk9S9OtIpIxSZYkTyxmFENnAAgqSkZkWUBtNoHgTIkkKM 4+ID4+OTktQM9ZBTvjuiJoLGZbFj5ZJTAzWPTmJB8c JLXoVXHnR8O8zZqgKNYHYqCnV1bkvdaeNO0iQFUvN862lPztayPvEFK2UYSyWv3MFRYqDMU3GQEplQJb PjMtWKGOGOikTN9BaRXxWBE1mK7jIQghTNJiRDKyK3fIOjCjlRslSG34vDsnppKhnBKzTKt+My4FEO2x e6MwHJx4xyNiVFggLEKtGByjABPpNCTbDUDpCCP1EF Q1CNQYTnDrOVJcVOZiIVyuERWkUZEsdk3YWIScHCAqIlt6JXIbJGOaQLPeKNcyQTLgTMB1Dxx3YPTkUJ LbJH0LVxQiNDOzKDDvJFtbOEPkQZZaxp8FMXHvXYInNrrkHFBaIDZjAMBwIPtqDATiDIWiQPN1MOGqJW CuJV7ZJjCaHZYoJDf2BBXkPDGwGVTynh8ERXGrEOWc Mbn1GMLrEMPhJKFjVRnuMOOoEKBqVPu7SFDbQREnVP0PGoHnBBGeEWJ7BQHyYVVoZXXdqk6QYPKfIQSb RfM9ZORnOJHmOJGjFYjvSZPmQAA7YLLfXJWhCFUxEP4KGpUfQXFbGDn0HLYpCGEpAHYopm0UHOKyONAr CPd9KORkCIPvUIGpBKxhPGWfOJUdSJv1JFJxDDTpNS 3FWkSgQQIpLaTtQPZfPVXzXXSypg6XMDMaOIGwZzQ1DmGvYQBtDUUlCHdvPOYkLSYvUcZgTHHuOJYyES 9EWfRyPFCxSpL9FySkVIAsHMPjqw6PRSCsIXEzIjO1PrJdNTZnNMCgRUgzITCyVZWwEgz5GZVnBADmWF 2WClYoNOSiJfP2KuCvLQCbYKSpgo3AKQXiMELoUSgp IbRoWJGzUYVuHJxkBNXzFMW0YFY6TGVzTXHlEL0VQbIpYJNeOdVbZZPxTDHoBJNxvv3FVLGnAARrNvS7 EbHxQTIpXIWrHIipVOVsPLP0Jhz4YTZqTWJzTS8KEbVsAJSpOyB3UfWmTZHcWEOeov4LMLNoJEDpLPAq JiFfASIsIFZpWYwqEIOcLDLrDoVaYNPjDLSgIK9YZk CoXZLvFvD8JXIqRLXoSUPsdu2ZGZKbDNKmPdC2KbOgTIHaQSKvARbwSBJnVLCeIeZ2QNOePFWkQD8PYv IhTQLqRfV5IQwiNVRuFHSvdq3ZQVDyXXLeHxj6PfNoKJEdPUSkUGpvUZOjPZNwUcH6ZIJtLLMbMI6DSw XbEVAbAiA4MAmbAENcNCMaow8UTZJhLSSyTGy9ALHv HRXzRSGsYVtsDTDxYIC9AUA1ZHZqFVExGI9FXeKgECrhYCOJEkl1YFsiB5q2IBM0RB6VN8Bde1ZtCdat PJRVPIqgHF6fpfDrHKHzEb3HT6jEPhy6EKGhEXDfHpJdPuYqVWPtPgRmHaIsGUXvNQEmXqEvUj9cVNJl TDS4HJY7DZSoK0SyYcFnS5FrF7QbOGG8DFDlYMCsLw NyPT2YMx6EDzO5OZX6xPAuMh1IZkErEfTFAfNjAS3XESu= ID Date Data Source [id number] 06/18/2020 11:42:[address] [facility] Name Value Range Interpretation Code Description Data Eufemia rce(s) Supporting Document(s) Progress Note [facility] YCRTQn7xVnCTLhMy32/TMGheYGEwv9QqNEgiFFi4QFngYHCsD0KtVKE9qQ4lQGD0ZSnCNgGxSdYdSeS9 lbm ZrYtdHKhWxAHAeRrcKLeJoYNdsVciguRFkVY5RnDD8USTtQ27vGCRtETAnI1YfAYK8AqR+Jq5YYVXvfA JiDR3GTmtS2Eimp7m0SW2blZ+OhEVcMTyBtqYUuYptkU5fg3heBPyDNvBaWR+xnclKu/r8dqNG6r0ty5 hVomtQXFCF5I393/SxRHcvyQc5b03IyFQL2v+bR5NI djtnP/6IjnlDivU4q8kQRSPwutQuNO0F/C4t8Cr1CixgcGEZhXojJiuukoikcL5CP80eXfefvsa1SVhs LmNddnPUG/SZimKuo/jmzRs2+f9anKx7d1ODm1OMMH+CWy3PiPzOLZ8Oj3CFuFnuZitFAOmkTIQEZ8ju AtFtUs0WGG+CrxQelFSnkAYAbXPQ63QJeSA/D6GkRt TUnCieWI4+NnhGySp/2ypx1VajnShQSA20d41vli3LYSkQMJMo0lE0tIK9hYDmWF/D20BpXHU572qZnX olhlTtVX/YAJUtQtsEOHR/hovLm/EoEtu8rr+HfU4C4ZlaKxvai+/CBeNN+2JX2NpBFtxPkOjfc+YTIw 9LVBSZrbQ+O13iivsUak88Y1fnlqLa6k7Xhz6HICjY vxxDCR2K46M6W8K203yWjeNCKNNhky3Yc6cnUiB2PH+12uAZziL5y7QAexvTnUrKRla282B2XfDGx/l1 dv9SuH+2g0ir+duCRiVNMYnA2btPz2pIibIjJnChc3irkjzWKSc8MECIMRfVQizCcKFglGvO0OmcV3Q2 mEJ/dLlSF0A1NQYC9BlCy7fBMHSWzzvacBFHH3ZLJN [file] ZYg9EQt1KMqlSJMTUv1S ID Date Data Source [id number] 06/17/2020 03:23:[address] [facility] Name Value Range Interpretation Code Description Data Eufemia rce(s) Supporting Document(s) Progress Note [facility] EXQQJf5nLrXOSxWu18/SKIbiTWOqn4ApYLzfVAr3DUkqEOEnX6RxGUE7jW1pOHF4MQwWCtTiDkOkThUv lbm [file] aRSA+ifKmUSJ/marketing coordinator+fK4vRMM7TDE6N0aoc0/iyKjrBkYtVr98lK30H0KdZlXh0ynqOQGpJg3vqBuqhnS [file] ziKOZjVbKeRMpNM+OFMWyuJ9FKAcbPVwqVMeQdwJ6iIjD4IOylG/senior python developer/JXFO3le6VMENHmcuP9OKx33n [file] ICAgICAgICAgICAgICAgICAgICAgICAgICAgICAgIC AgICAgICAgICAgICAgICAgICAgICAgICAgICAgICAgICAgICAgICAgICAgICAgICAgICAgICAgICAgIA 0KICAgICAgICAgICAgICAgICAgICAgICAgICAgICAgICAgICAgICAgICAgICAgICAgICAgICAgICAgIC AgICAgICAgICAgICAgICAgICAgICAgICAgICAgICAg ZVEfWMQbUYBuUS2RPYAtSDOqANAgFOGmDJFeASYzZQIxLHOwVUEjOAJvNVJgHAYnTBCuTAZuOIRtOCWy UVDfRNOzNJYbJRGuDHCkAEIiEMAgZMLfXFEfMYPiCNNlUQAgKOTvJBVdISHbHQJdVLNkWV8LCZFaCUOv ICAgICAgICAgICAgICAgICAgICAgICAgICAgICAgIC AgICAgICAgICAgICAgICAgICAgICAgICAgICAgICAgICAgICAgICAgICAgICAgICAgICAgICAgICAgIC XzBH2SVAPjLGUaEDCnRRDoLAXiXFJlABGjWQDiFUQwHOIvSHFlZDLzNNEwVWUuDEZgXPRtBRVcQRJpZD AgICAgICAgICAgICAgICAgICAgICAgICAgICAgICAg KNErWVRiKTYwBKYfAG5PEEXlHVCaJHCbAZSfTOBkPRKaJKAtEDUcWLJqKWBrKCCwVBLjJGVxXEXiHUDn ZZAaWMLjQNWwAZKbFSWtZPUcZOGvCNLhCKLiWOJhGYQdHCMfVUOdFNXpXEWeRINlIJIwNQJsIB5RWTPl ICAgICAgICAgICAgICAgICAgICAgICAgICAgICAgIC AgICAgICAgICAgICAgICAgICAgICAgICAgICAgICAgICAgICAgICAgICAgICAgICAgICAgICAgICAgIC JqHPXeFY5KKOFmPAJmLLUyYMVcUKLyDLCdUGBbCWSlEOXhJMMzYUQfDEMyMIBvINEpUMPiVESsWDYpZS AgICAgICAgICAgICAgICAgICAgICAgICAgICAgICAg EJHyKEYlMAKjDAKnYEWsOD9EEFRhISNzZZPpNGPmTMVbMSIqXNRcIQVeOSMwTAWmEKFlGXKlVFFuWQYs AWRkSNEuUMKuKEJjSVVyOJLjIMXdUWAuDIWaIROwGJZuNHCuKPFiIIDpRFSzKTOdXZIbWLDyMKIiUR0Y ICAgICAgICAgICAgICAgICAgICAgICAgICAgICAgIC AgICAgICAgICAgICAgICAgICAgICAgICAgICAgICAgICAgICAgICAgICAgICAgICAgICAgICAgICAgIC EpHVTkXILxMN9PSE93wCIco2N8MJWhDY8jsjy/Kd7TKMeqjzWhmIDtWK9ZSzCyFE4xcr8XJnGlWS0qaz 8AAKnCZcOuV4Q5rDYyNITdRHXBQaVlO23lBRqbXt58 PMacBIQrZxFtAXv9Ic9SAzIrN1chRTDuSiT2LKPwCzFhKLycGL9Pz6HcrFEjBSu+Oa4UGY2gb3FcUKli DrRzCZ7gpd4YCQgANuUcH1SdieB4BHC7YIBcDp8JRHJxZCTjyTXuOwZcUNBWArFdL6HlkR96XKEXCi3+ OSmhpdDmSahKTjJ6CSZmc5KgHBm9FO6CUCRlXZu3kX ShDKCkE5Tjj2MjJp29KBFaVdmaMXL6qQLoLSF6XZEiVNIcnLgtDy2zVEWjZb8mVt9eNUToYPKjGwZgPV IAZN3CNZPdCNTnfTTnKEIyGPPHXB1XWGrkSQE0FWRsgkEfdAJtWLibWL0OOUXneyIcXXTbPSTJGQz+Pg 2NGZ0bi1EvMCpjVKIjUY8nnc4GCYrIHpUtC4K1tNKw K6P0GEteGc5XYQVtLRDuUKCvNLREARgeRM3TBC6zhxJ1ZC0OyXAhEAVkYMYiwXQaZBd2H78igHVvWJhl WU3ZSAR+Rivka+Qj2BCYLfJHVkGIQxRiTrMDGLFpIrP0EuA1OFj3LvE9EwDG42xUayuzHcZUboDX7AUI3f PRCjKWMCEP2UbULhwR6oggZhOjMdCPMMMpRxF81dnN RcYKAzBTZ4JGGhLr3VMKJmX6BwuoBybPizwcLsRXCfIAEDIE4XUOzjnbLxlDHnySgbSQ65xLijNS3VSe 8XSxNqSR9prg5LmLWlMk8HRGTyDN9UUMHxIINzLVIoUWJ7NPLnVnYmZRheMTTqSLYoKEJ1JGHwQKWsFB 6YJrLlMRGdVyX7ZTQtQKDhDOLssc8VCHRmNPDoKqRx ULDuKSOmGOYrLLncCBCrGUQvWKI1ARJmHWPcBJ2KIqDqPYLjODD5LJPnQOPqKVYpij7JHCWpMWXgSFCo XVVvSSPtKEJyGSbvSNIfMDLuQGe5ODUbRUSbXJ1HHdEtGOJmFBG7YsToDZVzUDYovx5BEZRdGJLyQxy9 RkXvFVGtEGQzUWcoGORsYXIjZNTuPIYiANHxCF7NFa BdYVZgKXLjRANdYVRdDNEepx7YNIErAZScMLVyIHYvMMOlCBKhKNjeGCOhZIS3PUE0DQLzMGMvZT1YQi QgNQDeFiM1ThFhAEEtBQKlgk3DUXAaIVPsOKE5OWVyFAHcECPcHNicNHDoFHH9EgKjWDVdQJLeBQ9KAe EuZXNdNxB6WVTxPIZuLNOacx1YMAFtHDCqTgdzQEYc GKBuXHJyZWx9mlZozAHyDQh6TD8VI2LjchHdYSbTMv9Jb588FNA8HRHvAr0ZG3vmVl2xURIkUDMTGr3N JBq0AqEaZSxyQKNlJgE7AwS7YVY7UPAyVLL8NXQ6UUVlCKS+MOdkNQKpKOH1CAAhBqLlIDInQLHzXWC3 HRu5JxG7QuViBj8eULOGTv6+UMkomJZzsFnjPCOGNoFcAmK9MJ4YVPRTU3ZZTk== ID Date Data Source [id number] 06/17/2020 03:02:[address] [facility] Name Value Range Interpretation Code Description Data Eufemia rce(s) Supporting Document(s) Progress Note [facility] LKYQLw0bOhGJBhMb41/SUOctIKGri5ZpUQlmYIj1NZawENJkB3DdEWM2vO8ePBP7PGtUVwMgRbZyFlYi lbm [file] AgICAgICAgICAgICAgICAgICAgICAgICAgICAgICAgICAgICAgICAgICAgICAgICAgICAgICAgICAgIC QjDAWwLWOfPCCjFDVvVI3RRLXzVPEkWHLoLPNfYTMh ICAgICAgICAgICAgICAgICAgICAgICAgICAgICAgICAgICAgICAgICAgICAgICAgICAgICAgICAgICAg CPEeAVPmNKLzBUJbVVVbJZWpLJMoCEVzDW9LAYAhTYDmMCGiORGbWTDaHFMwBYFiKGHxCKWwKNAyZWZe ICAgICAgICAgICAgICAgICAgICAgICAgICAgICAgIC KfNIZsOUGdJJRzAQPcXJGkICMoZBYfPNRzTKItWGViRWGjTA5TACOkEHWfWARnGQTbVYTxNMPnJVErLJ AgICAgICAgICAgICAgICAgICAgICAgICAgICAgICAgICAgICAgICAgICAgICAgICAgICAgICAgICAgIC HjJYHdHROoMTUsSCWnWBFsRB1ZLOXgQHEyFNJsURUi ICAgICAgICAgICAgICAgICAgICAgICAgICAgICAgICAgICAgICAgICAgICAgICAgICAgICAgICAgICAg BHExRTZzQIZfRMNhKLNkIKEtPNCaQNCxJIQdYD2MKSGlJXOiJRJdMGCdTKZdCWZiGXAyGAAgZMIhHTIe ICAgICAgICAgICAgICAgICAgICAgICAgICAgICAgIC IlIXPhBMMhVGSgFMWgSHYeRLZoXXBpNKIiADWuNWHgSYObSFWnBL5UTFRbLPZwQHZyZCSeNJQbIFOxXY AgICAgICAgICAgICAgICAgICAgICAgICAgICAgICAgICAgICAgICAgICAgICAgICAgICAgICAgICAgIC GiKBGtIWYmTKPsZBZsWCMcXTFcNW6CQXPzZFPvMHUs ICAgICAgICAgICAgICAgICAgICAgICAgICAgICAgICAgICAgICAgICAgICAgICAgICAgICAgICAgICAg PADmTOYuKENrFQJsXGPwAGFaOYDsBVKaYPIvUUKgCQ0KSXTaPEQoVMVsBEYtUUXoAKGqNVZyVAIbOETb ICAgICAgICAgICAgICAgICAgICAgICAgICAgICAgIC EaBQQoTTSzQDSzHSQeIUXdWPUuVBWoSFUtNZCsPZXaUBAaYCSrYEZmFD2GDMTeNRQxGMAxZLZtGVRkEO AgICAgICAgICAgICAgICAgICAgICAgICAgICAgICAgICAgICAgICAgICAgICAgICAgICAgICAgICAgIC TuSSSuPNCiSPLvPZHuVMKtORIsGDPjNW8FMA09gIQa g7D9QPPtPQ3mits/Sj1BYQiidnJikCGkSO1CIwDoIG1fam9TJfCvRY8bnl6ZJQaEMiVaU1J2zCYeKGBx UNTXCxTnD04yGBhuVp79KHlbMBVgHuQeWLx2Qz3SIqWtC5waFEQpFvX8DINkEtF6XJEzNwCuEPbaNQ6D o8TitTQdHBs+No9TME9zf9DeBFtlOFKgFA9mkg7NFS aYQwMlQ6AizbC4QPY7CSAkQt1ZWMYgXJEsxYGxUJYvNJXEXgPrH1DuqM46VLLTFd0+DQplbmRvYmoNCj J0WXLsi2IkOGx3PI8DSDJmDEr9eHZzDRUvM0Kko3SzPh81VIOqRusnDJhiqHTbMFRyYCSKFLXjfsBvmD mtRKPDvGQxeCAmEYPwQm1uSg8kVXFjPRSnNgPyEQIY XE5RTDXaSWQgySUbXRKlNGFQUR9KICmfYVV2PPVgnfYjdEZeFPuiMD5ZLBDjhpNmKlgePGYJYDe+Pg0K NO0wv5RyEIhvHYXcUF1uzb5JXBiBKnGeH5J9mRNrX6M6LZyvAz1UDJOwNGJyOqXpJTAYHJzrGD3WNF4k bzE0WG8JgOPwFKRyFSQjdEJeDKf9V88spILbADweSO 0KICA+Rivka+Yv4WCZDhFDHaFCGsEbRhDVIFMnWqV6JwS0MFk4RrS9PrBM09jGwbkhBgCAmpGP8SRI6qDF SsLLVIXU9BhVLdfT0wtxDiIPVsZCZDRjCvE07iaHVmSKInMNZ8GYJqQh0ZNSLmE2EfypBzrRhufkTrVX EzXRNURW9RTKscvdDzuQVmhFlkMI57nEwqQK6NEz2H QlVaOU2zsc2CtYXbZp6YRXGlZG8OGMDwPCXfWNPzMPJ1FENiQaAcDAtrPKGgRPXbJXC8HTFjOKKfJH8J KwApSSLuQVJpVVXqSAMkONVyvl6GFTWaBBNaYzE8SEGwTOJeGQGhVFnfCJMpLCJyAEU8AOGrMLKnLP2T MbAlZYEmPOK4XUutZGZiHTZavj2TGNYnTUYhCbVmYy RiJJPvKZYyDUflYHVzNCG4AXnxQRMyVJVzZX5TKjXpZREnEIZxNJxzQZLxCKRfel0QSKZfXYIgKqB7Rd NpJLRuCIHdUWimFOTpUDB9ShRcWURnUEPdZX5KEyXmWXMfUTa1JnXwSNThZQXjhb1XCTBsZGZxXOH3Ny IxBDXbDNXkSZlwSDPuNZL6Lfo8KXFgNZSnXZ7WSlHr EEHaHMz3YnSfSCDgEUHkgi6IUJNgQFQjJDynDCBhOJZsUDCvPZesRDSuAIJyZCHgYWPxSXBbIO1XGlSr SYAfLOFdVtYnQMOkYKEonf4TPOOtJEAePZB1JEFrAJJyVAUbEGypWNNsFGDdCfq4RPVqESCqLB9IKbTn GGLtBYZ8YoHwBVFwCMZyop7GDNMaTNZoAzLbDSLmWG TdNLLnDEnuVWCpRCAaIaR6ESYjTFWrWP2VIrAzYTMkPFO9IfDhPHQpCKRxwu4WNFZdCEAdRdh1LMVcKC DvQTAdZSaqBUEiKUD9GKp9VMAtNQGwWK2CFvWmDKKbZNViDxpaLUXfJQNygh7CLTYuZDYtAUt0PUIhAB MgBRReJNulLALjWJO1GVe2TLOwMABjKZ8UNlNdCIZn KDLaXeMpQCXnQUVvaq2BGPMmNMEsLxIlPAIgSRLzOJCkLUk7znSebZPmXEo6JF0SL1DpskCdCgRMGu9H m772HTTqPRYbNf4ON6soLo1aIETnCKHEXd5EDAv6PFexAXOnXOo6HfUnOXY4RhTlGjW2YzWnBBG5AkT4 YzA+KLv8RmNoFDG5WQoqTDAsMaQ3DVJbToF7Z4W1Sj UlYJVpBZ9fQUMGSx2+RZboyBLyoEtwFQYNDxL6Jmg9MGokGWGATf9R ID Date Data Source [id number] 06/17/2020 03:31:[address] [facility] Name Value Range Interpretation Code Description Data Eufemia rce(s) Supporting Document(s) Magnesium [Mass/volume] in Serum or Plasma 2.0 mg/dL 1.6-2.6 [facility] ID Date Data Source [id number] 06/17/2020 03:31:[address] [facility] Name Value Range Interpretation Code Description Data Eufemia rce(s) Supporting Document(s) Phosphate [Mass/volume] in Serum or Plasma 3.5 mg/dL 2.5-4.5 [facility] ID Date Data Source [id number] 06/17/2020 03:31:[address] [facility] Name Value Range Interpretation Code Description Data Eufemia rce(s) Supporting Document(s) Troponin T.cardiac [Mass/volume] in Serum or Plasma <0.01 [facility] ID Date Data Source [id number] 06/17/2020 02:15:56 PM EDT [facility] Value Range Interpretation Code Description Data Eufemia rce(s) Supporting Document(s) History and Physical [facility] SZVMTx4vKtHDQzIb50/VYXveLXYcc7AfZWrdYWc3QNlaBLHzK5CvWJU2aB6aHSD6WNfTDhPmDsQvXqPp [facility] [file] [id number] ID Date Data Source [id number] 06/17/2020 11:46:[address] [facility] CT ANGIOGRAPHY THORAX [id number] RESULTI nterpreted by:WILLIS PattersonUDY: CT CHEST WITHOUT AND WITH IV CONTRAST.INDICATION: Rule out aortic dissection.DATE: 06/17/2020.COMPARISON: There are no prior films for comparison purposes.TECHNIQUE: CT examination of the chest was performed without and following uneventful administration of 100 cc of intravenous contrast per the department protocol. Coronal and sagittal reformatted images were obtained. Automated dose lower techniques and/or adjustment according to patient size were utilized for this examination.FINDINGS: Noncontrasted images: The nonc ontrasted images demonstrate no evidence of hyperenhancement to suggest aortic dissection.Contrasted images: Following intravenous contrast administration, there is no evidence for aortic dissection, arterial aneurysmal dilatation, intramural ulceration, or vascular malformation. The vasculature exits appropriately off of the thoracic aorta. The arch of the aorta is ectatic to 2.4 cm. The ascending aorta measures 3 cm and more proximally it measures 3.1 cm. The main pulmonary artery slightly larger than the aorta suggestive of pulmonary arterial hypertension. The descending thoracic aorta measures up to 2.3 cm and is within normal limits with no aneurysmal dilatation and no dissection noted. The celiac artery and the SMA branch appropriately. There is dense calcification at the origin of the right renal artery. The left renal artery is within normal limits.Pulmonary artery: The main pulmonary trunk, right and left main pulmonary arteries, and the proximal lobar branches reveal no intraluminal fi lling defect to suggest pulmonary embolism.The lungs: There is biapical pleural scarring and thickening noted. There are some surgical clips along the right lung apex laterally. There is pleural calcification noted of the right lung apex and pleural thickening extends along the right lung posteriorly. The patient has centrilobular emphysema and paraseptal emphysema throughout.There is dependent atelectasis along the bilateral lower lobes with some linear atelectasis at the lung bases. More atelectasis is seen in the left lower lobe. There is linear atelectasis in the right middle lobe.Pulmonary nodules: Calcific pleural thickening is noted along the posterior right upper lobe with surgical clips noted medially.1. With respect to the right upper lobe, there is a 6 mm pleural-based nodule on image 84 of 428. There are no prior scans for comparison purposes.2. Pleural thickening as extends into the right major fissure where numerous intrapulmonary nodules are noted some calcified, ranging in size from 4 mm to 6 mm. The larger ones appear to be calcified.3. There is a 5 mm nodule along the right minor fissure on image 247.4. In the right middle lobe, numerous calcified nodular densities are noted along the right major fissure ranging in size from as little as 4 mm to as large as 1.3 cm, and the majority are calcified. There is a 6 cm calcified plaque on image 355.Right lower lobe: Numerous calcified pleural plaques are noted along the right lung base. The largest measures 1.8 cm. This could be due to prior granulomatous process, but talc pleurodesis can appear similarly. There is a 4 mm pleural-based nodule on image 325 of 428, and a calcified pleural lesion is noted measuring 6 mm on 329. Otherwise multiple calcified pleural lesions are noted.Left upper lobe: There is left apical pleural scarring and thickening noted.1. There is a 7 mm pulmonary nodule noted on image 74 of 428.2. There is a 4 mm pulmonary nodule on image 77 of 428.3. There is a 4 mm pleural-based nodule on image 81 of 428.4. There is a 2 mm pulmonary nodule on image 95.5. There is a 4 mm pulmonary nodule on image 103.6. There is a 4 mm pulmonary nodule on image 106.7. There is a former pulmonary nodule image 183.Left lower lobe:1. There are some small intrapulmonary intrapulmonary lymph nodes in the left major fissure with the largest one measuring 7 mm on image 216.2. Multiple regions of linear atelectasis are noted at the left lung base. This along with dependent atelectasis obscures good evaluation.Trachea and bronchi: The trachea is patent. There is some mild mucous plugging of bronchi to the periphery of the right upper lobe and left upper lobe. Mucous plugging is noted to the peripheral bronchi of the left lower lobe and right lower lobe.Thyroid: The thyroid is heterogenous. There is a 6 mm hypodensity in the anterior left thyroid lobe. There may be some calcification in the lower right thyroid lobe.Vasculature: The vasculature exits appropriately off the thoracic aorta. The heart: The heart is mildly enlarged. There is mild thickening of the intraventricular septum to 1.1 cm. There is also mild pulmonary arterial hypertension. There may be calcification of the left circumflex vessel. Only trace pericardial fluid is seen.Mediastinum and chest wall: The mediastinum is unremarkable. The chest wall reveals some dense heterogenous tissue in both breasts bilaterally. Please see recent mammography for further evaluation.Mediastinum: There are some 7 mm lymph nodes in the right axilla which are within normal limits. There are benign lymph nodes left axilla. There are some 7 mm pretracheal lymph nodes noted. Benign 6 mm lymph nodes are noted in both ramya. There is a 6 mm infrahilar lymph node noted.The upper abdomen: There is a tiny hypodensity upper aspect of the liver near the dome, probably a cyst too small to characterize. Bilateral adrenal glands are unremarkable. The visualized pancreas reveals the main pancreatic duct which measures 3 mm and is within normal limits. The visualized kidneys are unremarkable. There may be a 3 mm hypodensity in the upper pole of the left kidney probably a cyst too small to characterize. There may be a small hiatal hernia in the distal esophagus. The stomach is relatively nondistended, but does contain some fluid and air within it. There is stool in the left side of the colon.The bones: There is a dextroconvex curvature in the midthoracic spine. There are mild degenerative arthritic changes of the bilateral glenohumeral joints. There are more moderate degenerative arthritic changes of bilateral AC joints. There are mild degenerative arthritic changes in the midt horacic spine. Bones are slightly osteopenic.IMPRESSION:1. No evidence for aortic dissection.2. No pulmonary embolism.3. Extensive centrilobular and paraseptal emphysematous changes noted throughout.4. Dependent atelectasis, and linear atelectasis at the left lung base and right middle lobe.5. There is a surgical suture along the apex of the right lung, with extensive pleural thickening and calcification in the right lung apex. There is pleural thickening and calcification at the right lung base and throughout numerous intrapulmonary lymph nodes in the right major fissure. This could be from prior talc pleurodesis, asbestos exposure, or prior inhalational process.6. Scattered subcentimeter pulmonary nodules noted in the lungs range in size from 3 to 7 mm. A follow-up chest CT may be beneficial in 6-12 months time according to Fleischner Society guidelines.7. Mild mucous plugging of the peripheral bronchi as described above this could be due to inflammatory or infectious etiology.8. No adenopathy.9. Mild prominence of the intraventricular septum of the heart with pulmonary arterial hypertension and left coronary calcification. Patient may benefit from a cardiac consult.10. Likely tiny cysts in the liver and left kidney.This document has been electronically signed by Kari Iglesias MD on 06/17/2020 11:44 AM Name Value Range Interpretation Code Description Data Eufemia rce(s) Supporting Document(s) ID Date Data Source [id number] 06/17/2020 10:33:[address] [facility] Name Value Range Interpretation Code Description Data Eufemia rce(s) Supporting Document(s) [facility] WRDUMw0uWfIMVfFqc1EmYcXwHVQwJV7waiy5P7Z2hERcU8LdrWIci5jmV5DaX3ZoBCYbYFDCZA0IhNUs jb2 [file] [employer]+7amsuV2b2HZ7cQPSjo26/Y2VfEGalm2sd69xJnVNsJqEfDe9UrxOgwB9wfnsX9ME6YnwzH4rtZHv [file] [id number]/Xff/ty7707/X98/ZVhS6620b80/9M19FOlX6924899H3/49oev/g2Vf0esc/DY0hduOg0mA92/ +PY3H1+++/ar7//uy8+/fPfDf/j4+Vf/8QOxGp2tigKw/bsdk3fg/fDxX/7dx9d/+vMff/fP//yXd/Lg Arora+d/sef//RP//Mf//Xjv/z5ejCMv2B4wF23x+//9s u81931+eXrv/g9Yl95BiBSay+///Rcf45h2CvtUN/50kIweocb745+2s4Menfk4EykXn//6Y//9fd//s Pv/unj//pfH1//99/+8b/9829//x8+fvbn3//2jx//0Psk4Nwvxi/Lv//40x8/5t9I/xsfJ+35ae8/bf vjq5//b6/PPNo2ZElt/vA3/9L073ETvb3x/IffAO/L JnB9/v7/A+rK/UX3Xz9/WWO44IaGfD79+0Sohk9tCqHungRkxIW4+vOL+Wh/4K9CoSQm+P53//V3f/6z 73PVMr6e/ueo+Pr//Pr04338/D8997B47p5Nq53+1Spc7g8rrSM8//j9RC97U7bfW0lsrTOMQLBt5Lv/ ++O//vXHn3/7r7/7Ue2fS/AKVDZ6B/1Yj1xPH/scV3 9Z+wF/+f3H7//4r7/78//z23/+N6o//kiuQM6tST2i+gP+5+9/9fFP//Pz4X//pz/+Zf0ez+3j9b5dSh aff/ib//zDP/SV84xA901+4dWQp4d04rWpq1+OIX/O4pfu9HyUwBfFWA/7AEa14L++/8kPH7/9f3/3L/ /4t7VcmONwtHhC5/zkDU/z+fmN+fG//vyjCeLHL+I/ /u4Pv/3nH73i/SP869/+z3/67z18jcf/vYbbEd//6U9/+OlfoOeBv/3TP/138EYRli6nR//wu3/873/8 /T9+1v/54fhpyL/I6+wfkfdf/lXm5ZhJF5/8r999/I/f/f0C5Y2EyNmPgcINq/1vv/toH3/6rz/+GF3V uB/op9aZx0/1nZ4+vvztDz+DOduPf6sFhO/AePlqur WPr77++he//q0k52sU5R34Be6a7C1CQbEsYudqoeCwtGBeDW6XFP5yi6WoRzG3IIKmo4KgUHdoNQq9hA SvZUdsxxHid4MuveyfY5Jof8BuTxNqDIYoSiDvDrk6VSIaVaI3jEYjOvYlJNKmT8MzUVTePwT7QfKxME OWOR9ALAQcqeGiDrQgQYP+KeOeDJ1dlfqzPZOkd8Ex DZvlVHhyFGAfV5R4mZyiOVLuX1LrrW75XLRmJ9WbbmP0TAQ6YXPtKfYlMOVcmPJcANJmHMK+LnZkGG5q vnlbOQYyj7LxYXuhJKJ9yP3iIZnPELDFHKvWHLycJdR7w06ekaRCWJUhVOPxLJ4VyuNcdWttqmAyjQDd MKM3DvLxRCU9ThZdMOBfEYBXHKYiSWFcWLMsQQQkC2 PhyLtpWBtWERBUYEbYYBimOzFwi6E5QQQuvfJYS6IIYVokJcYGFplZZPPzKoZ4QXD0PowiB9E5ObibK4 ZxBN9DZ8RyWKAwXCRIECMgfqNpFO7HefTdiL3jPDwYTYLQLNzLQDeyMtX9h56tseHCPAQhOCSvOOsuOI LxSGGeSCMmDQEjALBzJZPnZCYzBM8BR3OlHVSbSPNR XND3y6DzBYAowwivzeybDn3poxUmBpg+VuqjGVKiv9ZhZHuxQ4O0bRCyW7KhZ7QlFD8CbDCxGAvcDKJl AWKfECHfE960kcCjYN2+SN5xf3VuLxdrFDIBQEHhRDHbSHKySOL7JkHtLGEwZEZxMHHfBaS0TaMaPhCL YMYxDOZ3JCTwKNUhCHQpWCXlMLphQIQuHDO8Eun4VE JtQIKvGC9bFbWvHTFlCuj9XFVeBDWpIAIgifAYTPXjGBQwQAMxETP0YCPfZBBpXZcoTBNtRTXxORS7LG GsROGiJX7bQhBrQCNfUFFxVchxVVYpQCZmwyKKJQEkAQYrVMY8DkCiIGIaVSPiKAydTIFvGVJlHzd2UJ MbXBXuCZ3oFuXjKBNaMQI0YZhdODAwNCGuexDDPXTs FWBuOUAuFmPkEAJfRBLdHKqoELHfKZQsAcXeFTMeFBDmDQ2xGnAtHOPxOYC0UTScYCKuZWBorrSYUCUw GVNfJQv3ZLRuEEFpLGUuQJjcMELuDHMpMQO9OCOqCMHwTB0pFcVoUYQtPNTeJQNzIZRkOLEksdZVGULe JPEjOFO1WHNzONQmKGFqNRrgDBBdSWPkYqe2ODSiLJ ZwIP8pBtBvBCQkLTA4WICyOQYxVYDzygVBOANsOFO3TZW2WMNwHPZmLWYfEOzpUXXgZGEkYlD3WMNpCF QwRY5zMcPlITRjNSR5RyVeYAEtTJQzouZWQSKuKWWgBYI5TyTtDTPpVWDoRRwqCJBuGUOuLTJrHOU4YZ S1BAAuVrFlFRmnEIQAMSuOL3LvuvWjYrVFW4gbMb5x YnVbDZIZU3Mub6QwXNVjHUFNIw2+AwD9EYE1kUEiSbt5UCW4TkgoWTVTYz== ID Date Data Source [id number] 06/17/2020 10:17:[address] [facility] XR CHEST FRONTAL AND LATERAL [id number] RESULTInterpreted by:José Luis Anderson [facility] [place]49-year-old female with chest pain, who presents for initial radiographic evaluation.COMPARISON STUDY:There are no prior studies available for comparison.TECHNIQUE:Erect PA and lateral views of the chest were obtained.FINDINGS:There is moderate osteopenia and mild to moderate degenerative bony change throughout the study.There is a 15 degree mid to upper thoracic levoscoliosis and a 10 degree lower thoracic and thoracolumbar dextroscoliosis.The remainder of chest wall and bony thorax are otherwise norm al. The cardiac and mediastinal structures are normal. The lungs are moderately hyperinflated with flattening of the hemidiaphragms and increase in the retrosternal airspace. The lungs are clear and the interstitial markings are normal. There is mild nonspecific biapical pleural thickening and parenchymal scarring, which is greater on the right. There is no other evidence of pleural disease.IMPRESSION:1. There are findings consistent with moderate chronic obstructive pulmonary disease.2. There is no evidence of acute airspace disease, such as pneumonia.3. There is nonspecific biapical pleural thickening and parenchymal scarring, which is greater on the right.4. There is moderate osteopenia and mild to moderate degenerative bony change with curvatures of the thoracic and thoracolumbar spine.5. The remainder of the chest is otherwise normal.This document has been electronically signed by José Luis Anderson MD on 06/17/2020 10:15 AM Name Value Range Interpretation Code Description Data Eufemia rce(s) Supporting Document(s) ID Date Data Source [id number] 06/17/2020 09:52:52 AM [facility] Name Value Range Interpretation Code Description Data Eufemia rce(s) Supporting Document(s) Troponin I.cardiac [Mass/volume] in Blood 0.00 ng/mL 0.00-0.08 [facility] ID Date Data Source [id number] 06/17/2020 09:45:21 AM [facility] Name Value Range Interpretation Code Description Data Eufemia rce(s) Supporting Document(s) Leukocytes [#/volume] in Blood by Automated count 13.3 10*3/uL 4-10 H [facility] Erythrocytes [#/volume] in Blood by Automated count 4.42 10*6/uL 4.1- 5.3 [facility] Hemoglobin [Mass/volume] in Blood 13.7 g/dL 11.5-15.5 [facility] Hematocrit [Volume Fraction] of Blood by Automated count 40.1 % 3 6-45 [facility] Erythrocyte mean corpuscular volume [Entitic volume] by Auto mated count 90.7 fL 80-96 [facility] Erythrocyte mean corpuscular hemoglobin [Entitic mass] by Automated count 30.9 pg 27-33 [facility] Erythrocyte mean corpuscular hemoglobin concentration [Mass/volume] by Automated count 34.1 g/dL [facility]0-[facility] distribution width [Ratio] by Automated count 15.2 % 11.5-14.5 H [facility] Platelets [#/volume] in Blood by Automated count 383 10*3/uL 150-400 [facility] Differential cell count method - Blood [facility] Neutrophils/100 leukocytes in Blood by Automated count 67 % [facility] Lymphocytes/100 leukocytes in Blood by Automated count 23 % [facility] Monocytes/100 leukocytes in Blood by Automated count 4 % [facility] Eosinophils/100 leukocytes in Blood by Automated count 3 % [facility] Basophils/100 leukocytes in Blood by Automated count 3 % [facility] Neutrophils [#/volume] in Blood by Automated count 8.92 10*3/uL 1.8-7 .0 H [facility] Lymphocytes [#/volume] in Blood by Automated count 2.99 10*3/uL 1.2-4 .0 [facility] Monocytes [#/volume] in Blood by Automated count 0.55 10*3/uL 0-0.8 [facility] Eosinophils [#/volume] in Blood by Automated count 0.46 10*3/uL 0-0.5 [facility] Basophils [#/volume] in Blood by Automated count 0.34 10*3/uL 0-0.2 H [facility] Nucleated erythrocytes/100 leukocytes [Ratio] in Blood by Automated count 0 /100{WBCs} 0-0 [facility] ID Date Data Source [id number] 06/17/2020 10:24:09 AM [facility] Name Value Range Interpretation Code Description Data Eufemia rce(s) Supporting Document(s) Choriogonadotropin.beta subunit [Moles/volume] in Serum or Plasm a 2 m[IU]/mL <5 [facility] ID Date Data Source [id number] 06/17/2020 10:27:39 AM [facility] Name Value Range Interpretation Code Description Data Eufemia rce(s) Supporting Document(s) Albumin [Mass/volume] in Serum or Plasma by Bromocresol green (BCG) dye binding method 4.2 g/dL 3.5-5.2 [facility] Bilirubin.total [Mass/volume] in Serum or Plasma 0.2 mg/dL <1.2 [facility] Calcium [Mass/volume] in Serum or Plasma 9.5 mg/dL 8.6-10.0 [facility] Chloride [Moles/volume] in Serum or Plasma 106 mmol/L 98-107 [facility] Creatinine [Mass/volume] in Serum or Plasma 0.43 mg/dL 0.50-0.90 L [facility] Glucose [Mass/volume] in Serum or Plasma 100 mg/dL 70-140 [facility] Alkaline phosphatase [Enzymatic activity/volume] in Serum or Plasma 77 U/L 35-104 [facility] Potassium [Moles/volume] in Serum or Plasma 3.6 mmol/L 3.4-5.1 [facility] Protein [Mass/volume] in Serum or Plasma 6.8 g/dL 6.4-8.3 [facility] Sodium [Moles/volume] in Serum or Plasma 140 mmol/L 136-145 [facility] Aspartate aminotransferase [Enzymatic activity/volume] in Serum or Plasma 26 U/L <32 [facility] Urea nitrogen [Mass/volume] in Serum or Plasma 15 mg/dL 6-20 [facility] Osmolality of Serum or Plasma by calculation 291 mosm/kg 275-300 [facility] Creatinine/Urea nitrogen [Mass Ratio] in Serum or Plasma 36 [facility] Bicarbonate [Moles/volume] in Serum 23 mmol/L 22-29 [facility] Alanine aminotransferase [Enzymatic activity/volume] in Seru m or Plasma 13 U/L <33 [facility] Anion gap 3 in Serum or Plasma 11 mmol/L 8-15 [facility] Glomerular filtration rate/1.73 sq M pre dicted among non-blacks [Volume Rate/Area] in Serum or Plasma by Creatinine-based formula (MDRD) >6 0 [facility] Glomerular filtration rate/1.73 sq M pre dicted among blacks [Volume Rate/Area] in Serum or Plasma by Creatinine-based formula (MDRD) >60 [facility] ID Date Data Source [id number] 06/17/2020 10:48:[address] [facility] Name Value Range Interpretation Code Description Data Eufemia rce(s) Supporting Document(s) Troponin T.cardiac [Mass/volume] in Serum or Plasma <0.01 [facility] ID Date Data Source [id number] 06/17/2020 10:48:[address] [facility] Name Value Range Interpretation Code Description Data Eufemia rce(s) Supporting Document(s) Thyrotropin [Units/volume] in Serum or Plasma 0.577 u[IU]/mL 0.270-4. 200 [facility] Procedure Social History Code Duration Value Status Description Data Source(s ) Alcohol intake 06/18/2020 12:00:00 AM EDT Current non-d syd of alcohol (finding) completed Current non-drinker of alcohol (finding) [facility] Smoking 06/18/2020 12:00:00 AM EDT Former smoker completed Former smoker [facility] Vital Signs ID Date Data Source UNK Name Value Range Interpretation Code Description Data Source(s) [place] body weight 120 [lb_av] 120 [lb_av] VANDANA Ge ([facility]) Oxygen saturation in Arterial blood by Pulse oximetry 97 % 97 % [facility] ([facility]) Body temperature 99.1 [degF] 99.1 [degF] [facility] ([facility]) Respiratory rate 17 /min 17 /min [facility] ( [facility]) Heart rate 92 /min 92 /min [facility] ([facility]) Body mass index (BMI) [Ratio] 17.2 kg/m2 17.2 k g/m2 [facility] ([facility]) Body weight 100.00 [lb_av] 100.00 [lb_av] [facility] T ([facility]) Body height 64.0 [in_i] 64.0 [in_i] [facility] ([facility]) 5'4" Diastolic blood pressure 80 mm[Hg] 80 mm[Hg] [facility] ([facility]) Systolic blood pressure 136 mm[Hg] 136 mm[Hg] [facility] ([facility]) [place] body weight 120 [lb_av] 120 [lb_av] [facility] T ([facility]) Oxygen saturation in Arterial blood by Pulse oximetry 98 % 98 % [facility] Body temperature 98.2 [degF] 98.2 [degF] [facility] Respiratory rate 16 /min 16 /min [facility] ( [facility]) Heart rate 80 /min 80 /min [facility] ([facility]) Body mass index (BMI) [Ratio] 17.2 kg/m2 17.2 k g/m2 [facility] ([facility]) Body weight 100.00 [lb_av] 100.00 [lb_av] [facility] ([facility]) Body height 64.0 [in_i] 64.0 [in_i] [facility] ([facility]) 5'4" Diastolic blood pressure 82 mm[Hg] 82 mm[Hg] [facility] ([facility]) Systolic blood pressure 118 mm[Hg] 118 mm[Hg] [facility] [place] body weight 120 [lb_av] 120 [lb_av] [facility] ([facility]) Oxygen saturation in Arterial blood by Pulse oximetry 97 % 97 % [facility] ([facility]) Body temperature 98.2 [degF] 98.2 [degF] [facility] ([facility]) Heart rate 73 /min 73 /min [facility] ([facility]) Body mass index (BMI) [Ratio] 16.9 kg/m2 16.9 k g/m2 [facility] ([facility]) Body weight 98.38 [lb_av] 98.38 [lb_av] [facility] [facility] Body height 64.0 [in_i] 64.0 [in_i] MEDENT ([facility]) 5'4" Diastolic blood pressure 82 mm[Hg] 82 mm[Hg] MEDENT ([facility]) Systolic blood pressure 120 mm[Hg] 120 mm[Hg] M EDENT ([facility]) [place] body weight 120 [lb_av] 120 [lb_av] MEDEN T ([facility]) Oxygen saturation in Arterial blood by Pulse oximetry 97 % 97 % [facility] ([facility]) Body temperature 99.3 [degF] 99.3 [degF] [facility] ([facility]) Respiratory rate 18 /min 18 /min MED[facility] ( [facility]) Heart rate 92 /min 92 /min MED[facility] ([facility]) Body mass index (BMI) [Ratio] 16.3 kg/m2 16.3 k g/m2 MED[facility] ([facility]) Body weight 95.00 [lb_av] 95.00 [lb_av] MED[facility] ([facility]) Body height 64.0 [in_i] 64.0 [in_i] MEDENT ([facility]) 5'4" Diastolic blood pressure 76 mm[Hg] 76 mm[Hg] MEDENT ([facility]) Systolic blood pressure 128 mm[Hg] 128 mm[Hg] M EDENT ([facility]) Body mass index (BMI) [Ratio] 18.2 kg/m2 18.2 k g/m2 MEDENT ([facility], [facility]) Body height 64 [in_i] 64 [in_i] MEDENT ([facility]) 5'4" Body weight 106.00 [lb_av] 106.00 [lb_av] MEDEN T ([facility]) Body temperature 98.3 [degF] 98.3 [degF] MEDENT ([facility]) Oxygen saturation in Arterial blood by Pulse oximetry 96 % 96 % [facility] ([facility]) Respiratory rate 14 /min 14 /min [facility] ( [facility]) Heart rate 86 /min 86 /min [facility] ([facility]) Diastolic blood pressure 77 mm[Hg] 77 mm[Hg] [facility] ([facility]) Systolic blood pressure 117 mm[Hg] 117 mm[Hg] [facility] ID Date Data Source [id number] 06/21/2020 03:19:45 PM [facility] Name Value Range Interpretation Code Description Data Source(s) WEIGHT RECORDED 102.[address] [facility] Body height Measured 63 in 63 in [facility] Patient Treatment Plan of Care Planned Activity Planned Date Details Description Data Source (s) Dexamethasone 0.001 MG/MG / Neomycin 0.0 035 MG/MG / Polymyxin B 10 UNT/MG Ophthalmic Ointment 06/18/2020 01:30:00 PM [facility] 1.7 ML Epinephrine 0.01 MG/ML / Lidocaine Hydrochlorid e 20 MG/ML Cartridge 06/18/2020 01:30:00 PM [facility] Proparacaine hydrochloride 5 MG/ML Ophthalmic Solution 06/18/2020 12:30:00 PM [facility] Phenylephrine Hydrochloride 25 MG/ML Ophthalmic Soluti on 06/18/2020 12:30:00 PM [facility] Tropicamide 10 MG/ML Ophthalmic Solution 06/18/2020 12:30:00 PM [facility] Erythromycin 0.005 MG/MG Ophthalmic Ointment 06/18/2020 12:00:00 AM [facility] 24 HR Nicotine 0.583 MG/HR Transdermal Patch 06/18/2020 12:00:00 AM [facility] sennosides, [facility] 8.6 MG Oral Tablet 06/17/2020 10:00:00 PM [facility] albuterol (PROVENTIL HFA) inhaler 1 puff 06/17/2020 02:09:20 PM [facility] Acetaminophen 325 MG Oral Tablet 06/17/2020 02:09:20 PM [facility] gabapentin 300 MG Oral Capsule 02/06/2017 12:00:00 AM [facility] ipratropium (ATROVENT) 0.06 % nasal spray 02/05/2017 12:00:00 AM [facility] Acetaminophen 325 MG / Hydrocodone Bitartrate 7.5 MG O ral Tablet 02/05/2017 12:00:00 AM [facility] 30 ACTUAT fluticasone furoate 0.1 MG/ACT UAT / vilanterol 0.025 MG/ACTUAT Dry Powder Inhaler [Breo] 01/19/2017 12:00:[address] [facility] Sertraline 50 MG Oral Tablet 01/19/2017 12:00:[address] [facility] Sertraline 100 MG Oral Tablet 01/10/2017 12:00:[address] [facility] Alprazolam 0.5 MG Oral Tablet 12/08/2016 12:00:[address] [facility]
[2021-01-15 18:06] LABS: HEMATOCRIT 38.8 % (36.0-47.0); HEMOGLOBIN 12.3 g/dl (12.0-15.5); MEAN CORPUSCULAR HEMOGLOBIN 28.8 pg (27.0-33.0); MEAN CORPUSCULAR HGB CONC 31.7 g/dl (32.0-36.5); MEAN CORPUSCULAR VOLUME 90.9 fl (80.0-96.0); PLATELET COUNT, AUTOMATED 379 10^3/uL (150-450); RED BLOOD COUNT 4.27 10^6/uL (4.00-5.40); WHITE BLOOD COUNT 10.3 10^3/uL (4.0-10.0)
[2021-01-15 18:19] LABS: BLOOD UREA NITROGEN 20 MG/DL (7-18); CALCIUM LEVEL 8.5 MG/DL (8.5-10.1); CARBON DIOXIDE LEVEL 24 MEQ/L (21-32); CHLORIDE LEVEL 111 MEQ/L (98-107); CK-MB VALUE MASS 2.8 NG/ML (<3.6); CPK CREATINE PHOSPHOKINASE 69 U/L (26-192); GLOMERULAR FILTRATION RATE > 60.0 (>58); GLUCOSE, FASTING 83 MG/DL (70-100); MB/CK RELATIVE INDEX 4.06 (< OR =4); POTASSIUM SERUM 3.3 MEQ/L (3.5-5.1); SODIUM LEVEL 144 MEQ/L (136-145); TROPONIN I 0.24 NG/ML (< 0.10)
[2021-01-15 18:25] LABS: INR 0.95; PROTHROMBIN TIME 12.9 SECONDS (12.5-14.3)
[2021-01-15 18:47] LABS: ATYPICAL LYMPH 3 % (0-5); BASOPHILS 1 % (0-1); EOSINOPHILS 5 % (0-3); LYMPHOCYTES 35 % (16-44); MONOCYTES 3 % (0-5); NEUTROPHILS 53 % (28-66)
[2021-01-15 18:48] LABS: PLATELET ESTIMATE NORMAL (NORMAL)
[2021-01-15] MEDS ORDERED: ONDANSETRON 4MG/2ML VIAL IV ONE (20:45)
--- NOTE | 2021-01-15 20:54 | ECGEPIP ---
[facility] - ED Test Date: 2021-01-15 Pat Name: NANCY MANUEL Department: Room: - Gender: Female [employer] Operator: ELIAZAR : 1970 Requested By: VALERIA VERONICA Order Number: [id number] Reading MD: Laureen Espinoza Measurements Intervals [place] Rate: 54 P: 75 SD: 140 QRS: 50 QRSD: 110 T: 70 QT: 434 QTc: 411 Interpretive Statements Sinus bradycardia Incomplete right bundle branch block Nonspecific ST abnormality decreased rate 11/24/19 Electronically Signed on 01-15-2021 20:53:40 EST by Laureen Espinoza
[2021-01-15 21:11] LABS: CK-MB VALUE MASS 10.3 NG/ML (<3.6); MB/CK RELATIVE INDEX 9.54 (< OR =4); TROPONIN I 1.25 NG/ML (< 0.10)
[2021-01-15] MEDS ORDERED: HEPARIN DRIP 25,000 UNITS in IV 1 EA IV SCH (21:21)
[2021-01-15] MEDS ORDERED: HEPARIN SOD (PORCINE) 5000UNITS/ML 1ML VIAL/SYRINGE IV ONE (21:30)
[2021-01-15] MEDS ORDERED: MORPHINE 2 MG/ML 1ML VIAL (J2270) IV PRN (21:30)
[2021-01-15] MEDS ORDERED: CLOPIDOGREL 300 MG TAB (PLAVIX) PO ONE (21:30)
[2021-01-15 22:16] VITALS: BP 98/54
--- NOTE | 2021-01-16 14:54 | ECGEPIP ---
[facility] - ED Test Date: 2021-01-15 Pat Name: NANCY MANUEL Department: Room: - Gender: Female [employer] Hand: : 1970 Requested By: VALERIA VERONICA Order Number: [id number] Reading MD: Coy Gutierres Measurements Intervals [place] Rate: 48 P: 74 [place]: 182 QRS: 54 QRSD: 110 T: 34 QT: 464 QTc: 414 Interpretive Statements Sinus bradycardia Incomplete right bundle branch block Nonspecific ST abnormality SIMILAR TO 01/15/21 Electronically Signed on 01-16-2021 14:54:08 EST by Coy Gutierres
== END 2021-01-15 22:42 | disposition short-term general hospital (02) ==
LOC: M ED 17:00 → EDBD 17:00 → M ED 22:42
DX: I20.0 Unstable angina (principal); R00.1 Bradycardia, unspecified; I45.19 Other right bundle-branch block; I51.9 Heart disease, unspecified; I10 Essential (primary) hypertension; E78.5 Hyperlipidemia, unspecified; K21.9 Gastro-esophageal reflux disease without esophagitis; J44.9 Chronic obstructive pulmonary disease, unspecified; F17.200 Nicotine dependence, unspecified, uncomplicated; Z79.899 Other long term (current) drug therapy
CPT/HCPCS: 71045; 80048; 82550; 82553; 85025; 85610; 87798; 93005; 93041; 94760; 96361; 96374; 96375; 99285; J1644; J2270; J2405

== ENCOUNTER → 2021-01-24 | Outpatient (CLI) | payer OTHER ==
[2021-01-24 19:08] LABS: HEMATOCRIT 42.5 % (36.0-47.0); HEMOGLOBIN 13.5 g/dl (12.0-15.5); MEAN CORPUSCULAR HEMOGLOBIN 29.1 pg (27.0-33.0); MEAN CORPUSCULAR HGB CONC 31.8 g/dl (32.0-36.5); MEAN CORPUSCULAR VOLUME 91.6 fl (80.0-96.0); PLATELET COUNT, AUTOMATED 524 10^3/uL (150-450); RED BLOOD COUNT 4.64 10^6/uL (4.00-5.40); WHITE BLOOD COUNT 10.9 10^3/uL (4.0-10.0)
[2021-01-24 19:41] LABS: BLOOD UREA NITROGEN 31 MG/DL (7-18); CALCIUM LEVEL 9.4 MG/DL (8.5-10.1); CARBON DIOXIDE LEVEL 28 MEQ/L (21-32); CHLORIDE LEVEL 107 MEQ/L (98-107); CREATININE FOR GFR 0.63 MG/DL (0.55-1.30); GLOMERULAR FILTRATION RATE > 60.0 (>58); GLUCOSE, FASTING 89 MG/DL (70-100); SODIUM LEVEL 140 MEQ/L (136-145); THYROID STIMULATING HORMONE 0.744 uIU/ML (0.358-3.740)
[2021-01-24 20:11] LABS: CA 125 3.4 U/ML (<30.2)
== END ==
LOC: M PLALAB 14:43
PROVIDERS: ATTEND Physician Assistant
DX: R63.4 Abnormal weight loss (principal); I21.4 Non-ST elevation (NSTEMI) myocardial infarction

== ENCOUNTER → 2021-02-28 | Outpatient (CLI) | payer OTHER ==
[2021-02-28 18:26] LABS: HEMATOCRIT 40.7 % (36.0-47.0); HEMOGLOBIN 13.1 g/dl (12.0-15.5); MEAN CORPUSCULAR HEMOGLOBIN 29.4 pg (27.0-33.0); MEAN CORPUSCULAR HGB CONC 32.2 g/dl (32.0-36.5); MEAN CORPUSCULAR VOLUME 91.5 fl (80.0-96.0); PLATELET COUNT, AUTOMATED 470 10^3/uL (150-450); RED BLOOD COUNT 4.45 10^6/uL (4.00-5.40); WHITE BLOOD COUNT 9.9 10^3/uL (4.0-10.0)
[2021-02-28 18:58] LABS: BLOOD UREA NITROGEN 20 MG/DL (7-18); CALCIUM LEVEL 10.2 MG/DL (8.5-10.1); CARBON DIOXIDE LEVEL 26 MEQ/L (21-32); CHLORIDE LEVEL 109 MEQ/L (98-107); CHOLESTEROL LEVEL 136 MG/DL (<200); CHOLESTEROL RISK RATIO 2.472 (<5); CREATININE FOR GFR 0.54 MG/DL (0.55-1.30); GLOMERULAR FILTRATION RATE > 60.0 (>58); GLUCOSE, FASTING 95 MG/DL (70-100); HDL CHOLESTEROL 55 MG/DL (>40); LDL CHOLESTEROL 70 MG/DL (<100); NON-HDL-C 81 MG/DL; POTASSIUM SERUM 3.9 MEQ/L (3.5-5.1); SODIUM LEVEL 142 MEQ/L (136-145); TRIGLYCERIDES LEVEL 56 MG/DL (<150); TROPONIN I < 0.02 NG/ML (< 0.10)
== END ==
LOC: M PLALAB 14:25
PROVIDERS: ATTEND Nurse Practitioner Family
DX: E78.5 Hyperlipidemia, unspecified (principal); I10 Essential (primary) hypertension; I25.119 Atherosclerotic heart disease of native coronary artery with unspecified angina pectoris

== ENCOUNTER → 2022-05-02 | Outpatient (CLI) | payer OTHER ==
[~2022-05-02] MED LIST changes: +ALBU2.5V10 NEB; -ALBU83IN NEB; +ASPI-596 PO; -CETI1TAB PO; +CETI1TAB61 PO; +DOXY-443 PO; -DOXY100C37 PO; -EXCEDTAB PO; -LEVO250T12 PO; +LEVO250T3 PO; +OLAN1TAB16 PO; -OLAN5TAB PO; +OMEP40CA4 PO; -OMEP40CA97 PO
[2022-05-02 16:02] LABS: HEMATOCRIT 36.3 % (36.0-47.0); HEMOGLOBIN 11.7 g/dl (12.0-15.5); MEAN CORPUSCULAR HGB CONC 32.2 g/dl (32.0-36.5); MEAN CORPUSCULAR VOLUME 90.1 fl (80.0-96.0); PLATELET COUNT, AUTOMATED 437 10^3/uL (150-450); RED BLOOD COUNT 4.03 10^6/uL (4.00-5.40); WHITE BLOOD COUNT 9.1 10^3/uL (4.0-10.0)
[2022-05-02 16:37] LABS: ALBUMIN 3.7 GM/DL (3.2-5.2); ALT/SGPT 14 U/L (12-78); BILIRUBIN,TOTAL 0.4 MG/DL (0.2-1.0); BLOOD UREA NITROGEN 23 MG/DL (7-18); CARBON DIOXIDE LEVEL 26 MEQ/L (21-32); CHLORIDE LEVEL 108 MEQ/L (98-107); CHOLESTEROL LEVEL 145 MG/DL (<200); CREATININE FOR GFR 0.64 MG/DL (0.55-1.30); FOLATE 11.6 NG/ML; FREE T4 0.87 NG/DL (0.76-1.46); GLOMERULAR FILTRATION RATE > 60.0 (>58); GLUCOSE, FASTING 83 MG/DL (70-100); HDL CHOLESTEROL 58 MG/DL (>40); IRON (FE) 73 UG/DL (50-170); LDL CHOLESTEROL 77 MG/DL (<100); NON-HDL-C 87 MG/DL; PERCENT SATURATION 18.8 % (13.2-45.0); POTASSIUM SERUM 3.8 MEQ/L (3.5-5.1); SODIUM LEVEL 139 MEQ/L (136-145); THYROID STIMULATING HORMONE 0.587 uIU/ML (0.358-3.740); TOTAL 25(OH) VITAMIN D 31.3 NG/ML (30.0-100.0); TOTAL IRON BINDING CAPACITY 388 UG/DL (250-450); TOTAL PROTEIN 6.7 GM/DL (6.4-8.2); TRIGLYCERIDES LEVEL 48 MG/DL (<150); VITAMIN B12 LEVEL 313 PG/ML
[2022-05-02 17:01] LABS: ATYPICAL LYMPH 5 % (0-5); EOSINOPHILS 4 % (0-3); LYMPHOCYTES 44 % (16-44); MONOCYTES 5 % (0-5); NEUTROPHILS 42 % (28-66); PLATELET ESTIMATE NORMAL (NORMAL)
[2022-05-02 17:05] LABS: ANISOCYTOSIS 1+
== END ==
LOC: M WUC 14:25
PROVIDERS: ATTEND Nurse Practitioner Adult Health
DX: E78.00 Pure hypercholesterolemia, unspecified (principal); I25.10 Atherosclerotic heart disease of native coronary artery without angina pectoris

== ENCOUNTER → 2022-12-05 | Outpatient (CLI) | payer OTHER ==
[~2022-12-05] MED LIST changes: +ALBU6.7H6 INH; -LABE100T4; +LABE100T6; +LEVO1TAB38 PO; -LEVO250T3 PO; -PROV108A INH
== END ==
LOC: M WHC 12:55
PROVIDERS: ATTEND Physician Assistant
DX: R91.1 Solitary pulmonary nodule (principal); Z12.31 Encounter for screening mammogram for malignant neoplasm of breast; Z13.820 Encounter for screening for osteoporosis; M85.89 Other specified disorders of bone density and structure, multiple sites

== ENCOUNTER → 2022-12-05 | Outpatient (CLI) | payer OTHER | LOC: M PLAIMG 14:00 | PROVIDERS: ATTEND Physician Assistant | DX: R91.1 Solitary pulmonary nodule (principal); J43.9 Emphysema, unspecified; J47.9 Bronchiectasis, uncomplicated; I70.0 Atherosclerosis of aorta; I25.10 Atherosclerotic heart disease of native coronary artery without angina pectoris; N20.0 Calculus of kidney ==

== ENCOUNTER → 2023-06-24 | Outpatient (CLI) | payer OTHER ==
[~2023-06-24] MED LIST changes: +ASPI-226 PO; +ATOR40TA75 PO; +CLOP75TA2 PO; +DULO1CAP6 PO; +METO1TAB32 PO; +PANT40TA29 PO
[2023-06-24 11:21] LABS: BASO # 0.1 10^3/uL (0.0-0.2); BASO % 0.8 % (0.0-1.0); EOS # 0.8 10^3/uL (0.0-0.5); EOS % 6.2 % (0.0-3.0); HEMATOCRIT 35.8 % (36.0-47.0); HEMOGLOBIN 11.5 g/dl (12.0-15.5); LYMPH # 3.4 10^3/uL (1.5-5.0); LYMPH % 25.9 % (24.0-44.0); MEAN CORPUSCULAR HEMOGLOBIN 28.3 pg (27.0-33.0); MEAN CORPUSCULAR HGB CONC 32.1 g/dl (32.0-36.5); MEAN CORPUSCULAR VOLUME 88.2 fl (80.0-96.0); MONO # 0.7 10^3/uL (0.0-0.8); NEUTROPHILS % 61.8 % (36.0-66.0); PLATELET COUNT, AUTOMATED 465 10^3/uL (150-450); RED BLOOD COUNT 4.06 10^6/uL (4.00-5.40)
[2023-06-24 11:53] LABS: ALBUMIN 3.8 G/DL (3.2-5.2); ALKALINE PHOSPHATASE 74 U/L (46-116); ALT/SGPT 12 U/L (7.0-40); AST/SGOT 15 U/L (<34); BILIRUBIN,TOTAL 0.2 MG/DL (0.3-1.2); BLOOD UREA NITROGEN 19 MG/DL (9-23); CALCIUM LEVEL 9.1 MG/DL (8.5-10.1); CARBON DIOXIDE LEVEL 27 MMOL/L (20-31); CHLORIDE LEVEL 108 MMOL/L (98-107); CHOLESTEROL LEVEL 142 MG/DL (<200); CHOLESTEROL RISK RATIO 2.48 (<5); GLOMERULAR FILTRATION RATE > 60.0 (>51); GLUCOSE, FASTING 84 MG/DL (60-100); HDL CHOLESTEROL 57.2 MG/DL (>40); NON-HDL-C 84.8 MG/DL; POTASSIUM SERUM 4.3 MMOL/L (3.5-5.1); SODIUM LEVEL 142 MMOL/L (136-145); THYROID STIMULATING HORMONE 0.678 uIU/ML (0.55-4.78); TOTAL 25(OH) VITAMIN D 42.6 NG/ML (20.0-100.0); TOTAL PROTEIN 6.3 G/DL (5.7-8.2); TRIGLYCERIDES LEVEL 44 MG/DL (<150)
[2023-06-24 11:57] LABS: FREE T4 0.78 NG/DL (0.89-1.76)
[2023-06-24 12:18] LABS: HEMOGLOBIN A1c 5.3 % (4.0-6.0)
== END ==
LOC: M LAB 10:26
PROVIDERS: ATTEND Physician Assistant
DX: I25.10 Atherosclerotic heart disease of native coronary artery without angina pectoris (principal)

== ENCOUNTER → 2023-07-14 | Outpatient (CLI) | payer OTHER ==
[2023-07-14 10:55] LABS: PERCENT SATURATION 3.6 % (13.2-45.0)
[2023-07-14 10:57] LABS: FOLATE 19.65 NG/ML (>5.4)
== END ==
LOC: M LAB 09:27
PROVIDERS: ATTEND Family Medicine
DX: D50.9 Iron deficiency anemia, unspecified (principal)

== ENCOUNTER → 2023-07-23 | Outpatient (CLI) | payer OTHER | LOC: M PLAIMG 14:48 | PROVIDERS: ATTEND Family Medicine | DX: R41.82 Altered mental status, unspecified (principal) ==

== ENCOUNTER → 2023-08-06 | Outpatient (CLI) | payer OTHER | LOC: M WHC 14:08 | PROVIDERS: ATTEND Family Medicine | DX: N64.59 Other signs and symptoms in breast (principal); N63.20 Unspecified lump in the left breast, unspecified quadrant ==

== ENCOUNTER → 2023-09-11 | Outpatient (CLI) | payer OTHER ==
[~2023-09-11] MED LIST changes: +PROHANCE 279.3MG/ML 5ML VIAL As Ordered ONE
== END ==
LOC: M RAD 15:36
PROVIDERS: ATTEND Family Medicine
DX: R92.8 Other abnormal and inconclusive findings on diagnostic imaging of breast (principal)
CPT/HCPCS: 77049; A9576

== ENCOUNTER → 2024-05-02 | Outpatient (CLI) | payer OTHER ==
[~2024-05-02] MED LIST changes: +DOXY-323 PO; -DOXY-443 PO; -PROHANCE 279.3MG/ML 5ML VIAL As Ordered ONE
== END ==
LOC: M LAB 08:48
PROVIDERS: ATTEND Physician Assistant
DX: R79.89 Other specified abnormal findings of blood chemistry (principal)

== ENCOUNTER → 2024-07-01 | Outpatient (CLI) | payer OTHER | LOC: M LAB 16:57 | PROVIDERS: ATTEND Internal Medicine Cardiovascular Disease | DX: E05.90 Thyrotoxicosis, unspecified without thyrotoxic crisis or storm (principal) ==

== ENCOUNTER → 2024-07-04 | Outpatient (CLI) | payer OTHER ==
[2024-07-04 14:45] LABS: FREE T4 1.09 NG/DL (0.89-1.76)
[2024-07-04 14:48] LABS: FREE T3 2.9 PG/ML (2.3-4.2)
== END ==
LOC: M PLALAB 10:45
PROVIDERS: ATTEND Internal Medicine Cardiovascular Disease
DX: R79.89 Other specified abnormal findings of blood chemistry (principal)

== ENCOUNTER → 2024-09-04 | Outpatient (CLI) | payer OTHER ==
[~2024-09-04] MED LIST changes: -DOXY-323 PO; +DOXY-441 PO; +GABA-1172 PO; -GABA-282 PO
== END ==
LOC: M RAD 08:01
PROVIDERS: ATTEND Internal Medicine Pulmonary Disease
DX: R91.8 Other nonspecific abnormal finding of lung field (principal); I70.0 Atherosclerosis of aorta; I25.10 Atherosclerotic heart disease of native coronary artery without angina pectoris; J84.10 Pulmonary fibrosis, unspecified; J44.9 Chronic obstructive pulmonary disease, unspecified